=== PATIENT | female | born 1960 | race Caucasian/White ===

== ENCOUNTER → 2020-04-12 11:32 | Outpatient (CLI) | payer OTHER, SELFPAY ==
--- NOTE | ~2020-04-12 | MM_ITS ---
EXAMINATION: MM screening arcenio BI w sandra HISTORY: Screening TECHNIQUE: Craniocaudal and mediolateral oblique 3-D tomosynthesis images were obtained and synthetic 2-D images were generated. CAD analysis was submitted and interpreted. COMPARISON: Comparison to multiple prior studies sequentially, with oldest reviewed study dated 09/2012. BREAST PARENCHYMAL COMPOSITION: Breast composed of scattered areas of fibroglandular density FINDINGS: There is no evidence of suspicious mass, calcification, or architectural distortion to sugg est malignancy in either breast. There has been no suspicious interval change. IMPRESSION: 1. No mammographic evidence of malignancy. 2. Recommend routine screening mammography in one year. BI-RADS Category 1: Negative Reviewed, dictated and finalized at location A.
== END ==
PROVIDERS: Visit Provider Obstetrics & Gynecology Gynecology
DX: Z12.31 Encounter for screening mammogram for malignant neoplasm of breast (principal)
CPT/HCPCS: 77063; 77067

== ENCOUNTER → 2020-05-05 08:22 | Outpatient (CLI) | payer OTHER, SELFPAY ==
--- NOTE | ~2020-05-05 | CT_ITS ---
EXAMINATION: CT chest wo con DATE: 05/05/2020 08:47 INDICATION: Interstitial lung disease, shortness of breath with exertion TECHNIQUE: Computed tomography (CT) of the chest was performed without intravenous contrast. The dose -length product (DLP) was 649.35 mGy-cm. 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 COMPARISON: 07/12/2019 FINDINGS: Subpleural reticular and groundglass opacities with a mid and lower lung zone predominance persist without significant change. There is bronchiectasis of the lower lobes and lingula. No honeyc ombing is identified. There is no pleural effusion or pneumothorax. Stable cardiomegaly is noted. The re is enlargement of the main and central pulmonary arteries, consistent with pulmonary hypertension. Mild mediastinal lymphadenopathy is unchanged, likely reactive. The esophagus is mildly patulous, co rrelate for history of scleroderma. IMPRESSION: 1. Stable chronic interstitial lung disease in a pattern of nonspecific interstitial pneumonia (NSIP) versus desquamative interstitial pneumonia (DLP). Reviewed, dictated and finalized at location A. IMPRESSION: 1. Stable chronic interstitial lung disease in a pattern of nonspecific interst itial pneumonia (NSIP) versus desquamative interstitial pneumonia (DLP).
== END ==
PROVIDERS: PCP Physician Assistant
DX: J84.9 Interstitial pulmonary disease, unspecified (principal)
CPT/HCPCS: 71250

== ENCOUNTER 2021-01-24 12:11 | Inpatient (IN) | payer OTHER, SELFPAY ==
[2021-01-24] VITALS (19 sets, daily range): BP systolic 124–159; BP diastolic 48–95; PULSE 71–96; RESP 17–28; TEMP 36.6–38.4; O2SAT 79–100; BMI 50.3
--- NOTE | ~2021-01-24 | XR_ITS ---
EXAMINATION: XR chest 2V DATE: 01/24/2021 12:46 INDICATION: Shortness of breath. Cough. TECHNIQUE: Frontal and lateral views of the chest were obtained. COMPARISON: Chest CT 05/05/2020 FINDINGS: There are airspace opacities in the mid and lower lung zones. There is a small right pleura l effusion. No pneumothorax. Cardiomegaly is noted. There are surgical clips in the abdomen. IMPRESSION: 1. Airspace opacities in the mid and lower lung zones, consistent with pulmonary edema versus pneumon ia superimposed on chronic interstitial lung disease. 2. Small right pleural effusion. 3. Cardiomegaly. Reviewed, dictated and finalized at location B. IMPRESSION: 1. Airspace opacities in the mid and lower lung zones, consistent with pulmonar y edema versus pneumonia superimposed on chronic interstitial lung disease. 2. Small right pleural effusion. 3. Cardiomegaly.
--- NOTE | 2021-01-24 12:30 | ECG_ITS ---
SINUS RHYTHM RIGHT AXIS DEVIATION BORDERLINE R WAVE PROGRESSION, ANTERIOR LEADS BASELINE ARTIFACT- I, II, III, AVR, AVL, AVF, V1 BORDERLINE ECG Electronically Signed On 01-24-2021 13:59:28 CDT by Cuauhtemoc ORNELAS
[2021-01-24 12:38] LABS: Basophils Absolute Auto 0.1 K/mm3 (0.0-0.1); Basophils Percent Auto 0.7 % (0.2-1.2); Hematocrit 32.8 % (37.0-47.0); Hemoglobin 10.1 g/dL (12.0-15.0); Immature Granulocyte Absolute 0.04 K/mm3 (0.00-0.031); Immature Granulocyte Percent A 0.6 % (0-0.5); Lymphocytes Absolute Auto 0.64 K/mm3 (0.9-3.2); Lymphocytes Percent Auto 9.4 % (18.3-44.2); Mean Corpuscular HGB Conc 30.8 g/dl (32-36); Mean Corpuscular Hemoglobin 24.5 pg (26-34); Mean Corpuscular Volume 79.6 fl (80-100); Mean Platelet Volume 8.4 fl (7.4-10.4); Monocytes Absolute Auto 0.6 K/mm3 (0.1-0.6); Monocytes Percent Auto 8.1 % (2.6-8.5); Neutrophils Absolute Auto 5.5 K/mm3 (1.3-6.7); Neutrophils Percent Auto 81.2 % (45.5-73.1); Platelet Count Result 366 k/mm3 (150-375); Red Blood Count 4.12 M/mm3 (4.2-5.4); Red Cell Distribution Width 15.4 % (11.5-14.5); White Blood Count 6.8 K/mm3 (4.5-10.0)
[2021-01-24 12:52] LABS: Anion Gap 9 mmol/L (8-16); Blood Urea Nitrogen 6 mg/dL (7-17); Calcium 8.8 mg/dL (8.4-10.2); Carbon Dioxide 26 mmol/L (22-30); Chloride 101 mmol/L (98-107); Estimated CRCL calculation 88 ml/min; Estimated Glomerular Filt Rate > 60; Glucose 100 mg/dL (65-105); Potassium 3.9 mmol/L (3.4-5.0); Sodium 136 mmol/L (137-145)
--- NOTE | 2021-01-24 13:34 | PC.NURSE ---
EKG done incorrectly at 150Hz at 1237. Repeat EKG done at [address] Gupta at 1319. Denisha in cardiology notified
[2021-01-24] MEDS: IPRATROPIUM BR 0.02% INH SOLN 0.5 MG/2.5 ML VIAL INHALATION ×2 (13:58→20:46)
[2021-01-24] MEDS: ALBUTEROL SULFATE NEB 2.5 MG/0.5 ML INH 5 MG INHALATION ×2 (13:58→20:46)
--- NOTE | 2021-01-24 14:01 | ED.SOB ---
HPI - SOB/Dyspnea General Chief Complaint: Shortness of Breath/Dyspnea Stated Complaint: sob, rib pain Time Seen by Provider: 01/24/21 12:48 Source: patient Mode of arrival: ambulatory Limitations: no limitations History of Present Illness HPI Narrative: 60-year-old female History of some Sjogren's connective tissue disease variation Complains of shortness of breath and cough for 3 days Productive of yellowish-green phlegm She has body aches and subjective fever has not taken her temperature She did finish your Covid vaccination sequence about a month and a half ago 2-1/2 weeks ago she had a outpatient ablation procedure for atrial fibrillation Related Data Home Medications Medication Instructions Recorded Confirmed apixaban [Eliquis] mg 01/24/21 azathioprine 01/24/21 bupropion HCl mg PO 01/24/21 cefuroxime axetil 01/24/21 01/24/21 diltiazem HCl PO 01/24/21 fenofibrate mg 01/24/21 fluoxetine mg 01/24/21 levothyroxine [Synthroid] 01/24/21 metformin mg PO 01/24/21 metoprolol tartrate 01/24/21 pantoprazole PO 01/24/21 simvastatin mg 01/24/21 Allergies Allergy/AdvReac Type Severity Reaction Status Date / Time No Known Allergies Allergy Verified 01/24/21 12:24 Review of Systems Review of Systems: All systems reviewed & are unremarkable except as noted in HPI and below Constitutional: Constitutional: Reports chills, Reports fatigue, Reports fever(s), Denies headache(s) and Reports weakness Eyes: Eyes: Reports no additional eye complaints and Denies change in vision ENT: Denies headache(s) and Denies sore throat Cardiovascular: Cardiovascular: Denies chest pain and Denies dyspnea Respiratory: Respiratory: Reports cough and Reports dyspnea Gastrointestinal: Gastrointestinal: Denies abdominal pain, Denies diarrhea and Denies vomiting Genitourinary: Genitourinary: Denies urinary frequency and Denies dysuria Musculoskeletal: Musculoskeletal: Reports myalgias, Denies deformity, Denies arthralgias, Denies joint swelling and Denies numbness Integumentary/Breasts: Skin/Breast: Denies rash and Denies wounds Neurologic: Denies headache(s), Denies focal weakness and Denies numbness [facility] Past Medical History Medical History (Updated 01/24/21 @ 16:25 by Jose Gupta MD) Depression with anxiety DM2 (diabetes mellitus, type 2) History of atrial flutter Recent ablation Hyperlipidemia Hypothyroidism Developed after taking radioactive iodine Interstitial lung disease Sjogren's syndrome Surgical History Surgical History (Updated 01/24/21 @ 15:28 by Imelda Monroe NP) H/O cardiac radiofrequency ablation History of 2 sections History of shoulder surgery On the right History of total knee arthroplasty Bilat Family History Family History Father Family history of diabetes mellitus in first degree relative Family history of heart disease in male family member before age 55 Sibling Family history of diabetes mellitus in first degree relative Mother Family history of malignant neoplasm of breast in first degree relative Social History Social History (Updated 01/24/21 @ 15:29 by Imelda Mornoe NP) Social History: Patient lives with her Margarito who is the durable power title attorney for healthcare. The patient desires to be a full code. The patient has 2 children. The patient works for a [employer]. Lifelong nonsmoker. Does not use any alcohol,illicit drugs, or marijuana. Smoking status: Never smoker Alcohol intake: never Exam Const: General: cooperative and alert Nutritional Appearance: obese Orientation/consciousness: patient oriented x3 (alert) HENMT: Head: normal to inspection, normocephalic and atraumatic Ears: external ears normal General nose exam: no epistaxis Eyes: Conjunctivae: conjunctivae normal EOM: EOMs intact bilaterally Neck: Neck: normal visual inspection, supple a
[2021-01-24 14:54] LABS: Lactic Acid Reflex 0.9 mmol/L (0.7-2.1)
--- NOTE | 2021-01-24 15:15 | PM.IMHP ---
H&P: HPI History of Present Illness Date/Time: 01/24/21 15:15 this is a 60-year-old female patient who has a history of atrial flutter and recently had an ablation at [facility]. The patient stated that she started feeling ill last night and had a fever of 102. She stated that she has had her COVID vaccine in that she had COVID back in October. The patient has fever , chills, and a cough. She feels very fatigued. The patient was hypoxic with a pulse ox of 79 when she 1st came to the emergency room. She was placed on 2 L per nasal cannula. She does not currently have any oxygen at home. Here in the ER she does not have a fever. The patient sees a cork insulator helper elsewhere and has received the diagnosis interstitial lung disease. She also has a hazmat cdl driver that she follows with for her sojourn syndrome. That she just went to bed last night. She did not take any Tylenol or hqge-kjy-yhlgyni cold medication. Radiologist as opacities in the mid and lower lung zones, consistent with pulmonary edema versus pneumonia superimposed on chronic interstitial lung disease. Chest CT was read as stable chronic interstitial lung disease in a pattern of nonspecific interstitial pneumonia versus Desquamative pneumonia. The patient was placed on azithromycin and Rocephin. She is also given a nebulizer treatment in the emergency room. The patient is being admitted to inpatient status On 01/24/2021. Chief Complaint: Shortness of breath Review of Systems Review of Systems: All systems reviewed & are unremarkable except as noted in HPI and below Constitutional: Constitutional: Reports as per HPI and Reports no additional constitutional complaints Eyes: Eyes: Reports as per HPI and Reports no additional eye complaints ENT: Reports system reviewed and no additional complaints, except as documented and Reports Normal hearing present Cardiovascular: Cardiovascular: Reports no additional cardiovascular complaints Respiratory: Respiratory: Reports no additional respiratory complaints and Reports no additional respiratory complaints Gastrointestinal: Gastrointestinal: Reports as per HPI and Reports no additional gastrointestinal complaints Musculoskeletal: Musculoskeletal: Reports no additional musculoskeletal complaints Integumentary/Breasts: Skin/Breast: Reports system reviewed and no additional complaints, except as docu and Reports as per HPI Neurologic: Reports system reviewed and no additional complaints, except as documented, Reports as per HPI and Reports Normal hearing present Psychiatric: Psychiatric: Reports no additional psychiatric complaints and Reports as per HPI Endocrine: Endocrine: Reports no additional endocrine complaints Hematologic/Lymphatic: Hematologic/Lymphatic: Reports no additional hematologic/lymphatic complaints Allergic/Immunologic: Allergic/Immunologic: Reports no additional allergic/immunologic complaints [facility] Past Medical History Medical History (Updated 01/24/21 @ 15:36 by Imelda Monroe NP) Depression with anxiety DM2 (diabetes mellitus, type 2) History of atrial flutter Recent ablation Hyperlipidemia Hypothyroidism Developed after taking radioactive iodine Interstitial lung disease Sjogren's syndrome Surgical History Surgical History (Updated 01/24/21 @ 15:28 by Imelda Monroe NP) H/O cardiac radiofrequency ablation History of 2 sections History of shoulder surgery On the right History of total knee arthroplasty Bilat Family History Family History Father Family history of diabetes mellitus in first degree relative Family history of heart disease in male family member before age 55 Sibling Family history of diabetes mellitus in first degree relative Mother Family history of malignant neoplasm of breast in first degree relative Social History Social History (Updated 01/24/21 @ 15:29 by Imelda Monroe NP) Soc
--- NOTE | 2021-01-24 16:57 | ADMGEN ---
This patient, Melonie Prado, was admitted to [facility] Surg Room 313-01. Patient/family oriented to hospital policies and general routines including ID bracelet, bed and alarms, visiting hours, pain management, procedures, bathroom and other care routines, personal items, smoking policy, room service/diet, and visiting hours. Information on how to activate the Rapid Response Team has been discussed. Patient/Family are encouraged to report perceived risks to care and to ask questions if they do not understand what they are told or what they should do.
[2021-01-24] MEDS: LACTATED RINGERS 1,000 ML 125 ML IV CONT (17:18)
[2021-01-24] MEDS: metroNIDAZOLE 500 MG/ISO 100ML 500 MG/100 ML BAG 100 MG IVPB (17:18)
[2021-01-24 17:27] LABS: Glucose Point of Care 103 mg/dl (65-105)
[2021-01-24] MEDS: ACETAMINOPHEN 325 MG TABLET 650 MG PO (17:58)
[2021-01-24] MEDS: azaTHIOprine 50 MG TABLET PO (18:30)
[2021-01-24] MEDS: PANTOPRAZOLE 40 MG TABLET PO (18:31)
[2021-01-24] MEDS: APIXABAN 5 MG TABLET BY MOUTH (18:31)
[2021-01-24] MEDS: metFORMIN HCL XR 500 MG TAB.SR.24H PO (18:46)
[2021-01-24] MEDS: METOPROLOL TARTRATE 50 MG TAB PO (20:56)
[2021-01-24] MEDS: FENOFIBRATE,MICRONIZED 48 MG TABLET PO (20:57)
[2021-01-24] MEDS: SIMVASTATIN 20 MG TABLET PO (20:57)
[2021-01-24] MEDS: FLUoxetine HCL 10 MG CAPSULE PO (22:11)
[2021-01-24 23:25] LABS: Glucose Point of Care 97 mg/dl (65-105)
[2021-01-25] VITALS (18 sets, daily range): BP systolic 106–126; BP diastolic 44–98; PULSE 56–85; RESP 18–20; TEMP 36.2–36.7; O2SAT 86–97; BMI 50.3
[2021-01-25] MEDS: metroNIDAZOLE 500 MG/ISO 100ML 500 MG/100 ML BAG 100 MG IVPB ×3 (00:09→12:21)
[2021-01-25] MEDS: ACETAMINOPHEN 325 MG TABLET 650 MG PO ×3 (00:12→18:03)
[2021-01-25] MEDS: IPRATROPIUM BR 0.02% INH SOLN 0.5 MG/2.5 ML VIAL INHALATION ×3 (02:03→15:00)
[2021-01-25] MEDS: LACTATED RINGERS 1,000 ML 125 ML IV CONT (02:17)
[2021-01-25] MEDS: LEVOTHYROXINE SODIUM 100 MCG TABLET 200 MCG PO (05:45)
[2021-01-25 06:51] LABS: Basophils Percent Auto 0.5 % (0.2-1.2); Eosinophils Percent Auto 0.2 % (0-4.4); Hematocrit 27.6 % (37.0-47.0); Hemoglobin 8.6 g/dL (12.0-15.0); Immature Granulocyte Absolute 0.02 K/mm3 (0.00-0.031); Immature Granulocyte Percent A 0.3 % (0-0.5); Lymphocytes Absolute Auto 0.92 K/mm3 (0.9-3.2); Lymphocytes Percent Auto 15.9 % (18.3-44.2); Mean Corpuscular HGB Conc 31.2 g/dl (32-36); Mean Corpuscular Hemoglobin 24.4 pg (26-34); Mean Corpuscular Volume 78.2 fl (80-100); Mean Platelet Volume 8.8 fl (7.4-10.4); Monocytes Absolute Auto 0.7 K/mm3 (0.1-0.6); Monocytes Percent Auto 11.4 % (2.6-8.5); Neutrophils Absolute Auto 4.2 K/mm3 (1.3-6.7); Neutrophils Percent Auto 71.7 % (45.5-73.1); Platelet Count Result 319 k/mm3 (150-375); Red Blood Count 3.53 M/mm3 (4.2-5.4); Red Cell Distribution Width 15.8 % (11.5-14.5); White Blood Count 5.8 K/mm3 (4.5-10.0)
[2021-01-25 07:00] LABS: Alanine Aminotransferase 8 U/L (4-35); Albumin Level 3.1 g/dL (3.5-5.1); Alkaline Phosphatase 67 U/L (38-126); Anion Gap 8 mmol/L (8-16); Aspartate Amino Transferase 23 U/L (14-36); Bilirubin,Total 0.2 mg/dL (0.2-1.3); Blood Urea Nitrogen 6 mg/dL (7-17); Calcium 8.2 mg/dL (8.4-10.2); Carbon Dioxide 29 mmol/L (22-30); Chloride 104 mmol/L (98-107); Estimated CRCL calculation 87 ml/min; Estimated Glomerular Filt Rate > 60; Glucose 103 mg/dL (65-105); Potassium 3.7 mmol/L (3.4-5.0); Sodium 141 mmol/L (137-145)
[2021-01-25 07:11] LABS: Hemoglobin A1C 5.5 % (<5.7)
[2021-01-25 08:19] LABS: Free T4 Free Thyroxine Reflex 1.12 ng/dL (0.78-2.19)
[2021-01-25 08:24] LABS: Glucose Point of Care 109 mg/dl (65-105)
[2021-01-25] MEDS: ALBUTEROL SULFATE NEB 2.5 MG/0.5 ML INH 5 MG INHALATION ×3 (08:33→20:03)
[2021-01-25] MEDS: metFORMIN HCL XR 500 MG TAB.SR.24H PO ×2 (09:16→18:04)
[2021-01-25] MEDS: APIXABAN 5 MG TABLET BY MOUTH ×2 (09:17→18:04)
[2021-01-25] MEDS: buPROPion HCL XL (24 HR) 150 MG TABCR 300 MG PO (09:17)
[2021-01-25] MEDS: METOPROLOL TARTRATE 50 MG TAB PO ×2 (09:17→21:05)
[2021-01-25] MEDS: azaTHIOprine 50 MG TABLET PO ×2 (09:17→18:04)
[2021-01-25] MEDS: PANTOPRAZOLE 40 MG TABLET PO (09:18)
[2021-01-25 12:05] LABS: Glucose Point of Care 101 mg/dl (65-105)
[2021-01-25 12:07] LABS: Total Triiodothyronine (T3) 0.48 NG/ML (0.97-1.69)
--- NOTE | 2021-01-25 13:04 | PM.IMPN ---
Progress Note: A&P Assessment and Plan (1) Community acquired pneumonia: Code(s): J18.9 - Pneumonia, unspecified organism Status: Acute Assessment and Plan: CXR showed airspace opacities in the mid and lower lung zones. She had been febrile up to 101.1 but has been afebrile today. No leukocytosis. She was hypoxic and required up to 2 L which has resolved and she is on room air currently. Continue azithromycin and rocephin. Discontinue flagyl Supportive care to include bronchodilators, expectorants, antipyretics, and incentive spirometry Supplemental O2 as needed with goal saturation 90% or above. Wean to goal. Blood cultures are pending. Sputum culture ordered, however cough is nonproductive (2) Interstitial lung disease: Code(s): J84.9 - Interstitial pulmonary disease, unspecified Status: Chronic Assessment and Plan: She is established with pulmonology. Continue with outpatient follow up (3) DM2 (diabetes mellitus, type 2): Code(s): E11.9 - Type 2 diabetes mellitus without complications Status: Chronic Assessment and Plan: A1c is 5.5. Blood sugars are well controlled. Continue accuchecks, SSI, and hypoglycemic protocol Continue metformin (4) Hypothyroidism: Code(s): E03.9 - Hypothyroidism, unspecified Status: Chronic Assessment and Plan: TSH is elevated at 11.3 She is established with endocrinology and recently had TSH outpatient that was around 8.0 and no adjustments were made at that time because prior readings had been stable. T4 wnl Continue levothyroxine Recommend repeat TSH in several weeks as an outpatient upon resolution of acute illness Follow up with outpatient weblogic developer. (5) History of atrial flutter: Code(s): Z86.79 - Personal history of other diseases of the circulatory system Status: Inactive Assessment and Plan: S/p cardiac ablation on 01/08/2021. She is in sinus rhythm and rate is controlled. Continue Cardizem and Eliquis (6) Hypomagnesemia: Code(s): E83.42 - Hypomagnesemia Status: Acute Assessment and Plan: Magnesium was low at 1.0. Supplement with 3 g IV magnesium sulfate Monitor magnesium levels closely (7) Sjogren's syndrome: Code(s): M35.00 - Sicca syndrome, unspecified Status: Chronic Assessment and Plan: Chronic with no acute issues. She is established with rheumatology. Subjective Date/time seen: 01/25/21 13:04 Interval history: Date of service: 01/25/2021 Melonie Prado is a 60-year-old female with a history of type 2 diabetes mellitus, hyperlipidemia, hypothyroidism, interstitial lung disease and Sjogren syndrome, and history of atrial flutter s/p cardiac ablation on 01/08/2021 who is seen in follow-up for community-acquired pneumonia. She is feeling better today. She continues to endorse dyspnea at rest. She is still coughing frequently however cough is nonproductive. No chest pain or palpitations. Denies wheezing. She states that she can her chest rattling. She denies fever or chills. Denies nausea or vomiting. No dizziness or lightheadedness. She has been having loose stools for about 3 days. Denies any urinary symptoms. Her appetite has been poor, but she did he some of her breakfast this morning. She reports she has been staying well hydrated. She has no additional concerns at this time. Review of Systems Review of Systems: All systems reviewed & are unremarkable except as noted in HPI and below Exam Narrative: Exam Narrative: Ms. Prado is a well-nourished 60-year-old female who is lying supine in bed. She appears comfortable and is in NARD. Neuro: awake, alert and oriented x4, speech clear, no focal neuro deficits noted HEENMT: normocephalic, atraumatic, EOMI, sclerae anicteric, moist oral mucosa, tongue midline, nares patent Neck: supple, no lymphadenopathy Respirator
[2021-01-25] MEDS: MAGNESIUM SULFATE 3GM/D5W100ML 3 GM/100 ML BAG IVPB (13:31)
[2021-01-25 17:01] LABS: Glucose Point of Care 89 mg/dl (65-105)
[2021-01-25 17:40] LABS: SARS-CoV-2 RNA PCR Negative
[2021-01-25] MEDS: guaiFENesin 12 HR 600 MG TABCR PO (18:04)
[2021-01-25] MEDS: SACCHAROMYCES BOULARDII 250 MG CAPSULE PO (18:04)
[2021-01-25] MEDS: FENOFIBRATE,MICRONIZED 48 MG TABLET PO (21:04)
[2021-01-25] MEDS: SIMVASTATIN 20 MG TABLET PO (21:04)
[2021-01-25] MEDS: FLUoxetine HCL 10 MG CAPSULE PO (21:04)
[2021-01-25 21:44] LABS: Glucose Point of Care 108 mg/dl (65-105)
[2021-01-26] VITALS (21 sets, daily range): BP systolic 101–140; BP diastolic 45–63; PULSE 58–87; RESP 18–20; TEMP 36.1–37; O2SAT 71–99
[2021-01-26] MEDS: ALBUTEROL SULFATE NEB 2.5 MG/0.5 ML INH 5 MG INHALATION ×4 (01:59→20:16)
[2021-01-26] MEDS: IPRATROPIUM BR 0.02% INH SOLN 0.5 MG/2.5 ML VIAL INHALATION ×4 (01:59→20:17)
[2021-01-26] MEDS: LEVOTHYROXINE SODIUM 100 MCG TABLET 200 MCG PO (05:56)
[2021-01-26] MEDS: ACETAMINOPHEN 325 MG TABLET 650 MG PO (05:56)
[2021-01-26 05:57] LABS: Hematocrit 28.7 % (37.0-47.0); Hemoglobin 8.8 g/dL (12.0-15.0); Mean Corpuscular HGB Conc 30.7 g/dl (32-36); Mean Corpuscular Hemoglobin 24.1 pg (26-34); Mean Corpuscular Volume 78.6 fl (80-100); Mean Platelet Volume 8.5 fl (7.4-10.4); Platelet Count Result 327 k/mm3 (150-375); Red Blood Count 3.65 M/mm3 (4.2-5.4); Red Cell Distribution Width 15.7 % (11.5-14.5)
[2021-01-26 06:08] LABS: Anion Gap 8 mmol/L (8-16); Blood Urea Nitrogen 6 mg/dL (7-17); Calcium 8.1 mg/dL (8.4-10.2); Carbon Dioxide 27 mmol/L (22-30); Chloride 103 mmol/L (98-107); Estimated CRCL calculation 99 ml/min; Estimated Glomerular Filt Rate > 60; Glucose 104 mg/dL (65-105); Magnesium 1.4 mg/dL (1.6-2.3); Potassium 3.5 mmol/L (3.4-5.0); Sodium 138 mmol/L (137-145)
[2021-01-26 08:10] LABS: Glucose Point of Care 112 mg/dl (65-105)
[2021-01-26] MEDS: MAGNESIUM SULF 2 GM/WATER 50ML 2 GM/50 ML BAG IVPB (09:16)
[2021-01-26] MEDS: METOPROLOL TARTRATE 50 MG TAB PO ×2 (09:18→21:20)
[2021-01-26] MEDS: azaTHIOprine 50 MG TABLET PO (09:18)
[2021-01-26] MEDS: guaiFENesin 12 HR 600 MG TABCR PO ×2 (09:18→21:20)
[2021-01-26] MEDS: buPROPion HCL XL (24 HR) 150 MG TABCR 300 MG PO (09:18)
[2021-01-26] MEDS: SACCHAROMYCES BOULARDII 250 MG CAPSULE PO ×2 (09:20→17:43)
[2021-01-26] MEDS: metFORMIN HCL XR 500 MG TAB.SR.24H PO ×2 (09:20→17:43)
[2021-01-26] MEDS: PANTOPRAZOLE 40 MG TABLET PO (09:20)
[2021-01-26] MEDS: APIXABAN 5 MG TABLET BY MOUTH ×2 (09:20→17:43)
--- NOTE | 2021-01-26 11:12 | PM.IMPN ---
Progress Note: A&P Assessment and Plan (1) Community acquired pneumonia: Code(s): J18.9 - Pneumonia, unspecified organism Status: Acute Assessment and Plan: CXR showed airspace opacities in the mid and lower lung zones. She had been febrile up to 101.1 but has been afebrile almost 48 hours. No leukocytosis. Continue azithromycin and rocephin. Supportive care to include bronchodilators, expectorants, antipyretics, and incentive spirometry Supplemental O2 as needed with goal saturation 90% or above. Wean to goal. Blood cultures are pending, negative to date. Sputum culture ordered (2) Hypoxia: Code(s): R09.02 - Hypoxemia Status: Acute Assessment and Plan: [place] secondary to CAP. She was hypoxic at presentation required up to 2 L per nasal cannula. Today she desatted to 71% with activity. Maintaining adequate oxygen saturations on room air at rest. Home O2 eval performed today given the upcoming long weekend. Need for 2 L O2 with activity Supplemental O2 as above. Wean to goal. (3) Interstitial lung disease: Code(s): J84.9 - Interstitial pulmonary disease, unspecified Status: Chronic Assessment and Plan: Last CT May 2020 showed stable chronic interstitial lung disease. She is established with pulmonology. Continue with outpatient follow up (4) DM2 (diabetes mellitus, type 2): Code(s): E11.9 - Type 2 diabetes mellitus without complications Status: Chronic Assessment and Plan: A1c is 5.5. Blood sugars are well controlled. Continue accuchecks, SSI, and hypoglycemic protocol Continue metformin (5) Hypothyroidism: Code(s): E03.9 - Hypothyroidism, unspecified Status: Chronic Assessment and Plan: TSH is elevated at 11.3 She is established with endocrinology and recently had a patient TSH that was around 8.0 and no adjustments were made at that time because prior readings had been stable. T4 wnl Continue levothyroxine Recommend repeat TSH in several weeks as an outpatient upon resolution of acute illness Follow up with outpatient coffee shop manager. (6) History of atrial flutter: Code(s): Z86.79 - Personal history of other diseases of the circulatory system Status: Inactive Assessment and Plan: S/p cardiac ablation on 01/08/2021. She is in sinus rhythm and rate is controlled. Continue Cardizem and Eliquis (7) Hypomagnesemia: Code(s): E83.42 - Hypomagnesemia Status: Acute Assessment and Plan: Magnesium was low at 1.0 and was supplemented. Improved today at 1.5 Administer 2 g IV magnesium sulfate Monitor magnesium levels closely (8) Sjogren's syndrome: Code(s): M35.00 - Sicca syndrome, unspecified Status: Chronic Assessment and Plan: Chronic with no acute issues. She is established with rheumatology. Hold azathioprine given acute infection Subjective Date/time seen: 01/26/21 11:12 Interval history: Date of service: 01/26/2021 Melonie Prado is a 60-year-old female with a history of type 2 diabetes mellitus, hyperlipidemia, hypothyroidism, interstitial lung disease and Sjogren syndrome, and history of atrial flutter s/p cardiac ablation on 01/08/2021 who is seen in follow-up for community-acquired pneumonia. She is doing okay today. She became hypoxic while ambulating to the restroom today, though she remained asymptomatic during this episode. She is coughing more frequently and feels that her cough is becoming looser. She is able to expectorate better and endorses green sputum. She denies chest pain or palpitations. Denies fever, chills, nausea, vomiting. No dizziness or lightheadedness. Denies body aches or cramps. No urinary symptoms. Appetite is better today. Review of Systems Review of Systems: All systems reviewed & are unremarkable except as noted in HPI and below Exam Narrative: Exam
--- NOTE | 2021-01-26 11:48 | HOMEO2EVAL ---
Evaluation was performed at [facility] Home Oxygen Evaluation RC: Home Oxygen (O2) Evaluation Start: 01/26/21 11:02 Freq: ONCE Status: Active Protocol: RPE Activity Type Activity Date Activity User E-Sign Co-Sign Detail Recorded Client Recorded Date Recorded By Document 01/26/21 11:15 [email or web address] [email or web address] 01/26/21 11:48 DJO Document 01/26/21 11:20 [email or web address] [email or web address] 01/26/21 11:48 DJO Document 01/26/21 11:25 [email or web address] [email or web address] 01/26/21 11:48 DJO Document 01/26/21 11:30 [email or web address] [email or web address] 01/26/21 11:48 DJO Document 01/26/21 11:45 [email or web address] [email or web address] 01/26/21 11:48 DJO 01/26/21 01/26/21 01/26/21 11:15 11:20 11:25 Home O2 Evaluation Test Phase Resting Exercise Exercise Oxygen Delivery Room Air Room Air Nasal Cannula Oxygen Flow Rate (L/min) 1 Pulse Oximetry (90-100 %) 93 86 L 88 L Pulse Rate (60-100 beats/min) 58 L 79 87 Activity Tolerance Rating of Perceived Dyspnea (PD) Ambulation Distance (feet) Treatment Charges O2 Evaluation - Inpatient 01/26/21 01/26/21 11:30 11:45 Home O2 Evaluation Test Phase Exercise Resting Oxygen Delivery Nasal Cannula Room Air Oxygen Flow Rate (L/min) 2 Pulse Oximetry (90-100 %) 90 92 Pulse Rate (60-100 beats/min) 60 Activity Tolerance Good Rating of Perceived Dyspnea (PD) +2 Mild, Some Difficulty, Noticeable to the Observer Ambulation Distance (feet) 400 Treatment Charges
[2021-01-26 12:39] LABS: Glucose Point of Care 134 mg/dl (65-105)
--- NOTE | 2021-01-26 13:17 | PCRCNOTE ---
HOME O2 EVAL COMPLETE, 2 LITERS WITH ACTIVITY. SET UP WITH [facility] PT. PHONE NUMBER [phone]. TANK TO BE DELIVERED TO PT'S ROOM TODAY.
[2021-01-26 17:35] LABS: Glucose Point of Care 122 mg/dl (65-105)
[2021-01-26] MEDS: FENOFIBRATE,MICRONIZED 48 MG TABLET PO (21:20)
[2021-01-26] MEDS: SIMVASTATIN 20 MG TABLET PO (21:20)
[2021-01-26] MEDS: FLUoxetine HCL 10 MG CAPSULE PO (22:01)
[2021-01-27] VITALS (9 sets, daily range): BP systolic 103–122; BP diastolic 54–59; PULSE 59–87; RESP 15–20; TEMP 36.5–36.9; O2SAT 91–99
[2021-01-27] MEDS: ALBUTEROL SULFATE NEB 2.5 MG/0.5 ML INH 5 MG INHALATION ×2 (03:16→08:18)
[2021-01-27] MEDS: IPRATROPIUM BR 0.02% INH SOLN 0.5 MG/2.5 ML VIAL INHALATION ×2 (03:17→08:19)
[2021-01-27 06:21] LABS: Anion Gap 4 mmol/L (8-16); Blood Urea Nitrogen 6 mg/dL (7-17); Calcium 8.1 mg/dL (8.4-10.2); Carbon Dioxide 31 mmol/L (22-30); Chloride 104 mmol/L (98-107); Estimated CRCL calculation 99 ml/min; Estimated Glomerular Filt Rate > 60; Glucose 98 mg/dL (65-105); Magnesium 1.5 mg/dL (1.6-2.3); Potassium 3.6 mmol/L (3.4-5.0); Sodium 139 mmol/L (137-145)
[2021-01-27 06:23] LABS: Hematocrit 27.6 % (37.0-47.0); Hemoglobin 8.4 g/dL (12.0-15.0)
[2021-01-27] MEDS: LEVOTHYROXINE SODIUM 100 MCG TABLET 200 MCG PO (06:31)
[2021-01-27 07:01] LABS: Glucose Point of Care 109 mg/dl (65-105)
[2021-01-27 08:30] LABS: Glucose Point of Care 120 mg/dl (65-105)
[2021-01-27] MEDS: buPROPion HCL XL (24 HR) 150 MG TABCR 300 MG PO (08:35)
[2021-01-27] MEDS: PANTOPRAZOLE 40 MG TABLET PO (08:35)
[2021-01-27] MEDS: SACCHAROMYCES BOULARDII 250 MG CAPSULE PO (08:35)
[2021-01-27] MEDS: metFORMIN HCL XR 500 MG TAB.SR.24H PO (08:35)
[2021-01-27] MEDS: APIXABAN 5 MG TABLET BY MOUTH (08:35)
[2021-01-27] MEDS: guaiFENesin 12 HR 600 MG TABCR PO (08:35)
[2021-01-27] MEDS: MAGNESIUM SULF 1 GM/D5W 100 ML 1 GM/100 ML BAG IVPB (08:36)
[2021-01-27] MEDS: METOPROLOL TARTRATE 50 MG TAB PO (08:36)
[2021-01-27 12:12] LABS: Glucose Point of Care 103 mg/dl (65-105)
--- NOTE | 2021-01-27 12:47 | PM.DS ---
DS: Admitting Diagnosis Admitting Diagnosis Admitting Diagnosis: CAP DS: Discharge Diagnosis Discharge Diagnosis (1) Community acquired pneumonia: Code(s): J18.9 - Pneumonia, unspecified organism Status: Acute Assessment and Plan: CXR showed airspace opacities in the mid and lower lung zones. She had been febrile up to 101.1 but has been afebrile almost 48 hours. No leukocytosis. azithromycin and ceftrixone x 3 doses, PO azithromycin and cefdinir for additional 4 days. prednisone added for 5 days 01/27, patient instructed to avoid refined carbohydrates (sugar and flour) for one week. Supportive care to include bronchodilators, expectorants, antipyretics, and incentive spirometry Supplemental O2 as needed with goal saturation 90% or above. Wean to goal. Blood cultures are pending, negative to date. Sputum culture ordered (2) Hypoxia: Code(s): R09.02 - Hypoxemia Status: Acute Assessment and Plan: [place] secondary to CAP. She was hypoxic at presentation required up to 2 L per nasal cannula. Today she desatted to 71% with activity. Maintaining adequate oxygen saturations on room air at rest. Home O2 eval performed 01/26 demonstrated need for 2 L O2 with activity (3) Interstitial lung disease: Code(s): J84.9 - Interstitial pulmonary disease, unspecified Status: Chronic Assessment and Plan: Last CT May 2020 showed stable chronic interstitial lung disease. She is established with pulmonology. Continue with outpatient follow up (4) DM2 (diabetes mellitus, type 2): Code(s): E11.9 - Type 2 diabetes mellitus without complications Status: Chronic Assessment and Plan: A1c is 5.5. Blood sugars are well controlled. Diabetic diet Continue metformin (5) Hypothyroidism: Code(s): E03.9 - Hypothyroidism, unspecified Status: Chronic Assessment and Plan: TSH is elevated at 11.3 She is established with endocrinology and recently had a patient TSH that was around 8.0 and no adjustments were made at that time because prior readings had been stable. T4 wnl TSH over 11 with FT4 WNL, TT3 low, suggesting sick euthyroid syndrome Continue levothyroxine Recommend repeat TSH in several weeks as an outpatient upon resolution of acute illness Follow up with outpatient chief medical technologist. (6) Hypomagnesemia: Code(s): E83.42 - Hypomagnesemia Status: Acute Assessment and Plan: Magnesium was low at 1.0 upon admission and was supplemented. Improved today at 1.5 Administer 1 g IV magnesium sulfate F/u as outpatient (7) Sjogren's syndrome: Code(s): M35.00 - Sicca syndrome, unspecified Status: Chronic Assessment and Plan: Chronic with no acute issues. She is established with rheumatology. Resume azathioprine after completion of antibiotics DS: Summary Hospital Course Reason for hospitalization: Pneumonia Hospital Course: Admitted with worsening cough and dyspnea. Found to have bilateral mid lower lung infiltrates. SARS-CoV-2 testing negative. Treated with inhaled bronchodilators, a azithromycin, ceftriaxone. Shortness of breath and wheezing improved. Required no oxygen at rest but 2 liters/minute with exertion. Advised to also wear during sleep. Was tolerating her diet. Sugars were controlled. Prednisone added on day of discharge due to ongoing wheezing. Also has a history of interstitial lung disease of undetermined etiology, possibly related to her sicca syndrome. Patient was to go home with her as she was feeling much better. Patient's white blood cell count remained normal during hospitalization as did her platelet count. Her hemoglobin was 10.1 with follow-up 8.6, 8.8, 8.4. No bleeding. Her counts are followed closely due to azathioprine. She will continue to follow-up with her director agency & strategic partnerships and primary physician. Blood sugar remained controlled dur
[2021-01-27] MEDS: predniSONE 20 MG TABLET PO (14:31)
== END 2021-01-27 15:25 | disposition home or self-care (01) | DRG 194 ==
LOC: ANHED 14:20 → ANH3MEDSUR 16:26
PROVIDERS: Nurse Practitioner; Physician Assistant; Admitting Provider Family Medicine; Emergency Provider Emergency Medicine; PCP Physician Assistant; Visit Provider Internal Medicine
DX: J18.9 Pneumonia, unspecified organism (principal); J84.9 Interstitial pulmonary disease, unspecified; Z20.822 Contact with and (suspected) exposure to COVID-19; R09.02 Hypoxemia; F41.8 Other specified anxiety disorders; E11.9 Type 2 diabetes mellitus without complications; E78.5 Hyperlipidemia, unspecified; E89.0 Postprocedural hypothyroidism; E83.42 Hypomagnesemia; M35.00 Sjogren syndrome, unspecified; Z86.79 Personal history of other diseases of the circulatory system; Z79.01 Long term (current) use of anticoagulants; Z79.899 Other long term (current) drug therapy
CPT/HCPCS: 36415; 71046; 80048; 80053; 82948; 83036; 83605; 83735; 84439; 84443; 84480; 85014; 85018; 85025; 85027; 87040; 93005; 94618; 94640; 96361; 96365; 96366; 96367; 96375; 99285; A9270; C9803; G0378; J0456; J0696; J3475; J7120; J7512; U0003; U0005

== ENCOUNTER → 2021-02-16 15:23 | Outpatient (CLI) | payer OTHER, SELFPAY ==
--- NOTE | ~2021-02-16 | XR_ITS ---
EXAMINATION: XR chest 2V DATE: 02/16/2021 15:50 INDICATION: Pneumonia TECHNIQUE: PA and lateral views of the chest were obtained. COMPARISON: Chest radiograph dated 01/24/2021 FINDINGS: Pulmonary vascular congestion. Increased interstitial and patchy groundglass opacities throughout the bilateral mid and lower lung zones. No pneumothorax or pleural effusion. Cardiomegaly. There are alvaro dging osteophytes at multiple levels in the spine, consistent with diffuse idiopathic skeletal hypero stosis (DISH). IMPRESSION: 1. Persistent interstitial and airspace opacities in the bilateral mid and lower lung zones which cou ld represent pulmonary edema, pneumonia, chronic interstitial lung disease or some combination thereo f. 2. Cardiomegaly. Reviewed, dictated and finalized at location A. IMPRESSION: 1. Persistent interstitial and airspace opacities in the bilateral mid and lowe r lung zones which could represent pulmonary edema, pneumonia, chronic intersti tial lung disease or some combination thereof. 2. Cardiomegaly.
--- NOTE | ~2021-02-16 | US_ITS ---
EXAMINATION: US soft tissue head and neck EXAM DATE: 02/16/2021 15:49 INDICATION: Localized swellings, mass and lump, neck . TECHNIQUE: Multiple grayscale and Doppler images of the symptomatic left neck palpable region were ob tained (by a technologist who performed the scan) and subsequently reviewed. There is no prior study for comparison. FINDINGS: Scanning in symptomatic region demonstrates focal low echogenicity region with echogenic hilum consis tent with lymph node measuring 2.0 x 0.8 x 2.5 cm. Most likely reactive lymph node. The left internal jugular chain was scanned, largest lymph node there at 1.7 x 0.5 x 0.5 cm, within normal size limits . IMPRESSION: Mildly enlarged left neck lymph node, probably reactive but if this does not resolve clin ically then recommend follow-up ultrasound or CT neck with contrast. Reviewed, dictated and finalized at location B. IMPRESSION: Mildly enlarged left neck lymph node, probably reactive but if this does not resolve clinically then recommend follow-up ultrasound or CT neck wit h contrast.
== END ==
PROVIDERS: PCP Physician Assistant; Visit Provider Physician Assistant
DX: R59.0 Localized enlarged lymph nodes (principal); J18.9 Pneumonia, unspecified organism; R91.8 Other nonspecific abnormal finding of lung field; I51.7 Cardiomegaly
CPT/HCPCS: 71046; 76536

== ENCOUNTER → 2021-05-05 08:49 | Outpatient (CLI) | payer OTHER, SELFPAY ==
--- NOTE | ~2021-05-05 | MM_ITS ---
EXAMINATION: MM screening [facility] BI w sandra HISTORY: Screening mammogram TECHNIQUE: Craniocaudal and mediolateral oblique 3-D tomosynthesis images were obtained and synthetic 2-D images were generated. CAD analysis was submitted and interpreted. COMPARISON: 04/12/2020, 03/31/2018, 03/21/2017 bilateral digital screening mammogram examinations and BREAST PARENCHYMAL COMPOSITION: There are scattered areas of fibroglandular density. FINDINGS: New irregular 5 mm mass is noted in the mid outer left breast (craniocaudal Tomosynthesis image 35/62 ). Diagnostic left mammogram and left breast ultrasound examination are recommended. Otherwise there is is no evidence of suspicious mass, calcification, or architectural distortion to s uggest malignancy in either breast. There has been no other suspicious interval change. IMPRESSION: 1. New irregular 5 mm mass in the mid outer left breast 2. Diagnostic left mammogram and left breast ultrasound examination are recommended BI-RADS Category 0: Incomplete: Needs additional imaging evaluation. Reviewed, dictated and finalized at location A. IMPRESSION: 1. New irregular 5 mm mass in the mid outer left breast 2. Diagnostic left mammogram and left breast ultrasound examination are recomme nded BI-RADS Category 0: Incomplete: Needs additional imaging evaluation.
== END ==
PROVIDERS: Visit Provider Obstetrics & Gynecology Gynecology
DX: Z12.31 Encounter for screening mammogram for malignant neoplasm of breast (principal); N63.0 Unspecified lump in unspecified breast
CPT/HCPCS: 77063; 77067

== ENCOUNTER 2021-05-25 02:47 | Day surgery (SDC) | payer OTHER, SELFPAY ==
[2021-05-16 15:29] VITALS: BMI 48.8
--- NOTE | 2021-05-24 20:13 | PM.HPGS ---
History of Present Illness History of Present Illness Consent: Risks, benefits, and alternatives have been discussed and questions answered. Patient agrees to proceed with procedure. Chief complaint: DELANO/GERD Narrative: Melonie Prado is a 60 year old female found to have iron deficiency anemia. when she was hospitalized with pneumonia in December her hemoglobin dropped from 10-8.4. She has not seen blood in her stools. She does not know her current hemoglobin level. She began taking Imuran earlier this year for Sjogren syndrome, and believes that the Imuran may have been a factor here dropping blood counts, adding that it has not helped any of her symptoms Review of Systems Review of Systems: All systems reviewed & are unremarkable except as noted in HPI and below PMFSH Past Medical History Medical History Depression with anxiety DM2 (diabetes mellitus, type 2) History of atrial flutter Recent ablation Hyperlipidemia Hypothyroidism Developed after taking radioactive iodine Interstitial lung disease Sjogren's syndrome Surgical History Surgical History H/O cardiac radiofrequency ablation History of 2 sections History of shoulder surgery On the right History of total knee arthroplasty Bilat Family History Family History Father Family history of heart disease in male family member before age 55 Family history of diabetes mellitus in first degree relative Colon cancer Sibling Family history of diabetes mellitus in first degree relative Mother Family history of malignant neoplasm of breast in first degree relative Social History Social History Social History: Patient lives with her Margarito who is the durable power state attorney for healthcare. The patient desires to be a full code. The patient has 2 children. 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 Lifelong nonsmoker. Does not use any alcohol,illicit drugs, or marijuana. Smoking status: Never smoker Alcohol intake: never Substance use: never Substance use type: does not use Living arrangements: with family Gender identity (if verbalized by the patient): Female Spiritual care concerns: No Meds Home Medications and Allergies Home Medications Medication Instructions Recorded Confirmed Type Eliquis 5 mg BID 01/24/21 05/16/21 History azathioprine 50 mg PO BID 01/24/21 05/16/21 History bupropion HCl 300 mg PO DAILY 01/24/21 05/16/21 History diltiazem HCl 120 mg PO DAILY 01/24/21 05/16/21 History fenofibrate 54 mg PO HS 01/24/21 05/16/21 History fluoxetine 10 mg PO HS 01/24/21 05/16/21 History levothyroxine [Synthroid] 200 mcg PO DAILY 01/24/21 05/16/21 History metformin 500 mg PO BID 01/24/21 05/16/21 History metoprolol tartrate 50 mg PO BID 01/24/21 05/16/21 History pantoprazole 40 mg PO DAILY 01/24/21 05/16/21 History simvastatin 20 mg PO HS 01/24/21 05/16/21 History albuterol sulfate 2 puff INHALATION .q 4 hours PRN 01/27/21 05/16/21 Rx #6.7 g Allergies Allergy/AdvReac Type Severity Reaction Status Date / Time No Known Allergies Allergy Verified 05/25/21 08:14 Exam Const: General: alert Orientation/consciousness: patient oriented x3 Resp: Auscultation: clear to auscultation bilaterally Cardio: Rhythm: regular rhythm GI: GI Palp: Yes Soft to palpation and No Tenderness to palpation present (GI) Neuro: General: patient oriented x3 Assessment and Plan Assessment and plan (1) Iron deficiency anemia: Code(s): D50.9 - Iron deficiency anemia, unspecified Status: Acute Assessment and Plan: EGD with possible biopsy or dilatation or cautery.Colonoscopy with possible biopsy or polypectomy or cautery or injection of substances.
[2021-05-25 08:17] VITALS: BP 153/55; PULSE 60; RESP 18; TEMP 36.9; O2SAT 96; BMI 50.1
[2021-05-25 08:26] LABS: Glucose Point of Care 99 mg/dl (65-105)
--- NOTE | 2021-05-25 08:34 | WPDANESEPPF ---
Anes - Initial Pre Proc Eval Procedure: Operation Date: 05/25/21 09:00 Proposed Procedures p Esophagogastroduodenoscopy & Colonoscopy - Stephen Castro MD Date/Time: 05/25/21 08:34 Surgeon: Stephen Castro MD Pre Op Diagnosis: DELANO/GERD Patient Data Age: 60 Gender: F Height: 1.63 m Weight: 132.3 kg Last Vital Signs Temp 98.4 F 05/25/21 08:17 Pulse 60 05/25/21 08:17 Resp 18 05/25/21 08:17 BP 153/55 H 05/25/21 08:17 Pulse Ox 96 05/25/21 08:17 Allergies Allergy/AdvReac Type Severity Reaction Status Date / Time No Known Allergies Allergy Verified 05/25/21 08:14 Home Medications Medication Instructions Recorded Confirmed Type Eliquis 5 mg BID 01/24/21 05/16/21 History azathioprine 50 mg PO BID 01/24/21 05/16/21 History bupropion HCl 300 mg PO DAILY 01/24/21 05/16/21 History diltiazem HCl 120 mg PO DAILY 01/24/21 05/16/21 History fenofibrate 54 mg PO HS 01/24/21 05/16/21 History fluoxetine 10 mg PO HS 01/24/21 05/16/21 History levothyroxine [Synthroid] 200 mcg PO DAILY 01/24/21 05/16/21 History metformin 500 mg PO BID 01/24/21 05/16/21 History metoprolol tartrate 50 mg PO BID 01/24/21 05/16/21 History pantoprazole 40 mg PO DAILY 01/24/21 05/16/21 History simvastatin 20 mg PO HS 01/24/21 05/16/21 History albuterol sulfate 2 puff INHALATION .q 4 hours PRN 01/27/21 05/16/21 Rx #6.7 g Laboratory Tests 05/25/21 08:24 POC Capillary Glucose 99 mg/dl mg/dl (65-105) Patient hx anesthesia problems: none Family hx anesthesia problems: none Results Review: All pre-operative results and documents have been reviewed as part of the pre-operative evaluation. [facility] Past Medical History Medical History (Updated 05/24/21 @ 20:14 by Stephen Castro MD) Depression with anxiety DM2 (diabetes mellitus, type 2) History of atrial flutter Recent ablation Hyperlipidemia Hypothyroidism Developed after taking radioactive iodine Interstitial lung disease Sjogren's syndrome Surgical History Surgical History (Updated 01/24/21 @ 15:28 by Imelda Monroe NP) H/O cardiac radiofrequency ablation History of 2 sections History of shoulder surgery On the right History of total knee arthroplasty Bilat Family History Family History (Updated 01/24/21 @ 17:29 by Yamilka Payton RN) Father Family history of heart disease in male family member before age 55 Family history of diabetes mellitus in first degree relative Colon cancer Sibling Family history of diabetes mellitus in first degree relative Mother Family history of malignant neoplasm of breast in first degree relative Social History Social History (Updated 01/24/21 @ 15:29 by Imelda Monroe NP) Social History: Patient lives with her Margarito who is the durable power attorney lawyer for healthcare. The patient desires to be a full code. The patient has 2 children. The patient works for a [employer]. Lifelong nonsmoker. Does not use any alcohol,illicit drugs, or marijuana. Smoking status: Never smoker Alcohol intake: never Substance use: never Substance use type: does not use Living arrangements: with family Gender identity (if verbalized by the patient): Female Spiritual care concerns: No Anes - Eval Final PreProcedure Day of Procedure 05/25/21 08:34 Patient weight: super morbidly obese Heart: regular rate and rhythm Lungs: clear to auscultation Airway: Mallampati scale class III Neurological: alert and oriented Last oral intake: >/= 8 hours ASA classification: IV Emergent: no Anesthetic plan: proceed Anesthesia type and monitoring: general GIVS and standard monitoring Results Review: All pre-operative results and documents have been reviewed as part of the pre-operative evaluation. Informed Consent: The patient's anesthetic plan and its attendant risks and benefits were discussed with the patient/family/POA. Questions were solicited and answers provided to the satisfactio
[2021-05-25] MEDS: LACTATED RINGERS 1,000 ML 150 ML IV CONT (09:04)
[2021-05-25] MEDS: BENZOCAINE (*SP) 60 ML SPRAY CAN (HURRICAINE) 1 SPRAY MUCOUS MEM (09:27)
--- NOTE | 2021-05-25 09:39 | SUR.OPER ---
egd stop time 930, colonoscopy start time 936
[2021-05-25 09:51] VITALS: BP 126/57; PULSE 64; RESP 18; O2SAT 97
[2021-05-25 10:01] VITALS: BP 140/58; PULSE 62; RESP 20; O2SAT 96
[2021-05-25 10:11] VITALS: BP 127/65; PULSE 58; RESP 18; O2SAT 97
== END 2021-05-25 10:29 | disposition home or self-care (01) ==
PROVIDERS: PCP Physician Assistant; Visit Provider Internal Medicine Gastroenterology
PROC: 0DJ08ZZ Inspection of Upper Intestinal Tract, Via Natural or Artificial Opening Endoscopic (ICD-10-PCS; CPT 43235; principal; 2021-05-25 09:00)
DX: D50.9 Iron deficiency anemia, unspecified (principal); K21.00 Gastro-esophageal reflux disease with esophagitis, without bleeding; K22.10 Ulcer of esophagus without bleeding; K44.9 Diaphragmatic hernia without obstruction or gangrene; E11.9 Type 2 diabetes mellitus without complications; E78.5 Hyperlipidemia, unspecified; E03.8 Other specified hypothyroidism; J84.9 Interstitial pulmonary disease, unspecified; F41.9 Anxiety disorder, unspecified; M35.00 Sjogren syndrome, unspecified; F32.9 Major depressive disorder, single episode, unspecified; Z96.653 Presence of artificial knee joint, bilateral
CPT/HCPCS: 43239; 45378; 82948; 88305; J2001; J2704; J7120

== ENCOUNTER → 2021-06-05 08:16 | Outpatient (CLI) | payer OTHER, SELFPAY ==
--- NOTE | ~2021-06-05 | MMUS_ITS ---
EXAMINATION: MM diagnostic [facility] LT w sandra, US breast LT limited HISTORY: Left breast asymmetry on screening mammogram TECHNIQUE: Additional 3-D tomosynthesis images of the left breast were performed and synthetic 2-D im ages were generated. CAD analysis was submitted and interpreted. High resolution limited left breast ultrasound was performed. COMPARISON: 05/05/2021, 04/12/2020, 03/31/2018 BREAST PARENCHYMAL COMPOSITION: There are scattered areas of fibroglandular density. FINDINGS: MAMMOGRAPHIC FINDINGS: The left breast asymmetry described on screening mammogram somewhat disperses with spot compression. No definite mass, calcification, or architectural distortion are seen. ULTRASOUND: There is no evidence of focal abnormal solid or cystic mass in the vicinity of the mammographic findi ng in question. IMPRESSION: 1. Probably benign left breast asymmetry. 2. Recommend 6 month follow-up left diagnostic mammogram and ultrasound. BI-RADS category 3, probably benign findings. Reviewed, dictated and finalized at location A. IMPRESSION: 1. Probably benign left breast asymmetry. 2. Recommend 6 month follow-up left diagnostic mammogram and ultrasound. BI-RADS category 3, probably benign findings.
== END ==
PROVIDERS: Visit Provider Obstetrics & Gynecology Gynecology
DX: R92.8 Other abnormal and inconclusive findings on diagnostic imaging of breast (principal)
CPT/HCPCS: 76642; 77061; 77065; G0279

== ENCOUNTER 2021-07-13 07:59 | Outpatient (CLI) | payer OTHER, SELFPAY ==
[2021-07-13 08:45] VITALS: PULSE 84; O2SAT 97
[2021-07-13 08:50] VITALS: PULSE 99; O2SAT 86
[2021-07-13 08:55] VITALS: PULSE 99; O2SAT 88
[2021-07-13 09:00] VITALS: PULSE 98; O2SAT 91
[2021-07-13 09:15] VITALS: PULSE 86; O2SAT 97
--- NOTE | 2021-07-13 14:39 | HOMEO2EVAL ---
Evaluation was performed at [facility] Home Oxygen Evaluation RC: Home Oxygen (O2) Evaluation Start: 07/13/21 14:37 Freq: Status: Active Protocol: RPE Activity Type Activity Date Activity User E-Sign Co-Sign Detail Recorded Client Recorded Date Recorded By Document 07/13/21 08:45 [email or web address] [email or web address] 07/13/21 14:39 DJO Document 07/13/21 08:50 [email or web address] [email or web address] 07/13/21 14:39 DJO Document 07/13/21 08:55 [email or web address] [email or web address] 07/13/21 14:39 DJO Document 07/13/21 09:00 [email or web address] [email or web address] 07/13/21 14:39 DJO Document 07/13/21 09:15 [email or web address] [email or web address] 07/13/21 14:39 DJO 07/13/21 07/13/21 07/13/21 08:45 08:50 08:55 Home O2 Evaluation Test Phase Resting Exercise Exercise Oxygen Delivery Room Air Room Air Nasal Cannula Oxygen Flow Rate (L/min) 1 Pulse Oximetry (90-100 %) 97 86 L 88 L Pulse Rate (60-100 beats/min) 84 99 99 Treatment Charges O2 Evaluation - Outpatient 07/13/21 07/13/21 09:00 09:15 Home O2 Evaluation Test Phase Exercise Resting Oxygen Delivery Nasal Cannula Room Air Oxygen Flow Rate (L/min) 2 Pulse Oximetry (90-100 %) 91 97 Pulse Rate (60-100 beats/min) 98 86 Treatment Charges
== END 2021-07-13 08:00 | disposition home or self-care (01) ==
DX: J96.11 Chronic respiratory failure with hypoxia (principal)
CPT/HCPCS: 94618

== ENCOUNTER → 2021-12-04 07:53 | Outpatient (CLI) | payer OTHER, SELFPAY ==
--- NOTE | ~2021-12-04 | MM_ITS ---
EXAMINATION: MM diagnostic arcenio LT w sandra HISTORY: Follow-up left breast asymmetry TECHNIQUE: Additional 3-D tomosynthesis images of the left breast were performed and synthetic 2-D im ages were generated. CAD analysis was submitted and interpreted. COMPARISON: Comparison to multiple prior studies sequentially, with oldest reviewed study dated 03/19. BREAST PARENCHYMAL COMPOSITION: Breast composed of scattered areas of fibroglandular density. FINDINGS: The left breast is composed of stable heterogeneous fibroglandular tissue without new mass, calcification or suspicious architectural distortion to suggest malignancy. IMPRESSION: 1. No mammographic evidence for malignancy in the left breast. 2. Routine yearly screening mammogram and regular clinical breast examination are recommended. BI-RADS Category 1: Negative Reviewed, dictated and finalized at location A. IMPRESSION: 1. No mammographic evidence for malignancy in the left breast. 2. Routine yearly screening mammogram and regular clinical breast examination a re recommended. BI-RADS Category 1: Negative
== END ==
PROVIDERS: Visit Provider Obstetrics & Gynecology Gynecology
DX: R92.8 Other abnormal and inconclusive findings on diagnostic imaging of breast (principal)
CPT/HCPCS: 77061; 77065; G0279

== ENCOUNTER → 2022-05-29 15:00 | Outpatient (CLI) | payer OTHER, SELFPAY ==
--- NOTE | ~2022-05-29 | MM_ITS ---
EXAMINATION: MM screening arcenio BI w sandra HISTORY: Screening mammogram TECHNIQUE: Craniocaudal and mediolateral oblique 3-D tomosynthesis images were obtained and synthetic 2-D images were generated. CAD analysis was submitted and interpreted. COMPARISON: 12/04/2021 diagnostic left mammogram and limited left breast ultrasound 06/05/2021 diagnostic left mammogram and limited left breast ultrasound 05/2021, 04/12/2020, 03/31/2018 bilateral screening mammogram examinations bilateral screening mammogra m BREAST PARENCHYMAL COMPOSITION: There are scattered areas of fibroglandular density. FINDINGS: There is no evidence of suspicious mass, calcification, or architectural distortion to sugg est malignancy in either breast. There has been no suspicious interval change. IMPRESSION: 1. No mammographic evidence of malignancy. 2. Recommend routine screening mammography in one year. BI-RADS Category 1: Negative Reviewed, dictated and finalized at location A.
== END ==
PROVIDERS: PCP Physician Assistant; Visit Provider Nurse Practitioner
DX: Z12.31 Encounter for screening mammogram for malignant neoplasm of breast (principal)
CPT/HCPCS: 77063; 77067

== ENCOUNTER → 2023-08-05 07:21 | Outpatient (CLI) | payer OTHER, SELFPAY ==
--- NOTE | ~2023-08-05 | MM_ITS ---
EXAMINATION: MM screening arcenio BI w sandra HISTORY: Screening mammogram, family history of breast cancer in her mother. TECHNIQUE: Craniocaudal and mediolateral oblique 3-D tomosynthesis images were obtained and synthetic 2-D images were generated. CAD analysis was submitted and interpreted. COMPARISON: 05/29/2022, 12/04/2021, 06/05/2021, 05/05/2021, 04/12/2020 BREAST PARENCHYMAL COMPOSITION: There are scattered areas of fibroglandular density. FINDINGS: No suspicious mass, calcification, or architectural distortion are identified in either reyes ast to suggest malignancy. There has been no suspicious interval change. IMPRESSION: 1. No mammographic evidence of malignancy. 2. Recommend routine screening mammography in one year. BI-RADS Category 1: Negative Reviewed, dictated and finalized at location A. OUT OPERATOR
== END ==
PROVIDERS: PCP Nurse Practitioner; Visit Provider Nurse Practitioner
DX: Z12.31 Encounter for screening mammogram for malignant neoplasm of breast (principal)
CPT/HCPCS: 77063; 77067

== ENCOUNTER 2024-03-11 17:41 | Inpatient (IN) | payer OTHER, SELFPAY ==
[2024-03-11] VITALS (10 sets, daily range): BP systolic 100–124; BP diastolic 57–108; PULSE 63–85; RESP 14–22; TEMP 36.7; O2SAT 64–100
--- NOTE | ~2024-03-11 | CT_ITS ---
EXAMINATION: CT facial & cervical spine wo DATE: 03/11/2024 19:33 INDICATION: Head injury. TECHNIQUE: Computed tomography (CT) of the maxillofacial region and cervical spine was performed with out intravenous contrast. Automated exposure control and iterative reconstruction technique were empl oyed. The dose-length product was 502.76 mGy-cm. COMPARISON: None FINDINGS: MAXILLOFACIAL CT: The orbits are normal. There is rightward deviation of superior nasal septum and leftward deviation o f the inferior nasal septum. There is mild mucosal thickening in the paranasal sinuses. There is no f racture. CERVICAL SPINE CT: There is kyphosis of cervical spine. There is 3 degrees levocurvature of cervical spine. Vertebral shannen dy heights are normal. There is mildly decreased disc height at C3-C4 and C5-C6 and moderately decrea sed disc height at C6-C7. The following disc levels are specifically discussed: C2-C3: There is no uncovertebral joint osteoarthritis. There is kyphosis of the facet joints with mil d hypertrophy. There is no neural foraminal stenosis. There is no central canal stenosis. C3-C4: There is moderate bilateral uncovertebral joint osteoarthritis. There is severe bilateral face t joint osteoarthritis. There is mild bilateral neural foraminal stenosis. There is mild central zaheer l stenosis. C4-C5: There is mild right and moderate left uncovertebral joint osteoarthritis. There is severe righ t and mild left facet joint osteoarthritis. There is mild right neural foraminal stenosis. There is n o central canal stenosis. C5-C6: There is severe bilateral uncovertebral joint osteoarthritis. There is moderate right facet james int osteoarthritis. There is mild left neural foraminal stenosis. There is no central canal stenosis. C6-C7: There is severe right and mild left uncovertebral joint osteoarthritis. There is severe bilate ral facet joint osteoarthritis. There is mild right neural foraminal stenosis. There is no central ca nal stenosis. C7-T1: There is no uncovertebral joint osteoarthritis. There is severe bilateral facet joint osteoart hritis. There is mild left neural foraminal stenosis. There is no central canal stenosis. IMPRESSION: 1. No fracture. 2. Moderate cervical spondylosis. Reviewed, dictated and finalized at location E.
--- NOTE | ~2024-03-11 | XR_ITS ---
EXAMINATION: XR humerus RT DATE: 03/11/2024 19:21 INDICATION: Right arm pain. TECHNIQUE: 2 views of right humerus were obtained. COMPARISON: None. FINDINGS: Bone alignment is normal. There is heterotopic ossification medial to humeral head. There i s mild osteoarthritis of glenohumeral joint and moderate osteoarthritis of acromioclavicular joint. IMPRESSION: 1. Anatomic ossification medial to humeral head, which may be an avulsion fracture of lesser tuberosi ty of proximal humerus or a chronic finding. Consider CT. Reviewed, dictated and finalized at location E. IMPRESSION: 1. Anatomic ossification medial to humeral head, which may be an avulsion fract ure of lesser tuberosity of proximal humerus or a chronic finding. Consider CT.
--- NOTE | ~2024-03-11 | CT_ITS ---
EXAMINATION: CT shoulder RT wo con DATE: 03/11/2024 19:59 INDICATION: Right shoulder injury. TECHNIQUE: Computed tomography (CT) of the right shoulder was performed without intravenous contrast. Automated exposure control and iterative reconstruction technique were employed. The dose-length pro duct was 476.62 mGy-cm. COMPARISON: Right shoulder radiographs 03/11/2024, chest CT 05/05/2020 FINDINGS: Bone alignment is normal. There is a comminuted fracture of proximal right humerus includin g components at the anatomic neck, greater tuberosity, and articular surface. There are displaced fra cture components involving the articular surface inferiorly and posteriorly. There is moderate osteoa rthritis of glenohumeral joint and acromioclavicular joint. There is a moderate-sized, glenohumeral j oint effusion. Right lung demonstrates worsened septal thickening and groundglass opacities, consiste nt with chronic interstitial lung disease. IMPRESSION: 1. Comminuted fracture of proximal right humerus. 2. Polyarticular osteoarthritis. 3. Moderate-sized glenohumeral joint effusion. 4. Chronic interstitial lung disease, worsened from 05/05/2020. Reviewed, dictated and finalized at location E.
--- NOTE | ~2024-03-11 | CT_ITS ---
EXAMINATION: CT brain wo con DATE: 03/11/2024 19:25 INDICATION: Head injury. TECHNIQUE: Computed tomography (CT) of the head was performed without intravenous contrast. The mA wa s adjusted according to patient size. Iterative reconstruction technique was employed. The dose-lengt h product was 605.33 mGy-cm. COMPARISON: None FINDINGS: There is no intracranial hemorrhage, acute infarction, or abnormal intracranial mass lesion . The ventricles are normal in size. The orbits are normal. There is mild mucosal thickening in the p aranasal sinuses. There is a right mastoid effusion. IMPRESSION: 1. Normal brain. Reviewed, dictated and finalized at location E. IMPRESSION: 1. Normal brain.
--- NOTE | ~2024-03-11 | XR_ITS ---
EXAMINATION: XR shoulder RT min 2V DATE: 03/11/2024 19:21 INDICATION: Right arm pain. Fall. TECHNIQUE: 3 views of right shoulder were obtained. COMPARISON: Chest CT 05/05/2020 FINDINGS: There is heterotopic ossification medial to the humeral head. Alignment is normal. There is mild osteoarthritis of glenohumeral joint and severe osteoarthritis of acromioclavicular joint. IMPRESSION: 1. Heterotopic ossification medial to humeral head, which may be an avulsion fracture of the lesser t uberosity of proximal humerus or a chronic finding. Consider CT. 2. Polyarticular osteoarthritis. Reviewed, dictated and finalized at location E. IMPRESSION: 1. Heterotopic ossification medial to humeral head, which may be an avulsion fr acture of the lesser tuberosity of proximal humerus or a chronic finding. Consi shira CT. 2. Polyarticular osteoarthritis.
--- NOTE | ~2024-03-11 | XR_ITS ---
EXAMINATION: XR chest 1V DATE: 03/11/2024 19:21 INDICATION: Fall. TECHNIQUE: A single frontal view of the chest was obtained. COMPARISON: Chest 2 views 02/16/2021, chest CT 05/05/2020 FINDINGS: The lung volumes are normal. There is a diffuse interstitial pattern in the lungs. No pleur al effusion or pneumothorax. Cardiomegaly is noted. The central pulmonary arteries are enlarged, cons istent with pulmonary arterial hypertension. IMPRESSION: 1. Worsened diffuse interstitial pattern in the lungs, consistent with chronic interstitial lung dise ase without or with superimposed pulmonary edema. 2. Cardiomegaly. Reviewed, dictated and finalized at location E. IMPRESSION: 1. Worsened diffuse interstitial pattern in the lungs, consistent with chronic interstitial lung disease without or with superimposed pulmonary edema. 2. Cardiomegaly.
--- NOTE | 2024-03-11 18:55 | ED.FALL ---
HPI - Fall General Chief Complaint: Fall <Marj Garner PA-C - Last Filed: 03/12/24 02:37> Stated Complaint: fall <Marj Garner PA-C - Last Filed: 03/12/24 02:37> Time Seen by Provider: 03/11/24 18:37 <Marj Garner PA-C - Last Filed: 03/12/24 02:37> Source: patient <MARIA ISABEL Yi Last Filed: 03/12/24 02:37> Mode of arrival: EMS <MARIA ISABEL Yi Last Filed: 03/12/24 02:37> Limitations: no limitations <MARIA ISABEL Yi Last Filed: 03/12/24 02:37> History of Present Illness HPI Narrative: This is a 63-year-old female that presents to the emergency department after a fall today with head injury. Reports she tripped over curb and fell forward. Hit her face on the concrete. Also reports an injury to the right shoulder and arm. Reports decreased range of motion in the right arm due to pain. She does not believe she lost consciousness. She is on anticoagulation due to history of atrial fibrillation. Unsure of last tetanus vaccination. Denies vision changes, vomiting, focal numbness or weakness. <Marj Garner PA-C - Last Filed: 03/12/24 02:37> Related Data Home Medications: Home Medications Medication Instructions Recorded Confirmed apixaban 5 mg tablet (Eliquis) 5 mg PO BID 01/24/21 03/12/24 bupropion HCl 300 mg 24 hr tablet, 300 mg PO DAILY 01/24/21 03/12/24 extended release diltiazem HCl 120 mg capsule,24 120 mg PO DAILY 01/24/21 03/12/24 hr,extended release fenofibrate 54 mg tablet 54 mg PO HS 01/24/21 03/12/24 fluoxetine 10 mg capsule 10 mg PO HS 01/24/21 03/12/24 metformin 500 mg tablet,extended 500 mg PO BID 01/24/21 03/12/24 release 24 hr metoprolol tartrate 50 mg tablet 50 mg PO BID 01/24/21 03/12/24 pantoprazole 40 mg tablet,delayed 40 mg PO DAILY 01/24/21 03/12/24 release simvastatin 20 mg tablet 20 mg PO HS 01/24/21 03/12/24 mycophenolate mofetil 500 mg tablet 500 mg PO HS 01/14/22 03/12/24 flecainide 100 mg tablet 100 mg PO BID 03/12/24 03/12/24 levothyroxine 175 mcg tablet 175 mcg PO .MWF 03/12/24 03/12/24 (Synthroid) levothyroxine 175 mcg tablet 350 mcg PO .TTHSS 03/12/24 03/12/24 (Synthroid) mycophenolate mofetil 500 mg tablet 1,000 mg PO DAILY 03/12/24 03/12/24 <Marj Garner PA-C - Last Filed: 03/12/24 02:37> Allergies/Adverse Reactions: Allergies Allergy/AdvReac Type Severity Reaction Status Date / Time hydrocodone [From Vicodin] AdvReac Mild Other Verified 05/09/23 09:12 <Marj Garner PA-C - Last Filed: 03/12/24 02:37> Review of Systems Review of Systems: CONSTITUTIONAL: Denies fever EYES: Denies visual changes GASTROINTESTINAL: Denies vomiting MUSCULOSKELETAL: Reports joint pain, and myalgia. NEUROLOGIC: Denies numbness, or weakness. <Marj Garner PA-C - Last Filed: 03/12/24 02:37> All systems reviewed & are unremarkable except as noted in HPI and below <Marj Garner PA-C - Last Filed: 03/12/24 02:37> [facility] Past Medical History Medical History: Medical History Depression with anxiety DM2 (diabetes mellitus, type 2) History of atrial flutter Recent ablation Hyperlipidemia Hypothyroidism Developed after taking radioactive iodine Interstitial lung disease Sjogren's syndrome <Marj Garner PA-C - Last Filed: 03/12/24 02:37> Surgical History Surgical History: Surgical History H/O cardiac radiofrequency ablation History of 2 sections 1983, 1985 History of shoulder surgery On the right History of total knee arthroplasty Bilateral- 2001, 2013 <Marj Garner PA-C - Last Filed: 03/12/24 02:37> Family History Family History: Family History Father Family history of heart disease in male family member before age 55 Family history of diabetes mellitus in first d
[2024-03-11] MEDS: TETANUS,DIPHTHERIA,AC PERTUSSIS ADULT (0.5 ML) BOOSTRIX IM (20:18)
[2024-03-11] MEDS: ACETAMINOPHEN 500 MG TABLET 1000 MG PO (20:42)
--- NOTE | 2024-03-11 21:18 | PC.NURSE ---
attempted to walk pt at this time. pt stood up and felt dizzy, pt sat back down, rested for a minute, and wanted to try standing up again. pt stood up and felt unsteady to walk so a wheelchair was provided. pt was brought back from the bathroom and her pulse ox was 68% with a steady pleth. pt was put on 2L of O2 that improved her stats to low 70s. pt was then put on 4L of O2 NC and O2 went up to 92%. pt is now at 99%
--- NOTE | 2024-03-11 21:59 | PM.IMHP ---
H&P: HPI History of Present Illness Date/Time: 03/11/24 21:59 Chief Complaint: fall Narrative: This is a 63-year-old female with past medical history significant for atrial fibrillation, rate controlled anticoagulated, type diabetes mellitus, dyslipidemia, interstitial lung disease, Sjogren's syndrome. Patient presents to the emergency room after having a mechanical fall ground level. Patient had been in her usual state of health up until this point, there was no loss of consciousness. In emergency room patient was found to have low oxygen saturation requiring 4 L of supplemental oxygen by nasal cannula. Patient denies having shortness of breath or PND or orthopnea, no fevers, no rigors, no chills, no chest pain. patient was found to have fracture of the proximal humerus. Admitted for further evaluation management and treatment. EXAMINATION: CT shoulder RT wo con DATE: 03/11/2024 19:59 INDICATION: Right shoulder injury. TECHNIQUE: Computed tomography (CT) of the right shoulder was performed without intravenous contrast. Automated exposure control and iterative reconstruction technique were employed. The dose-length product was 476.62 mGy-cm. COMPARISON: Right shoulder radiographs 03/11/2024, chest CT 05/05/2020 FINDINGS: Bone alignment is normal. There is a comminuted fracture of proximal right humerus including components at the anatomic neck, greater tuberosity, and articular surface. There are displaced fracture components involving the articular surface inferiorly and posteriorly. There is moderate osteoarthritis of glenohumeral joint and acromioclavicular joint. There is a moderate-sized, glenohumeral joint effusion. Right lung demonstrates worsened septal thickening and groundglass opacities, consistent with chronic interstitial lung disease. IMPRESSION: 1. Comminuted fracture of proximal right humerus. 2. Polyarticular osteoarthritis. 3. Moderate-sized glenohumeral joint effusion. 4. Chronic interstitial lung disease, worsened from 05/05/2020. EXAMINATION: CT brain wo con DATE: 03/11/2024 19:25 INDICATION: Head injury. TECHNIQUE: Computed tomography (CT) of the head was performed without intravenous contrast. The mA was adjusted according to patient size. Iterative reconstruction technique was employed. The dose-length product was 605.33 mGy-cm. COMPARISON: None FINDINGS: There is no intracranial hemorrhage, acute infarction, or abnormal intracranial mass lesion. The ventricles are normal in size. The orbits are normal. There is mild mucosal thickening in the paranasal sinuses. There is a right mastoid effusion. IMPRESSION: 1. Normal brain. EXAMINATION: XR chest 1V DATE: 03/11/2024 19:21 INDICATION: Fall. TECHNIQUE: A single frontal view of the chest was obtained. COMPARISON: Chest 2 views 02/16/2021, chest CT 05/05/2020 FINDINGS: The lung volumes are normal. There is a diffuse interstitial pattern in the lungs. No pleural effusion or pneumothorax. Cardiomegaly is noted. The central pulmonary arteries are enlarged, consistent with pulmonary arterial hypertension. IMPRESSION: 1. Worsened diffuse interstitial pattern in the lungs, consistent with chronic interstitial lung disease without or with superimposed pulmonary edema. 2. Cardiomegaly. Review of Systems Review of Systems: Fall Constitutional: Constitutional: Denies chills, Denies fever(s), Denies malaise, Denies night sweats and Denies weakness Eyes: Eyes: Denies change in vision ENT: Denies dysphagia and Denies odynophagia Cardiovascular: Cardiovascular: Denies chest pain, Denies lightheadedness and Denies palpitations Respiratory: Respiratory: Denies chest congestion, Denies cough, Denies excessive phlegm production and Denies dyspnea Gastrointestinal: Gastrointestinal: Denies abdominal pain, Denies diarrhea, Denies nausea and Denies vomiting Genitourinary: Genitourinary: Denies dysuria Musculoskeletal: Musculoskeletal: Reports
[2024-03-11 22:43] LABS: Basophils Absolute Auto 0.1 K/mm3 (0.0-0.1); Basophils Percent Auto 0.3 % (0.2-1.2); Eosinophils Absolute Auto 0.1 K/mm3 (0-0.3); Eosinophils Percent Auto 0.3 % (0-4.4); Hematocrit 35.8 % (37.0-47.0); Hemoglobin 10.9 g/dL (12.0-15.0); Immature Granulocyte Absolute 0.07 K/mm3 (0.00-0.031); Immature Granulocyte Percent A 0.5 % (0-0.5); Lymphocytes Absolute Auto 1.33 K/mm3 (0.9-3.2); Lymphocytes Percent Auto 8.8 % (18.3-44.2); Mean Corpuscular HGB Conc 30.4 g/dl (32-36); Mean Corpuscular Hemoglobin 24.6 pg (26-34); Mean Corpuscular Volume 80.8 fl (80-100); Mean Platelet Volume 9.3 fl (7.4-10.4); Monocytes Percent Auto 6.4 % (2.6-8.5); Neutrophils Absolute Auto 12.7 K/mm3 (1.3-6.7); Neutrophils Percent Auto 83.7 % (45.5-73.1); Platelet Count Result 307 k/mm3 (150-375); Red Blood Count 4.43 M/mm3 (4.2-5.4); Red Cell Distribution Width 14.8 % (11.5-14.5); White Blood Count 15.2 K/mm3 (4.5-10.0)
[2024-03-11 22:57] LABS: Alanine Aminotransferase 12 U/L (6-35); Albumin Level 3.9 g/dL (3.5-5.1); Alkaline Phosphatase 64 U/L (38-126); Anion Gap 10 mmol/L (4-12); Aspartate Amino Transferase 19 U/L (14-36); Bilirubin,Total 0.3 mg/dL (0.2-1.3); Blood Urea Nitrogen 18 mg/dL (7-17); Calcium 8.5 mg/dL (8.4-10.2); Carbon Dioxide 25 mmol/L (22-30); Chloride 101 mmol/L (98-107); Estimated CRCL calculation 78 ml/min; Estimated Glomerular Filt Rate > 60; Glucose 127 mg/dL (65-110); Potassium 4.3 mmol/L (3.4-5.0); Sodium 136 mmol/L (137-145)
[2024-03-12] VITALS (26 sets, daily range): BP systolic 93–121; BP diastolic 53–75; PULSE 64–104; RESP 10–20; TEMP 36.5–36.8; O2SAT 92–100; BMI 44.4
[2024-03-12] MEDS: IBUPROFEN IV 400 MG in SODIUM CHLORIDE 0.9% IV 100 ML 200 MG IVPB ×2 (00:40→15:48)
--- NOTE | 2024-03-12 00:47 | ADMGEN ---
This patient, Melonie Prado, was admitted to 2 Medical Room 247-. Patient/family oriented to hospital policies and general routines including ID bracelet, bed and alarms, visiting hours, pain management, procedures, bathroom and other care routines, personal items, smoking policy, room service/diet, and visiting hours. Information on how to activate the Rapid Response Team has been discussed. Patient/Family are encouraged to report perceived risks to care and to ask questions if they do not understand what they are told or what they should do.
[2024-03-12] MEDS: traMADol HCL (*CRX) 50 MG TABLET PO ×3 (04:18→18:36)
[2024-03-12] MEDS: LEVOTHYROXINE SODIUM 100 MCG TABLET PO (06:44)
[2024-03-12] MEDS: LEVOTHYROXINE SODIUM 75 MCG TABLET PO (06:44)
--- NOTE | 2024-03-12 07:17 | PM.IMPN ---
Progress Note: A&P Assessment and Plan (1) Acute on chronic hypoxic respiratory failure: Code(s): J96.21 - Acute and chronic respiratory failure with hypoxia Status: Acute Assessment and Plan: Patient ambulated to the bathroom on admission when she stated she felt dizzy. SpO2 was in the 70s and patient was placed on 4L NC. Likely related to patients underlying lung disease. - Chest XR: Worsened diffuse interstitial pattern in the lungs, consistent with chronic interstitial lung disease without or with superimposed pulmonary edema. Cardiomegaly. - Lasix 40 mg IV x1 - Echo ordered, patient refused as she says she recently had a normal stress echo. Request of records sent to [facility]. - 2L NC, baseline room air with occasional O2 supplementation for extended ambulation - Oxygen via NC; wean as tolerated. Keep SpO2 greater than 88% - Monitor vital signs, I&Os, BUN/creatinine, daily weights, neuro status and patient is a fall risk - Monitor serum electrolytes, Keep serum Potassium>4 and serum Magnesium>2 and CBC (2) Fall: Code(s): W19.XXXA - Unspecified fall, initial encounter Status: Acute Assessment and Plan: Patient had a mechanical fall where she tripped over a parking block. - Shoulder XR: Heterotopic ossification medial to humeral head, which may be an avulsion fracture of the lesser tuberosity of proximal humerus or a chronic finding. Polyarticular osteoarthritis. - Chest XR: Worsened diffuse interstitial pattern in the lungs, consistent with chronic interstitial lung disease without or with superimposed pulmonary edema.Cardiomegaly. - Humerus XR: Anatomic ossification medial to humeral head, which may be an avulsion fracture of lesser tuberosity of proximal humerus or a chronic finding. - Shoulder CT: Comminuted fracture of proximal right humerus. Polyarticular osteoarthritis. Moderate-sized glenohumeral joint effusion. Chronic interstitial lung disease, worsened from 05/05/2020. - Head/C spine/Facial bones CT: No fracture. Moderate cervical spondylosis. - Head CT: Normal brain. - Fall precautions - PT/OT (3) Comminuted fracture of right humerus: Code(s): S42.351A - Displaced comminuted fracture of shaft of humerus, right arm, initial encounter for closed fracture Status: Acute Assessment and Plan: Patient had a mechanical fall where she tripped over a parking block. - Shoulder XR: Heterotopic ossification medial to humeral head, which may be an avulsion fracture of the lesser tuberosity of proximal humerus or a chronic finding. Polyarticular osteoarthritis. - Shoulder CT: Comminuted fracture of proximal right humerus. Polyarticular osteoarthritis. Moderate-sized glenohumeral joint effusion. Chronic interstitial lung disease, worsened from 05/05/2020. - Ortho consulted - Patient remains in a sling at this time - PT/OT (4) Interstitial lung disease: Code(s): J84.9 - Interstitial pulmonary disease, unspecified Status: Acute Assessment and Plan: Patient follows with Dr. Perry (rheum) and Dr. Martínez (pulm) at [facility] for her interstitial lung disease and Sjrogens. She last saw them in October and September respectively. At that time patients PFTs were stable and she was not experiencing shortness of breath or desaturation of oxygen with ambulation per MyChart. - Chest XR: Worsened diffuse interstitial pattern in the lungs, consistent with chronic interstitial lung disease without or with superimposed pulmonary edema. Cardiomegaly. - 2L NC, baseline room air with occasional O2 supplementation for extended ambulation - Oxygen via NC; wean as tolerated. Keep SpO2 greater than 88% - Monitor vital signs, I&Os, BUN/creatinine, daily weights, neuro status and patient is a fall risk - Monitor serum electrolytes, Keep serum Potassium>4 and serum Magnesium>2 and CBC (5) Atrial fibrillation: Qualifiers: Atrial fibrillation type: unspecified Qualified Code(s): I48.91 - Unspecified a
[2024-03-12 07:59] LABS: Glucose Point of Care 109 mg/dl (65-105)
[2024-03-12] MEDS: FUROSEMIDE INJ 40 MG/4 ML VIAL IV PUSH (09:29)
[2024-03-12] MEDS: APIXABAN 5 MG TABLET PO ×2 (09:29→21:22)
[2024-03-12] MEDS: buPROPion HCL XL (24 HR) 150 MG TABCR 300 MG PO (09:29)
[2024-03-12] MEDS: mycophenolate mofetiL 250 MG CAPSULE 1000 MG PO (09:30)
[2024-03-12] MEDS: PANTOPRAZOLE 40 MG TABLET PO (09:30)
[2024-03-12] MEDS: METOPROLOL TARTRATE 50 MG TAB PO ×2 (09:30→21:24)
[2024-03-12] MEDS: dilTIAZem HCL CD 120 MG CAP.24HR PO (09:30)
[2024-03-12] MEDS: FLECAINIDE ACETATE 100 MG TABLET PO ×2 (09:31→21:22)
[2024-03-12 13:47] LABS: Glucose Point of Care 118 mg/dl (65-105)
--- NOTE | 2024-03-12 15:28 | PCOTNOTE ---
Received OT orders however pt is still awaiting an ortho consult. Will continue to follow.
[2024-03-12 17:08] LABS: Glucose Point of Care 111 mg/dl (65-105)
--- NOTE | 2024-03-12 18:49 | PC.NURSE ---
faxed paperwork for release of medical records to [facility]
[2024-03-12 20:37] LABS: Glucose Point of Care 126 mg/dl (65-105)
[2024-03-12] MEDS: FLUoxetine HCL 10 MG CAPSULE PO (21:22)
[2024-03-12] MEDS: mycophenolate mofetiL 250 MG CAPSULE 500 MG PO (21:22)
[2024-03-12] MEDS: FENOFIBRATE,MICRONIZED 48 MG TABLET PO (21:22)
[2024-03-12] MEDS: ACETAMINOPHEN 500 MG TABLET 1000 MG PO (21:22)
[2024-03-12] MEDS: SIMVASTATIN 20 MG TABLET PO (21:23)
[2024-03-13] VITALS (18 sets, daily range): BP systolic 94–112; BP diastolic 52–72; PULSE 68–105; RESP 14–20; TEMP 36.5–37.6; O2SAT 94–100
[2024-03-13] MEDS: traMADol HCL (*CRX) 50 MG TABLET PO ×2 (04:25→11:29)
[2024-03-13] MEDS: LEVOTHYROXINE SODIUM 50 MCG TABLET PO (04:28)
[2024-03-13] MEDS: LEVOTHYROXINE SODIUM 150 MCG TABLET 300 MCG PO (04:28)
[2024-03-13 07:41] LABS: Glucose Point of Care 101 mg/dl (65-105)
[2024-03-13] MEDS: dilTIAZem HCL CD 120 MG CAP.24HR PO (09:07)
[2024-03-13] MEDS: METOPROLOL TARTRATE 50 MG TAB PO ×2 (09:08→21:54)
[2024-03-13] MEDS: FLECAINIDE ACETATE 100 MG TABLET PO ×2 (09:08→21:54)
[2024-03-13] MEDS: buPROPion HCL XL (24 HR) 150 MG TABCR 300 MG PO (09:08)
[2024-03-13] MEDS: APIXABAN 5 MG TABLET PO ×2 (09:08→21:54)
[2024-03-13] MEDS: PANTOPRAZOLE 40 MG TABLET PO (09:08)
[2024-03-13] MEDS: mycophenolate mofetiL 250 MG CAPSULE 1000 MG PO (09:08)
[2024-03-13 09:18] LABS: Basophils Percent Auto 0.4 % (0.2-1.2); Eosinophils Absolute Auto 0.4 K/mm3 (0-0.3); Eosinophils Percent Auto 3.7 % (0-4.4); Hematocrit 36.7 % (37.0-47.0); Hemoglobin 10.8 g/dL (12.0-15.0); Immature Granulocyte Absolute 0.03 K/mm3 (0.00-0.031); Immature Granulocyte Percent A 0.3 % (0-0.5); Lymphocytes Percent Auto 9.8 % (18.3-44.2); Mean Corpuscular HGB Conc 29.4 g/dl (32-36); Mean Corpuscular Hemoglobin 24.4 pg (26-34); Mean Corpuscular Volume 82.8 fl (80-100); Mean Platelet Volume 9.3 fl (7.4-10.4); Monocytes Absolute Auto 0.7 K/mm3 (0.1-0.6); Monocytes Percent Auto 7.1 % (2.6-8.5); Neutrophils Percent Auto 78.7 % (45.5-73.1); Platelet Count Result 267 k/mm3 (150-375); Red Blood Count 4.43 M/mm3 (4.2-5.4); Red Cell Distribution Width 15.2 % (11.5-14.5); White Blood Count 10.2 K/mm3 (4.5-10.0)
[2024-03-13 09:20] LABS: Alanine Aminotransferase 10 U/L (6-35); Albumin Level 3.6 g/dL (3.5-5.1); Alkaline Phosphatase 66 U/L (38-126); Anion Gap 10 mmol/L (4-12); Aspartate Amino Transferase 23 U/L (14-36); Bilirubin,Total 0.5 mg/dL (0.2-1.3); Blood Urea Nitrogen 16 mg/dL (7-17); Calcium 8.5 mg/dL (8.4-10.2); Carbon Dioxide 29 mmol/L (22-30); Chloride 100 mmol/L (98-107); Estimated CRCL calculation 78 ml/min; Estimated Glomerular Filt Rate > 60; Glucose 119 mg/dL (65-110); Potassium 3.8 mmol/L (3.4-5.0); Sodium 139 mmol/L (137-145)
[2024-03-13 11:13] LABS: Hypochromasia 1+; Platelet Estimate Adequate (Adequate); Schistocytes None Seen
[2024-03-13 11:35] LABS: Glucose Point of Care 99 mg/dl (65-105)
--- NOTE | 2024-03-13 14:10 | PM.IMPN ---
Progress Note: A&P Assessment and Plan (1) Acute on chronic hypoxic respiratory failure: Code(s): J96.21 - Acute and chronic respiratory failure with hypoxia Status: Acute Assessment and Plan: Patient ambulated to the bathroom on admission when she stated she felt dizzy. SpO2 was in the 70s and patient was placed on 4L NC. Likely related to patients underlying lung disease. Patient is intermittently on oxygen at baseline. She has an appointment with pulmonology on 03/17. - Chest XR: Worsened diffuse interstitial pattern in the lungs, consistent with chronic interstitial lung disease without or with superimposed pulmonary edema. Cardiomegaly. - Lasix 40 mg IV x1 - Echo ordered, patient refused as she says she recently had a normal stress echo. Request of records sent to [facility]. - 2L NC, baseline room air with occasional O2 supplementation for extended ambulation - Oxygen via NC; wean as tolerated. Keep SpO2 greater than 88% - Monitor vital signs, I&Os, BUN/creatinine, daily weights, neuro status and patient is a fall risk - Monitor serum electrolytes, Keep serum Potassium>4 and serum Magnesium>2 and CBC (2) Fall: Code(s): W19.XXXA - Unspecified fall, initial encounter Status: Acute Assessment and Plan: Patient had a mechanical fall where she tripped over a parking block. - Shoulder XR: Heterotopic ossification medial to humeral head, which may be an avulsion fracture of the lesser tuberosity of proximal humerus or a chronic finding. Polyarticular osteoarthritis. - Chest XR: Worsened diffuse interstitial pattern in the lungs, consistent with chronic interstitial lung disease without or with superimposed pulmonary edema.Cardiomegaly. - Humerus XR: Anatomic ossification medial to humeral head, which may be an avulsion fracture of lesser tuberosity of proximal humerus or a chronic finding. - Shoulder CT: Comminuted fracture of proximal right humerus. Polyarticular osteoarthritis. Moderate-sized glenohumeral joint effusion. Chronic interstitial lung disease, worsened from 05/05/2020. - Head/C spine/Facial bones CT: No fracture. Moderate cervical spondylosis. - Head CT: Normal brain. - Fall precautions - PT/OT (3) Comminuted fracture of right humerus: Code(s): S42.351A - Displaced comminuted fracture of shaft of humerus, right arm, initial encounter for closed fracture Status: Acute Assessment and Plan: Patient had a mechanical fall where she tripped over a parking block. - Shoulder XR: Heterotopic ossification medial to humeral head, which may be an avulsion fracture of the lesser tuberosity of proximal humerus or a chronic finding. Polyarticular osteoarthritis. - Shoulder CT: Comminuted fracture of proximal right humerus. Polyarticular osteoarthritis. Moderate-sized glenohumeral joint effusion. Chronic interstitial lung disease, worsened from 05/05/2020. - Ortho consulted - Patient remains in a sling at this time - PT/OT (4) Interstitial lung disease: Code(s): J84.9 - Interstitial pulmonary disease, unspecified Status: Acute Assessment and Plan: Patient follows with Dr. Perry (rheum) and Dr. Martínez (pulm) at [facility] for her interstitial lung disease and Sjrogens. She last saw them in October and September respectively. At that time patients PFTs were stable and she was not experiencing shortness of breath or desaturation of oxygen with ambulation per MyChart. Patient has an appointment on 03/[address] Martínez. - Chest XR: Worsened diffuse interstitial pattern in the lungs, consistent with chronic interstitial lung disease without or with superimposed pulmonary edema. Cardiomegaly. - 2L NC, baseline room air with occasional O2 supplementation for extended ambulation - Oxygen via NC; wean as tolerated. Keep SpO2 greater than 88% - Monitor vital signs, I&Os, BUN/creatinine, daily weights, neuro status and patient is a fall risk - Monitor serum electrolytes, Keep serum Potassium>4 and serum Magnesi
[2024-03-13] MEDS: ACETAMINOPHEN 500 MG TABLET 1000 MG PO ×2 (14:21→21:53)
--- NOTE | 2024-03-13 15:16 | PCOTNOTE ---
Attempted OT evaluation; waiting on ortho consult for clearance and weightbearing status.
[2024-03-13 16:48] LABS: Glucose Point of Care 125 mg/dl (65-105)
--- NOTE | 2024-03-13 17:00 | PM.CNOR ---
Assessment and Plan Assessment and plan (1) Closed fracture of proximal end of right humerus: Qualifiers: Encounter type: initial encounter Fracture morphology: unspecified fracture morphology Qualified Code(s): S42.201A - Unspecified fracture of upper end of right humerus, initial encounter for closed fracture Code(s): S42.201A - Unspecified fracture of upper end of right humerus, initial encounter for closed fracture Status: Acute Assessment and Plan: RIGHT PROXIMAL HUMERUS FRACTURE IN GOOD ALIGNMENT. PLAN IS NON OPERATIVE TREATMENT. SHE WILL REQUIRE PHYSICAL THERAPY AND SHOULD USE SOME FORM OF WALKER FOR NOW DUE TO GAIT IMBALANCE FROM DIZZINESS UNTIL SHE IS ASYMPTOMATIC. SHE WILL START EARLY GENTLE MOTION EXERCISES WELL AND I HAVE TAUGHT HER WHAT TO DO. SHE WILL F/U IN MY OFFICE IN 3 WEEKS. SHE MAY REMOVE HER SLING FOR BATHING AND HYGIENE. HISTORY, EXAM AND RADIOGRAPHS REVIEWED WITH THE PATIENT. REFERRING PHYSICIAN RECORDS AND IMAGES REVIEWED. CONDITION, NATURE, ETIOLOGY AND COURSE OF NATURAL HISTORY REVIEWED. CONSERVATIVE AND OPERATIVE TREATMENT OPTIONS REVIEWED WELL THE RISKS AND BENEFITS OF EACH. History of Present Illness HPI Consult date: 03/13/24 Chief complaint: Acute on chronic respiratory failure, Right humeru Narrative: GERARD IS HERE FOR EVALUATION OF HER RIGHT SHOULDER INJURY AND DIZZINESS AFTER A FALL SHE HAD ON FRIDAY. SHE WAS SEEN IN THE ED AND DIAGNOSED WITH A COMMINUTED RIGHT PROXIMAL HUMERUS FRACTURE IN GOOD ALIGNMENT. SHE WAS HAVING DIFFICULTY WITH AMBULATION SO SHE WAS ADMITTED FOR OBSERVATION. SHE CURRENTLY HAS NOT WALKED VERY MUCH OTHER FROM BED TO CHAIR. SHE WILL HAVE HER 1ST PT SESSION TODAY. SHE DENIES ANY CURRENT DIZZINESS. SHE HAS A HISTORY OF ATRIAL FIBRILLATION FOR 3 YEARS AND IS ON ANTI COAGULATION. SHE DENIES ANY OTHER PAIN TO THE EXTREMITIES OR TO THE NECK OR BACK Review of Systems Review of Systems: All systems reviewed & are unremarkable except as noted in HPI and below PMFSH Past Medical History Medical History Depression with anxiety DM2 (diabetes mellitus, type 2) History of atrial flutter Recent ablation Hyperlipidemia Hypothyroidism Developed after taking radioactive iodine Interstitial lung disease Sjogren's syndrome Surgical History Surgical History H/O cardiac radiofrequency ablation History of 2 sections 1983, 1985 History of shoulder surgery On the right History of total knee arthroplasty Bilateral- 2013 Family History Family History Father Family history of heart disease in male family member before age 55 Family history of diabetes mellitus in first degree relative Colon cancer Sibling Family history of diabetes mellitus in first degree relative Mother Family history of malignant neoplasm of breast in first degree relative Social History Social History Social History: Patient lives with her Margarito who is the durable power document review attorney for healthcare. The patient desires to be a full code. The patient has 2 children. The patient works for a [employer]. Lifelong nonsmoker. Does not use any alcohol,illicit drugs, or marijuana. Smoking status: Never smoker Alcohol intake: never Substance use: never Substance use type: does not use Do You Feel Safe in your Home?: Yes Lack of Transportation: No Lack of Food: Never True Current Housing: I Have Housing Concerned About Future Housing: No Difficulty Paying Gas/Electric Bills: No Difficulty Paying for Meds: No Currently Unemployed: No Education: High School Diploma/GED Difficulty w/ Childcare or Family Care: No Living arrangements: with family Occupation/Education: occupation Additional occupation/education c
[2024-03-13 21:36] LABS: Glucose Point of Care 120 mg/dl (65-105)
[2024-03-13] MEDS: mycophenolate mofetiL 250 MG CAPSULE 500 MG PO (21:53)
[2024-03-13] MEDS: SIMVASTATIN 20 MG TABLET PO (21:54)
[2024-03-13] MEDS: FENOFIBRATE,MICRONIZED 48 MG TABLET PO (21:54)
[2024-03-13] MEDS: FLUoxetine HCL 10 MG CAPSULE PO (21:54)
[2024-03-14] VITALS (16 sets, daily range): BP systolic 100–104; BP diastolic 60–64; PULSE 78–100; RESP 16–20; TEMP 36.4; O2SAT 84–98
[2024-03-14 04:47] LABS: Basophils Absolute Auto 0.1 K/mm3 (0.0-0.1); Basophils Percent Auto 0.7 % (0.2-1.2); Eosinophils Absolute Auto 0.3 K/mm3 (0-0.3); Eosinophils Percent Auto 2.9 % (0-4.4); Hematocrit 35.4 % (37.0-47.0); Hemoglobin 10.5 g/dL (12.0-15.0); Immature Granulocyte Absolute 0.05 K/mm3 (0.00-0.031); Immature Granulocyte Percent A 0.6 % (0-0.5); Lymphocytes Absolute Auto 1.83 K/mm3 (0.9-3.2); Lymphocytes Percent Auto 20.7 % (18.3-44.2); Mean Corpuscular HGB Conc 29.7 g/dl (32-36); Mean Corpuscular Hemoglobin 24.2 pg (26-34); Mean Corpuscular Volume 81.8 fl (80-100); Mean Platelet Volume 9.3 fl (7.4-10.4); Monocytes Absolute Auto 0.9 K/mm3 (0.1-0.6); Monocytes Percent Auto 9.8 % (2.6-8.5); Neutrophils Absolute Auto 5.8 K/mm3 (1.3-6.7); Neutrophils Percent Auto 65.3 % (45.5-73.1); Platelet Count Result 275 k/mm3 (150-375); Red Blood Count 4.33 M/mm3 (4.2-5.4); White Blood Count 8.8 K/mm3 (4.5-10.0)
[2024-03-14 05:03] LABS: Alanine Aminotransferase 10 U/L (6-35); Albumin Level 3.6 g/dL (3.5-5.1); Alkaline Phosphatase 73 U/L (38-126); Anion Gap 8 mmol/L (4-12); Aspartate Amino Transferase 20 U/L (14-36); Bilirubin,Total 0.6 mg/dL (0.2-1.3); Blood Urea Nitrogen 15 mg/dL (7-17); Calcium 8.7 mg/dL (8.4-10.2); Carbon Dioxide 30 mmol/L (22-30); Chloride 100 mmol/L (98-107); Estimated CRCL calculation 78 ml/min; Estimated Glomerular Filt Rate > 60; Glucose 108 mg/dL (65-110); Potassium 4.1 mmol/L (3.4-5.0); Sodium 138 mmol/L (137-145)
[2024-03-14] MEDS: LEVOTHYROXINE SODIUM 150 MCG TABLET 300 MCG PO (06:33)
[2024-03-14] MEDS: LEVOTHYROXINE SODIUM 50 MCG TABLET PO (06:34)
[2024-03-14] MEDS: ACETAMINOPHEN 500 MG TABLET 1000 MG PO (06:47)
[2024-03-14 08:24] LABS: Glucose Point of Care 116 mg/dl (65-105)
[2024-03-14] MEDS: dilTIAZem HCL CD 120 MG CAP.24HR PO (08:41)
[2024-03-14] MEDS: FLECAINIDE ACETATE 100 MG TABLET PO (08:42)
[2024-03-14] MEDS: APIXABAN 5 MG TABLET PO (08:42)
[2024-03-14] MEDS: buPROPion HCL XL (24 HR) 150 MG TABCR 300 MG PO (08:42)
[2024-03-14] MEDS: PANTOPRAZOLE 40 MG TABLET PO (08:42)
[2024-03-14] MEDS: mycophenolate mofetiL 250 MG CAPSULE 1000 MG PO (08:42)
[2024-03-14] MEDS: METOPROLOL TARTRATE 50 MG TAB PO (08:42)
--- NOTE | 2024-03-14 11:46 | PCRCNOTE ---
Completed home oxygen eval. Patient states she already has oxygen tanks and a concentrator at home through [facility] but right now it's just PRN. At rest patient was 95% on 2L and 92% on room air at rest. Patient dropped to 84% while on room air while walking. Placed patient on 2L while walking and SpO2 was 91%. Patient needs 2-3L O2 with ambulation. RN aware.
[2024-03-14 11:55] LABS: Glucose Point of Care 129 mg/dl (65-105)
--- NOTE | 2024-03-14 12:03 | PM.DS ---
DS: Admitting Diagnosis Discharge Date 03/14/24 Admitting Diagnosis Acute on chronic hypoxic respiratory failure Fall Comminuted fracture of right humerus Interstitial lung disease Atrial fibrillation Diabetes mellitus DS: Discharge Diagnosis Discharge Diagnosis (1) Acute on chronic hypoxic respiratory failure: Code(s): J96.21 - Acute and chronic respiratory failure with hypoxia Status: Acute (2) Fall: Code(s): W19.XXXA - Unspecified fall, initial encounter Status: Acute (3) Comminuted fracture of right humerus: Code(s): S42.351A - Displaced comminuted fracture of shaft of humerus, right arm, initial encounter for closed fracture Status: Acute (4) Interstitial lung disease: Code(s): J84.9 - Interstitial pulmonary disease, unspecified Status: Acute (5) Atrial fibrillation: Qualifiers: Atrial fibrillation type: unspecified Qualified Code(s): I48.91 - Unspecified atrial fibrillation Code(s): I48.91 - Unspecified atrial fibrillation Status: Acute (6) DM2 (diabetes mellitus, type 2): Code(s): E11.9 - Type 2 diabetes mellitus without complications Status: Chronic DS: Summary Hospital Course Reason for hospitalization: Acute on chronic hypoxic respiratory failure Fall Comminuted fracture of right humerus Interstitial lung disease Atrial fibrillation Diabetes mellitus Hospital Course: 63 year old female with past medical history of interstitial lung disease, sjogrens, diabetes, hypothyroidism, a flutter, and depression presents to the hospital following a mechanical fall where she tripped over a parking block resulting in facial trauma. Humerus XR showed avulsion fracture of lesser tuberosity of proximal humerus. A shoulder XR showed heterotopic ossification medial to humeral head, which may be an avulsion fracture. A shoulder CT revealed a comminuted fracture of proximal right humerus. Head/c spine/facial bones showed no fracture. Head CT negative. Ortho was consulted for patients comminuted humerus fracture. Per ortho patient is to continue gentle motion exercises and only remove her sling for bathing and hygiene. She is then to use her one arm walker for stability. She will follow up with ortho, Dr. Jimenez in 3 weeks. Of note, while in the ED the ambulated to the bathroom and she stated she felt dizzy. SpO2 was in the 70s and patient was placed on 4L NC. This was likely related to patients underlying lung disease. Patient is intermittently on oxygen at baseline. Patient had a chest XR that showed worsened diffuse interstitial pattern in the lungs, consistent with chronic interstitial lung disease without or with superimposed pulmonary edema. Cardiomegaly. She received lasix 40 mg IV x1. An echo was ordered but patient refused as she says she recently had a normal stress echo. She follows [facility] cardiology, Dr. Hernandez. Request of records sent to [facility]. A home O2 eval has patient remaining on 2L NC at rest and 3L NC with ambulation. Patient has an appointment with [facility] pulmonology, Dr. Martínez on 03/17. Patient was evaluated by PT/OT during admission who recommend home health therapy. Patient is not wanting home health and instead plans on having PT services outpatient. PT order placed. Prior to discharge patient states she feels steady on her feet and will use the walker/cane as needed. She denies dizziness/lightheadedness with ambulation. Patient discharged home with outpatient therapy ordered in stable condition on 2L NC at rest and 3L NC with ambulation. She has scheduled follow up with her dramatic critic on 03/17. Status at Discharge Functional status at discharge: uses cane/walker Time Spent with Patient Time attestation: Total time spent providing and/or coordinating discharge services: Time spent: Greater than 30 minutes Exam Narrative: AF HR 97 RR 20 SpO2 96 2L NC BP 104/64 General: female in no acute respiratory distress who is nontoxic appearing, ly
== END 2024-03-14 15:20 | disposition home or self-care (01) | DRG 196 ==
LOC: ANHED 20:14 → ANH2MED 03-12 00:01
PROVIDERS: Admitting Provider Internal Medicine; Emergency Provider Physician Assistant; PCP Physician Assistant; Visit Provider Student in an Organized Health Care Education/Training Program
DX: J84.9 Interstitial pulmonary disease, unspecified (principal); J96.21 Acute and chronic respiratory failure with hypoxia; S42.201A Unspecified fracture of upper end of right humerus, initial encounter for closed fracture; I48.20 Chronic atrial fibrillation, unspecified; E11.9 Type 2 diabetes mellitus without complications; E78.5 Hyperlipidemia, unspecified; E03.2 Hypothyroidism due to medicaments and other exogenous substances; K21.9 Gastro-esophageal reflux disease without esophagitis; T50.995A Adverse effect of other drugs, medicaments and biological substances, initial encounter; F41.9 Anxiety disorder, unspecified; F32.A Depression, unspecified; W18.09XA Striking against other object with subsequent fall, initial encounter; Z96.653 Presence of artificial knee joint, bilateral; Z79.01 Long term (current) use of anticoagulants
CPT/HCPCS: 36415; 70450; 70486; 71045; 72125; 73030; 73060; 73200; 80053; 82948; 85025; 90471; 90715; 94618; 96367; 96375; 97110; 97161; 97165; 97535; 99285; A4565; A9270; G0378; J1741; J1940; J7517

== ENCOUNTER 2024-08-10 07:39 | Outpatient (CLI) | payer OTHER, SELFPAY ==
--- NOTE | ~2024-08-10 | MM_ITS ---
EXAMINATION: MM screening [facility] BI w sandra HISTORY: Screening TECHNIQUE: Craniocaudal and mediolateral oblique 3-D tomosynthesis images were obtained and synthetic 2-D images were generated. CAD analysis was submitted and interpreted. COMPARISON: Comparison to multiple prior studies sequentially, with oldest reviewed study dated 04/12. BREAST PARENCHYMAL COMPOSITION: Not dense: There are scattered areas of fibroglandular density. FINDINGS: There is no evidence of suspicious mass, calcification, or architectural distortion to sugg est malignancy in either breast. There has been no suspicious interval change. IMPRESSION: 1. No mammographic evidence of malignancy. 2. Recommend routine screening mammography in one year. BI-RADS Category 1: Negative Reviewed, dictated and finalized at location B. OL TRANSPORTATION DIRECTOR
== END 2024-08-10 07:40 | disposition home or self-care (01) ==
PROVIDERS: PCP Physician Assistant; Visit Provider Nurse Practitioner
DX: Z12.31 Encounter for screening mammogram for malignant neoplasm of breast (principal)
CPT/HCPCS: 77063; 77067

== ENCOUNTER 2024-11-12 16:07 | Emergency (ER) | payer OTHER, SELFPAY ==
--- OUTSIDE RECORDS SUMMARY | 2024-11-12 16:10 | XMS_ITS | Encounter Summary ---
Author Organization [facility] Address [address] [place] [address] Care Team Providers [facility] Name Role Phone Unavailable Primary Care Provider Unavailabl e Encounter Details Date Type Department Care Team (Late st Contact Info) Description 11/10/2024 External Device Data [facility] ABSTRACTION Provider, Abstract NO ADDRESS ON FILE Social History Tobacco Use Types Packs/Day Years Used Date Smoking Tobacco: Never Comments Unknown Sex and Gender Information Value Date Recorded Sex Assigned at Female 01/06/2024 6:55 AM CDT Legal Sex Female 1:25 PM CDT Gender Identity Female 01/06/2024 6:55 AM CDT Sexual Orientation Straight 01/06/2024 6: 55 AM CDT documented as of this encounter Plan of Treatment Not on file documented as of this encounter Visit Diagnoses Not on filedocumented in this encounter
--- OUTSIDE RECORDS SUMMARY | 2024-11-12 16:10 | XMS_ITS | Clinical Summary ---
Author Organization [facility] [employer] Address [address] [place] [address] Care Team Providers Care Tarper Name Role Phone Jessy Baez MD Unavailable [phone] Tasia Nash Unavailable Eulogio Marquez DPM Unavailable [phone] Eulogio Marquez DPM Unavailable [phone] Dago Hernandez MD Unavailable Darlyn Perry MD Unavailable [phone] Tasia Nash Primary Care Pr ovider Source Comments [facility] [employer],non-owned Affiliates and Associated Physician Practices is amultiple site organization consisting of ambulatory clinics and hospital sitesin [place], [place] and [place]. This disclosure is being madepursuant to the Care Everywhere program and may not contain all information available regarding this patient. Last updated 18.[facility] Allergies Active Allergy Reactions Criticality Noted Date Comments Hydrocodone Nausea and/or Vomiting Medium 07/06/2014 Per patient hydrocodone makes her nauseated and she doesn't want to take it Oxycodone Unknown 11/03/2024 Medications * Be aware that medications may not be up to date on this document. Alwaysverify current medications with the patient. Medication Sig Dispensed Refills Start Date End Date Status FLUoxetine (PROZAC) 10 MG capsule Take 1 (one) capsule by mouth every evening Active buPROPion XL 24hr (WELLBUTRIN-XL) 300 MG tabletIndication s:Acquired hypothyroidism,I GT (impaired glucose tolerance),Mixed hyperlipidemia,V itamin D deficiency,Essen tial hypertension 1 (one) tablet once daily 8 Active simvastatin (ZOCOR) 20 MG tablet Take 1 (one) tablet by mouth at bedtime 9 Active pantoprazole EC (PROTONIX) 40 MG tablet Take 1 (one) tablet by mouth once daily Active ferrous gluconate 324 (38 Fe) MG tablet Take 1 (one) tablet by mouth once daily 1 Active folic acid (FOLVITE) 1 MG tablet Take 1 (one) tablet by mouth once daily 1 Active fenofibrate (Lofibra) 54 MG tablet TAKE 1 TABLET DAILY 90 tablet 3 4 Active dilTIAZem ER 24hr (Tiazac) 120 MG capsuleIndicatio ns:Typical atrial flutter (HCC),Paroxysmal atrial fibrillation (HCC) TAKE 1 CAPSULE BY MOUTH EVERY DAY 90 capsule 3 4 Active metFORMIN ER 24hr (Glucophage XR) 500 MG tablet TAKE 1 TABLET TWICE A DAY BEFORE BREAKFAST AND SUPPER FOR TYPE 2 DIABETES 180 tablet 3 4 Active Eliquis 5 MG tabletIndication s:Typical atrial flutter (HCC),Paroxysmal atrial fibrillation (HCC) TAKE 1 TABLET BY MOUTH TWICE DAILY 180 tablet 3 4 Active metoprolol tartrate IR (Lopressor) 50 MG tabletIndication s:Typical atrial flutter (HCC),Paroxysmal atrial fibrillation (HCC) TAKE 1 TABLET BY MOUTH TWICE DAILY 180 tablet 3 4 Active levothyroxine (Synthroid) 175 MCG tabletIndication s:Hypothyroidism Take 2 (two) tablets by mouth daily before breakfast Except Mon, Wed, Fri, take one tab Reasons: Underactive Thyroid 145 tablet 3 4 Active flecainide (Tambocor) 100 MG tablet Take 1 (one) tablet by mouth 2 times daily 180 tablet 3 4 06/03/20 25 Active mycophenolate (Cellcept) 500 MG tabletIndication s:Interstitial lung disease (HCC) TAKE 2 TABLETS IN THE MORNING AND 1 TABLET IN THE EVENING 90 tablet 11 5 Active mycophenolate (Cellcept) 500 MG tabletIndication s:Interstitial lung disease (HCC) TAKE 2 TABLETS IN THE MORNING AND 1 TABLET IN THE EVENING 270 tablet 11 4 11/03/19 25 Discontinued cefUROXime (Ceftin) 500 MG tablet 11/04/19 25 Discontinued(Lis t Clean-Up) predniSONE (Deltasone) 20 MG tabletIndication s:Pneumonia due to infectious organism, unspecified laterality, unspecified part of lung Take 2 (two) tablets by mouth once daily 14 tablet 4 11/04/19 25 Discontinued(Lis t Clean-Up) Active Problems Problem Noted Date Diagnosed Date Class 3 severe obesity due to excess calories in adult 12/21/2020 Benign paroxysmal positional vertigo 12/21/2020 Dysfunction of eustachian tube 12/21/2020 Emotional stress 12/21/2020 Submental lymphadenopathy 12/21/2020 Atrial fibrillation with RVR 11/15/2020 Anxiety 11/02/2019 Obstructive sleep apnea syndrome 11/02/2019 Interstitial lung disease 11/02/2019 Other fatigue 05/29/2017 Postablative hypothyroidism 01/15/2014 Overview (05/12/2020): POSTABLAT HYPOTHYR NEC Dysthymia 01/15/2014 Overview (05/12/2020): NEUROTIC DEPRESSION 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 08/07/2012 Essential hypertension 08/07/2012 Overview (06/01/2015): Hypothyroidism 08/07/2012 Overview (05/12/2020): HYPOTHYROIDISM NOS Obesity, diabetes, and hypertension syndrome 03/2012 Overview (05/12/2020): MORBID OBESITY DYSMETABOLIC SYNDROME X Mixed hyperlipidemia 08/07/2012 Vitamin D deficiency 08/07/2012 Overview (06/01/2015): IGT (impaired glucose tolerance) 08/07/2012 Hyperlipidemia 08/07/2012 Resolved Problems Problem Noted Date Diagnosed Date Resolved Date Otalgia 12/21/2020 02/22/2021 Ulcer of mouth 12/21/2020 02/22/2021 Wax in ear 12/21/2020 02/22/2021 Sinusitis 05/12/2020 06/09/2020 Encounters Date Type Department Care Team Description 11/12/2024 Telephone [facility] - Cardiology [address] [facility], [facility] [address] [place] [address] Loren Osorio RN IRREGULAR HEART BEAT 11/11/2024 Refill [facility] - Rheumatology [address] [place] [phone] Darlyn Perry MD Refill Request 11/07/2024 Refill [facility] - Rheumatology [address] [place] [phone] Darlyn Perry MD Refill Request 11/03/2024 8:40 AM SOUND RECORDING TECHNICIAN Office Visit [facility] - Rheumatology [address] [place] [phone] Darlyn Perry MD Interstitial lung disease (HCC) (Primary Dx); Therapeutic drug monitoring; Immunosuppression due to drug therapy (HCC); Antinuclear antibody (NICOLETTE) titer greater than 1:80; SS-A antibody positive 11/03/2024 Travel 11/03/2024 Refill [facility] - Rheumatology [address] [place] [phone] Darlyn Perry MD Refill Request 10/30/2024 Refill [facility] - Rheumatology [address] [place] [phone] Darlyn Perry MD Refill Request 10/15/2024 Orders Only [facility] - Rheumatology [address] [place] [address] Darlyn Perry MD Therapeutic drug monitoring 10/05/2024 8:30 AM SOUND RECORDING TECHNICIAN Office Visit [facility] - Pulmonology [address] [place] [address] Jovan Martínez MD Interstitial lung disease (HCC) (Primary Dx); Obstructive sleep apnea syndrome 10/05/2024 Travel 09/02/2024 11:00 AM SOUND RECORDING TECHNICIAN - 09/02/2024 11:59 PM SOUND RECORDING TECHNICIAN Hospital Encounter [facility] P[facility] [address] [place] [address] Unknown, Provider Discharge Disposition: Home or Self Care from Last 3 Months Immunizations Name Administration Dates Next Due INFLUENZA VACCINE, TRIV. (AF LURIA, FLUZONE TRIVALENT; 6MO+) (IIV3) 07/08/2014 Covid [employer] primary monoval ent 12+ yr 0.3mL Purple cap 12/01/2020,11/02/2020 DTAP, HISTORIC VACCINE 09/01/2014 FLU VACCINE QUAD IIV4 SPLIT 0.25 ML IM 0,06/08/2018,05/02/2016 INFLUENZA VACCINE 09/01/2014 INFLUENZA VACCINE, QUADR. (F LUZONE; FLULAVAL; FLUARIX; AFLURIA QUADRIVALENT; 6MO+), 0.5 ML (IIV4) 05/25/2020,06/12/2018 PNEUMOCOCCAL PCV20 CONJ VAC IM 01/18/2022 ZOSTER HISTORIC VACCINE 07/26/2020 Zoster Hzv Vacc Recombinant Inj Im 07/26/2020, iNFLUENZA VACCINE, RECOM-JACKSON, QUADR. (FLUBLOCK QUADRIVALENT; 18Y+) (RIV4) 06/01/2021 Family History Medical History Relation Name Comments Atrial Fibrillation Father Cancer - Colon Father Diabetes Father Cancer - Breast Mother Cancer - Pancreatic Other uncle Thyroid Disease Neg Hx Relation Name Status Comments Father Mother Other uncle Alive Social History Tobacco Use Types Packs/Day Years Used Date Smoking Tobacco: Never Smokeless Tobacco: Never Tobacco Cessation:Counseling Given: Not Answered Alcohol Use Standard Drinks/Week Comments Not Currently 0 (1 standard drink = 0.6 oz pur e alcohol) rarely PHQ-2 Answer Date Recorded Patient Health Questionnaire-2 Score 0 11/03/2024 Sex and Gender Information Value Date Recorded Sex Assigned at Female 07/12/2021 8:47 AM SOUND RECORDING TECHNICIAN Gender Identity Female 07/12/2021 8:47 AM SOUND RECORDING TECHNICIAN Sexual Orientation Not on file Last Filed Vital Signs Vital Sign Reading Time Taken Comments Blood Pressure 119/75 11/03/2024 8:55 AM SOUND RECORDING TECHNICIAN Pulse 63 11/03/2024 8:55 AM SOUND RECORDING TECHNICIAN Temperature 36.6 C (97.8 F) 11/03/2024 8:55 AM SOUND RECORDING TECHNICIAN Respiratory Rate 17 10/05/2024 8:27 AM SOUND RECORDING TECHNICIAN Oxygen Saturation 94% 11/03/2024 8:55 AM SOUND RECORDING TECHNICIAN Inhaled Oxygen Concentration - - Weight 116.1 kg (256 lb) 11/03/2024 8:55 AM SOUND RECORDING TECHNICIAN Height 162.6 cm (5' 4 ) 11/03/2024 8:55 AM SOUND RECORDING TECHNICIAN Body Mass Index 43.94 11/03/2024 8:55 AM SOUND RECORDING TECHNICIAN Plan of Treatment Upcoming Encounters Date Type Department Care Team (Late st Contact Info) Description 12/16/2024 8:40 AM CDT Office Visit [facility] - Cardiology [address] [phone] Dago Hernandez MD [address] [address] 03/09/2025 8:20 AM CDT Office Visit [facility] - Rheumatology [address] [facility], [place] [phone] Darlyn Perry MD [address] [facility] 2L [place] [phone] 04/08/2025 9:00 AM CDT Appointment [facility] PFT [address] [place] [phone] Remy Johnson MD [address] [facility] 2L DIV [place] [address] 04/08/2025 11:00 AM CDT Office Visit [facility] - Pulmonology [address] [facility], [place] [address] Jovan Martínez MD [address] [place] [address] 2L DIV OF PULMONARY/[place] [address] 04/26/2025 8:20 AM CDT Office Visit [facility] - Endocrinology [address] [place] [address], [address] [place] [phone] [place] [address] [place] [address] Health Maintenance Due Date Last Done Comments BONE DENSITY TESTING 1959 COLOGUARD (AGES 45-75) - COLON CA SCREENING 1959 COLON MONITORING 1959 COLONOSCOPY - COLON CA SCREENING 1959 CT COLONOGRAPHY - COLON CA SCREENING 1959 Colorectal Cancer Screening 1959 FIT - COLON CA SCREENING 1959 FLEX SIG - COLON CA SCREENING 1959 MAMMOGRAM 1959 MEDICARE AWV 12 MONTHS 1959 PAP SMEAR 1959 Respiratory Syncytial Virus (RSV) Vaccine Pt: or over 60 yrs (1 - Risk 60-74 years 1-dose series) 2019 DIABETES RETINOPATHY SCREENING 05/12/2020 DIABETES-FOOT EXAM WITH MONOFILAMENT 05/12/2020 COVID-19 VACCINE ( season) 2024 06/20/2022, 2021, 12/01/2020, Additional history exists INFLUENZA VACCINE (#1) 2024 3, 06/01/2021, 05/25/2020, Additional history exists DIABETES - URINE PROTEIN SCREENING 09/01/2024 12/11/2017 DTAP/TDAP/TD VACCINES (2 - Tdap) 09/01/2024 09/01/2014 DIABETES-HGB A1C 01/10/2025 07/13/2024, , 12/27/2019, Additional history exists DIABETES-SERUM CREATININE 10/29/20252024, 07/13/2024, 02/23/2024, Additional history exists HEPATITIS C SCREENING Completed 07/14/2020 HIV SCREENING Completed 07/14/2020 ZOSTER VACCINE Completed 07/26/2020, 07/03, 05/25/2020 PNEUMOCOCCAL VACCINE 50+ Completed 01/18/2022 DEPRESSION SCREENING Completed 11/03/2024, 05/06/2024, 06/20/2022, Additional history exists HEPATITIS B VACCINE Aged Out No longe r eligible based on patient's age to complete this topic HIB VACCINE Aged Out No longer eligi ble based on patient's age to complete this topic HPV VACCINE Aged Out No longer eligi ble based on patient's age to complete this topic MENINGOCOCCAL (Group B) VACCINE SHARED DECISION-MAKING Aged Out No longer eligible based on patient's age to complete this topic MENINGOCOCCAL GROUPS A/C/Y/W VACCINE Aged Out No longer eligible based on patient's age to complete this topic Medical Devices Implanted Type Area Network Cabler Device Identifier Shelf Expiration Date Model / Serial / Lot Poly Patella 35 Implanted:Qty: 1 on 07/05/2014 by Uriel Cortez MD at [facility] Left: Knee 03/01/2022 [id number] / / [id number] Bolivar Bone Fisher Hv Implanted:Qty: 2 on 07/05/2014 by Uriel Cortez MD at [facility] Left: Knee [employer] 12/31/2015 [id number] / / [id number] Compon Fem Nexgen Lps-Flex Implanted:Qty: 1 on 07/05/2014 by Uriel Cortez MD at [facility] Left: Knee [employer] 06/01/2024 [id number] / / [id number] Plate Tibial Stem Sz 6 50mm X 74mm Implanted:Qty: 1 on 07/05/2014 by Uriel Cortez MD at [facility] Left: Knee [employer] 05/02/2024 [id number] / / [id number] Articular Surface 14 Mm Implanted:Qty: 1 on 07/05/2014 by Uriel Cortez MD at [facility] Left: Knee 03/01/2019 [id number] / / [id number] Procedures Procedure Name Priority Date/Time Associated Diagnosis Comments HEPATIC FUNCTION PANEL Routine 8:58 AM SOUND RECORDING TECHNICIAN Therapeutic drug monitoring CREATININE BLOOD Routine 10/29/2024 8:58 AM SOUND RECORDING TECHNICIAN Therapeutic drug monitoring CBC W AUTO DIFFERENTIAL Routine 10/29/2024 8:58 AM SOUND RECORDING TECHNICIAN Therapeutic drug monitoring COMPLETE PFT W/WO BRONCHODILATOR Routine 09/02/2024 1:54 PM SOUND RECORDING TECHNICIAN ILD (interstitial lung disease) (HCC) HEMOGLOBIN A1C (EXTERNAL RESULT ENTRY) Routine 07/13/2024 HEPATITIS C AB W/RFLX TO HCV RNA QN PCR 07/14/2020 7:49 AM SOUND RECORDING TECHNICIAN HIV-1 HIV-2 ANTIBODY + HIV P24 AG PANEL 07/14/2020 7:49 AM SOUND RECORDING TECHNICIAN MICROALB/CREAT RATIO URINE RANDOM PANEL Routine 12/11/2017 8:07 AM CDT Acquired hypothyroidism IGT (impaired glucose tolerance) Mixed hyperlipidemia Vitamin D deficiency Essential hypertension from Last 3 Months or Most Recently Relevant to Health Maintenance Results * (ABNORMAL) CBC WITH DIFFERENTIAL (10/29/2024 8:58 AM SOUND RECORDING TECHNICIAN) White Blood Cell Count 11.1(H) 3.8 - 10.8 Thousand/ uL [facility] RBC 4.23 3.80 - 5.10 Million/u L [facility] Hemoglobin 9.8(L) 11.7 - 15.5 g/dL [facility] Hematocrit 33.7(L) 35.0 - 45.0 % [facility] MCV 79.7(L) 80.0 - 100.0 fL [facility] MCH 23.2(L) 27.0 - 33.0 pg [facility] MCHC 29.1(L) 32.0 - 36.0 g/dL [facility] Comment: For adults, a slight decrease in the calculated MCHC value (in the range of 30 to 32 g/dL) is most likely not clinically significant; however, it should be interpreted with caution in correlation with other red cell parameters and the patient's clinical condition. RDW 14.2 11.0 - 15.0 % [facility] Platelet Count 437(H) 140 - 400 Thousand/ uL [facility] MPV 10.6 7.5 - 12.5 fL [facility] Neutrophil Absolute 7581 1500 - 7800 cells/uL [facility] Absolute Bands [facility] Metamyelocytes Absolute [facility] Myelocytes Absolute [facility] Absolute Prolymphocytes [facility] Lymphocytes Absolute 1998 850 - 3900 cells/uL [facility] Absolute Monocytes 1288(H) 200 - 950 cells/uL [facility] Eosinophils Absolute 155 15 - 500 cells/uL [facility] Basophils Absolute 78 0 - 200 cells/uL [facility] Absolute Blasts [facility] nRBC Absolute [facility] Granulocytes % 68.3 % [facility] Band Neutrophil [facility] Metamyelocytes [facility] Myelocytes [facility] Promyelocytes [facility] Lymphocytes % 18.0 % [facility] Lymphocyte Reactive [facility] Monocytes % 11.6 % [facility] Eosinophils % 1.4 % [facility] Basophils % 0.7 % [facility] Comment: Test Performed at: [place] [address] JANAK STEPHENS MD Blasts [facility] nRBC [facility] Comments [facility] Comment: Test Performed at: [place] [address] JANAK STEPHENS MD Blood BLOOD SPECIMEN / Unknown 10/29/2024 8:58 AM SOUND RECORDING TECHNICIAN 10/29/2024 8:59 AM SOUND RECORDING TECHNICIAN Darlyn Perry MD LAB - HEMATOLOGY ORD ERABLES [facility] [address] [place] [address] * HEPATIC FUNCTION PANEL (10/29/2024 8:58 AM SOUND RECORDING TECHNICIAN) Protein Total 7.1 6.1 - 8.1 g/dL [facility] Albumin 4.0 3.6 - 5.1 g/dL [facility] Globulin Total 3.1 1.9 - 3.7 g/dL (calc) [facility] Albumin/Globulin Ratio 1.3 1.0 - 2.5 (calc) [facility] Bilirubin Total 0.4 0.2 - 1.2 mg/dL [facility] Bilirubin Direct 0.1 < OR = 0.2 mg/dL [facility] Bilirubin Indirect 0.3 0.2 - 1.2 mg/dL (calc) [facility] Alkaline Phosphatase 48 37 - 153 U/L [facility] AST 12 10 - 35 U/L [facility] ALT 7 6 - 29 U/L [facility] Comment: Test Performed at: [facility] [id number] [facility] [place] [address] JANAK STEPHENS MD Blood BLOOD SPECIMEN / Unknown 10/29/2024 8:58 AM SOUND RECORDING TECHNICIAN 10/29/2024 8:59 AM SOUND RECORDING TECHNICIAN Darlyn Perry MD LAB - CHEMISTRY CADY DUNLAP Performing Organization Address [facility] Co de Phone Number [facility] [address] [place] [address] * CREATININE BLOOD (10/29/2024 8:58 AM SOUND RECORDING TECHNICIAN) Creatinine 0.84 0.50 - 1.05 mg/dL [facility] eGFR by Cystatin C 77 > OR = 60 mL/min/1.7 3m2 [facility] Comment: Test Performed at: [employer] [place] [address] JANAK STEPHENS MD Blood BLOOD SPECIMEN / Unknown 10/29/2024 8:58 AM SOUND RECORDING TECHNICIAN 10/29/2024 8:59 AM SOUND RECORDING TECHNICIAN Darlyn Perry MD LAB - CHEMISTRY CADY DUNLAP Performing Organization Address City/[facility] Co de Phone Number [facility] [address] [place] [address] * COMPLETE PFT W/WO BRONCHODILATOR (09/02/2024 1:54 PM SOUND RECORDING TECHNICIAN) Impressions Nicolas Bhat MD - 09/02/2024 1:54 PM SOUND RECORDING TECHNICIAN [facility] DEPARTMENT OF PULMONARY, CRITICAL CARE, AND SLEEP MEDICINE PULMONARY FUNCTION TEST Please see technologist's comments mentioned in the report. INTERPRETATION: SPIROMETRY: FVC: decreased. FEV1: decreased. FEV1/FVC ratio is normal. BRONCHODILATOR RESPONSE: There is no significant response to bronchodilator therapy, however this does not mean the patient would not benefit from bronchodilator therapy. FLOW-VOLUME LOOPS: Inspection of the flow-volume loops shows increased slope of the expiratory limbs. LUNG VOLUMES: Lung volumes by body plethysmography show decreased TLC and decreased residual volume. DIFFUSION CAPACITY DLCO: Unadjusted for Hb and COHb is decreased. AIRWAY RESISTANCE The airway resistance is increased and the specific conductance is normal. ARTERIAL BLOOD GAS ANALYSIS: Not performed. IMPRESSION: 1. Severe restrictive ventilatory limitation. 2. There is severely decreased uncorrected DLCO. 3. No significant bronchodilator response, however this does not preclude the use of bronchodilators. 4. Compared with previous study on 06/21/2024, FEV1, FVC, TLC, and DLCO are not significantly changed. Luis Sevilla MD Pulmonary & Critical Care Fellow Division of Pulmonary, Critical Care, and Sleep Medicine [facility] I have personally reviewed the pulmonary function test data and made adjustment to the interpretation where necessary. Nicolas Bhat MD 09/10/2024 Narrative Nicolas Bhat MD - 09/02/2024 1:54 PM SOUND RECORDING TECHNICIAN Luis Sevilla MD 09/03/2024 12:27 PM Jovan Martínez MD RESPIRATORY THERAPY ORDERABLES * (ABNORMAL) HEMOGLOBIN A1C (EXTERNAL RESULT ENTRY) (07/13/2024) Pathologist [facility] Hemoglobin A1c (EXTERNAL RESULT) 5.7(H) % OUTSIDE REFERENCE LAB Comment:[employer] (scanned) Blood BLOOD SPECIMEN / Unknown 07/13/2024 Historical Provider LAB - CHEMISTRY O RDERABLES OUTSIDE REFERENCE LAB * HEPATITIS C AB W/RFLX TO HCV RNA QN PCR (07/14/2020 7:49 AM SOUND RECORDING TECHNICIAN) Hepatitis C Antibody NON-REACTI VE NON-REACT SHABBIR [facility] Signal to Cut-Off 0.03 <1.00 [facility] Comment: HCV antibody was non-reactive. There is no laboratory evidence of HCV infection. In most cases, no further action is required. However, if recent HCV exposure is suspected, a test for HCV RNA (test code 93077) is suggested. For additional information please refer to [email or web address] (This link is being provided for informational/ educational purposes only.) Test Performed at: [facility] [id number] [address] [employer] [address] JM DURAN DO,MPH 07/14/2020 7:49 AM SOUND RECORDING TECHNICIAN 07/14/2020 8:04 AM SOUND RECORDING TECHNICIAN Darlyn Perry MD LAB - CHEMISTRY CADY DUNLAP Performing Organization Address [facility] Co de Phone Number [facility] [phone] [place] [address] * HIV-1 HIV-2 ANTIBODY + HIV P24 AG PANEL (07/14/2020 7:49 AM SOUND RECORDING TECHNICIAN) [facility] HIV Screen 4th Generation w Reflex NON-REACT SHABBIR NON-REACT SHABBIR [facility] Comment: HIV-1 antigen and HIV-1/HIV-2 antibodies were not detected. There is no laboratory evidence of HIV infection. PLEASE NOTE: This information has been disclosed to you from records whose confidentiality may be protected by state law. If your state requires such protection, then the state law prohibits you from making any further disclosure of the information without the specific written consent of the person to whom it pertains, or as otherwise permitted by law. A general authorization for the release of medical or other information is NOT sufficient for this purpose. For additional information please refer to [email or web address] (This link is being provided for informational/ educational purposes only.) The performance of this assay has not been clinically validated in patients less than 2 years old. Test Performed at: [facility] [id number] [address] [employer] [address] JM DURAN DO,MPH 07/14/2020 7:49 AM SOUND RECORDING TECHNICIAN 07/14/2020 8:04 AM SOUND RECORDING TECHNICIAN Darlyn Perry MD LAB - CHEMISTRY CADY DUNLAP Performing Organization Address [facility]/ZIP Co de Phone Number [facility] [phone] [place] [address] * MICROALB/CREAT RATIO URINE RANDOM PANEL (12/11/2017 8:07 AM CDT) Creatinine Urine 23.9 Not Estab. mg/dL [facility] INSURANCE BILL Microalbumin Urine <3.0 Not Estab. ug/mL [facility] INSURANCE BILL Microalbumin/Crea tinine Ratio <12.6 0.0 - 30.0 mg/g creat [facility] INSURANCE BILL Comment:FASTING Urine URINE SPECIMEN OBTAINED BY CLEAN CATCH PROCEDURE / Unknown 12/11/2017 8:07 AM CDT 12/11/2017 Narrative Resulting Agency Comment [facility] [place] [address] [facility] [id number] Jessy Baez MD LAB - URINE CHEM ISTRY ORDERABLES [facility] INSURANCE BILL [address] [place] [address] from Last 3 Months or Most Recently Relevant to Health Maintenance Advance Directives * Full Code (Latest Code Status on File) Date Activated Date Inactivated Comments 11/15/2020 7:44 PM 11/16/2020 4:34 PM * Full Code Date Activated Date Inactivated Comments 07/05/2014 10:44 AM 07/08/2014 1:36 PM Care Teams Tarper Relationship Specialty Start Date End Date Tasia Nash PA [address] [place] [address] PCP - General Physician [employer] Brusher 05/06/24 [place] [address] [facility] [address] [place] [address] Endocrinology 12/01/17 Tasia Nash PA [address] [place] [phone] Physician [employer] Brusher 06/02/18 Eulogio Marquez DPM [address] [facility] [address] [place] [address] Podiatry 06/02/18 Eulogio Marquez DPM [address] [facility] [address] [place] [address] 06/17/19 Dago Hernandez MD [address] [facility], [address] [place] [address] Cardiovascular Disease 01/16/21 Darlyn Perry MD [address] [place] [address] Senior Information Systems Architect Rheumatology 04/05/21
--- OUTSIDE RECORDS SUMMARY | 2024-11-12 16:10 | XMS_ITS | Data Portability ---
Author Organization [facility] [place] Address [address] [place] [address] Care Team Providers Care Client Analyst Name Role Phone KAIN DUKE Primary Care Provider Unavailab le Assessment Encounter Date Assessment Date Assessment LastModified by Organization Details LastModified Time 12/31/2023 12/31/2023 mammogram late 2022 utd normal colonoscopy 2021, normal. Not available 12/31/2023 08:55:37 06/22/2024 06/22/2024 mammogram late 2022 utd normal colonoscopy 2021, normal. labs summer 2023 eye exam dental exam Not available 06/22/2024 12:29:34 Plan of Treatment Reminders Order Date Submit Date Provider Last Modified By Organization Details Last Modified Time Details Appointments ANY 15 2024 08:30A M TUAN Kelly Not available Not available Not available Lab HbA1c (hemoglob in A1c), blood 2023 024 [facility], [address], [address], 07/26/2024 17:27:46 vitamin B12 + folate, serum or blood 2023 024 [facility], [address], [address], 07/26/2024 17:27:51 lipid panel, serum 2023 024 AMY [employer] [facility], [address], [address], 07/14/2024 09:27:11 TSH, serum or plasma 2023 024 [employer] [facility], [address] [facility] [address], [place], [address], 07/26/2024 17:27:56 T4, free, serum 2023 024 [email or web address] [facility], [address] [facility] [address], [place], [address], 07/26/2024 17:28:00 HbA1c (hemoglob in A1c), blood 2023 024 [facility], [address] [address], [place], [address], 03/30/2024 10:40:30 CMP, serum or plasma 2023 024 [email or web address], [address], [address], 03/30/2024 10:40:29 CBC w/ auto diff 2023 024 [email or web address], [address], [address], 03/30/2024 10:40:30 vitamin B12 + folate, serum or blood 2023 024 [email or web address], [address], [address], 03/30/2024 10:40:30 TSH, serum or plasma 2023 024 [email or web address], [address] [facility] [address], [place], [address], 03/30/2024 10:40:30 T4, free, serum 2023 024 [email or web address] [facility], [address] [facility] [address], [place], [address], 03/30/2024 10:40:30 lipid panel, serum 2023 024 [email or web address] [facility], [address] [facility] [address], [place], [address], 03/30/2024 10:40:29 Referral None recorded. Procedures None recorded. Surgeries None recorded. Imaging None recorded. Medication Orders cefuroxim e axetil 500 mg tablet 2023 [id number], [address] [facility], [place], [place], [id number], 06/22/2024 12:40:18 Patient TargetsNo targets recorded. Patient Instructions Encounter Date Encounter Id Patient Instructions Last Modified By Organization Details Last Modified Time 06/22/2024 [id number] A healthy lifestyle: care instructions Not available 06/22/2024 12:40:10 Reason for Referral None Reported. Results Created Date Observation Date Name Description Value Unit Range Abnormal Flag Note LastModifiedBy Organization Detail LastModifiedTime 07/13/2007/14/2024 CBC W Auto Diffe renti al panel - Blood white blood cell count 10.6 text: 3.8 - 10.8 thousa nd/uL White Blood Cell Count 10.6 3.8 - 10.8 Thous and/u L [facility] Not Available Not Available 11/12/2024 16:25:25 07/13/20 24 07/14/2024 CBC W Auto Diffe renti al panel - Blood RBC 4.4 text: 3.80 - 5.10 millio n/uL RBC 4.40 3.80 - 5.10 Kareen on/uL [facility] Not Available Not Available 11/12/2024 16:25:25 07/13/20 24 07/14/2024 CBC W Auto Diffe renti al panel - Blood hemoglobin 10.2 g/dL low: 11.7g/ dLhigh : 15.5g/ dL low Hemog lobin 10.2 (L) 11.7 - 15.5 g/dL [facility] Not Available Not Available 11/12/2024 16:25:25 07/13/20 24 07/14/2024 CBC W Auto Diffe renti al panel - Blood hematocrit 35.9 % low: 35%hig h: 45% Hemat ocrit 35.9 35.0 - 45.0 % [facility] Not Available Not Available 11/12/2024 16:25:25 07/13/20 24 07/14/2024 CBC W Auto Diffe renti al panel - Blood MCV 81.6 fL low: 80fLhi gh: 100fL MCV 81.6 80.0 - 100.0 fL [facility] Not Available Not Available 11/12/2024 16:25:25 07/13/20 24 07/14/2024 CBC W Auto Diffe renti al panel - Blood MCH 23.2 pg low: 27pghi gh: 33pg low MCH 23.2 (L) 27.0 - 33.0 pg [facility] Not Available Not Available 11/12/2024 16:25:25 07/13/20 24 07/14/2024 CBC W Auto Diffe renti al panel - Blood MCHC 28.4 g/dL low: 32g/dL high: 36g/dL low MCHC 28.4 (L) 32.0 - 36.0 g/dL [facility] Not Available Not Available 11/12/2024 16:25:25 07/13/20 24 07/14/2024 CBC W Auto Diffe renti al panel - Blood RDW 15.1 % low: 11%hig h: 15% high RDW 15.1 (H) 11.0 - 15.0 % [facility] Not Available Not Available 11/12/2024 16:25:25 07/13/20 24 07/14/2024 CBC W Auto Diffe renti al panel - Blood platelet count 343 text: 140 - 400 thousa nd/uL Plate let Count 343 140 - 400 Thous and/u L [facility] Not Available Not Available 11/12/2024 16:25:25 07/13/20 24 07/14/2024 CBC W Auto Diffe renti al panel - Blood MPV 10.6 fL low: 7.5fLh igh: 12.5fL MPV 10.6 7.5 - 12.5 fL [facility] Not Available Not Available 11/12/2024 16:25:25 07/13/20 24 07/14/2024 CBC W Auto Diffe renti al panel - Blood neutrophil absolute 8109 text: 1500 - 7800 cells/ uL high Neutr ophil [place] 8109 (H) 1500 - 7800 cells /uL [facility] Not Available Not Available 11/12/2024 16:25:25 07/13/20 24 07/14/2024 CBC W Auto Diffe renti al panel - Blood absolute bands [place] Bands [facility] Not Available Not Available 11/12/2024 16:25:25 07/13/20 24 07/14/2024 CBC W Auto Diffe renti al panel - Blood metamyelocyt es absolute Metam yeloc ytes [place] [facility] Not Available Not Available 11/12/2024 16:25:25 07/13/20 24 07/14/2024 CBC W Auto Diffe renti al panel - Blood myelocytes absolute Myelo cytes [place] [facility] Not Available Not Available 11/12/2024 16:25:25 07/13/20 24 07/14/2024 CBC W Auto Diffe renti al panel - Blood absolute prolymphocyt es [place] Proly mphoc ytes [facility] Not Available Not Available 11/12/2024 16:25:25 07/13/20 24 07/14/2024 CBC W Auto Diffe renti al panel - Blood lymphocytes absolute 1442 text: 850 - 3900 cells/ uL Lymph ocyte s [place] 1442 850 - 3900 cells /uL [facility] Not Available Not Available 11/12/2024 16:25:25 07/13/20 24 07/14/2024 CBC W Auto Diffe renti al panel - Blood absolute monocytes 763 text: 200 - 950 cells/ uL [place] Monoc ytes 763 200 - 950 cells /uL [facility] Not Available Not Available 11/12/2024 16:25:25 07/13/20 24 07/14/2024 CBC W Auto Diffe renti al panel - Blood eosinophils absolute 223 text: 15 - 500 cells/ uL Eosin ophil s [place] 223 15 - 500 cells /uL [facility] Not Available Not Available 11/12/2024 16:25:25 07/13/20 24 07/14/2024 CBC W Auto Diffe renti al panel - Blood basophils absolute 64 text: 0 - 200 cells/ uL Basop hils [place] 64 0 - 200 cells /uL [facility] Not Available Not Available 11/12/2024 16:25:25 07/13/20 24 07/14/2024 CBC W Auto Diffe renti al panel - Blood absolute blasts [place] Blast s [facility] Not Available Not Available 11/12/2024 16:25:25 07/13/20 24 07/14/2024 CBC W Auto Diffe renti al panel - Blood NRBC absolute nRBC [place] [facility] Not Available Not Available 11/12/2024 16:25:25 07/13/20 24 07/14/2024 CBC W Auto Diffe renti al panel - Blood granulocytes % 76.5 % Granu locyt es % 76.5 % [facility] Not Available Not Available 11/12/2024 16:25:25 07/13/20 24 07/14/2024 CBC W Auto Diffe renti al panel - Blood band neutrophil Band Neutr ophil [facility] Not Available Not Available 11/12/2024 16:25:25 07/13/20 24 07/14/2024 CBC W Auto Diffe renti al panel - Blood metamyelocyt es Metam yeloc ytes [facility] Not Available Not Available 11/12/2024 16:25:25 07/13/20 24 07/14/2024 CBC W Auto Diffe renti al panel - Blood myelocytes Myelo cytes [facility] Not Available Not Available 11/12/2024 16:25:25 07/13/20 24 07/14/2024 CBC W Auto Diffe renti al panel - Blood promyelocyte s Promy elocy eusebia [facility] Not Available Not Available 11/12/2024 16:25:25 07/13/20 24 07/14/2024 CBC W Auto Diffe renti al panel - Blood lymphocytes % 13.6 % Lymph ocyte s % 13.6 % [facility] Not Available Not Available 11/12/2024 16:25:25 07/13/20 24 07/14/2024 CBC W Auto Diffe renti al panel - Blood lymphocyte reactive Lymph ocyte React samir [facility] Not Available Not Available 11/12/2024 16:25:25 07/13/20 24 07/14/2024 CBC W Auto Diffe renti al panel - Blood monocytes % 7.2 % Monoc ytes % 7.2 % [facility] Not Available Not Available 11/12/2024 16:25:25 07/13/20 24 07/14/2024 CBC W Auto Diffe renti al panel - Blood eosinophils % 2.1 % Eosin ophil s % 2.1 % [facility] Not Available Not Available 11/12/2024 16:25:25 07/13/20 24 07/14/2024 CBC W Auto Diffe renti al panel - Blood basophils % 0.6 % Basop hils % 0.6 % [facility] Not Available Not Available 11/12/2024 16:25:25 07/13/20 24 07/14/2024 CBC W Auto Diffe renti al panel - Blood blasts Blast s [facility] Not Available Not Available 11/12/2024 16:25:25 07/13/20 24 07/14/2024 CBC W Auto Diffe renti al panel - Blood NRBC nRBC [facility] Not Available Not Available 11/12/2024 16:25:25 07/13/20 24 07/14/2024 CBC W Auto Diffe renti al panel - Blood comments Comme nts [facility] Not Available Not Available 11/12/2024 16:25:25 07/13/20 24 07/14/2024 CBC W Auto Diffe renti al panel - Blood interpretati on and review of laboratory results Abnorm al Not Available Not Available 16:25:25 07/13/20 24 07/14/2024 Hepat ic funct ion 2000 panel - Serum or Plasm a protein total 6.6 g/dL low: 6.1g/d Lhigh: 8.1g/d L Prote in Total 6.6 6.1 - 8.1 g/dL [facility] Not Available Not Available 11/12/2024 16:25:25 07/13/20 24 07/14/2024 Hepat ic funct ion 2000 panel - Serum or Plasm a albumin 3.8 g/dL low: 3.6g/d Lhigh: 5.1g/d L Album in 3.8 3.6 - 5.1 g/dL [facility] Not Available Not Available 11/12/2024 16:25:25 07/13/20 24 07/14/2024 Hepat ic funct ion 2000 panel - Serum or Plasm a globulin total 2.8 text: 1.9 - 3.7 g/dL (calc) Globu francesca Total 2.8 1.9 - 3.7 g/dL (calc ) [facility] Not Available Not Available 11/12/2024 16:25:25 07/13/20 24 07/14/2024 Hepat ic funct ion 1999 panel - Serum or Plasm a albumin/glob ulin ratio 1.4 text: 1.0 - 2.5 (calc) Album in/Gl obuli n Ratio 1.4 1.0 - 2.5 (calc ) [facility] Not Available Not Available 11/12/2024 16:25:25 07/13/20 24 07/14/2024 Hepat ic funct ion 1999 panel - Serum or Plasm a bilirubin total 0.4 mg/dL low: 0.2mg/ dLhigh : 1.2mg/ dL Bilir ubin Total 0.4 0.2 - 1.2 mg/dL [facility] Not Available Not Available 11/12/2024 16:25:25 07/13/20 24 07/14/2024 Hepat ic funct ion 1999 panel - Serum or Plasm a bilirubin direct 0.1 mg/dL text: < or = 0.2 Bilir ubin Direc t 0.1 < OR = 0.2 mg/dL [facility] Not Available Not Available 11/12/2024 16:25:25 07/13/20 24 07/14/2024 Hepat ic funct ion 2000 panel - Serum or Plasm a bilirubin indirect 0.3 text: 0.2 - 1.2 mg/dL (calc) Bilir ubin Indir ect 0.3 0.2 - 1.2 mg/dL (calc ) [facility] Not Available Not Available 11/12/2024 16:25:25 07/13/20 24 07/14/2024 Hepat ic funct ion 2000 panel - Serum or Plasm a alkaline phosphatase 51 U/L low: 37U/Lh igh: 153U/L Alkal ine Phosp hatas e 51 37 - 153 U/L [facility] Not Available Not Available 11/12/2024 16:25:25 07/13/20 24 07/14/2024 Hepat ic funct ion 2000 panel - Serum or Plasm a AST 12 U/L low: 10U/Lh igh: 35U/L AST 12 10 - 35 U/L [facility] Not Available Not Available 11/12/2024 16:25:25 11/12/20 24 07/14/2024 Hepat ic funct ion 2000 panel - Serum or Plasm a ALT 8 U/L low: 6U/Lhi gh: 29U/L ALT 8 6 - 29 U/L [facility] Not Available Not Available 11/12/2024 16:25:25 07/13/20 24 07/14/2024 Creat inine [Mass /volu me] in Serum or Plasm a creatinine 0.87 mg/dL low: 0.5mg/ dLhigh : 1.05mg /dL Creat inine 0.87 0.50 - 1.05 mg/dL [facility] Not Available Not Available 11/12/2024 16:25:25 07/13/20 24 07/14/2024 Creat inine [Mass /volu me] in Serum or Plasm a glomerular filtration rate/1.73 sq M.predicted [volume rate/area] in serum, plasma or blood by cystatin C-based formula 74 text: > or = 60 mL/min /1.73m 2 eGFR by Cysta tin C 74 > OR = 60 mL/mi n/1.7 3m2 [facility] Not Available Not Available 11/12/2024 16:25:25 07/13/20 24 07/14/2024 Hemog lobin A1c/H emogl obin. total in Blood hemoglobin A1C/hemoglob in.total in blood 5.7 % high Hemog lobin A1c (EXTE RNAL RESUL T) 5.7 (H) % OUTSI DE REFER ENCE LAB Not Available Not Available 11/12/2024 16:25:22 07/13/20 24 07/14/2024 Hemog lobin A1c/H emogl obin. total in Blood interpretati on and review of laboratory results Abnorm al Not Available Not Available 16:25:22 10/29/19 25 10/30/2024 CBC W Auto Diffe renti al panel - Blood white blood cell count 11.1 text: 3.8 - 10.8 thousa nd/uL high White Blood Cell Count 11.1 (H) 3.8 - 10.8 Thous and/u L [facility] Not Available Not Available 11/12/2024 16:25:22 10/29/19 25 10/30/2024 CBC W Auto Diffe renti al panel - Blood RBC 4.23 text: 3.80 - 5.10 millio n/uL RBC 4.23 3.80 - 5.10 Kareen on/uL [facility] Not Available Not Available 11/12/2024 16:25:22 10/29/19 25 10/30/2024 CBC W Auto Diffrichard lazcanoti al panel - Blood hemoglobin 9.8 g/dL low: 11.7g/ dLhigh : 15.5g/ dL low Hemog lobin 9.8 (L) 11.7 - 15.5 g/dL [facility] Not Available Not Available 11/12/2024 16:25:22 10/29/19 25 10/30/2024 CBC W Auto Diffe leonie al panel - Blood hematocrit 33.7 % low: 35%hig h: 45% low Hemat ocrit 33.7 (L) 35.0 - 45.0 % [facility] Not Available Not Available 11/12/2024 16:25:22 10/29/19 25 10/30/2024 CBC W Auto Stevie hadley al panel - Blood MCV 79.7 fL low: 80fLhi gh: 100fL low MCV 79.7 (L) 80.0 - 100.0 fL [facility] Not Available Not Available 11/12/2024 16:25:22 10/29/19 25 10/30/2024 CBC W Auto Diffrichard hadley al panel - Blood MCH 23.2 pg low: 27pghi gh: 33pg low MCH 23.2 (L) 27.0 - 33.0 pg [facility] Not Available Not Available 11/12/2024 16:25:22 10/29/19 25 10/30/2024 CBC W Auto Diffrichard harrison panel - Blood MCHC 29.1 g/dL low: 32g/dL high: 36g/dL low MCHC 29.1 (L) 32.0 - 36.0 g/dL [facility] Not Available Not Available 11/12/2024 16:25:22 10/29/19 25 10/30/2024 CBC W Auto Diffe nenoti al panel - Blood RDW 14.2 % low: 11%hig h: 15% RDW 14.2 11.0 - 15.0 % [facility] Not Available Not Available 11/12/2024 16:25:22 02/28/10/30/2024 CBC W Auto Diffe renti al panel - Blood platelet count 437 text: 140 - 400 thousa nd/uL high Plate let Count 437 (H) 140 - 400 Thous and/u L [facility] Not Available Not Available 11/12/2024 16:25:22 10/29/19 25 10/30/2024 CBC W Auto Diffe renti al panel - Blood MPV 10.6 fL low: 7.5fLh igh: 12.5fL MPV 10.6 7.5 - 12.5 fL [facility] Not Available Not Available 11/12/2024 16:25:22 10/29/19 25 10/30/2024 CBC W Auto Diffe renti al panel - Blood neutrophil absolute 7581 text: 1500 - 7800 cells/ uL Neutr ophil [place] 7581 1500 - 7800 cells /uL [facility] Not Available Not Available 11/12/2024 16:25:22 10/29/19 25 10/30/2024 CBC W Auto Diffe renti al panel - Blood absolute bands [place] Bands [facility] Not Available Not Available 11/12/2024 16:25:22 10/29/19 25 10/30/2024 CBC W Auto Diffe renti al panel - Blood metamyelocyt es absolute Metam yeloc ytes [place] [facility] Not Available Not Available 11/12/2024 16:25:22 10/29/19 25 10/30/2024 CBC W Auto Diffe renti al panel - Blood myelocytes absolute Myelo cytes [place] [facility] Not Available Not Available 11/12/2024 16:25:22 10/29/19 25 10/30/2024 CBC W Auto Diffe renti al panel - Blood absolute prolymphocyt es [place] Proly mphoc ytes [facility] Not Available Not Available 11/12/2024 16:25:22 10/29/19 25 10/30/2024 CBC W Auto Diffe renti al panel - Blood lymphocytes absolute 1997 text: 850 - 3900 cells/ uL Lymph ocyte s [place] 1997 850 - 3900 cells /uL [facility] Not Available Not Available 11/12/2024 16:25:22 10/29/19 25 10/30/2024 CBC W Auto Diffe renti al panel - Blood absolute monocytes 1288 text: 200 - 950 cells/ uL high [place] Monoc ytes 1288 (H) 200 - 950 cells /uL [facility] Not Available Not Available 11/12/2024 16:25:22 10/29/19 25 10/30/2024 CBC W Auto Diffe renti al panel - Blood eosinophils absolute 155 text: 15 - 500 cells/ uL Eosin ophil s [place] 155 15 - 500 cells /uL [facility] Not Available Not Available 11/12/2024 16:25:22 10/29/19 25 10/30/2024 CBC W Auto Diffe renti al panel - Blood basophils absolute 78 text: 0 - 200 cells/ uL Basop hils [place] 78 0 - 200 cells /uL [facility] Not Available Not Available 11/12/2024 16:25:22 10/29/19 25 10/30/2024 CBC W Auto Diffe renti al panel - Blood absolute blasts [place] Blast s [facility] Not Available Not Available 11/12/2024 16:25:22 10/29/19 25 10/30/2024 CBC W Auto Diffe renti al panel - Blood NRBC absolute nRBC [place] [facility] Not Available Not Available 11/12/2024 16:25:22 10/29/19 25 10/30/2024 CBC W Auto Diffe renti al panel - Blood granulocytes % 68.3 % Granu locyt es % 68.3 % [facility] Not Available Not Available 11/12/2024 16:25:22 10/29/19 25 10/30/2024 CBC W Auto Diffe renti al panel - Blood band neutrophil Band Neutr ophil [facility] Not Available Not Available 11/12/2024 16:25:22 10/29/19 25 10/30/2024 CBC W Auto Diffe renti al panel - Blood metamyelocyt es Metam yeloc ytes [facility] Not Available Not Available 11/12/2024 16:25:22 10/29/19 25 10/30/2024 CBC W Auto Diffe renti al panel - Blood myelocytes Myelo cytes [facility] Not Available Not Available 11/12/2024 16:25:22 10/29/19 25 10/30/2024 CBC W Auto Diffe renti al panel - Blood promyelocyte s Promy elocy eusebia [facility] Not Available Not Available 11/12/2024 16:25:22 10/29/19 25 10/30/2024 CBC W Auto Diffe renti al panel - Blood lymphocytes % 18 % Lymph ocyte s % 18.0 % [facility] Not Available Not Available 11/12/2024 16:25:22 10/29/19 25 10/30/2024 CBC W Auto Diffe renti al panel - Blood lymphocyte reactive Lymph ocyte React samir [facility] Not Available Not Available 11/12/2024 16:25:22 10/29/19 25 10/30/2024 CBC W Auto Diffe renti al panel - Blood monocytes % 11.6 % Monoc ytes % 11.6 % [facility] Not Available Not Available 11/12/2024 16:25:22 10/29/19 25 10/30/2024 CBC W Auto Diffe renti al panel - Blood eosinophils % 1.4 % Eosin ophil s % 1.4 % [facility] Not Available Not Available 11/12/2024 16:25:22 10/29/19 25 10/30/2024 CBC W Auto Diffe renti al panel - Blood basophils % 0.7 % Basop hils % 0.7 % [facility] Not Available Not Available 11/12/2024 16:25:22 10/29/19 25 10/30/2024 CBC W Auto Diffe renti al panel - Blood blasts Blast s [facility] Not Available Not Available 11/12/2024 16:25:22 10/29/19 25 10/30/2024 CBC W Auto Diffe renti al panel - Blood NRBC nRBC [facility] Not Available Not Available 11/12/2024 16:25:22 10/29/19 25 10/30/2024 CBC W Auto Diffe renti al panel - Blood comments Comme nts [facility] Not Available Not Available 11/12/2024 16:25:22 10/29/19 25 10/30/2024 CBC W Auto Diffe renti al panel - Blood interpretati on and review of laboratory results Abnorm al Not Available Not Available 16:25:22 10/29/19 25 10/30/2024 Hepat ic funct ion 2000 panel - Serum or Plasm a protein total 7.1 g/dL low: 6.1g/d Lhigh: 8.1g/d L Prote in Total 7.1 6.1 - 8.1 g/dL [facility] Not Available Not Available 11/12/2024 16:25:21 10/29/19 25 10/30/2024 Hepat ic funct ion 1999 panel - Serum or Plasm a albumin 4 g/dL low: 3.6g/d Lhigh: 5.1g/d L Album in 4.0 3.6 - 5.1 g/dL [facility] Not Available Not Available 11/12/2024 16:25:21 10/29/19 25 10/30/2024 Hepat ic funct ion 2000 panel - Serum or Plasm a globulin total 3.1 text: 1.9 - 3.7 g/dL (calc) Globu francesca Total 3.1 1.9 - 3.7 g/dL (calc ) [facility] Not Available Not Available 11/12/2024 16:25:21 10/29/19 25 10/30/2024 Hepat ic funct ion 2000 panel - Serum or Plasm a albumin/glob ulin ratio 1.3 text: 1.0 - 2.5 (calc) Album in/Gl obuli n Ratio 1.3 1.0 - 2.5 (calc ) [facility] Not Available Not Available 11/12/2024 16:25:21 10/29/19 25 10/30/2024 Hepat ic funct ion 2000 panel - Serum or Plasm a bilirubin total 0.4 mg/dL low: 0.2mg/ dLhigh : 1.2mg/ dL Bilir ubin Total 0.4 0.2 - 1.2 mg/dL [facility] Not Available Not Available 11/12/2024 16:25:21 10/29/19 25 10/30/2024 Hepat ic funct ion 2000 panel - Serum or Plasm a bilirubin direct 0.1 mg/dL text: < or = 0.2 Bilir ubin Direc t 0.1 < OR = 0.2 mg/dL [facility] Not Available Not Available 11/12/2024 16:25:21 10/29/19 25 10/30/2024 Hepat ic funct ion 2000 panel - Serum or Plasm a bilirubin indirect 0.3 text: 0.2 - 1.2 mg/dL (calc) Bilir ubin Indir ect 0.3 0.2 - 1.2 mg/dL (calc ) [facility] Not Available Not Available 11/12/2024 16:25:21 10/29/19 25 10/30/2024 Hepat ic funct ion 1999 panel - Serum or Plasm a alkaline phosphatase 48 U/L low: 37U/Lh igh: 153U/L Alkal ine Phosp hatas e 48 37 - 153 U/L [facility] Not Available Not Available 11/12/2024 16:25:21 10/29/19 25 10/30/2024 Hepat ic funct ion 1999 panel - Serum or Plasm a AST 12 U/L low: 10U/Lh igh: 35U/L AST 12 10 - 35 U/L [facility] Not Available Not Available 11/12/2024 16:25:21 10/29/19 25 10/30/2024 Hepat ic funct ion 1999 panel - Serum or Plasm a ALT 7 U/L low: 6U/Lhi gh: 29U/L ALT 7 6 - 29 U/L [facility] Not Available Not Available 11/12/2024 16:25:21 10/29/19 25 10/30/2024 Creat inine [Mass /volu me] in Serum or Plasm a creatinine 0.84 mg/dL low: 0.5mg/ dLhigh : 1.05mg /dL Creat inine 0.84 0.50 - 1.05 mg/dL [facility] Not Available Not Available 11/12/2024 16:25:21 10/29/19 25 10/30/2024 Creat inine [Mass /volu me] in Serum or Plasm a glomerular filtration rate/1.73 sq M.predicted [volume rate/area] in serum, plasma or blood by cystatin C-based formula 77 text: > or = 60 mL/min /1.73m 2 eGFR by Cysta tin C 77 > OR = 60 mL/mi n/1.7 3m2 [facility] Not Available Not Available 11/12/2024 16:25:21 03/12/20 24 03/11/2024 CT, shoul shira, w/o contr ast No observ ation record ed. [facility] [address], [place], [address], 03/15/2024 12:09:18 Result Notes None recorded. Problems Name Problem SNOMED Code Status Onset Date Resolution Date Notes Provider Name and Address Organization Details Recorded Time Hyperlipidemia 51297243 Active 2023 TUAN Kelly Attn: Accountin g,[address] [facility], [place], [address], [place] [facility] 4 08:57:54 Pulmonary hypertension 09747780 Active 2023 TUAN Kelly Attn: Accountin g,[address] [facility], [place], [address], [place] [facility] 4 08:57:55 Hypothyroidism 82481554 Active 2023 TUAN Kelly Attn: Accountin g,[address] [facility], [place], [address], [place] [facility] 4 08:57:57 Benign essential hypertension 3748155 Active 2023 TUAN Kelly Attn: Accountin g,[address] [facility], [place], [address], [place] [facility] 4 08:58:01 Gastroesophage al reflux disease without esophagitis 589852245 Active 2023 TUAN Kelly Attn: Accountin g,[address] [facility], [place], [address], [place] [facility] 4 08:58:02 Prediabetes 033078687 Active 2023 TUAN Kelly Attn: Accountin g,[address] [facility], [place], [address], [place] [facility] 4 08:58:03 Mixed anxiety and depressive disorder [id number] Active 2023 TUAN Kelly Attn: Accountin g,[address] [facility], [place], [address], [place] [facility] 4 08:58:04 Atrial fibrillation 26632563 Active 2023 TUAN Kelly Attn: Accountin g,[address] [facility], [place], [address], [place] [facility] 4 08:58:05 Long-term current use of anticoagulant 201284278 Active 2023 TUAN Kelly Attn: Accountin g,[address] [facility], [place], [address] [facility] 4 08:58:07 Long-term drug therapy Active 2023 TUAN Kelly Attn: Accountin g,[address] [facility], [place], [address], [place] [facility] 4 08:58:19 Body mass index 40+ - severely obese 476660465 Active 2023 Mariano Betancourt [place] null, [place] [facility] 4 12:03:06 Obesity 309644123 Active 2023 TUAN Kelly Attn: Accountin g,[address] [facility], [place], [address], [place] [facility] 4 21:08:31 Problem Notes None recorded. Procedures Surgical History Date Name Laterality Status Provider Name and Address Organization Details Recorded Time Tonsillectomy completed Mariano Bet[place]ourt [place] 06/22/2024 12:08:09 section completed Mariano Bet[place] 06/22/2024 12:08:19 D & c after delivery completed Mariano Betancourt [place] [facility] 06/22/2024 12:08:24 Joint Replacement completed Mariano Betancourt [place] 06/22/2024 12:08:34 Imaging Results Imaging Date Name Status LastModified by Organiz ation Details LastModified Time 03/11/2024 CT, shoulder, w/o contrast completed [place] [address] [facility] [address], [address], 03/15/2024 12:09:18 Procedure Notes None recorded. Medical Equipment None Reported. Allergies Allergen ID Allergen Name Allergen Category Reaction Reaction Severity Criticality Documentation Date Start Date Code Code System Note Provider Name and Address Organization Details Recorded Time 500961 oxycodone medicatio n Not available Not available Not available 06/22/2024 7804 RxNorm Not Available Not Available Not Available Medications Name Sig Start Date Stop Date Status Note LastModified by Organization Details LastModified Time flecainide 150 mg tablet 06/22 completed Not Available Not Available Not Available azithromyc in 250 mg tablet TAKE 2 TABLETS BY MOUTH FOR 1 DAY THEN TAKE 1 TABLET BY MOUTH DAILY FOR 4 DAYS 12/30 completed Not Available Not Available Not Available prednisone 20 mg tablet TAKE 2 TABLETS BY MOUTH DAILY active Not Available Not Available No t Available tramadol 50 mg tablet Take by oral route for 7 days. 06/22 completed pt has them but isn't taking them right now Not Available Not Available Not Available Synthroid 175 mcg tablet Take 1 tablet every day by oral route for 90 days. active Not Available Not Available No t Available mycophenol ate mofetil 500 mg tablet Take 2 tablets 3 times a day by oral route for 30 days. active Not Available Not Available No t Available amoxicilli n 875 mg tablet TAKE 1 TABLET BY MOUTH EVERY 12 HOURS 12/30 completed Not Available Not Available Not Available diltiazem ER 120 mg capsule,24 hr,extende d release TAKE 1 CAPSULE BY MOUTH EVERY DAY active Not Available Not Available No t Available pantoprazo le 40 mg tablet,del ayed release TAKE 1 TABLET DAILY active Not Available Not Available No t Available simvastati n 20 mg tablet TAKE 1 TABLET DAILY active Not Available Not Available No t Available flecainide 100 mg tablet Take 1 tablet twice a day by oral route as directed for 90 days. active Not Available Not Available No t Available metoprolol tartrate 50 mg tablet TAKE 1 TABLET BY MOUTH TWICE DAILY active Not Available Not Available No t Available fluoxetine 10 mg capsule Take 1 capsule every day by oral route. active Not Available Not Available No t Available folic acid 1 mg tablet active Not Available Not Available Not Available cefuroxime axetil 500 mg tablet TAKE 1 TABLET BY MOUTH EVERY 12 HOURS active Not Available Not Available No t Available cefdinir 300 mg capsule 12/30 completed Not Available Not Available Not Available metformin ER 500 mg tablet,ext ended release 24 hr active Not Available Not Available Not Available metoclopra mide 10 mg tablet TAKE 1 TABLET BY MOUTH EVERY DAY AT BEDTIME 12/30 completed Not Available Not Available Not Available amoxicilli n 875 mg-potassi um clavulanat e 125 mg tablet Take 1 tablet every 12 hours by oral route. active Not Available Not Available No t Available bupropion HCl XL 300 mg 24 hr tablet, extended release TAKE 1 TABLET BY MOUTH EVERY DAY active Not Available Not Available No t Available ferrous gluconate 324 mg (38 mg iron) tablet Take 1 tablet every day by oral route. 2023 active Not Available Not Available Not Avai lable fenofibrat e 54 mg tablet Take 1 tablet every day by oral route for 90 days. active Not Available Not Available No t Available Eliquis 5 mg tablet TAKE 1 TABLET BY MOUTH TWICE DAILY active Not Available Not Available No t Available Vitals Date Recorded Body height Respiratory rate Body mass index (BMI) Body weight Oxygen saturation Oxygen saturation in Arterial blood by Pulse oximetry Heart rate Systolic blood pressure Diastolic blood pressure Provider Name and Address Organization Details Last Updated DateTime 4 162.56 cm 20 /min 44.5 kg/m2 402697. 42 g 98 % 98 % 63 /min 132 mm[Hg] 78 mm[Hg] Mariano Betancourt MA [facility] 08:40:44 Date Recorded Systolic blood pressure Diastolic blood pressure Provider Name and Address Organization Details Last Updated DateTime 12/31/2023 128 mm[Hg] 70 mm[Hg] TUAN Kelly Attn: Accounting[address] [place], [address], [facility] 12/31/2023 08:55:46 Date Recorded Body height Body mass index (BMI) Body weight Respiratory rate Oxygen saturation Oxygen saturation in Arterial blood by Pulse oximetry Heart rate Systolic blood pressure Diastolic blood pressure Provider Name and Address Organization Details Last Updated DateTime 4 162.56 cm 44.1 kg/m2 040877. 24 g 20 /min 100 % 100 % 61 /min 126 mm[Hg] 82 mm[Hg] Mariano Betancourt MA [facility] 12:10:59 Social History Question Answer Notes LastModified by Organizat ion Details LastModified Time Tobacco Smoking Status Never Smoker Mariano Betancourt MA null, [facility] 12/31/2023 08:36:13 Do You Have An Advance Directive? Yes Information not available 12/31/2023 What Is Your Level Of Alcohol Consumption? Occasional Information not available 12/31/2023 Are You Blind Or Do You Have Difficulty Seeing? No Glasses Information not available 12/31/2023 What Is Your Level Of Caffeine Consumption? None Information not available 12/31/2023 In The 14 Days Before Symptom Onset, Have You Had Close Contact With A Laboratory-confir med COVID-19 While That Case Was Ill? No Information not available 12/30/2023 In The 14 Days Before Symptom Onset, Have You Had Close Contact With A Person Who Is Under Investigation For COVID-19 While That Person Was Ill? No Information not available 12/30/2023 Have You Been To An Area Known To Be High Risk For COVID-19? No Information not available 12/30/2023 Are You Deaf Or Do You Have Serious Difficulty Hearing? No Information not available 12/31/2023 What Type Of Diet Are You Following? REGULAR Information not available 12/31/2023 Are There Any Guns Present In Your Home? No Information not available 12/31/2023 What Was The Date Of Your Most Recent Tobacco Screening? 06/22/2024 Information not available 06/22/2024 What Is Your Relationship Status? Information not available 12/31/2023 Do You Use Your Seat Belt Or Car Seat Routinely? Yes Information not available 12/30/2023 Do You Have Smoke And Carbon Monoxide Detectors In Your Home? Yes Information not available 12/30/2023 Do You Use Any Illicit Or Recreational Drugs? No Information not available 12/31/2023 Do You Use Sunscreen Routinely? Yes Information not available 12/31/2023 Has Tobacco Cessation Counseling Been Provided? Yes Information not available 12/30/2023 On What Date Was Tobacco Cessation Counseling Provided? 06/22/2024 Information not available 06/22/2024 Do You Or Have You Ever Used Any Other Forms Of Tobacco Or Nicotine? No Information not available 12/31/2023 Sex: Female Functional Status Question Answer Note LastModified by Organizat ion Details LastModified Time Are you able to care for yourself? Yes Information not available 12/30/2023 What is your exercise level? Occasional Information not available 12/31/2023 Mental Status None recorded. Family History Relationship Description Onset Age of this Age Resolved Age Notes LastModified by Organization Details LastModified Time Mother Malignant tumor of breast [email or web address] Not available 2023 12:05:22 Mother Hypertensive disorder [email or web address] Not available 2023 12:06:48 Mother Hypercholest erolemia [email or web address] Not available 2023 12:07:17 Father Malignant tumor of colon [email or web address] Not available 2023 12:05:37 Father Diabetes mellitus [email or web address] Not available 2023 12:06:30 Father Heart disease [email or web address] Not available 2023 12:06:42 Father Hypertensive disorder tcarterma Not available 2023 12:06:48 Father Hypercholest erolemia tcarterma Not available 2023 12:07:17 Medical History Condition Response Coronary Artery Disease N Other N High Blood Pressure N Kidney or Bladder Problems N Thyroid Problems Y GI Problems N Depression Y COPD N Blood Clots N Have you had a mammogram in the last yea r? N Skin Problems N Anemia N Heart Attack (PR) N Anxiety Disorder N Diabetes N Muscle, Joint, or Bone Problems N Seizures/Epilepsy N Have you had a colonoscopy in the last 1 0 years? N Acid Reflux (GERD) Y Cancer N Stroke N Asthma N Allergies N Have you had a PSA blood test in the las t year? N High Cholesterol Y Hepatitis N Liver Disease N Headaches N Heart Failure N Osteoporosis N Gynecological History Statement/Question Response Menses Monthly N Current Control Method None Obstetrics History GPAL:G 0 P 0 0 0 0 Immunizations Vaccine Type Date Status Note Provider Nam e and Address Organization Details Recorded Time Influenza, MDCK, quadrivalent, PF 3 completed Mariano Bet[place], [place] [facility] 06/22/2024 12:02:56 Influenza, recombinant, quadrivalent, PF 1 completed [place] [facility] 06/22/2024 12:02:56 zoster recombinant 0 completed Mar[place] [facility] 06/22/2024 12:02:56 zoster recombinant 0 completed [place] [facility] 06/22/2024 12:02:56 COVID-19, mRNA, LNP-S, PF, 30 mcg/0.3 mL dose 1 completed [place] [facility] 06/22/2024 12:02:56 COVID-19, mRNA, LNP-S, PF, 30 mcg/0.3 mL dose 1 completed [place] [facility] 06/22/2024 12:02:56 COVID-19, mRNA, LNP-S, PF, 30 mcg/0.3 mL dose 1 completed MADI [place], [place] [facility] 06/22/2024 12:02:56 Pneumococcal conjugate PCV20, polysaccharide [id number] conjugate, adjuvant, PF 2 completed Mar[place] [facility] 06/22/2024 12:02:56 COVID-19, mRNA, LNP-S, bivalent, PF, 30 mcg/0.3 mL dose 2 completed [place] [facility] 06/22/2024 12:02:56 COVID-19, mRNA, LNP-S, PF, omid-sucrose, 30 mcg/0.3 mL 3 completed Mar[place] [facility] 06/22/2024 12:02:56 Influenza, split virus, trivalent, preservative 4 completed Mar[place] [facility] 06/22/2024 12:02:56 Influenza, split virus, quadrivalent, PF 0 completed [place] [facility] 06/22/2024 12:02:56 Influenza, split virus, quadrivalent, PF 8 completed Mariano Betancourt MA [facility] 06/22/2024 12:02:56 Past Encounters Encounter ID Performer Location Encounter Start Date Encounter Closed Date Diagnosis/Indication Diagnosis SNOMED-CT Code Diagnosis ICD10 Code Diagnosis Note [id number] TUAN Kelly [facility] [employer] [address] [place] [address] 12/31/2023 08:27:04 12/31/2023 09:16:19 Hyperlipidemia 28058200 E78.5 on statin therapy, will repeat labs later in fall. Benign ess ential hypertension 1453897 I10 stable on diltiazem ER 120mg daily. Gastroesop hageal reflux disease without esophagitis 542094980 K21.9 stable on pantoprazo le 40mg daily. Mixed anxi ety and depressive disorder 240103339 F41.8 stable on wellbutrin XL 300mg daily and fluoxetine 10mg daily. Atrial fibrillation 4943 6004 I48.91 stable on diltiazem and eliquis, follows with dr. soledad hinds at [facility] Long-term current use of anticoagulant 651088036 Z79.01 on eliquis 5mg bid. Long-term drug therapy 356079373 Z79.899 labs due later in year. Hypothyroidism 48160917 E03.9 stable on synthroid 175mcg daily. Pulmonary hypertension 80409090 I27.20 stable and UTD with at [facility], Dr. Martínez. no acute changes. Prediabetes 187658715 R7 3.03 stable on metformin ER 500mg daily two am , one PM. [id number] TUAN Kelly [facility] [employer] [address] [place] [address] 06/22/2024 11:51:23 06/22/2024 13:09:25 Body mass index 40+ - severely obese 719208840 Z68.41 BMI is 44.1 Obesity 903536273 E66.9 discussed healthy diet, exercise, controllin g carbohydra eusebia and added sugars in the diet, patient has been doing this a few years and had great weight loss results. Hyperlipidemia 87133722 E78.5 on statin therapy, fasting lipid panel is due in July Pulmonary hypertension 00345657 I27.20 stable and UTD with at [facility], Dr. Martínez. no acute changes. Hypothyroidism 24929882 E03.9 stable on synthroid 175mcg daily. Due for routine thyroid function labs in July Benign ess ential hypertension 6544793 I10 stable on diltiazem ER 120mg daily. Gastroesop hageal reflux disease without esophagitis 988016319 K21.9 stable on pantoprazo le 40mg daily. Prediabetes 590709474 R7 3.03 stable on metformin ER 500mg daily two am , one PM. A1c ordered for next lab panel Mixed anxi ety and depressive disorder 199253752 F41.8 stable on wellbutrin XL 300mg daily and fluoxetine 10mg daily. Atrial fibrillation 4943 6004 I48.91 stable on diltiazem and eliquis, follows with dr. soledad hinds at [facility] Long-term current use of anticoagulant 390180198 Z79.01 on eliquis 5mg bid. Long-term drug therapy 879261772 Z79.899 CBC and CMP from rheumatolo gy routinely. Upper resp iratory infection 76337084 J06.9 For possible upper respirator y infection residuals noted on CT scan and with her having recently had some respirator y symptoms we will empiricall y treat her with 500 mg of Ceftin twice daily for 7 days. Adult heal th examination 773633310 Z00.01 Annual wellness examinatio n appointmen t completed Health Concerns Section Related Observation LastModified by Organization Detai ls LastModified Time None Recorded Concern Status LastModified by Organization Details LastModified Time None Recorded Advance Directives Directive Y: Payers Encounter Date Sequence Insurance Name Policy Number Policy Ardon Covered Member ID Ardon Member ID Guarantor Name 12/31/2023 1 [email or web address] - [employer] [id number] Melonie Prado [id number] Melonie Prado 06/22/2024 1 [email or web address] [id number] Melonie Prado [id number] Melonie Prado Notes Date Note Type Note Provider Name and Address Organization Details Recorded Time 12/31/19 24 text/htm l Anxiety/DepressionReported bypatient.Notes:stable on wellbutrina nd lexaproHyperlipidemiaReported bypatient.Notes:stable on statin therapy. due for labs later in yearHypertensionReported bypatient.Notes:stable on medicationReflux/GERDReported bypatient.Notes:on pantoprazole 40mg daily. still with some symptoms breakthrough at times. UTD on EGDThyroidReported bypatient.Notes:stable on thyroid supplement. TUAN Kelly Attn: Accounting, [address] [facility], [place], [address], [facility] 12/31/2023 09:01:43 06/22/20 24 text/htm l Anxiety/DepressionReported bypatient.Notes:stable on wellbutrin and fluoxetineAtrial FibrillationReported bypatient.Notes:pt is currently stable on flecainide and metoprolol and eliquis anticoagulant. UTD with cardiology f/u appts.HyperlipidemiaReported bypatient.Notes:stable on statin therapy.HypertensionReported bypatient.Notes:stable on medicationsReflux/GERDReported bypatient.Notes:on pantoprazole 40mg daily. still with some symptoms breakthrough at times. UTD on EGDThyroidReported bypatient.Notes:stable on thyroid supplement. Current lingering respiratory symptoms. Routine CT chest with her pulmonary team was completed yesterday and shows ? infiltrate, she sees them friday. TUAN Kelly Attn: Accounting, [address] [facility], [place], [address], [facility] 07/04/2024 21:10:07 OBGyn Episode No OBEpisode recorded.
--- OUTSIDE RECORDS SUMMARY | 2024-11-12 16:10 | XMS_ITS | Continuity of Care Document ---
Author Organization [facility] Address [address] [place] [address] Phone Care Team Providers Care Impact Hammer Operator Name Role Phone Unavailable Unavailable Unavailable Advance Directives Directive Yes / No Effective Date File Name No Information Encounters Encounter Description Practice Location Reason(s) For Visit Diagnoses Date Provider Providers Copied on Encounter [facility], [address], [place], [place], [id number], [place] tel:[phone] [facility] [place] ([facility]) SHOULDER REGION DIS NECJOINT PAIN-SHLDER No Information [facility], [address], [place], [place], [address], [place] tel:[phone] [facility] [place] (Ip) LOC PRIM OSTEOART-L/ LEGJOINT REPLACED KNEE Conversion Doctor. [address] [place] [address], [address], . Family History Family Member Type Diagnosis Age At Onset No Information Payers Payer name Insurance type Covered alliance party ID Authoriza tion(s) No Information Social History Type Description Quantity Date Captured Comments Sex Female Smoking Status No Information Chief Complaint And Reason For Visit No Information Reason For Referral Reason For Referral No Information History Of Present Illness Encounter Date Complaint History Of Prese nt Illness No Information Functional Status Date Functional Assessmen t No Information Instructions Date Instruction Additional Infor mation No Information Assessments Type Assessment Date No Information Patient Care Teams Name Effective Dates (start - stop) Status Members No Information
--- OUTSIDE RECORDS SUMMARY | 2024-11-12 16:10 | XMS_ITS | Clinical Summary ---
Author Organization [facility] Address [address] [place] [address] Care Team Providers Care Burn Table Operator Name Role Phone Unavailable Primary Care Provider Unavailabl e Allergies Active Allergy Reactions Criticality Noted Date Comments Hydrocodone Nausea and Vomiting Medium 07/06/2014 Per patient hydrocodone makes her nauseated and she doesn't want to take it Medications Eliquis 5 mg tablet Take 5 mg by mouth 2 times daily. Active buPROPion HCL (WELLBUTRIN XL) 300 mg Extended Release 24 hour tablet Take 300 mg by mouth daily. 01/02/2024 Active diltiaZEM (TIAZAC) 120 mg Extended Release capsule Take 120 mg by mouth daily. Active fenofibrate (LOFIBRA) 54 mg Take 54 mg by mouth daily. 10/23/2022 Active ferrous gluconate 324 mg (37.5 mg iron) Tablet Take 324 mg by mouth daily. 07/05/2021 Active FLUoxetine (PROzac) 10 mg capsule Take 10 mg by mouth daily at bedtime. Active folic acid (FOLVITE) 1 mg tablet Take 1 mg by mouth daily. 08/30/2021 Active levothyroxine 175 mcg tablet Take 175 mcg by mouth daily before breakfast. 01/28/2023 Active metFORMIN (GLUCOPHAGE XR) 500 mg Extended Release 24 hour tablet Take 500 mg by mouth daily with breakfast. 01/13/2023 Active metoprolol tartrate (LOPRESSOR) 50 mg tablet Take 50 mg by mouth 2 times daily. Active mycophenolate mofetil (CELLCEPT) 500 mg tablet Take 500 mg by mouth 2 times daily. 06/04/2023 Active pantoprazole (PROTONIX) 40 mg Tablet, Delayed Release (E.C.) Take 40 mg by mouth daily. Active simvastatin (ZOCOR) 20 mg tablet Take 20 mg by mouth daily. 11/03/2023 Active Active Problems Problem Noted Date Diagnosed Date Atrial fibrillation with RVR 11/15/2020 Essential hypertension 08/07/2012 Overview (01/06/2024): Hypothyroidism 08/07/2012 Overview (01/06/2024): HYPOTHYROIDISM NOS HYPOTHYROIDISM NOS IGT (impaired glucose tolerance) 08/07/2012 Hyperlipidemia 08/07/2012 Encounters Date Type Department Care Team Description 11/10/2024 External Device Data [facility] Provider, Abstract 11/09/2024 External Device Data [facility] Provider, Abstract 11/06/2024 External Device Data [facility] Provider, Abstract 11/06/2024 External Device Data [facility] Provider, Abstract 11/03/2024 External Device Data [facility] Provider, Abstract 11/03/2024 External Device Data [facility] [place] Provider, Abstract 10/20/2024 External Device Data [facility] Provider, Abstract 09/23/2024 External Device Data [facility] Provider, Abstract 09/14/2024 External Device Data [facility] Provider, Abstract from Last 3 Months Social History Tobacco Use Types Packs/Day Years Used Date Smoking Tobacco: Never Tobacco Cessation:Counseling Given: Not Answered Comments Unknown Sex and Gender Information Value Date Recorded Sex Assigned at Female 01/06/2024 6:55 AM CDT Legal Sex Female 1:25 PM CDT Gender Identity Female 01/06/2024 6:55 AM CDT Sexual Orientation Straight 01/06/2024 6: 55 AM CDT Last Filed Vital Signs Vital Sign Reading Time Taken Comments Blood Pressure - - Pulse - - Temperature - - Respiratory Rate - - Oxygen Saturation - - Inhaled Oxygen Concentration - - Weight 115.2 kg (254 lb) 01/06/2024 9:02 AM CDT Height 162.6 cm (5' 4 ) 01/06/2024 9:02 AM CDT Body Mass Index 43.6 01/06/2024 9:02 AM CDT Plan of Treatment Health Maintenance Due Date Last Done Comments DIABETES ANNUAL FOOT EXAM 1977 DIABETES ANNUAL RETINAL EXAM 1977 DIABETES MICROALBUMIN ANNUAL SCREEN 1977 LDL CHOLESTEROL ANNUAL 1977 BREAST CANCER SCREENING 1999 FIT-DNA Q 3 years 2004 FIT/FOBT Q 1 year 2004 Flex Sig/CT Colonography Q 5 years 2004 DTAP/TDAP/TD VACCINES (1 - Tdap) 09/02/2014 09/01/19 15 RSV VACCINE (60+ or ) (1 - Risk 60-74 years 1-dose series) 2019 INFLUENZA VACCINE (#1) 2024 , 05/25/2020, 05/25/2020, Additional history exists COVID-19 Vaccine (2023-2 5 season) 2024 12/01/2020, 11/02/2020 OSTEOPOROSIS SCREENING 2024 DIABETES HBA1C Q 6 MONTHS 01/10/2025 07/13/2024, COLORECTAL SCREENING 05/25/2031 05/25/2021 Colorectal Cancer Screening 05/25/2031 ZOSTER VACCINE Completed 07/26/2020, 05/25/2020 PNEUMOCOCCAL VACCINE 50+ YEARS Completed 01/18/2022 Insurance [employer] [facility] [id number]
--- OUTSIDE RECORDS SUMMARY | 2024-11-12 16:10 | XMS_ITS | Referral Summary ---
Author Organization [facility] Address [address] [place] [address] Care Team Providers Care Bread Slicer Machine Name Role Phone Jessy Baez MD Unavailable Tsaia Nash Unavailable Eluogio Marquez DPM Unavailable [phone] Eulogio Marquez DPM Unavailable [phone] Dago Hernandez MD Unavailable Darlyn Perry MD Unavailable [phone] Tasia Nash Primary Care Pr ovider Source Comments [facility],non-owned Affiliates and Associated Physician Practices is amultiple site organization consisting of ambulatory clinics and hospital sitesin [place], [place], [place] and [place]. This disclosure is being madepursuant to the Care Everywhere program and may not contain all information available regarding this patient. Last updated 18.[facility] EverPresent Encounters Date Type Department Care Team Description 11/12/2024 Telephone [facility] - Cardiology [address] [facility], [facility] [address] [place] [address] Loren Osorio, RONALD IRREGULAR HEART BEAT 11/11/2024 Refill [facility] - Rheumatology [address] [place] [phone] Darlyn Perry MD Refill Request 11/07/2024 Refill [facility] - Rheumatology [address] [place] [phone] Darlyn Perry MD Refill Request 11/03/2024 Travel 11/03/2024 Refill [facility] - Rheumatology [address] [place] [phone] Darlyn Perry MD Refill Request 11/03/2024 8:40 AM AERIAL GUNNER SUPERINTENDENT Office Visit [facility] - Rheumatology [address] [place] [phone] Darlyn Perry MD Interstitial lung disease (HCC) (Primary Dx); Therapeutic drug monitoring; Immunosuppression due to drug therapy (HCC); Antinuclear antibody (NICOLETTE) titer greater than 1:80; SS-A antibody positive 10/30/2024 Refill [facility] - Rheumatology [address] [place] [phone] Darlyn Perry MD Refill Request 10/15/2024 Orders Only [facility] - Rheumatology [address] [place] [address] Darlyn Perry MD Therapeutic drug monitoring 10/05/2024 Travel 10/05/2024 8:30 AM AERIAL GUNNER SUPERINTENDENT Office Visit [facility] - Pulmonology [address] [place] [phone] Jovan Martínez MD Interstitial lung disease (HCC) (Primary Dx); Obstructive sleep apnea syndrome 09/02/2024 11:00 AM AERIAL GUNNER SUPERINTENDENT - 09/02/2024 11:59 PM AERIAL GUNNER SUPERINTENDENT Hospital Encounter [facility] PFT [address] [place] [address] Unknown, Provider Discharge Disposition: Home or Self Care from Last 3 Months Allergies Active Allergy Reactions Criticality Noted Date [...] Discontinued cefUROXime (Ceftin) 500 MG tablet 11/04/19 Discontinued(Lis t Clean-Up) predniSONE (Deltasone) 20 MG tabletIndication s:Pneumonia due to infectious organism, unspecified laterality, unspecified part of lung Take 2 (two) tablets by mouth once daily 14 tablet 4 11/04/19 Discontinued(Lis t Clean-Up) Active Problems Problem Noted [...] in ear 12/21/2020 02/22/2021 Sinusitis 05/12/2020 06/09/2020 Immunizations Name Administration Dates Next Due INFLUENZA VACCINE, TRIV. (AF LURIA, FLUZONE TRIVALENT; 6MO+) (IIV3) 07/08/2014 Covid [employer] primary monoval ent 12+ yr 0.3mL Purple [...] RECOM-JACKSON, QUADR. (FLUBLOCK QUADRIVALENT; 18Y+) (RIV4) 06/01/2021 Social History Tobacco Use Types Packs/Day Years Used Date Smoking Tobacco: Never Smokeless Tobacco: Never Tobacco Cessation:Counseling Given: Not Answered Alcohol Use Standard Drinks/Week Comments Not Currently 0 (1 standard drink = 0.6 oz pur e alcohol) rarely PHQ-2 Answer Date Recorded Patient Health Questionnaire-2 Score 0 11/03/2024 Sex and Gender Information Value Date Recorded Sex Assigned at Female 07/12/2021 8:47 AM AERIAL GUNNER SUPERINTENDENT Gender Identity Female 07/12/2021 8:47 AM AERIAL GUNNER SUPERINTENDENT Sexual Orientation Not on file Last Filed Vital Signs Vital Sign Reading Time Taken Comments Blood Pressure 119/75 11/03/2024 8:55 AM AERIAL GUNNER SUPERINTENDENT Pulse 63 11/03/2024 8:55 AM AERIAL GUNNER SUPERINTENDENT Temperature 36.6 C (97.8 F) 11/03/2024 8:55 AM AERIAL GUNNER SUPERINTENDENT Respiratory Rate 17 10/05/2024 8:27 AM AERIAL GUNNER SUPERINTENDENT Oxygen Saturation 94% 11/03/2024 8:55 AM AERIAL GUNNER SUPERINTENDENT Inhaled Oxygen Concentration - - Weight 116.1 kg (256 lb) 11/03/2024 8:55 AM AERIAL GUNNER SUPERINTENDENT Height 162.6 cm (5' 4 ) 11/03/2024 8:55 AM AERIAL GUNNER SUPERINTENDENT Body Mass Index 43.94 11/03/2024 8:55 AM AERIAL GUNNER SUPERINTENDENT Functional Status Functional Status Response Date of Assess ment Is person deaf or have serious hearing difficult y? No 01/08/2021 Is person blind or have serious difficulty seein g? No 01/08/2021 Does person have serious dif ficulty walking/climbing stairs? No 01/08/2021 Does person have difficulty dressing/bathing? No 01/08/2021 Does person have difficulty doing errands alone? No 01/08/2021 Cognitive Status Response Date of Assessm ent Does person have difficulty concentrating/remembering/making decisions? No 01/08/2021 Plan of Treatment Upcoming Encounters Date Type Department Care Team (Late st Contact Info) Description 12/16/2024 8:40 AM CDT Office Visit [facility] - Cardiology [address] [phone] Dago Hernandez MD [address] [address] 03/09/2025 8:20 AM CDT Office Visit [facility] - Rheumatology [facility] [facility], [place] [phone] Darlyn Perry MD [address] [place] [address] [place] [phone] 04/08/2025 9:00 AM CDT Appointment [facility] PFT [address] [place] [phone] Remy Johnson MD [address] [place] [address] 2L DIV [place] [address] 04/08/2025 11:00 AM CDT Office Visit [facility] - Pulmonology [address] [place] [address], [place] [phone] Jovan Martínez MD [address] [place] [address] 2L DIV OF PULMONARY/[place] [address] 04/26/2025 8:20 AM CDT Office Visit [facility] - Endocrinology [phone] [place] [address], [address] [place] [phone] Jessy Baez MD [address] [place] [address] [address] [place] [address] Medical Devices Implanted Type Area Environmental Health Technologist Device Identifier Shelf Expiration Date Model / Serial / Lot Poly Patella 35 Implanted:Qty: 1 on 07/05/2014 by Uriel Cortez MD at [facility] Left: Knee 03/01/2022 [id number] / / [id number] Bolivar Bone Irvine Hv Implanted:Qty: 2 on 07/05/2014 by Uriel Cortez MD at [facility] Left: Knee [employer] 12/31/2015 [id number] / / [id number] Compon Fem Nexgen Lps-Flex Implanted:Qty: 1 on 07/05/2014 by Uriel Cortez MD at [facility] Left: Knee [employer] 06/01/2024 [id number] / / [id number] Plate Tibial Stem Sz 6 50mm X 74mm Implanted:Qty: 1 on 07/05/2014 by Uriel Cortez MD at [facility] Left: Knee [employer] 05/02/2024 [id number] / / [id number] Articular Surface 14 Mm Implanted:Qty: 1 on 07/05/2014 by Uriel Cortez MD at [facility] Left: Knee 03/01/2019 [id number] / / [id number] Procedures Procedure Name Priority Date/Time Associated Diagnosis Comments HEPATIC FUNCTION PANEL Routine 8:58 AM AERIAL GUNNER SUPERINTENDENT Therapeutic drug monitoring CREATININE BLOOD Routine 10/29/2024 8:58 AM AERIAL GUNNER SUPERINTENDENT Therapeutic drug monitoring CBC W AUTO DIFFERENTIAL Routine 10/29/2024 8:58 AM AERIAL GUNNER SUPERINTENDENT Therapeutic drug monitoring COMPLETE PFT W/WO BRONCHODILATOR Routine 09/02/2024 1:54 PM AERIAL GUNNER SUPERINTENDENT ILD (interstitial lung disease) (HCC) HEMOGLOBIN A1C (EXTERNAL RESULT ENTRY) Routine 07/13/2024 HEPATITIS C AB W/RFLX TO HCV RNA QN PCR 07/14/2020 7:49 AM AERIAL GUNNER SUPERINTENDENT HIV-1 HIV-2 ANTIBODY + HIV P24 AG PANEL 07/14/2020 7:49 AM AERIAL GUNNER SUPERINTENDENT MICROALB/CREAT RATIO URINE RANDOM PANEL Routine 12/11/2017 8:07 AM CDT Acquired hypothyroidism IGT (impaired glucose tolerance) Mixed hyperlipidemia Vitamin D deficiency Essential hypertension from Last 3 Months or Most Recently Relevant to Health Maintenance Results * (ABNORMAL) CBC WITH DIFFERENTIAL (10/29/2024 8:58 AM AERIAL GUNNER SUPERINTENDENT) White Blood Cell Count 11.1(H) 3.8 - [...] 0.7 % [facility] Comment: Test Performed at: [place] [address] JANAK STEPHENS MD Blasts [facility] nRBC [facility] Comments [facility] Comment: Test Performed at: [facility] [id number] [place] [address] JANAK STEPHENS MD Blood BLOOD SPECIMEN / Unknown 10/29/2024 8:58 AM AERIAL GUNNER SUPERINTENDENT 10/29/2024 8:59 AM AERIAL GUNNER SUPERINTENDENT Darlyn Perry MD LAB - HEMATOLOGY ORD ERABLES [facility] [address] [place] [address] * HEPATIC FUNCTION PANEL (10/29/2024 8:58 AM AERIAL GUNNER SUPERINTENDENT) Protein Total 7.1 6.1 - 8.1 g/dL [...] 29 U/L [facility] Comment: Test Performed at: [facility] [address] [place] [address] JANAK STEPHENS MD Blood BLOOD SPECIMEN / Unknown 10/29/2024 8:58 AM AERIAL GUNNER SUPERINTENDENT 10/29/2024 8:59 AM AERIAL GUNNER SUPERINTENDENT Darlyn Perry MD LAB - CHEMISTRY CADY DUNLAP Performing Organization Address City/[facility] Co de Phone Number [facility] [address] [place] [address] * CREATININE BLOOD (10/29/2024 8:58 AM AERIAL GUNNER SUPERINTENDENT) Creatinine 0.84 0.50 - 1.05 mg/dL [facility] eGFR by Cystatin C 77 > OR = 60 mL/min/1.7 3m2 [facility] Comment: Test Performed at: [facility] [address] [place] [address] JANAK STEPHENS MD Blood BLOOD SPECIMEN / Unknown 10/29/2024 8:58 AM AERIAL GUNNER SUPERINTENDENT 10/29/2024 8:59 AM AERIAL GUNNER SUPERINTENDENT Darlyn Perry MD LAB - CHEMISTRY CADY DUNLAP Performing Organization Address City/[facility]/ZIP Co de Phone Number [facility] [address] [place] [address] * COMPLETE PFT W/WO BRONCHODILATOR (09/02/2024 1:54 PM AERIAL GUNNER SUPERINTENDENT) Nicolas Dewey MD - 09/02/2024 1:54 PM AERIAL GUNNER SUPERINTENDENT [facility] DEPARTMENT OF PULMONARY, CRITICAL CARE, AND SLEEP [...] of Pulmonary, Critical Care, and Sleep Medicine [facility] I have personally reviewed the pulmonary function test data and made adjustment to the interpretation where necessary. Nicolas Bhat MD 09/10/2024 Narrative Nicolas Bhat MD - 09/02/2024 1:54 PM AERIAL GUNNER SUPERINTENDENT Luis Sevilla MD 09/03/2024 12:27 PM Jovan Martínez MD RESPIRATORY THERAPY ORDERABLES * (ABNORMAL) HEMOGLOBIN A1C (EXTERNAL RESULT ENTRY) (07/13/2024) Pathologist [facility] Hemoglobin A1c (EXTERNAL RESULT) 5.7(H) % OUTSIDE REFERENCE LAB Comment:[facility] - AfterSteps (scanned) Blood BLOOD SPECIMEN / Unknown 07/13/2024 Historical Provider LAB - CHEMISTRY O RDERABLES OUT[facility]IDE REFERENCE LAB * HEPATITIS C AB W/RFLX TO HCV RNA QN PCR (07/14/2020 7:49 AM AERIAL GUNNER SUPERINTENDENT) Hepatitis C Antibody NON-REACTI VE NON-REACT SHABBIR [facility] Signal to Cut-Off 0.03 <1.00 [facility] Comment: HCV antibody was non-reactive. There is no laboratory evidence of HCV infection. In most cases, no further action is required. However, if recent HCV exposure is suspected, a test for HCV RNA (test code 28143) is suggested. For additional information please refer to http://HarQen.boomtrain/faq/MAI82q9 (This link is being provided for informational/ educational purposes only.) Test Performed at: [facility] [id number] [facility] [place] [address] JM DURAN DO,MPH 07/14/2020 7:49 AM AERIAL GUNNER SUPERINTENDENT 07/14/2020 8:04 AM AERIAL GUNNER SUPERINTENDENT Darlyn Perry MD LAB - CHEMISTRY CADY DUNLAP Performing Organization Address City/State/[facility] Co id Phone Number [facility] [address] [place] [address] * HIV-1 HIV-2 ANTIBODY + HIV P24 AG PANEL (07/14/2020 7:49 AM AERIAL GUNNER SUPERINTENDENT) HIV Screen 4th Generation w Reflex NON-REACT [...] purpose. For additional information please refer to http://education.Sverve.reMail/faq/KYL646 (This link is being provided for informational/ educational purposes only.) The performance of this assay has not been clinically validated in patients less than 2 years old. Test Performed at: [facility] [id number] [facility] [id number] [address] JM DURAN DO,MPH 07/14/2020 7:49 AM AERIAL GUNNER SUPERINTENDENT 07/14/2020 8:04 AM AERIAL GUNNER SUPERINTENDENT Darlyn Perry MD LAB - CHEMISTRY CADY DUNLAP [facility] [address] [place] [address] * MICROALB/CREAT RATIO URINE RANDOM PANEL (12/11/2017 8:07 AM CDT) Creatinine Urine 23.9 Not Estab. mg/dL [facility] INSURANCE BILL Microalbumin Urine <3.0 Not Estab. ug/mL [facility] INSURANCE BILL Microalbumin/Crea tinine Ratio <12.6 0.0 - 30.0 mg/g creat [facility] INSURANCE BILL Comment:FASTING Urine URINE SPECIMEN OBTAINED BY CLEAN CATCH PROCEDURE / Unknown 12/11/2017 8:07 AM CDT 12/11/2017 Narrative Resulting Agency Comment [facility] [address] [facility] [id number] Jessy Baez MD LAB - URINE CHEM ISTRY ORDERABLES [facility] INSURANCE BILL [address] [place] [address] from Last 3 Months or Most Recently Relevant to Health Maintenance Advance Directives * Full Code (Latest Code Status on File) Date Activated Date Inactivated Comments 11/15/2020 7:44 PM 11/16/2020 4:34 PM * Full Code Date Activated Date Inactivated Comments 07/05/2014 10:44 AM 07/08/2014 1:36 PM Care Teams Bread Slicer Machine Relationship Specialty Start Date End Date Tasia Nash PA [address] [place] [address] PCP - General Physician Hypercil Core Transformer Assembler 05/06/24 [place] [address] [address] Endocrinology 12/01/17 Tasia Nash PA [address] [place] [address] Physician Hypercil Core Transformer Assembler 06/02/18 Eulogio Marquez DPM [address] [facility] [address] [place] [address] Podiatry 06/02/18 Eulogio Marquez DPM [address] [facility] [address] [place] [address] 06/17/19 Dago Hernandez MD [address] [facility], [place] [address] [place] [address] Cardiovascular Disease 01/16/21 Darlyn Perry MD [address] [facility] 2L [place] [address] Title Investigator Rheumatology 04/05/21
--- OUTSIDE RECORDS SUMMARY | 2024-11-12 16:10 | XMS_ITS | Referral Summary ---
Author Organization [address] Address [address] [place] [address] Care Team Providers Care Division Operations Manager Name Role Phone Serafin Aguirre MD Primary Care Provider [phone] Allergies Active Allergy Reactions Criticality Noted Date Comments Hydrocodone Nausea And Vomiting Medium 07/06/2014 Per patient hydrocodone makes her nauseated and she doesn't want to take it Medications ferrous gluconate 324 mg (37.5 mg of elemental iron) tablet Take 1 tablet (324 mg total) by mouth daily 1 Active buPROPion XL (WELLBUTRIN XL) 300 mg 24 hr tablet 1 tablet (300 mg total) daily 8 Active diltiazem (TIAZAC) 120 mg 24 hr capsule Take 1 capsule (120 mg total) by mouth daily 3 Active fenofibrate (TRICOR) 54 mg tablet Take 1 tablet (54 mg total) by mouth daily 3 Active FLUoxetine 10 mg capsule Take 1 tablet/capsule (10 mg total) by mouth nightly Active folic acid (FOLVITE) 1 mg tablet Take 1 tablet (1 mg total) by mouth daily 1 Active levothyroxine (SYNTHROID) 175 mcg tablet Take 2 tablets (350 mcg total) by mouth daily before breakfast 3 Active metFORMIN XR (GLUCOPHAGE XR) 500 mg 24 hr tablet TAKE 1 TABLET TWICE A DAY BEFORE BREAKFAST AND SUPPER FOR TYPE 2 DIABETES 3 Active metoprolol tartrate (LOPRESSOR) 50 mg immediate release tablet Take 1 tablet (50 mg total) by mouth 2 (two) times a day 3 Active mycophenolate mofetil (CELLCEPT) 500 mg tablet take 2 pills in the morning and one in the evening 3 Active Active Problems Problem Noted Date Diagnosed Date Postablative hypothyroidism 01/15/2014 Overview (12/04/2016): POSTABLAT HYPOTHYR NEC Morbid obesity 01/15/2014 Overview (12/04/2016): MORBID OBESITY Hypothyroidism 01/15/2014 Overview (12/04/2016): HYPOTHYROIDISM NOS Obesity, diabetes, and hypertension syndrome Overview (12/06/2016): DYSMETABOLIC SYNDROME X Abnormal weight gain 01/15/2014 Overview (12/06/2016): ABNORMAL WEIGHT GAIN Dysthymia 01/15/2014 Overview (12/06/2016): NEUROTIC DEPRESSION Social History Tobacco Use Types Packs/Day Years Used Date Smoking Tobacco: Never Assessed Alcohol Use Standard Drinks/Week Comments Yes 0 (1 standard drink = 0.6 oz pur e alcohol) Comments Unknown Sex and Gender Information Value Date Recorded Sex Assigned at Not on file Legal Sex Female 7:16 PM INFORMATION ASSURANCE OFFICER Gender Identity Not on file Sexual Orientation Not on file Last Filed Vital Signs Vital Sign Reading Time Taken Comments Blood Pressure 130/72 09/29/2023 2:05 PM INFORMATION ASSURANCE OFFICER Pulse 60 09/29/2023 2:05 PM INFORMATION ASSURANCE OFFICER Temperature 37 C (98.6 F) 09/29/2023 2:05 PM INFORMATION ASSURANCE OFFICER Respiratory Rate 16 09/29/2023 2:05 PM INFORMATION ASSURANCE OFFICER Oxygen Saturation 99% 09/29/2023 2:05 PM INFORMATION ASSURANCE OFFICER Inhaled Oxygen Concentration - - Weight - - Height - - Body Mass Index - - Plan of Treatment Not on file Insurance [employer] SIG [id number] Care Teams Division Operations Manager Relationship Specialty Start Date End Date Serafin Aguirre MD PCP - General 07/20/12
--- OUTSIDE RECORDS SUMMARY | 2024-11-12 16:10 | XMS_ITS | CONTINUITY OF CARE DOCUMENT ---
Author Name lukasz missyefrain Address Unknown Organization [facility] Address [address] [facility] [address] [place] [address] Phone [phone] Care Team Providers Care Pharmaceutical Sales Name Role Phone Molly PRUITT, Jose C Unavailable KAIN DE LEON Unavailable [phone] KAIN DE LEON Unavailable [phone] PROBLEMS Condition Status Date Provider Notes Fatigue, acute active Lidia Johnson Hypertension active Lidia Johnson INSURANCE PROVIDERS Payer name Policy type / Coverage type Rumney red alliance party ID [employer] PPO Other [id number] HISTORY OF PROCEDURES Procedure Date Procedure Name Provider Procedure Notes S tatus Stress EKG Jose C Barnes MD complete d Cardiolite, 2 units Jose C Barnes MD completed SPECT Images Jose C Barnes MD comple samantha Stress EKG Soledad Gresham MD complet ed Cardiolite, 2 units Soledad Gresham MD completed SPECT Images Soledad Gresham MD compl eted
--- OUTSIDE RECORDS SUMMARY | 2024-11-12 16:10 | XMS_ITS | Encounter Summary ---
Author Organization [facility] Address [address] [place] [address] Care Team Providers Care Import/Export Specialist Name Role Phone Jessy Baez MD Unavailable Tasia Nash Unavailable Eulogio Marquez DPM Unavailable Eulogio Marquez DPM Unavailable [phone] Dago Hernandez MD Unavailable Darlyn Perry MD Unavailable [phone] Tasia Nash Primary Care Pr ovider Reason for Visit * Reason Comments Refill Request Encounter Details Date Type Department Care Team (Late st Contact Info) Description 11/11/2024 Refill [facility] - Rheumatology [address] [place] [address], [place] [address] Darlyn Perry MD [address] [place] [address] [place] [address] Refill Request Social History Tobacco Use Types Packs/Day Years Used Date Smoking Tobacco: Never Smokeless Tobacco: Never Alcohol Use Standard Drinks/Week Comments Not Currently 0 (1 standard drink = 0.6 oz pur e alcohol) rarely PHQ-2 Answer Date Recorded Patient Health Questionnaire-2 Score 0 11/03/2024 Sex and Gender Information Value Date Recorded Sex Assigned at Female 07/12/2021 8:47 AM BLACK ASH WORKER Gender Identity Female 07/12/2021 8:47 AM BLACK ASH WORKER Sexual Orientation Not on file documented as of this encounter Functional Status Functional Status Response Date of [...] person have difficulty concentrating/remembering/making decisions? No 01/08/2021 documented as of this encounter Plan of Treatment Upcoming Encounters Date Type Department Care Team (Late st Contact Info) Description 12/16/2024 8:40 AM CDT Office Visit [facility] - Cardiology [address] [address] Dago Hernandez MD [address] [address] 03/09/2025 8:20 AM CDT Office Visit [facility] - Rheumatology [address] [facility], [place] [address] Darlyn Perry MD [address] [facility] 2L [place] [address] 04/08/2025 9:00 AM CDT Appointment [facility] PFT [address] [place] [address] Remy Johnson MD [address] [facility] 2L DIV OF [place] [address] 04/08/2025 11:00 AM CDT Office Visit [facility] - Pulmonology [facility] [facility], [place] [address] Jovan Martínez MD [address] [place] [address] 2L DIV OF PULMONARY/[place] [address] 04/26/2025 8:20 AM CDT Office Visit [facility] - Endocrinology [address] [place] [address], [address] [place] [address] Jessy Baez MD [address] [place] [address] [address] [place] [address] documented as of this encounter Visit Diagnoses Diagnosis Interstitial lung disease (HCC) Postinflammatory pulmonary fibrosis documented in this encounter Care Teams Import/Export Specialist Relationship Specialty Start Date End Date Tasia Nash PA [address] [place] [address] [place] [phone] PCP - General Physician Horse Race Starter 05/06/24 Jessy Baez MD [address] [place] [address] [place] [address] Endocrinology 12/01/17 Tasia Nash PA [address] [place] [address] [place] [phone] Physician Horse Race Starter 06/02/18 Eulogio Marquez DPM [address] [facility] [address] [place] [address] Podiatry 06/02/18 Eulogio Marquez DPM [address] [facility] [address] [place] [address] 06/17/19 Dago Hernandez MD [address], [facility] [address] [place] [address] Cardiovascular Disease 01/16/21 Darlyn Perry MD [address] [place] [address] Baggage Porter Head Rheumatology 04/05/21 documented as of this encounter
--- OUTSIDE RECORDS SUMMARY | 2024-11-12 16:10 | XMS_ITS | Clinical Summary ---
Author Organization [address] Address [address] [place] [id number] Care Team Providers Care Chef Assistant Name Role Phone Serafin Aguirre MD Primary Care Provider [phone] Allergies Active Allergy Reactions Criticality Noted Date [...] GAIN Dysthymia 01/15/2014 Overview (12/06/2016): NEUROTIC DEPRESSION Surgical History Surgery Date Site/Laterality Comments KNEE ARTHROPLASTY 2001 Right Knee replacement ROTATOR CUFF REPAIR 2003 Right Rotator cuff repair Medical History Medical History Date Comments Hx Other Medical lt foot surgery Hyperlipidemia Hyperlipidemia Hypertension Hypertension Disorder of thyroid Thyroid dise ase Diabetes mellitus (HCC) Diabetes Family History Medical History Relation Name Comments Thyroid disease Cousin Thyroid diso rder; Diabetes type II Father Diabetes -T ype II; Heart disease Father Heart disease; Breast cancer Mother 2 Cancer -breast ; Cause of : Cancer -breast Relation Name Status Comments Cousin Father Mother 1 (Age 59) Mother 2 Social History Tobacco Use Types Packs/Day Years Used Date Smoking Tobacco: Never Assessed Alcohol Use Standard Drinks/Week Comments Yes 0 (1 standard drink = 0.6 oz pur e alcohol) Comments Unknown Sex and Gender Information Value Date Recorded Sex Assigned at Not on file Legal Sex Female 7:16 PM [employer] Gender Identity Not on file Sexual Orientation Not on file Obstetrics History Last Filed Vital Signs Vital Sign Reading Time Taken Comments Blood Pressure 130/72 09/29/2023 2:05 PM [employer] Pulse 60 09/29/2023 2:05 PM [employer] Temperature 37 C (98.6 F) 09/29/2023 2:05 PM [employer] Respiratory Rate 16 09/29/2023 2:05 PM [employer] Oxygen Saturation 99% 09/29/2023 2:05 PM [employer] Inhaled Oxygen Concentration - - Weight - - Height - - Body Mass Index - - Plan of Treatment Health Maintenance Due Date Last Done Comments Albumin Creatinine Ratio, Urine 1959 Breast Cancer Screening-Mammogram 1959 Cervical Cancer Screening 1959 Colon Cancer Screening-Colonoscopy 1959 Depression Screening 1959 Fall Risk Assessment 1959 Hepatitis C Screening 1959 Osteoporosis Screening-Bone Density Scan 1959 eGFR 1959 Dilated Eye Exam 1959 Foot Exam 1959 Lipid Panel 1959 Hepatitis B Screening 1977 Hemoglobin A1C 06/27/2020 12/27/2019 Covid-19 Vaccine (2023-2 5 season) 2024 06/20/2023, 06/20/2022, 2021, Additional history exists Influenza Vaccine (#1) 2024 , 06/01/2021, 05/25/2020, Additional history exists Well Visit 65+ 2024 DTaP/Tdap/Td Vaccine (2 - Tdap) 09/01/2024 5 Zoster Vaccine Completed 07/26/2020, 07/03, 05/25/2020 Pneumococcal vaccine 65+ Completed 01/18/2022 Insurance [employer] SIG [id number] Care Teams Chef Assistant Relationship Specialty Start Date End Date Serafin Aguirre MD PCP - General 07/20/12
--- OUTSIDE RECORDS SUMMARY | 2024-11-12 16:10 | XMS_ITS | Data Portability ---
Author Organization [facility], Main Office Address [address] [place] [address] Assessment No assessment recorded. Plan of Treatment Reminders Order Date Submit Date Provider Last Modified By Organization Details Last Modified Time Details Appointments None recorded . Lab HbA1c (hemoglo bin A1c), blood 06/21/20 [facility], [address], [address], 3 12:51:43 microalb umin/cre atinine, mass ratio, urine 06/21/20 [facility], [address], [address], 3 12:51:40 CMP, serum or plasma 06/21/20 [facility], [address], [address], 3 12:51:42 lipid panel, serum 06/21/20 [facility], [address], [address], 3 12:51:41 folate, serum 023 06/21/20 [facility], [address], [address], 3 12:51:49 TSH, serum or plasma 023 06/21/20 [facility], [address] [facility] [address], [address], 3 12:51:45 T4, free, serum 023 06/21/20 [facility], [address] [facility] [address], [place], [address], 3 12:51:46 T3, free, serum or plasma 023 06/21/20 [facility], [address] [facility] [address], [place], [address], 3 12:51:47 iron + TIBC + ferritin , serum 023 06/21/20 [facility], [address], [address], 3 12:51:38 CBC w/ auto diff 023 06/21/20 [facility], [address], [address], 3 12:51:48 Referral None recorded . Procedures None recorded . Surgeries None recorded . Imaging None recorded . Medication Orders None recorded . Patient TargetsNo targets recorded. Patient InstructionsNo instructions recorded. Reason for Referral None Reported. Results Created Date Observation Date Name Description Value Unit Range Abnormal Flag Note LastModifiedBy Organization Detail LastModifiedTime 09/14/19 22 09/15/2021 VITAM IN B12/F OLATE , SERUM PANEL vitamin B12 357 pg/mL 200-11 00 normal Pleas e Note: Altho ugh the refer ence range for vitam in B12 is 200-1 100 pg/mL , it has been repor samantha that betwe en 5 and 10% of patie nts with value s betwe en 200 and 400 pg/mL may exper ience neuro psych iatri c and hemat ologi c abnor malit ies due to occul t B12 defic iency ; less than 1% of patie nts with value s above 400 pg/mL will have sympt oms. Not Available [facility] [address], [address], 09/15/2021 07:57:06 09/14/19 22 09/15/2021 VITAM IN B12/F OLATE , SERUM PANEL folate, serum 10.9 NG/mL normal Refer ence Range Low: <3.4 Borde rline : 3.4-5 .4 Penny l: >5.4 Not Available [facility] [address], [address], 09/15/2021 07:57:06 09/14/1909/15/2021 VITAM IN B12/F OLATE , SERUM PANEL copy(ies) sent to: AFF U RHEUM [facility] 2L (RHEU M- 203)D [facility] [address] [place] [address] Not Available [facility] [address], [address], 09/15/2021 07:57:06 09/14/19 22 09/15/2021 CBC (INCL UDES DIFF/ PLT) white blood cell count 6.3 thous and/u L 3.8-10 .8 normal Not Available [facility] [address], [address], 09/15/2021 07:57:05 09/14/19 22 09/15/2021 CBC (INCL UDES DIFF/ PLT) red blood cell count 4.38 melissa on/uL 3.80-5 .10 normal Not Available [facility] [address], [address], 09/15/2021 07:57:05 09/14/19 22 09/15/2021 CBC (INCL UDES DIFF/ PLT) hemoglobin 9.8 g/dL 11.7-1 5.5 low Not Available [facility] [address], [address], 09/15/2021 07:57:05 09/14/19 22 09/15/2021 CBC (INCL UDES DIFF/ PLT) hematocrit 32.7 % 35.0-4 5.0 low Not Available [facility] [address], [address], 09/15/2021 07:57:05 09/14/19 22 09/15/2021 CBC (INCL UDES DIFF/ PLT) MCV 74.7 fL 80.0-1 00.0 low Not Available [facility] [address], [address], 09/15/2021 07:57:05 09/14/19 22 09/15/2021 CBC (INCL UDES DIFF/ PLT) MCH 22.4 pg 27.0-3 3.0 low Not Available [facility] [address], [address], 09/15/2021 07:57:05 09/14/19 22 09/15/2021 CBC (INCL UDES DIFF/ PLT) MCHC 30.0 g/dL 32.0-3 6.0 low Not Available [facility] [address], [address], 09/15/2021 07:57:05 09/14/19 22 09/15/2021 CBC (INCL UDES DIFF/ PLT) RDW 16.6 % 11.0-1 5.0 high Not Available [facility] [address], [address], 09/15/2021 07:57:05 09/14/1909/15/2021 CBC (INCL UDES DIFF/ PLT) platelet count 447 thous and/u L 140-40 0 high Not Available [facility] [address], [address], 09/15/2021 07:57:05 09/14/19 22 09/15/2021 CBC (INCL UDES DIFF/ PLT) MPV 9.7 fL 7.5-12 .5 normal Not Available [address], [address], 09/15/2021 07:57:05 09/14/19 22 09/15/2021 CBC (INCL UDES DIFF/ PLT) absolute neutrophils 3906 cells /uL 1500-7 800 normal Not Available [address], [address], 09/15/2021 07:57:05 09/14/19 22 09/15/2021 CBC (INCL UDES DIFF/ PLT) absolute lymphocytes 1518 cells /uL 850-39 00 normal Not Available [address], [address], 09/15/2021 07:57:05 09/14/19 22 09/15/2021 CBC (INCL UDES DIFF/ PLT) absolute monocytes 592 cells /uL 200-95 0 normal Not Available [address], [address], 09/15/2021 07:57:05 09/14/19 22 09/15/2021 CBC (INCL UDES DIFF/ PLT) absolute eosinophils 202 cells /uL 15-500 normal Not Available [address], [address], 09/15/2021 07:57:05 09/14/19 22 09/15/2021 CBC (INCL UDES DIFF/ PLT) absolute basophils 82 cells /uL 0-200 normal Not Available [facility] [address], [address], 09/15/2021 07:57:05 09/14/19 22 09/15/2021 CBC (INCL UDES DIFF/ PLT) neutrophils 62 % normal Not Available [address], [address], 09/15/2021 07:57:05 09/14/19 22 09/15/2021 CBC (INCL UDES DIFF/ PLT) lymphocytes 24.1 % normal Not Available [address], [address], 09/15/2021 07:57:05 09/14/19 22 09/15/2021 CBC (INCL UDES DIFF/ PLT) monocytes 9.4 % normal Not Available [address], [address], 09/15/2021 07:57:05 09/14/19 22 09/15/2021 CBC (INCL UDES DIFF/ PLT) eosinophils 3.2 % normal Not Available [address], [address], 09/15/2021 07:57:05 09/14/19 22 09/15/2021 CBC (INCL UDES DIFF/ PLT) basophils 1.3 % normal Not Available [address], [address], 09/15/2021 07:57:05 09/14/19 22 09/15/2021 CBC (INCL UDES DIFF/ PLT) copy(ies) sent to: [facility]U RHEUM C[facility] 2L (RHEU M- 203)D [facility] [address] [place] [address] Not Available [address], [address], 09/15/2021 07:57:05 09/14/19 22 09/15/2021 IRON, TIBC AND GLENN TIN PANEL iron, total 32 mcg/d L 45-160 low Not Available [address], [address], 09/15/2021 07:57:05 09/14/19 22 09/15/2021 IRON, TIBC AND GLENN TIN PANEL iron binding capacity 381 mcg/d L_(ca lc) 250-45 0 normal Not Available [facility] [address] [place], [address], 09/15/2021 07:57:05 09/14/19 22 09/15/2021 IRON, TIBC AND GLENN TIN PANEL % saturation 8 %_(ca lc) 16-45 low Not Available [address], [address], 09/15/2021 07:57:05 09/14/19 22 09/15/2021 IRON, TIBC AND GLENN TIN PANEL ferritin 9 NG/mL 16-288 low Not Available [address], [address], 09/15/2021 07:57:05 09/14/19 22 09/15/2021 IRON, TIBC AND GLENN TIN PANEL copy(ies) sent to: [facility] [address] [place] [address] Not Available [address], [address], 09/15/2021 07:57:05 12/21/19 22 12/22/2021 CULTU RE, URINE , ROUTI NE culture, urine, routine abnormal CULTU RE, URINE , ROUTI NE Micro Numbe r: [id number] Test Statu s: Final Speci men Sourc e: Urine Speci men Quali ty: Adequ ate Resul t: 50,00 0-100 ,000 CFU/m L of Enter ococc us speci es Enter ococc us sp. ----- ----- ----- - INT CARLOS A AMPIC ILLIN S <=2 NITRO FURAN TOIN S <=16 VANCO MYCIN S 1 S=Jenny cepti ble I=Int ermed iate R=Res istan t * = Not Teste d NR = Not Repor samantha NN = See Thera py Comme nts Not Available [address], [address], 12/22/2021 13:56:15 12/21/19 22 12/22/2021 VITAM IN B12/F OLATE , SERUM PANEL vitamin B12 >2000 pg/mL 200-11 00 high Not Available [address], [address], 12/22/2021 13:56:15 12/21/19 22 12/22/2021 VITAM IN B12/F OLATE , SERUM PANEL folate, serum 10.7 NG/mL normal Refer ence Range Low: <3.4 Borde rline : 3.4-5 .4 Penny l: >5.4 Not Available [address], [address], 12/22/2021 13:56:15 12/21/19 22 12/22/2021 REFLE XIVE URINE CULTU RE reflexive urine culture CULTU RE INDIC ATED - RESUL TS TO FOLLO W Not Available [address], [address], 12/22/2021 13:56:15 12/21/19 22 12/22/2021 URINA LYSIS , COMPL ETE W/REF KENIA TO CULTU RE color yellow yellow normal Not Available [address], [address], 12/22/2021 13:56:14 12/21/19 22 12/22/2021 URINA LYSIS , COMPL ETE W/REF KENIA TO CULTU RE appearance clear clear normal Not Available [address], [address], 12/22/2021 13:56:14 12/21/19 22 12/22/2021 URINA LYSIS , COMPL ETE W/REF KENIA TO CULTU RE specific gravity 1.012 1.001- 1.035 normal Not Available [address], [address], 12/22/2021 13:56:14 12/21/19 22 12/22/2021 URINA LYSIS , COMPL ETE W/REF KENIA TO CULTU RE pH < or = 5.0 5.0-8. 0 normal Not Available [address], [address], 12/22/2021 13:56:14 12/21/19 22 12/22/2021 URINA LYSIS , COMPL ETE W/REF KENIA TO CULTU RE glucose negati ve negati ve normal Not Available [address], [address], 12/22/2021 13:56:14 12/21/19 22 12/22/2021 URINA LYSIS , COMPL ETE W/REF KENIA TO CULTU RE bilirubin negati ve negati ve normal Not Available [address], [address], 12/22/2021 13:56:14 12/21/19 22 12/22/2021 URINA LYSIS , COMPL ETE W/REF KENIA TO CULTU RE ketones negati ve negati ve normal Not Available [address], [address], 12/22/2021 13:56:14 12/21/19 22 12/22/2021 URINA LYSIS , COMPL ETE W/REF KENIA TO CULTU RE occult blood negati ve negati ve normal Not Available [address], [address], 12/22/2021 13:56:14 12/21/19 22 12/22/2021 URINA LYSIS , COMPL ETE W/REF KENIA TO CULTU RE protein negati ve negati ve normal Not Available [address], [address], 12/22/2021 13:56:14 12/21/19 22 12/22/2021 URINA LYSIS , COMPL ETE W/REF KENIA TO CULTU RE nitrite negati ve negati ve normal Not Available [address], [address], 12/22/2021 13:56:14 12/21/19 22 12/22/2021 URINA LYSIS , COMPL ETE W/REF KENIA TO CULTU RE leukocyte esterase trace negati ve abnormal Not Available [address], [address], 12/22/2021 13:56:14 12/21/19 22 12/22/2021 URINA LYSIS , COMPL ETE W/REF KENIA TO CULTU RE WBC 0-5 /hpf < or = 5 normal Not Available [address], [address], 12/22/2021 13:56:14 12/21/19 22 12/22/2021 URINA LYSIS , COMPL ETE W/REF KENIA TO CULTU RE RBC none seen /hpf < or = 2 normal Not Available [address], [address], 12/22/2021 13:56:14 12/21/19 22 12/22/2021 URINA LYSIS , COMPL ETE W/REF KENIA TO CULTU RE squamous epithelial cells 0-5 /hpf < or = 5 Not Available [address], [address], 12/22/2021 13:56:14 12/21/19 22 12/22/2021 URINA LYSIS , COMPL ETE W/REF KENIA TO CULTU RE bacteria none seen /hpf none seen normal Not Available [address], [address], 12/22/2021 13:56:14 12/21/19 22 12/22/2021 URINA LYSIS , COMPL ETE W/REF KENIA TO CULTU RE hyaline cast none seen /lpf none seen normal Not Available [address], [address], 12/22/2021 13:56:14 12/21/19 22 12/22/2021 CBC (INCL UDES DIFF/ PLT) white blood cell count 9.9 thous and/u L 3.8-10 .8 normal Not Available [address], [address], 12/22/2021 13:56:14 12/21/19 22 12/22/2021 CBC (INCL UDES DIFF/ PLT) red blood cell count 4.39 melissa on/uL 3.80-5 .10 normal Not Available [address], [address], 12/22/2021 13:56:14 12/21/19 22 12/22/2021 CBC (INCL UDES DIFF/ PLT) hemoglobin 10.6 g/dL 11.7-1 5.5 low Not Available [address], [address], 12/22/2021 13:56:14 12/21/19 22 12/22/2021 CBC (INCL UDES DIFF/ PLT) hematocrit 35.1 % 35.0-4 5.0 normal Not Available [address], [address], 12/22/2021 13:56:14 12/21/19 22 12/22/2021 CBC (INCL UDES DIFF/ PLT) MCV 80.0 fL 80.0-1 00.0 normal Not Available [address], [address], 12/22/2021 13:56:14 12/21/19 22 12/22/2021 CBC (INCL UDES DIFF/ PLT) MCH 24.1 pg 27.0-3 3.0 low Not Available [address], [address], 12/22/2021 13:56:14 12/21/19 22 12/22/2021 CBC (INCL UDES DIFF/ PLT) MCHC 30.2 g/dL 32.0-3 6.0 low Not Available [address], [address], 12/22/2021 13:56:14 12/21/19 22 12/22/2021 CBC (INCL UDES DIFF/ PLT) RDW 16.2 % 11.0-1 5.0 high Not Available [address], [address], 12/22/2021 13:56:14 12/21/19 22 12/22/2021 CBC (INCL UDES DIFF/ PLT) platelet count 408 thous and/u L 140-40 0 high Not Available [address], [address], 12/22/2021 13:56:14 12/21/19 22 12/22/2021 CBC (INCL UDES DIFF/ PLT) MPV 10.1 fL 7.5-12 .5 normal Not Available [address], [address], 12/22/2021 13:56:14 12/21/19 22 12/22/2021 CBC (INCL UDES DIFF/ PLT) absolute neutrophils 6920 cells /uL 1500-7 800 normal Not Available [address], [address], 12/22/2021 13:56:14 12/21/19 22 12/22/2021 CBC (INCL UDES DIFF/ PLT) absolute lymphocytes 1772 cells /uL 850-39 00 normal Not Available [address], [address], 12/22/2021 13:56:14 12/21/19 22 12/22/2021 CBC (INCL UDES DIFF/ PLT) absolute monocytes 901 cells /uL 200-95 0 normal Not Available [address], [address], 12/22/2021 13:56:14 12/21/19 22 12/22/2021 CBC (INCL UDES DIFF/ PLT) absolute eosinophils 218 cells /uL 15-500 normal Not Available [address], [address], 12/22/2021 13:56:14 12/21/19 22 12/22/2021 CBC (INCL UDES DIFF/ PLT) absolute basophils 89 cells /uL 0-200 normal Not Available [address], [address], 12/22/2021 13:56:14 12/21/19 22 12/22/2021 CBC (INCL UDES DIFF/ PLT) neutrophils 69.9 % normal Not Available [address], [address], 12/22/2021 13:56:14 12/21/19 22 12/22/2021 CBC (INCL UDES DIFF/ PLT) lymphocytes 17.9 % normal Not Available [address], [address], 12/22/2021 13:56:14 12/21/19 22 12/22/2021 CBC (INCL UDES DIFF/ PLT) monocytes 9.1 % normal Not Available [address], [address], 12/22/2021 13:56:14 12/21/19 22 12/22/2021 CBC (INCL UDES DIFF/ PLT) eosinophils 2.2 % normal Not Available [address], [address], 12/22/2021 13:56:14 12/21/19 22 12/22/2021 CBC (INCL UDES DIFF/ PLT) basophils 0.9 % normal Not Available [facility] [address] [place], [address], 12/22/2021 13:56:14 12/21/19 22 12/22/2021 T4, FREE T4, free 1.5 NG/dL 0.8-1. 8 normal Not Available [facility] [address] [place], [address], 12/22/2021 13:56:13 12/21/19 22 12/22/2021 TSH TSH 5.00 mIU/L 0.40-4 .50 high Not Available [facility] [address] [place], [address], 12/22/2021 13:56:13 12/21/19 22 12/22/2021 HEMOG LOBIN A1C hemoglobin A1C 5.5 %_of_ total _HGB <5.7 normal For the purpo se of mason flynn for the prese nce of diabe eusebia: <5.7% Consi stent with the absen ce of diabe eusebia 5.7-6 .4% Consi stent with incre ased risk for diabe eusebia (pred iabet es) > or =6.5% Consi stent with diabe eusebia This assay resul t is consi stent with a decre ased risk of diabe eusebia. Curre ntly, no conse nsus exist sunil bass use of hemog lobin A1c for diagn osis of diabe eusebia in child neno. Accor ding to Ameri can Diabe esuebia Assoc iatio n (ADA) guide lines , hemog lobin A1c <7.0% repre sents optim al contr ol in non-p regna nt diabe tic patie nts. Diffe rent metri cs may apply to speci fic patie nt popul ation s. Stand ards of Medic al Care in Diabe eusebia(A DA). Not Available [facility] [address] [place], [address], 12/22/2021 13:56:12 12/21/19 22 12/22/2021 COMPR EHENS SHABBIR METAB OLIC PANEL glucose 89 mg/dL 65-99 normal Fasti ng refer ence inter bhumi Not Available [address] [address] [place], [address], 12/22/2021 13:56:12 12/21/19 22 12/22/2021 COMPR EHENS SHABBIR METAB OLIC PANEL urea nitrogen (BUN) 13 mg/dL 7-25 normal Not Available [address], [address], 12/22/2021 13:56:12 12/21/19 22 12/22/2021 COMPR EHENS SHABBIR METAB OLIC PANEL creatinine 0.91 mg/dL 0.50-0 .99 normal For patie nts >49 years of age, the refer ence limit for Creat inine is appro ximat gustavo 13% highe r for peopl e ident ified as Afric an-Am joe n. Not Available [address], [address], 12/22/2021 13:56:12 12/21/19 22 12/22/2021 COMPR EHENS SHABBIR METAB OLIC PANEL eGFR non-afr. citizen of [place] 68 mL/mi n/1.7 3m2 > or = 60 normal Not Available [address] [address] [place], [address], 12/22/2021 13:56:12 12/21/19 22 12/22/2021 COMPR EHENS SHABBIR METAB OLIC PANEL eGFR 78 mL/mi n/1.7 3m2 > or = 60 normal Not Available [facility] [address] [address] [place], [address], 12/22/2021 13:56:12 12/21/19 22 12/22/2021 COMPR EHENS SHABBIR METAB OLIC PANEL BUN/creatini ne ratio not applic able (calc ) 6-22 Not Available [address] [address] [place], [address], 12/22/2021 13:56:12 12/21/19 22 12/22/2021 COMPR EHENS SHABBIR METAB OLIC PANEL sodium 136 mmol/ L 135-14 6 normal Not Available [address], [address], 12/22/2021 13:56:12 12/21/19 22 12/22/2021 COMPR EHENS SHABBIR METAB OLIC PANEL potassium 5.2 mmol/ L 3.5-5. 3 normal Not Available [address], [address], 12/22/2021 13:56:12 12/21/19 22 12/22/2021 COMPR EHENS SHABBIR METAB OLIC PANEL chloride 100 mmol/ L 98-110 normal Not Available [address], [address], 12/22/2021 13:56:12 12/21/19 22 12/22/2021 COMPR EHENS SHABBIR METAB OLIC PANEL carbon dioxide 30 mmol/ L 20-32 normal Not Available [address], [address], 12/22/2021 13:56:12 12/21/19 22 12/22/2021 COMPR EHENS SHABBIR METAB OLIC PANEL calcium 9.0 mg/dL 8.6-10 .4 normal Not Available [address], [address], 12/22/2021 13:56:12 12/21/19 22 12/22/2021 COMPR EHENS SHABBIR METAB OLIC PANEL protein, total 7.2 g/dL 6.1-8. 1 normal Not Available [address], [address], 12/22/2021 13:56:12 12/21/19 22 12/22/2021 COMPR EHENS SHABBIR METAB OLIC PANEL albumin 3.7 g/dL 3.6-5. 1 normal Not Available [address], [place], [address], 12/22/2021 13:56:12 12/21/19 22 12/22/2021 COMPR EHENS SHABBIR METAB OLIC PANEL globulin 3.5 g/dL_ (calc ) 1.9-3. 7 normal Not Available [address] [address] [place], [address], 12/22/2021 13:56:12 12/21/19 22 12/22/2021 COMPR EHENS SHABBIR METAB OLIC PANEL albumin/glob ulin ratio 1.1 (calc ) 1.0-2. 5 normal Not Available [address], [address], 12/22/2021 13:56:12 12/21/19 22 12/22/2021 COMPR EHENS SHABBIR METAB OLIC PANEL bilirubin, total 0.3 mg/dL 0.2-1. 2 normal Not Available [address] [address] [place], [address], 12/22/2021 13:56:12 12/21/19 22 12/22/2021 COMPR EHENS SHABBIR METAB OLIC PANEL alkaline phosphatase 71 U/L 37-153 normal Not Available [address] [address] [place], [address], 12/22/2021 13:56:12 12/21/19 22 12/22/2021 COMPR EHENS SHABBIR METAB OLIC PANEL AST 12 U/L 10-35 normal Not Available [address] [address] [place], [address], 12/22/2021 13:56:12 12/21/19 22 12/22/2021 COMPR EHENS SHABBIR METAB OLIC PANEL ALT 5 U/L 6-29 low Not Available [address] [address] [place], [address], 12/22/2021 13:56:12 12/21/19 22 12/22/2021 LIPID PANEL , STAND LIEN cholesterol, total 143 mg/dL <200 normal Not Available [address] [address] [place], [address], 12/22/2021 13:56:12 12/21/19 22 12/22/2021 LIPID PANEL , STAND LIEN HDL cholesterol 45 mg/dL > or = 50 low Not Available [facility] [address] [address] [place], [address], 12/22/2021 13:56:12 12/21/19 22 12/22/2021 LIPID PANEL , STAND LIEN triglyceride s 160 mg/dL <150 high Not Available [facility] [address] [address] [place], [address], 12/22/2021 13:56:12 12/21/19 22 12/22/2021 LIPID PANEL , STAND LIEN LDL-choleste rol 74 mg/dL _(tanja c) normal Refer ence range : <100 Fabio able range <100 mg/dL for prima ry preve ntion ; <70 mg/dL for patie nts with CHD or diabe tic patie nts with > or = 2 CHD risk facto rs. LDL-C is now calcu lated using the Sruthi n-Hop kins calcu cherelle n, which is a valid ated novel metho d provi kali ritchiete r accur acy than the Fried suma equat ion in the estim ation of LDL-C . Sruthi norris SS et al. NUSRAT. 2013; 310(1 9): 2061- 2068 (http ://ed ucati on.Qu Aline barthos eSeekerss. com/f aq/FA Q164) Not Available [facility] [address] [place], [address], 12/22/2021 13:56:12 12/21/19 22 12/22/2021 LIPID PANEL , STAND LIEN chol/HDLC ratio 3.2 (calc ) <5.0 normal Not Available [address] [address] [place], [address], 12/22/2021 13:56:12 12/21/19 22 12/22/2021 LIPID PANEL , STAND LIEN non HDL cholesterol 98 mg/dL _(tanja c) <130 normal For patie nts with diabe eusebia plus 1 major ASCVD risk facto r, treat ing to a non-H DL-C goal of <100 mg/dL (LDL- C of <70 mg/dL ) is consi fridad a tim reyes optio n. Not Available [facility] [address] [place], [address], 12/22/2021 13:56:12 12/21/19 22 12/22/2021 IRON, TIBC AND GLENN TIN PANEL iron, total 36 mcg/d L 45-160 low Not Available [facility] [address] [place], [address], 12/22/2021 13:56:11 12/21/19 22 12/22/2021 IRON, TIBC AND GLENN TIN PANEL iron binding capacity 331 mcg/d L_(ca lc) 250-45 0 normal Not Available [address], [address], 12/22/2021 13:56:11 12/21/19 22 12/22/2021 IRON, TIBC AND GLENN TIN PANEL % saturation 11 %_(ca lc) 16-45 low Not Available [facility] [address], [address], 12/22/2021 13:56:11 12/21/19 22 12/22/2021 IRON, TIBC AND GLENN TIN PANEL ferritin 17 NG/mL 16-288 normal Not Available [facility] [address], [address], 12/22/2021 13:56:11 06/10/20 22 06/11/2022 CBC (INCL UDES DIFF/ PLT) white blood cell count 7.1 thous and/u L 3.8-10 .8 normal Not Available [facility] [address] [address], [place], [address], 06/11/2022 03:21:28 06/10/20 22 06/11/2022 CBC (INCL UDES DIFF/ PLT) red blood cell count 4.32 melissa on/uL 3.80-5 .10 normal Not Available [address], [address], 06/11/2022 03:21:28 06/10/20 22 06/11/2022 CBC (INCL UDES DIFF/ PLT) hemoglobin 10.8 g/dL 11.7-1 5.5 low Not Available [facility] [address], [address], 06/11/2022 03:21:28 06/10/20 22 06/11/2022 CBC (INCL UDES DIFF/ PLT) hematocrit 35.3 % 35.0-4 5.0 normal Not Available [address], [address], 06/11/2022 03:21:28 06/10/20 22 06/11/2022 CBC (INCL UDES DIFF/ PLT) MCV 81.7 fL 80.0-1 00.0 normal Not Available [address], [address], 06/11/2022 03:21:28 06/10/20 22 06/11/2022 CBC (INCL UDES DIFF/ PLT) MCH 25.0 pg 27.0-3 3.0 low Not Available [facility] [address], [address], 06/11/2022 03:21:28 06/10/20 22 06/11/2022 CBC (INCL UDES DIFF/ PLT) MCHC 30.6 g/dL 32.0-3 6.0 low Not Available [facility] [address], [address], 06/11/2022 03:21:28 06/10/20 22 06/11/2022 CBC (INCL UDES DIFF/ PLT) RDW 13.9 % 11.0-1 5.0 normal Not Available [address], [address], 06/11/2022 03:21:28 06/10/20 22 06/11/2022 CBC (INCL UDES DIFF/ PLT) platelet count 324 thous and/u L 140-40 0 normal Not Available [address], [address], 06/11/2022 03:21:28 06/10/2006/11/2022 CBC (INCL UDES DIFF/ PLT) MPV 9.7 fL 7.5-12 .5 normal Not Available [address], [address], 06/11/2022 03:21:28 06/10/20 22 06/11/2022 CBC (INCL UDES DIFF/ PLT) absolute neutrophils 5077 cells /uL 1500-7 800 normal Not Available [address], [address], 06/11/2022 03:21:28 06/10/20 22 06/11/2022 CBC (INCL UDES DIFF/ PLT) absolute lymphocytes 1257 cells /uL 850-39 00 normal Not Available [address], [address], 06/11/2022 03:21:28 06/10/20 22 06/11/2022 CBC (INCL UDES DIFF/ PLT) absolute monocytes 618 cells /uL 200-95 0 normal Not Available [address], [address], 06/11/2022 03:21:28 06/10/20 22 06/11/2022 CBC (INCL UDES DIFF/ PLT) absolute eosinophils 99 cells /uL 15-500 normal Not Available [address] [place], [address], 06/11/2022 03:21:28 06/10/20 22 06/11/2022 CBC (INCL UDES DIFF/ PLT) absolute basophils 50 cells /uL 0-200 normal Not Available [facility] [address], [address], 06/11/2022 03:21:28 06/10/20 22 06/11/2022 CBC (INCL UDES DIFF/ PLT) neutrophils 71.5 % normal Not Available [facility] [address], [address], 06/11/2022 03:21:28 06/10/2006/11/2022 CBC (INCL UDES DIFF/ PLT) lymphocytes 17.7 % normal Not Available [address], [address], 06/11/2022 03:21:28 06/10/20 22 06/11/2022 CBC (INCL UDES DIFF/ PLT) monocytes 8.7 % normal Not Available [address], [address], 06/11/2022 03:21:28 06/10/20 22 06/11/2022 CBC (INCL UDES DIFF/ PLT) eosinophils 1.4 % normal Not Available [facility] [address], [address], 06/11/2022 03:21:28 06/10/2006/11/2022 CBC (INCL UDES DIFF/ PLT) basophils 0.7 % normal Not Available [address], [address], 06/11/2022 03:21:28 06/10/20 22 06/11/2022 HEMOG LOBIN A1C hemoglobin A1C 5.5 %_of_ total _HGB <5.7 normal For the purpo se of scree rina for the prese nce of diabe eusebia: <5.7% Consi stent with the absen ce of diabe uesebia 5.7-6 .4% Consi stent with incre ased risk for diabe eusebia (pred iabet es) > or =6.5% Consi stent with diabe eusebia This assay resul t is consi stent with a decre ased risk of diabe eusebia. Curre ntly, no conse nsus exist s cher bass use of hemog lobin A1c for diagn osis of diabe eusebia in child neno. Accor ding to Ameri can Diabe eusebia Assoc iatio n (ADA) guide lines , hemog lobin A1c <7.0% repre sents optim al contr ol in non-p regna nt diabe tic patie nts. Diffe rent metri cs may apply to speci fic patie nt popul ation s. [facility] ar[facility] of Medic al Care in Diabe eusebia(A DA). Not Available [address], [address], 06/11/2022 03:21:28 06/10/20 22 06/11/2022 BASIC METAB OLIC PANEL glucose 90 mg/dL 65-99 normal Fasti ng refer ence inter bhumi Not Available [address], [address], 06/11/2022 03:21:27 06/10/20 22 06/11/2022 BASIC METAB OLIC PANEL urea nitrogen (BUN) 14 mg/dL 7-25 normal Not Available [facility] [address], [address], 06/11/2022 03:21:27 06/10/2006/11/2022 BASIC METAB OLIC PANEL creatinine 0.89 mg/dL 0.50-1 .05 normal Not Available [facility] [address] [place], [address], 06/11/2022 03:21:27 10/10/20 22 06/11/2022 BASIC METAB OLIC PANEL eGFR 73 mL/mi n/1.7 3m2 > or = 60 normal The eGFR is based on the CKD-E PI 2020 equat ion. To calcu late the new eGFR from a previ ous Creat inine or Cysta khalida snyder t, go to https ://zoraida hall.emerson saravia.o sammi/pr ofess ional s/ kdoqi /gfr% 5Fcal culat or Not Available [address] [address] [place], [address], 06/11/2022 03:21:27 06/10/20 22 06/11/2022 BASIC METAB OLIC PANEL BUN/creatini ne ratio not applic able (calc ) 6-22 Not Available [address] [address] [place], [address], 06/11/2022 03:21:27 06/10/20 22 06/11/2022 BASIC METAB OLIC PANEL sodium 134 mmol/ L 135-14 6 low Not Available [address] [address] [place], [address], 06/11/2022 03:21:27 06/10/20 22 06/11/2022 BASIC METAB OLIC PANEL potassium 4.6 mmol/ L 3.5-5. 3 normal Not Available [address] [address] [place], [address], 06/11/2022 03:21:27 06/10/20 22 06/11/2022 BASIC METAB OLIC PANEL chloride 99 mmol/ L 98-110 normal Not Available [address] [address] [place], [address], 06/11/2022 03:21:27 06/10/20 22 06/11/2022 BASIC METAB OLIC PANEL carbon dioxide 26 mmol/ L 20-32 normal Not Available [address] [address] [place], [address], 06/11/2022 03:21:27 06/10/20 22 06/11/2022 BASIC METAB OLIC PANEL calcium 8.8 mg/dL 8.6-10 .4 normal Not Available [address] [address] [place], [address], 06/11/2022 03:21:27 06/10/20 22 06/11/2022 LIPID PANEL WITH RATIO S cholesterol, total 130 mg/dL <200 normal Not Available [address] [address] [place], [address], 06/11/2022 03:21:27 06/10/20 22 06/11/2022 LIPID PANEL WITH RATIO S HDL cholesterol 41 mg/dL > or = 50 low Not Available [address] [address] [place], [address], 06/11/2022 03:21:27 06/10/20 22 06/11/2022 LIPID PANEL WITH RATIO S triglyceride s 138 mg/dL <150 normal Not Available [address] [address] [place], [address], 06/11/2022 03:21:27 06/10/20 22 06/11/2022 LIPID PANEL WITH RATIO S LDL-choleste rol 67 mg/dL _(tanja c) normal Refer ence range : <100 Fabio able range <100 mg/dL for prima ry preve ntion ; <70 mg/dL for patie nts with CHD or diabe tic patie nts with > or = 2 CHD risk facto rs. LDL-C is now calcu lated using the Sruthi n-Hop kins calcu cherelle n, which is a valid ated novel metho d provi ding gil r accur acy than the Fried suma equat ion in the estim ation of LDL-C . Sruthi norris SS et al. NUSRAT. 2013; 310(1 9): 2061- 2068 (http ://ed ucati on.Qu Aline james tics. com/f aq/FA Q164) Not Available [facility] [address] [address] [place], [address], 06/11/2022 03:21:27 06/10/20 22 06/11/2022 LIPID PANEL WITH RATIO S chol/HDLC ratio 3.2 (calc ) <5.0 normal Not Available [address], [address], 06/11/2022 03:21:27 06/10/20 22 06/11/2022 LIPID PANEL WITH RATIO S LDL/HDL ratio 1.6 (calc ) Below avera ge Risk: <2.34 Ludlow ge Risk: 2.35- 4.12 Moder ate Risk: 4.13- 5.56 High Risk: >5.57 Not Available [address], [address], 06/11/2022 03:21:27 06/10/20 22 06/11/2022 LIPID PANEL WITH RATIO S non HDL cholesterol 89 mg/dL _(tanja c) <130 normal For patie nts with diabe eusebia plus 1 major ASCVD risk facto r, treat ing to a non-H DL-C goal of <100 mg/dL (LDL- C of <70 mg/dL ) is consi dered a thera peuti c optio n. Not Available [address], [address], 06/11/2022 03:21:27 06/10/20 22 06/11/2022 IRON, TIBC AND GLENN TIN PANEL iron, total 49 mcg/d L 45-160 normal Not Available [address] [address] [place], [address], 06/11/2022 03:21:26 06/10/20 22 06/11/2022 IRON, TIBC AND GLENN TIN PANEL iron binding capacity 333 mcg/d L_(ca lc) 250-45 0 normal Not Available [address], [address], 06/11/2022 03:21:26 06/10/20 22 06/11/2022 IRON, TIBC AND GLENN TIN PANEL % saturation 15 %_(ca lc) 16-45 low Not Available [address], [address], 06/11/2022 03:21:26 06/10/20 22 06/11/2022 IRON, TIBC AND GLENN TIN PANEL ferritin 13 NG/mL 16-288 low Not Available [address], [address], 06/11/2022 03:21:26 12/21/19 23 12/21/2022 IRON, TIBC AND GLENN TIN PANEL iron, total 42 mcg/d L 45-160 low Not Available [address], [address], 12/21/2022 06:31:21 12/21/19 23 12/21/2022 IRON, TIBC AND GLENN TIN PANEL iron binding capacity 350 mcg/d L_(ca lc) 250-45 0 normal Not Available [address], [address], 12/21/2022 06:31:21 12/21/19 23 12/21/2022 IRON, TIBC AND GLENN TIN PANEL % saturation 12 %_(ca lc) 16-45 low Not Available [address], [address], 12/21/2022 06:31:21 12/21/19 23 12/21/2022 IRON, TIBC AND GLENN TIN PANEL ferritin 7 NG/mL 16-288 low Not Available [address], [address], 12/21/2022 06:31:21 12/21/19 23 12/21/2022 IRON, TIBC AND GLENN TIN PANEL copy(ies) sent to: [facility] [phone] [place] [address] Not Available [address] [place], [address], 12/21/2022 06:31:21 12/21/19 23 12/21/2022 LIPID PANEL WITH RATIO S cholesterol, total 166 mg/dL <200 normal Not Available [address] [address] [place], [address], 12/21/2022 06:31:22 12/21/19 23 12/21/2022 LIPID PANEL WITH RATIO S HDL cholesterol 45 mg/dL > or = 50 low Not Available [address] [address] [place], [address], 12/21/2022 06:31:22 12/21/19 23 12/21/2022 LIPID PANEL WITH RATIO S triglyceride s 142 mg/dL <150 normal Not Available [address], [address], 12/21/2022 06:31:22 12/21/19 23 12/21/2022 LIPID PANEL WITH RATIO S LDL-choleste rol 97 mg/dL _(tanja c) normal Refer ence range : <100 Fabio able range <100 mg/dL for prima ry preve ntion ; <70 mg/dL for patie nts with CHD or diabe tic patie nts with > or = 2 CHD risk facto rs. LDL-C is now calcu lated using the Sruthi n-Hop kins galiu cherelle n, which is a valid ated novel rush king accarri than the Fried suma equat ion in the estim ation of LDL-C . Sruthi norris SS et al. NUSRAT. 2013; 310(1 9): 2061- 2068 (http ://ed ucati on.Qu Aline james tics. com/f aq/FA Q164) Not Available [address] [address] [place], [address], 12/21/2022 06:31:22 12/21/19 23 12/21/2022 LIPID PANEL WITH RATIO S chol/HDLC ratio 3.7 (calc ) <5.0 normal Not Available [address] [address] [place], [address], 12/21/2022 06:31:22 12/21/19 23 12/21/2022 LIPID PANEL WITH RATIO S LDL/HDL ratio 2.2 (calc ) Below avera ge Risk: <2.34 Ludlow ge Risk: 2.35- 4.12 Moder ate Risk: 4.13- 5.56 High Risk: >5.57 Not Available [address] [address] [place], [address], 12/21/2022 06:31:22 12/21/1912/21/2022 LIPID PANEL WITH RATIO S non HDL cholesterol 121 mg/dL _(tanja c) <130 normal For patie nts with diabe eusebia plus 1 major ASCVD risk facto r, treat ing to a non-H DL-C goal of <100 mg/dL (LDL- C of <70 mg/dL ) is consi dered a thera peuti c optio n. Not Available [address] [address] [place], [address], 12/21/2022 06:31:22 12/21/1912/21/2022 LIPID PANEL WITH RATIO S copy(ies) sent to: [facility] [phone] [place] [address] Not Available [address], [address], 12/21/2022 06:31:22 12/21/19 23 12/21/2022 COMPR EHENS SHABBIR METAB OLIC PANEL glucose 97 mg/dL 65-99 normal Fasti ng refer ence inter bhumi Not Available [address] [address] [place], [address], 12/21/2022 06:31:23 12/21/19 23 12/21/2022 COMPR EHENS SHABBIR METAB OLIC PANEL urea nitrogen (BUN) 15 mg/dL 7-25 normal Not Available [address], [address], 12/21/2022 06:31:23 12/21/19 23 12/21/2022 COMPR EHENS SHABBIR METAB OLIC PANEL creatinine 0.85 mg/dL 0.50-1 .05 normal Not Available [address], [address], 12/21/2022 06:31:23 12/21/19 23 12/21/2022 COMPR EHENS SHABBIR METAB OLIC PANEL eGFR 77 mL/mi n/1.7 3m2 > or = 60 normal The eGFR is based on the CKD-E PI 2020 equat ion. To calcu late the new eGFR from a previ ous Creat inine or Cysta tin C resul t, go to https ://zoraida hall.emerson saravia.oskar chapa/ricky estrada s/ kdoqi /gfr% 5Fcal culat or Not Available [address] [place], [address], 12/21/2022 06:31:23 12/21/19 23 12/21/2022 COMPR EHENS SHABBIR METAB OLIC PANEL BUN/creatini ne ratio NOT APPLIC ABLE (calc ) 6-22 Not Available [address], [address], 12/21/2022 06:31:23 12/21/19 23 12/21/2022 COMPR EHENS SHABBIR METAB OLIC PANEL sodium 134 mmol/ L 135-14 6 low Not Available [address], [address], 12/21/2022 06:31:23 12/21/19 23 12/21/2022 COMPR EHENS SHABBIR METAB OLIC PANEL potassium 5.1 mmol/ L 3.5-5. 3 normal Not Available [address], [address], 12/21/2022 06:31:23 12/21/19 23 12/21/2022 COMPR EHENS SHABBIR METAB OLIC PANEL chloride 99 mmol/ L 98-110 normal Not Available [address], [address], 12/21/2022 06:31:23 12/21/19 23 12/21/2022 COMPR EHENS SHABBIR METAB OLIC PANEL carbon dioxide 28 mmol/ L 20-32 normal Not Available [address], [address], 12/21/2022 06:31:23 12/21/19 23 12/21/2022 COMPR EHENS SHABBIR METAB OLIC PANEL calcium 9.0 mg/dL 8.6-10 .4 normal Not Available [address], [address], 12/21/2022 06:31:23 12/21/19 23 12/21/2022 COMPR EHENS SHABBIR METAB OLIC PANEL protein, total 7.0 g/dL 6.1-8. 1 normal Not Available [address], [address], 12/21/2022 06:31:23 12/21/19 23 12/21/2022 COMPR EHENS SHABBIR METAB OLIC PANEL albumin 3.8 g/dL 3.6-5. 1 normal Not Available [address], [address], 12/21/2022 06:31:23 12/21/19 23 12/21/2022 COMPR EHENS SHABBIR METAB OLIC PANEL globulin 3.2 g/dL_ (calc ) 1.9-3. 7 normal Not Available [address], [address], 12/21/2022 06:31:23 12/21/19 23 12/21/2022 COMPR EHENS SHABBIR METAB OLIC PANEL albumin/glob ulin ratio 1.2 (calc ) 1.0-2. 5 normal Not Available [address], [address], 12/21/2022 06:31:23 12/21/19 23 12/21/2022 COMPR EHENS SHABBIR METAB OLIC PANEL bilirubin, total 0.3 mg/dL 0.2-1. 2 normal Not Available [address], [address], 12/21/2022 06:31:23 12/21/19 23 12/21/2022 COMPR EHENS SHABBIR METAB OLIC PANEL alkaline phosphatase 57 U/L 37-153 normal Not Available [address], [address], 12/21/2022 06:31:23 12/21/19 23 12/21/2022 COMPR EHENS SHABBIR METAB OLIC PANEL AST 13 U/L 10-35 normal Not Available [address], [address], 12/21/2022 06:31:23 12/21/19 23 12/21/2022 COMPR EHENS SHABBIR METAB OLIC PANEL ALT 7 U/L 6-29 normal Not Available [address], [address], 12/21/2022 06:31:23 12/21/19 23 12/21/2022 COMPR EHENS SHABBIR METAB OLIC PANEL copy(ies) sent to: [facility] [phone] [place] [address] Not Available [address], [address], 12/21/2022 06:31:23 12/21/19 23 12/21/2022 HEMOG LOBIN A1C hemoglobin A1C 5.4 %_of_ total _HGB <5.7 normal For the purpo se of mason flynn for the prese nce of diabe eusebia: <5.7% Consi stent with the absen ce of diabe eusebia 5.7-6 .4% Consi stent with incre ased risk for diabe eusebia (pred iabet es) > or =6.5% Consi stent with diabe eusebia This assay resul t is consi stent with a decre ased risk of diabe eusebia. Curre ntly, no conse nsus exist sunil bass use of hemog lobin A1c for diagn osis of diabe eusebia in child neno. Accor ding to Ameri can Diabe eusebia Assoc iatio n (ADA) guide lines , hemog lobin A1c <7.0% repre sents optim al contr ol in non-p regna nt diabe tic patie nts. Diffe rent metri cs may apply to speci fic patie nt popul ation s. Stand ards of Medic al Care in Diabe eusebia(A DA). Not Available [address], [address], 12/21/2022 06:31:24 12/21/19 23 12/21/2022 HEMOG LOBIN A1C copy(ies) sent to: [facility] [phone] [place] [address] Not Available [facility] [address], [address], 12/21/2022 06:31:24 12/21/19 23 12/21/2022 TSH TSH 0.80 mIU/L 0.40-4 .50 normal Not Available [facility] [address], [address], 12/21/2022 06:31:25 12/21/19 23 12/21/2022 TSH copy(ies) sent to: [facility] [phone] [place] [address] Not Available [facility] [address], [address], 12/21/2022 06:31:25 12/21/19 23 12/21/2022 T4, FREE T4, free 1.6 NG/dL 0.8-1. 8 normal Not Available [address], [address], 12/21/2022 06:31:25 12/21/19 23 12/21/2022 T4, FREE copy(ies) sent to: [facility] [address] [address] [place] [address] Not Available [address], [address], 12/21/2022 06:31:25 12/21/19 23 12/21/2022 CBC (INCL UDES DIFF/ PLT) white blood cell count 7.3 thous and/u L 3.8-10 .8 normal Not Available [address], [address], 12/21/2022 06:31:26 12/21/19 23 12/21/2022 CBC (INCL UDES DIFF/ PLT) red blood cell count 4.30 melissa on/uL 3.80-5 .10 normal Not Available [address], [address], 12/21/2022 06:31:26 12/21/19 23 12/21/2022 CBC (INCL UDES DIFF/ PLT) hemoglobin 10.6 g/dL 11.7-1 5.5 low Not Available [address], [address], 12/21/2022 06:31:26 12/21/19 23 12/21/2022 CBC (INCL UDES DIFF/ PLT) hematocrit 34.7 % 35.0-4 5.0 low Not Available [address], [address], 12/21/2022 06:31:26 12/21/19 23 12/21/2022 CBC (INCL UDES DIFF/ PLT) MCV 80.7 fL 80.0-1 00.0 normal Not Available [address], [address], 12/21/2022 06:31:26 12/21/19 23 12/21/2022 CBC (INCL UDES DIFF/ PLT) MCH 24.7 pg 27.0-3 3.0 low Not Available [address], [address], 12/21/2022 06:31:26 12/21/19 23 12/21/2022 CBC (INCL UDES DIFF/ PLT) MCHC 30.5 g/dL 32.0-3 6.0 low Not Available [address], [address], 12/21/2022 06:31:26 12/21/19 23 12/21/2022 CBC (INCL UDES DIFF/ PLT) RDW 13.6 % 11.0-1 5.0 normal Not Available [address], [address], 12/21/2022 06:31:26 12/21/19 23 12/21/2022 CBC (INCL UDES DIFF/ PLT) platelet count 336 thous and/u L 140-40 0 normal Not Available [address], [address], 12/21/2022 06:31:26 12/21/19 23 12/21/2022 CBC (INCL UDES DIFF/ PLT) MPV 9.9 fL 7.5-12 .5 normal Not Available [address], [address], 12/21/2022 06:31:26 12/21/19 23 12/21/2022 CBC (INCL UDES DIFF/ PLT) absolute neutrophils 4855 cells /uL 1500-7 800 normal Not Available [address], [address], 12/21/2022 06:31:26 12/21/19 23 12/21/2022 CBC (INCL UDES DIFF/ PLT) absolute lymphocytes 1643 cells /uL 850-39 00 normal Not Available [address], [address], 12/21/2022 06:31:26 12/21/19 23 12/21/2022 CBC (INCL UDES DIFF/ PLT) absolute monocytes 657 cells /uL 200-95 0 normal Not Available [address], [address], 12/21/2022 06:31:26 12/21/19 23 12/21/2022 CBC (INCL UDES DIFF/ PLT) absolute eosinophils 88 cells /uL 15-500 normal Not Available [address], [address], 12/21/2022 06:31:26 12/21/19 23 12/21/2022 CBC (INCL UDES DIFF/ PLT) absolute basophils 58 cells /uL 0-200 normal Not Available [address], [address], 12/21/2022 06:31:26 12/21/19 23 12/21/2022 CBC (INCL UDES DIFF/ PLT) neutrophils 66.5 % normal Not Available [address], [address], 12/21/2022 06:31:26 12/21/19 23 12/21/2022 CBC (INCL UDES DIFF/ PLT) lymphocytes 22.5 % normal Not Available [address], [address], 12/21/2022 06:31:26 12/21/19 23 12/21/2022 CBC (INCL UDES DIFF/ PLT) monocytes 9.0 % normal Not Available [address], [address], 12/21/2022 06:31:26 12/21/19 23 12/21/2022 CBC (INCL UDES DIFF/ PLT) eosinophils 1.2 % normal Not Available [address], [address], 12/21/2022 06:31:26 12/21/19 23 12/21/2022 CBC (INCL UDES DIFF/ PLT) basophils 0.8 % normal Not Available [address], [address], 12/21/2022 06:31:26 12/21/19 23 12/21/2022 CBC (INCL UDES DIFF/ PLT) copy(ies) sent to: [facility] [phone] [place] [address] Not Available [address], [address], 12/21/2022 06:31:26 12/21/19 23 12/21/2022 URINA LYSIS , COMPL ETE W/REF KENIA TO CULTU RE color YELLOW yellow normal Not Available [address], [address], 12/21/2022 06:31:27 12/21/19 23 12/21/2022 URINA LYSIS , COMPL ETE W/REF KENIA TO CULTU RE appearance CLEAR clear normal Not Available [address], [address], 12/21/2022 06:31:27 12/21/19 23 12/21/2022 URINA LYSIS , COMPL ETE W/REF KENIA TO CULTU RE specific gravity 1.005 1.001- 1.035 normal Not Available [address], [address], 12/21/2022 06:31:27 12/21/19 23 12/21/2022 URINA LYSIS , COMPL ETE W/REF KENIA TO CULTU RE pH 6.0 5.0-8. 0 normal Not Available [address], [address], 12/21/2022 06:31:27 12/21/19 23 12/21/2022 URINA LYSIS , COMPL ETE W/REF KENIA TO CULTU RE glucose NEGATI VE negati ve normal Not Available [address], [address], 12/21/2022 06:31:27 12/21/19 23 12/21/2022 URINA LYSIS , COMPL ETE W/REF KENIA TO CULTU RE bilirubin NEGATI VE negati ve normal Not Available [address], [address], 12/21/2022 06:31:27 12/21/19 23 12/21/2022 URINA LYSIS , COMPL ETE W/REF KENIA TO CULTU RE ketones NEGATI VE negati ve normal Not Available [address], [address], 12/21/2022 06:31:27 12/21/19 23 12/21/2022 URINA LYSIS , COMPL ETE W/REF KENIA TO CULTU RE occult blood NEGATI VE negati ve normal Not Available [address], [address], 12/21/2022 06:31:27 12/21/19 23 12/21/2022 URINA LYSIS , COMPL ETE W/REF KENIA TO CULTU RE protein NEGATI VE negati ve normal Not Available [address], [address], 12/21/2022 06:31:27 12/21/19 23 12/21/2022 URINA LYSIS , COMPL ETE W/REF KENIA TO CULTU RE nitrite NEGATI VE negati ve normal Not Available [facility] [address] [place], [address], 12/21/2022 06:31:27 12/21/19 23 12/21/2022 URINA LYSIS , COMPL ETE W/REF KENIA TO CULTU RE leukocyte esterase NEGATI VE negati ve normal Not Available [address] [address] [place], [address], 12/21/2022 06:31:27 12/21/19 23 12/21/2022 URINA LYSIS , COMPL ETE W/REF KENIA TO CULTU RE WBC NONE SEEN /hpf < or = 5 normal Not Available [address], [address], 12/21/2022 06:31:27 12/21/19 23 12/21/2022 URINA LYSIS , COMPL ETE W/REF KENIA TO CULTU RE RBC NONE SEEN /hpf < or = 2 normal Not Available [address] [address] [address] , [place], [address], 12/21/2022 06:31:27 12/21/19 23 12/21/2022 URINA LYSIS , COMPL ETE W/REF KENIA TO CULTU RE squamous epithelial cells NONE SEEN /hpf < or = 5 normal Not Available [address] [address] [address] , [place], [address], 12/21/2022 06:31:27 12/21/19 23 12/21/2022 URINA LYSIS , COMPL ETE W/REF KENIA TO CULTU RE bacteria NONE SEEN /hpf none seen normal Not Available [address] [address] [place], [address], 12/21/2022 06:31:27 12/21/19 23 12/21/2022 URINA LYSIS , COMPL ETE W/REF KENIA TO CULTU RE hyaline cast NONE SEEN /lpf none seen normal Not Available [address] [address] [place], [address], 12/21/2022 06:31:27 12/21/19 23 12/21/2022 URINA LYSIS , COMPL ETE W/REF KENIA TO CULTU RE note This urine was jeff zed for the prese nce of WBC, RBC, bacte navya, casts , and other forme d eleme nts. Only those eleme nts seen were repor samantha. Not Available [address], [address], 12/21/2022 06:31:27 12/21/19 23 12/21/2022 URINA LYSIS , COMPL ETE W/REF KENIA TO CULTU RE copy(ies) sent to: [facility] [phone] [place] [address] Not Available [address], [address], 12/21/2022 06:31:27 12/21/19 23 12/21/2022 REFLE XIVE URINE CULTU RE reflexive urine culture NO CULTU RE INDIC ATED Not Available [address], [address], 12/21/2022 06:31:27 12/21/19 23 12/21/2022 REFLE XIVE URINE CULTU RE copy(ies) sent to: [facility] [phone] [place] [address] Not Available [address], [address], 12/21/2022 06:31:27 12/21/19 23 12/21/2022 VITAM IN B12/F OLATE , SERUM PANEL vitamin B12 872 pg/mL 200-11 00 normal Not Available [address], [address], 12/21/2022 06:31:28 12/21/19 23 12/21/2022 VITAM IN B12/F OLATE , SERUM PANEL folate, serum 3.0 NG/mL low Refer ence Range Low: <3.4 Borde rline : 3.4-5 .4 Penny l: >5.4 Not Available [address], [address], 12/21/2022 06:31:28 12/21/19 23 12/21/2022 VITAM IN B12/F OLATE , SERUM PANEL copy(ies) sent to: [facility] [phone] [place] [address] Not Available [address], [address], 12/21/2022 06:31:28 07/07/2007/08/2023 IRON, TIBC AND GLENN TIN PANEL iron, total 51 mcg/d L 45-160 normal Not Available [address], [address], 07/08/2023 12:51:38 07/07/20 23 07/08/2023 IRON, TIBC AND GLENN TIN PANEL iron binding capacity 371 mcg/d L_(ca lc) 250-45 0 normal Not Available [address], [address], 07/08/2023 12:51:38 07/07/20 23 07/08/2023 IRON, TIBC AND GLENN TIN PANEL % saturation 14 %_(ca lc) 16-45 low Not Available [address], [address], 07/08/2023 12:51:38 07/07/20 23 07/08/2023 IRON, TIBC AND GLENN TIN PANEL ferritin 7 NG/mL 16-288 low Not Available [address], [address], 07/08/2023 12:51:38 07/07/20 23 07/08/2023 ALBUM IN, RANDO M URINE W/CRE ATINI NE creatinine, random urine 15 mg/dL 20-275 low Not Available [address] [address] [place], [address], 07/08/2023 12:51:40 07/07/20 23 07/08/2023 ALBUM IN, RANDO M URINE W/CRE ATINI NE albumin, urine 0.2 mg/dL see note: normal Refer ence Range : Refer ence Range Not estab lishe d Not Available [address] [address] [address], [place], [address], 07/08/2023 12:51:40 07/07/20 23 07/08/2023 ALBUM IN, RANDO M URINE W/CRE ATINI NE albumin/crea tinine ratio, random urine 13 mcg/m g_cre at <30 normal The ADA defin es abnor malit ies in album in excre tion as follo ws: Album inuri a Categ ory Resul t (mcg/ mg creat inine ) Penny l to Mildl y incre ased <30 Moder ately incre ased 30-29 9 Sever gustavo incre ased > OR = 300 The ADA recom mends that at least two of three speci mens colle cted withi n a 3-6 month perio d be abnor mal befor e consi betzy g a patie nt to be withi n a diagn ostic categ ory. Not Available [address] [address] [address], [place], [address], 07/08/2023 12:51:40 07/07/20 23 07/08/2023 LIPID PANEL WITH RATIO S cholesterol, total 149 mg/dL <200 normal Not Available [address] [address] [place], [address], 07/08/2023 12:51:41 07/07/20 23 07/08/2023 LIPID PANEL WITH RATIO S HDL cholesterol 52 mg/dL > or = 50 normal Not Available [address] [address] [place], [address], 07/08/2023 12:51:41 07/07/20 23 07/08/2023 LIPID PANEL WITH RATIO S triglyceride s 137 mg/dL <150 normal Not Available [address], [address], 07/08/2023 12:51:41 07/07/20 23 07/08/2023 LIPID PANEL WITH RATIO S LDL-choleste rol 75 mg/dL _(tanja c) normal Refer ence range : <100 Fabio able range <100 mg/dL for prima ry preve ntion ; <70 mg/dL for patie nts with CHD or diabe tic patie nts with > or = 2 CHD risk facto rs. LDL-C is now calcu lated using the Sruthi n-Hop kins calcu cherelle n, which is a valid ated novel metho d provi ding gil r accur acy than the Fried suma equat ion in the estim ation of LDL-C . Sruthi norris SS et al. NUSRAT. 2013; 310(1 9): 2061- 2068 (http ://ed ucati on.Qu colemaneVoter. com/f aq/FA Q164) Not Available [address] [address] [place], [address], 07/08/2023 12:51:41 07/07/20 23 07/08/2023 LIPID PANEL WITH RATIO S chol/HDLC ratio 2.9 (calc ) <5.0 normal Not Available [address], [address], 07/08/2023 12:51:41 07/07/20 23 07/08/2023 LIPID PANEL WITH RATIO S LDL/HDL ratio 1.4 (calc ) Below avera ge Risk: <2.34 [place] ge Risk: 2.35- 4.12 Moder ate Risk: 4.13- 5.56 High Risk: >5.57 Not Available [facility] [address] [address] [place], [address], 07/08/2023 12:51:41 11/06/07/08/2023 LIPID PANEL WITH RATIO S non HDL cholesterol 97 mg/dL _(tanja c) <130 normal For patie nts with diabe eusebia plus 1 major ASCVD risk facto r, treat ing to a non-H DL-C goal of <100 mg/dL (LDL- C of <70 mg/dL ) is gabo reyes optio n. Not Available [address] [place], [address], 07/08/2023 12:51:41 07/07/2007/08/2023 COMPR EHENS SHABBIR METAB OLIC PANEL glucose 95 mg/dL 65-99 normal Fasti ng refer ence inter bhumi Not Available [address], [address], 07/08/2023 12:51:42 07/07/20 23 07/08/2023 COMPR EHENS SHABBIR METAB OLIC PANEL urea nitrogen (BUN) 15 mg/dL 7-25 normal Not Available [address] [place], [address], 07/08/2023 12:51:42 07/07/20 23 07/08/2023 COMPR EHENS SHABBIR METAB OLIC PANEL creatinine 0.80 mg/dL 0.50-1 .05 normal Not Available [address], [address], 07/08/2023 12:51:42 07/07/20 23 07/08/2023 COMPR EHENS SHABBIR METAB OLIC PANEL eGFR 83 mL/mi n/1.7 3m2 > or = 60 normal Not Available [address], [address], 07/08/2023 12:51:42 07/07/20 23 07/08/2023 COMPR EHENS SHABBIR METAB OLIC PANEL BUN/creatini ne ratio SEE NOTE: (calc ) 6-22 Not Repor samantha: BUN and Creat inine are withi n refer ence range . Not Available [address], [address], 07/08/2023 12:51:42 07/07/2007/08/2023 COMPR EHENS SHABBIR METAB OLIC PANEL sodium 136 mmol/ L 135-14 6 normal Not Available [address], [address], 07/08/2023 12:51:42 07/07/20 23 07/08/2023 COMPR EHENS SHABBIR METAB OLIC PANEL potassium 4.5 mmol/ L 3.5-5. 3 normal Not Available [address], [address], 07/08/2023 12:51:42 07/07/20 23 07/08/2023 COMPR EHENS SHABBIR METAB OLIC PANEL chloride 101 mmol/ L 98-110 normal Not Available [address], [address], 07/08/2023 12:51:42 07/07/20 23 07/08/2023 COMPR EHENS SHABBIR METAB OLIC PANEL carbon dioxide 29 mmol/ L 20-32 normal Not Available [address], [address], 07/08/2023 12:51:42 07/07/20 23 07/08/2023 COMPR EHENS SHABBIR METAB OLIC PANEL calcium 9.0 mg/dL 8.6-10 .4 normal Not Available [address], [address], 07/08/2023 12:51:42 07/07/2007/08/2023 COMPR EHENS SHABBIR METAB OLIC PANEL protein, total 6.9 g/dL 6.1-8. 1 normal Not Available [address], [address], 07/08/2023 12:51:42 07/07/20 23 07/08/2023 COMPR EHENS SHABBIR METAB OLIC PANEL albumin 3.8 g/dL 3.6-5. 1 normal Not Available [address], [address], 07/08/2023 12:51:42 07/07/20 23 07/08/2023 COMPR EHENS SHABBIR METAB OLIC PANEL globulin 3.1 g/dL_ (calc ) 1.9-3. 7 normal Not Available [address], [address], 07/08/2023 12:51:42 07/07/20 23 07/08/2023 COMPR EHENS SHABBIR METAB OLIC PANEL albumin/glob ulin ratio 1.2 (calc ) 1.0-2. 5 normal Not Available [address], [address], 07/08/2023 12:51:42 07/07/20 23 07/08/2023 COMPR EHENS SHABBIR METAB OLIC PANEL bilirubin, total 0.3 mg/dL 0.2-1. 2 normal Not Available [address], [address], 07/08/2023 12:51:42 07/07/20 23 07/08/2023 COMPR EHENS SHABBIR METAB OLIC PANEL alkaline phosphatase 55 U/L 37-153 normal Not Available [address], [address], 07/08/2023 12:51:42 07/07/20 23 07/08/2023 COMPR EHENS SHABBIR METAB OLIC PANEL AST 12 U/L 10-35 normal Not Available [address], [address], 07/08/2023 12:51:42 07/07/20 23 07/08/2023 COMPR EHENS SHABBIR METAB OLIC PANEL ALT 7 U/L 6-29 normal Not Available [address], [place], [address], 07/08/2023 12:51:42 07/07/20 23 07/08/2023 HEMOG LOBIN A1C hemoglobin A1C 5.3 %_of_ total _HGB <5.7 normal For the purpo se of mason flynn for the prese nce of diabe eusebia: <5.7% Consi stent with the absen ce of diabe eusebia 5.7-6 .4% Consi stent with incre ased risk for diabe eusebia (pred iabet es) > or =6.5% Consi stent with diabe eusebia This assay resul t is consi stent with a decre ased risk of diabe eusebia. Curre ntly, no conse nsus exist s cher bass use of hemog lobin A1c for diagn osis of diabe eusebia in child neno. Accor ding to Ameri can Diabe eusebia Assoc iatio n (ADA) guide lines , hemog lobin A1c <7.0% repre sents optim al contr ol in non-p regna nt diabe tic patie nts. Diffe rent metri cs may apply to speci fic patie nt popul ation s. Stand ards of Medic al Care in Diabe eusebia(A DA). Not Available [facility] [address], [address], 07/08/2023 12:51:43 07/07/20 23 07/08/2023 TSH TSH 0.89 mIU/L 0.40-4 .50 normal Not Available [facility] [address] [place], [address], 07/08/2023 12:51:45 07/07/20 23 07/08/2023 T4, FREE T4, free 1.8 NG/dL 0.8-1. 8 normal Not Available [facility] [address], [address], 07/08/2023 12:51:46 07/07/20 23 07/08/2023 T3, FREE T3, free 3.0 pg/mL 2.3-4. 2 normal Not Available [facility] [address], [address], 07/08/2023 12:51:47 07/07/20 23 07/08/2023 CBC (INCL UDES DIFF/ PLT) white blood cell count 7.6 thous and/u L 3.8-10 .8 normal Not Available [facility] [address], [address], 07/08/2023 12:51:48 07/07/20 23 07/08/2023 CBC (INCL UDES DIFF/ PLT) red blood cell count 4.21 melissa on/uL 3.80-5 .10 normal Not Available [address], [address], 07/08/2023 12:51:48 07/07/20 23 07/08/2023 CBC (INCL UDES DIFF/ PLT) hemoglobin 10.6 g/dL 11.7-1 5.5 low Not Available [facility] [address], [address], 07/08/2023 12:51:48 07/07/20 23 07/08/2023 CBC (INCL UDES DIFF/ PLT) hematocrit 34.7 % 35.0-4 5.0 low Not Available [facility] [address], [address], 07/08/2023 12:51:48 07/07/20 23 07/08/2023 CBC (INCL UDES DIFF/ PLT) MCV 82.4 fL 80.0-1 00.0 normal Not Available [facility] [address], [address], 07/08/2023 12:51:48 07/07/20 23 07/08/2023 CBC (INCL UDES DIFF/ PLT) MCH 25.2 pg 27.0-3 3.0 low Not Available [facility] [address], [address], 07/08/2023 12:51:48 07/07/20 23 07/08/2023 CBC (INCL UDES DIFF/ PLT) MCHC 30.5 g/dL 32.0-3 6.0 low Not Available [address], [address], 07/08/2023 12:51:48 07/07/20 23 07/08/2023 CBC (INCL UDES DIFF/ PLT) RDW 13.1 % 11.0-1 5.0 normal Not Available [address], [address], 07/08/2023 12:51:48 07/07/2007/08/2023 CBC (INCL UDES DIFF/ PLT) platelet count 356 thous and/u L 140-40 0 normal Not Available [address], [address], 07/08/2023 12:51:48 07/07/20 23 07/08/2023 CBC (INCL UDES DIFF/ PLT) MPV 9.8 fL 7.5-12 .5 normal Not Available [address], [address], 07/08/2023 12:51:48 07/07/20 23 07/08/2023 CBC (INCL UDES DIFF/ PLT) absolute neutrophils 4986 cells /uL 1500-7 800 normal Not Available [address], [address], 07/08/2023 12:51:48 07/07/20 23 07/08/2023 CBC (INCL UDES DIFF/ PLT) absolute lymphocytes 1756 cells /uL 850-39 00 normal Not Available [address], [address], 07/08/2023 12:51:48 07/07/20 23 07/08/2023 CBC (INCL UDES DIFF/ PLT) absolute monocytes 669 cells /uL 200-95 0 normal Not Available [address], [address], 07/08/2023 12:51:48 07/07/2007/08/2023 CBC (INCL UDES DIFF/ PLT) absolute eosinophils 122 cells /uL 15-500 normal Not Available [address], [address], 07/08/2023 12:51:48 07/07/20 23 07/08/2023 CBC (INCL UDES DIFF/ PLT) absolute basophils 68 cells /uL 0-200 normal Not Available [address], [address], 07/08/2023 12:51:48 07/07/2007/08/2023 CBC (INCL UDES DIFF/ PLT) neutrophils 65.6 % normal Not Available [address], [address], 07/08/2023 12:51:48 07/07/20 23 07/08/2023 CBC (INCL UDES DIFF/ PLT) lymphocytes 23.1 % normal Not Available [address], [address], 07/08/2023 12:51:48 07/07/20 23 07/08/2023 CBC (INCL UDES DIFF/ PLT) monocytes 8.8 % normal Not Available [address], [address], 07/08/2023 12:51:48 07/07/20 23 07/08/2023 CBC (INCL UDES DIFF/ PLT) eosinophils 1.6 % normal Not Available [address], [address], 07/08/2023 12:51:48 07/07/20 23 07/08/2023 CBC (INCL UDES DIFF/ PLT) basophils 0.9 % normal Not Available [facility] [address] [place], [address], 07/08/2023 12:51:48 07/07/2007/08/2023 FOLAT E, SERUM folate, serum 5.2 NG/mL low Refer ence Range Low: <3.4 Borde rline : 3.4-5 .4 Penny l: >5.[address] to have a leonorli monique copy faxed has been letitia pal[place]res [place]: [phone] [phone] Not Available [facility] [address] [place], [address], 07/08/2023 12:51:49 Result Notes None recorded. Problems Name Problem SNOMED Code Status Onset Date Resolution Date Notes Provider Name and Address Organization Details Recorded Time Benign hypertensi on 11876084 Active Not Available [facility] 3 06:45:15 Benign paroxysmal positional vertigo 053442931 Active Not Available [facility] 3 06:45:15 Submental lymphadeno jennifer 149809826 Active Not Available [facility] 3 06:45:15 Disorder of thyroid gland 58457014 Active Not Available [facility] 3 06:45:15 Parotitis 40782708 Active 2021 Not Available [facility] 3 06:45:16 Acute sinusitis 09508495 Active 2021 Not Available [facility] 3 06:45:16 Otalgia 92500730 Active Not Available [facility] 3 06:45:16 Folic acid deficiency 424867279 Active 2021 Not Available [facility] 3 06:45:16 Loosening of screw 736868227 Active Not Available [facility] 3 06:45:16 Interstiti al lung disease 548557908 Active 2019 Not Available [facility] 3 06:45:16 Ulcer of mouth 87718758 Active Not Available [facility] 3 06:45:16 Gastro-eso phageal reflux disease with esophagiti s 398212812 Active 2021 Not Available [facility] 3 06:45:16 Long-term drug therapy Active 2021 Not Available [facility] 3 06:45:17 Mixed hyperlipid emia 476095198 Active Not Available [facility] 3 06:45:17 Adult health examinatio n Active 2021 Not Available [facility] 3 06:45:17 Wax in ear canal 496355181 Active Not Available [facility] 3 06:45:17 Cholestero l screening Active 2021 Not Available [facility] 3 06:45:17 Cooper's neuroma of right foot 3986387644343 08 Active 2017 Not Available [facility] 3 06:45:18 Mild depression 944761523 Active Not Available [facility] 3 06:45:18 Sinusitis 11360046 Active Not Available [facility] 3 06:45:18 Hiatal hernia with gastroesop hageal reflux 203567962 Active 2021 Not Available [facility] 3 06:45:18 Hypertensi ve disorder 94725027 Active Not Available [facility] 3 06:45:18 Body mass index 40+ - severely obese 056809105 Active Not Available [facility] 3 06:45:18 Hypothyroi dism 03396480 Active Not Available [facility] 3 06:45:18 Obesity 076452554 Active Not Available [facility] 3 06:45:19 Type 2 diabetes mellitus 97970823 Active Not Available [facility] 3 06:45:19 Emotional stress 261269032 Active Not Available [facility] 3 06:45:19 Foot pain 74080940 Active Not Available [facility] 3 06:45:19 Anxiety 52796033 Active Not Available [facility] 3 06:45:19 Upper respirator y infection 06826723 Active 2021 Not Available [facility] 3 06:45:20 Hyperlipid emia 36089044 Active 2021 Not Available [facility] 3 06:45:20 Dysfunctio n of eustachian tube 71284081 Active Not Available [facility] 3 06:45:20 Obstructiv e sleep apnea syndrome 65109420 Active Not Available [facility] 3 06:45:20 Iron deficiency anemia 51133984 Active 2021 Not Available [facility] 3 06:45:20 Impaired glucose tolerance 4814110 Active Not Available [facility] 3 06:45:21 Problem Notes None recorded. Procedures Surgical History Date Name Laterality Status Provider Name and Address Organization Details Recorded Time 05/25/20 21 Date of Last Colonoscopy completed Not Available [facility] 10/30/2022 06:40:16 05/25/20 21 Colonoscopy completed Not Available [facility] 10/31/19 23 06:40:18 02/13/20 19 Colposcopy completed Not Available [facility] 3 06:40:16 09/01/18 86 section completed Not Available [facility] 10/30/2022 06:40:18 09/01/18 84 section completed Not Available [facility] 10/30/2022 06:40:18 Unlisted procedure shoulder completed Not Available [facility] 10/30/2022 06:40:18 total knee replacement completed Not Available [facility] 10/30/2022 06:40:18 Imaging Results None recorded. Procedure Notes None recorded. Medical Equipment None Reported. Allergies No known drug allergies Medications Name Sig Start Date Stop Date Status Note LastModified by Organization Details LastModified Time amoxicill in 500 mg capsule TK ALL FOUR CS ONE HOUR PRIOR TO SURGERY. 01/23 completed Not Available Not Available Not Available metformin 500 mg tablet Take 1 tablet twice a day by oral route. 02/12 completed Not Available Not Available Not Available neomycin- polymyxin -hydrocor t 3.5 mg/mL-10, 000 unit/mL-1 % ear solution active Not Available Not Available Not Available prednison e 10 mg tablet active Not Available Not Available Not Available cefuroxim e axetil 250 mg tablet 02/10 completed Not Available Not Available Not Available azithromy yusuf 250 mg tablet TAKE 2 TABLETS BY MOUTH FOR 1 DAY THEN TAKE 1 TABLET BY MOUTH DAILY FOR 4 DAYS active Not Available Not Available No t Available ibuprofen 800 mg tablet TK 1 T PO BID PRN WITH FOOD active Not Available Not Available No t Available benzonata te 200 mg capsule TAKE 1 CAPSULE BY MOUTH THREE TIMES A DAY NEEDED active Not Available Not Available No t Available Synthroid 200 mcg tablet one tab daily 03/29 completed Not Available Not Available Not Available diltiazem CD 240 mg capsule,e xtended release 24 hr 02/12 completed Not Available Not Available Not Available Synthroid 125 mcg tablet 04/16 completed Not Available Not Available Not Available prednison e 20 mg tablet Take 2 tablets every day by oral route for 5 days. active Not Available Not Available No t Available simvastat in 10 mg tablet Take 1 tablet every day by oral route. 12/31 completed Not Available Not Available Not Available diltiazem ER 240 mg capsule,2 4 hr,extend ed release TAKE 1 CAPSULE BY MOUTH EVERY DAY 02/12 completed Not Available Not Available Not Available penicilli n V potassium 500 mg tablet TK 1 T PO QID TAT 11/17 completed Not Available Not Available Not Available azathiopr ine 50 mg tablet TAKE 1 TABLET BY MOUTH TWICE DAILY 06/25 completed Not Available Not Available Not Available acetamino phen 300 mg-codein e 30 mg tablet 12/20 completed Not Available Not Available Not Available ciproflox acin 500 mg tablet Take 1 tablet every 12 hours by oral route. 11/17 completed Not Available Not Available Not Available tramadol 50 mg tablet Take 1 tablet every 6 hours by oral route as needed. active Not Available Not Available No t Available ketorolac 30 mg/mL (1 mL) injection solution Inject 2 mL by intramus cular route. 12/31 completed [facility]#[id number] 1 Not Available Not Available Not Available simvastat in 40 mg tablet Take 1 tablet by mouth daily 02/12 completed Not Available Not Available Not Available Synthroid 175 mcg tablet takes -- one tab and Tu & Thur and weekend takes two tabs active Not Available Not Available No t Available mycopheno late mofetil 500 mg tablet TAKE 1 TABLET BY MOUTH TWICE DAILY active Not Available Not Available No t Available oxycodone -acetamin ophen 5 mg-325 mg tablet 12/20 completed Not Available Not Available Not Available amoxicill in 875 mg tablet TAKE 1 TABLET BY MOUTH EVERY 12 HOURS active Not Available Not Available No t Available Cardizem 120 mg tablet Take 1 tablet every day by oral route. 09/28 completed Not Available Not Available Not Available diltiazem ER 120 mg capsule,2 4 hr,extend ed release TAKE 1 CAPSULE BY MOUTH EVERY DAY active Not Available Not Available No t Available pantopraz ole 40 mg tablet,de layed release TAKE 1 TABLET ONCE DAILY active Not Available Not Available No t Available simvastat in 20 mg tablet TAKE 1 TABLET DAILY active Not Available Not Available No t Available cyanocoba justin (vit B-12) 1,000 mcg/mL injection solution Inject 2 mL every month by intramus cular route as directed . 10/31 completed self pay [facility]# [id number] Not Available Not Available Not Available metformin 1,000 mg tablet Take 1 tablet twice a day by oral route. 09/28 completed Not Available Not Available Not Available ranitidin e 150 mg tablet Take 1 tablet twice a day by oral route before meals. 02/12 completed Not Available Not Available Not Available clotrimaz ole-betam ethasone 1 %-0.05 % topical cream DAB TOPICALL Y TO THE AFFECTED AREA TWICE DAILY NEEDED 06/25 completed Not Available Not Available Not Available lisinopri l 10 mg tablet TAKE 1 TABLET BY MOUTH EVERY DAY active Not Available Not Available No t Available metoprolo l tartrate 50 mg tablet TAKE 1 TABLET BY MOUTH TWICE DAILY active Not Available Not Available No t Available fluoxetin e 10 mg capsule TAKE 1 CAPSULE DAILY active Not Available Not Available No t Available omeprazol e 20 mg capsule,d elayed release 02/12 completed Not Available Not Available Not Available diclofena c sodium 75 mg tablet,de layed release Take 1 tablet twice a day by oral route as needed. active Not Available Not Available No t Available folic acid 1 mg tablet one tab po daily active Not Available Not Available No t Available Synthroid 112 mcg tablet Take 2 tablets every day by oral route. 02/12 completed Not Available Not Available Not Available ergocalci ferol (vitamin D2) 1,250 mcg (50,000 unit) capsule TK 1 C PO Q MONTH. 12/20 completed Not Available Not Available Not Available azelastin e 137 mcg (0.1 %) nasal spray active Not Available Not Available Not Available Nasonex 50 mcg/actua tion [place] 2 sprays each nostril daily active manually fax these RX's. Not Available Not Available Not Available cefuroxim e axetil 500 mg tablet Take 1 tablet every 12 hours by oral route. active Not Available Not Available No t Available methylpre dnisolone 4 mg tablets in a dose pack take as directed 11/17 completed Not Available Not Available Not Available albuterol sulfate HFA 90 mcg/actua tion aerosol inhaler INHALE 2 PUFFS BY MOUTH EVERY 4 HOURS NEEDED FOR SHORTNES S OF BREATH OR WHEEZING . active Not Available Not Available No t Available cefdinir 300 mg capsule TAKE 1 CAPSULE BY MOUTH EVERY 12 HOURS. BEGIN WITH BREAKFAS T active Not Available Not Available No t Available fluticaso ne propionat e 50 mcg/actua tion nasal spray,jenny pension Inhale 2 sprays every day by intranas al route in the evening. active Not Available Not Available No t Available metformin ER 500 mg tablet,ex tended release 24 hr Take 1 tablet twice a day by oral route as directed for 90 days. active Not Available Not Available No t Available naproxen 500 mg tablet PRN active Not Available Not Available Not Available metoclopr amide 10 mg tablet TAKE 1 TABLET BY MOUTH EVERY DAY AT BEDTIME active Not Available Not Available No t Available amoxicill in 875 mg-potass ium clavulana te 125 mg tablet Take 1 tablet every 12 hours by oral route with meals. active Not Available Not Available No t Available azithromy yusuf 500 mg tablet TAKE 1 TABLET BY MOUTH DAILY. BEGIN ON WITH LUNCH 02/12 completed Not Available Not Available Not Available Vitamin D3 25 mcg (1,000 unit) capsule Take 1 capsule every day by oral route. 01/23 completed Not Available Not Available Not Available metformin ER 750 mg tablet,ex tended release 24 hr 02/10 completed Not Available Not Available Not Available bupropion HCl XL 300 mg 24 hr tablet, extended release TAKE 1 TABLET DAILY active Not Available Not Available No t Available bupropion HCl XL 150 mg 24 hr tablet, extended release Take 1 tablet every day by oral route. 02/12 completed Not Available Not Available Not Available Boostrix Tdap 2.5 Lf unit-8 mcg-5 Lf/0.5 mL intramusc ular suspensio n 02/12 completed Not Available Not Available Not Available Co Q-10 12/20 completed Not Available Not Available Not Available Vitamin D3 01/23 completed Not Available Not Available Not Available Soft Chews Calcium takes 2 daily 01/23 completed Not Available Not Available Not Available ferrous gluconate 324 mg (38 mg iron) tablet TAKE 1 TABLET BY MOUTH EVERY DAY active Not Available Not Available No t Available fenofibra te 54 mg tablet Take 1 tablet every day by oral route for 90 days. active Not Available Not Available No t Available Suprep Bowel Prep Kit 17.5 gram-3.13 gram-1.6 gram oral solution 02/12 completed Not Available Not Available Not Available krill oil 500mg daily 2014 active Not Available Not Available Not Avai lable Eliquis 5 mg tablet TAKE 1 TABLET BY MOUTH TWICE DAILY active Not Available Not Available No t Available Eliquis 02/12 completed Not Available Not Available Not Available Vitamin B12 09/29 completed Not Available Not Available Not Available Shingrix (PF) 50 mcg/0.5 mL intramusc ular suspensio n, kit ADM 0.5ML IM UTD 02/12 completed Not Available Not Available Not Available Sodium Fluoride 5000 Plus 1.1 % dental cream active Not Available Not Available Not Available Fluzone Quad (PF) 60 mcg (15 mcg x 4)/0.5 mL IM syringe ADM 0.5ML IM UTD active Not Available Not Available No t Available Vitals Date Recorded Body mass index (BMI) Body height Oxygen saturation Oxygen saturation in Arterial blood by Pulse oximetry Heart rate Respiratory rate Body temperature Body weight Systolic blood pressure Diastolic blood pressure Provider Name and Address Organization Details Last Updated DateTime 2 50.4 kg/m2 161.29 cm 96 % 96 % 71 /min 20 /min 97.2 [degF] 050768. 19 g 138 mm[Hg] 78 mm[Hg] Not Available [facility] 3 06:42:04 Date Recorded Body mass index (BMI) Body height Oxygen saturation Oxygen saturation in Arterial blood by Pulse oximetry Heart rate Respiratory rate Body temperature Body weight Systolic blood pressure Diastolic blood pressure Provider Name and Address Organization Details Last Updated DateTime 2 49.9 kg/m2 161.29 cm 94 % 94 % 72 /min 20 /min 97.3 [degF] 465721. 42 g 128 mm[Hg] 82 mm[Hg] Not Available [facility] 3 06:42:05 Date Recorded Body mass index (BMI) Body height Oxygen saturation Oxygen saturation in Arterial blood by Pulse oximetry Heart rate Respiratory rate Body temperature Body weight Systolic blood pressure Diastolic blood pressure Provider Name and Address Organization Details Last Updated DateTime 3 47.6 kg/m2 161.29 cm 95 % 95 % 65 /min 20 /min 97.3 [degF] 705619. 72 g 130 mm[Hg] 82 mm[Hg] Not Available [facility] 3 06:42:05 Date Recorded Body height Oxygen saturation Oxygen saturation in Arterial blood by Pulse oximetry Heart rate Respiratory rate Body temperature Systolic blood pressure Diastolic blood pressure Provider Name and Address Organization Details Last Updated DateTime 2 161.29 cm 94 % 94 % 67 /min 16 /min 96.8 [degF] 122 mm[Hg] 80 mm[Hg] Not Available [facility] 3 06:42:05 Date Recorded Body height Body temperature Body mass index (BMI) Body weight Respiratory rate Heart rate Oxygen saturation Oxygen saturation in Arterial blood by Pulse oximetry Systolic blood pressure Diastolic blood pressure Provider Name and Address Organization Details Last Updated DateTime 3 161.29 cm 98 [degF] 45 kg/m2 168163. 83 g 16 /min 49 /min 99 % 99 % 138 mm[Hg] 80 mm[Hg] LUIS ANGEL Marcus [place] - [facility] 09:02:28 Social History Question Answer Notes LastModified by Organizat ion Details LastModified Time Tobacco Smoking Status Never Smoker Not Available [facility] 10/30/2022 06:39:52 What Is Your Level Of Alcohol Consumption? Occasional [id number] Information not available 10/30/2022 What Is Your Level Of Caffeine Consumption? Occasional [id number] Information not available 10/30/2022 How Much Tobacco Do You Chew? None MIGRATION.[id number] Information not available 10/30/2022 In The 14 Days Before Symptom Onset, Have You Had Close Contact With A Laboratory-confir med COVID-19 While That Case Was Ill? No [id number].[id number] Information not available 10/30/2022 In The 14 Days Before Symptom Onset, Have You Had Close Contact With A Person Who Is Under Investigation For COVID-19 While That Person Was Ill? No [id number] Information not available 10/30/2022 What Type Of Diet Are You Following? REGULAR MIGRATION.[id number] Information not available 10/30/2022 Which Illicit Or Recreational Drugs Have You Used? None MIGRATION.[id number] Information not available 10/30/2022 Do You Or Have You Ever Used E-cigarettes Or Vape? Never Used Electronic Cigarettes MIGRATION.[id number] Information not available 10/30/2022 What Is Your Occupation? [employer] MIGRATION.[id number] 1608 Information not available 10/30/2022 Have There Been Any Changes To Your Family Or Social Situation? No MIGRATION.[id number] 3979 Information not available 10/30/2022 Are There Any Guns Present In Your Home? Yes MIGRATION.277688 9206 Information not available 10/30/2022 Do You Use Insect Repellent Routinely? No MIGRATION.105013 1504 Information not available 10/30/2022 What Is Your Relationship Status? MIGRATION.565986 3139 Information not available 10/30/2022 Do You Use Your Seat Belt Or Car Seat Routinely? Yes MIGRATION.[id number] 0402 Information not available 10/30/2022 Are You Sexually Active? Yes [email or web address] Information not available 04/03/2023 Do You Have Smoke And Carbon Monoxide Detectors In Your Home? Yes MIGRATION.756368 4557 Information not available 10/30/2022 Do You Or Have You Ever Used Smokeless Tobacco? Never Used Smokeless Tobacco MIGRATION.575592 6186 Information not available 10/30/2022 How Much Tobacco Do You Smoke? No MIGRATION.670147 9389 Information not available 10/30/2022 Do You Use Any Illicit Or Recreational Drugs? No MIGRATION.928193 8056 Information not available 10/30/2022 Do You Use Sunscreen Routinely? No MIGRATION.191641 6091 Information not available 10/30/2022 How Many Years Have You Smoked Tobacco? 0 MIGRATION.666271 2802 Information not available 10/30/2022 Have You Recently Traveled Abroad? No MIGRATION.520678 3617 Information not available 10/30/2022 Do You Have Any Dietary Restrictions? No MIGRATION.577331 5074 Information not available 10/30/2022 Do You Or Have You Ever Used Any Other Forms Of Tobacco Or Nicotine? No MIGRATION.629981 8542 Information not available 10/30/2022 Sex: Unknown Functional Status Question Answer Note LastModified by Organizat ion Details LastModified Time What is your exercise level? Occasional [id number] Information not available 10/30/2022 Mental Status None recorded. Family History Relationship Description Onset Age of this Age Resolved Age Notes LastModified by Organization Details LastModified Time Mother Hypertensive disorder [id number] Not available 10/30/2022 06:40:20 Mother Hyperlipidem ia MIGRATION.754 [id number] Not available 10/30/2022 06:40:20 Mother Malignant tumor of breast MIGRATION.577 [id number] Not available 10/30/2022 06:40:20 Father Hypertensive disorder MIGRATION.995 [id number] Not available 10/30/2022 06:40:21 Father Hyperlipidem ia MIGRATION.[id number] Not available 10/30/2022 06:40:21 Father Malignant tumor of colon MIGRATION.187 [id number] Not available 10/30/2022 06:40:21 Father Diabetes mellitus MIGRATION.074 [id number] Not available 10/30/2022 06:40:21 Father Myocardial infarction 55 MIGRATION.391 [id number] Not available 10/30/2022 06:40:21 Father Coronary artery bypass grafts x 4 57 MIGRATION.678 [id number] Not available 10/30/2022 06:40:21 Brother Diabetes mellitus MIGRATION.402 [id number] Not available 10/30/2022 06:40:21 Medical History Condition Response OBESITY Y HYPOTHYROIDISM Y SLEEP DISORDER Y DEPRESSION (INCLUDING POST ) Y HYPERTENSION Y HIGH CHOLESTEROL / HYPERLIPIDEMIA Y Gynecological History Statement/Question Response Date of Last Pap 04/03/2018 Colposcopy 02/12/2019 Date of Last Mammogram 04/18/2019 Date of Last Colonoscopy 05/25/2021 Obstetrics History GPAL:G 0 P 0 0 0 0 Immunizations Vaccine Type Date Status Note Provider Nam e and Address Organization Details Recorded Time Influenza, split virus, quadrivalent, preservative 8 completed Not Available [facility] 10/30/2022 06:50:15 Influenza, split virus, quadrivalent, preservative 6 completed Not Available [facility] 10/30/2022 06:50:16 zoster, unspecified formulation 0 completed Not Available [facility] 10/30/2022 06:50:16 Influenza, split virus, quadrivalent, preservative 0 completed Not Available [facility] 10/30/2022 06:50:16 DTaP, unspecified formulation 5 completed Not Available [facility] 10/30/2022 06:50:16 influenza, unspecified formulation 5 completed Not Available [facility] 10/30/2022 06:50:16 Past Encounters Encounter ID Performer Location Encounter Start Date Encounter Closed Date Diagnosis/Indication Diagnosis SNOMED-CT Code Diagnosis ICD10 Code Diagnosis Note [id number] [facility] [address] [place] [address] 02/12/2021 00:00:00 02/28/2021 23:21:45 [id number] [facility] [address] [place] [address] 09/28/2021 00:00:00 09/30/2021 11:52:43 [id number] [facility] [address] [place] [address] 03/29/2022 00:00:00 03/29/2022 09:34:19 [id number] [facility] [address] [place] [address] 06/25/2022 00:00:00 06/29/2022 11:08:04 [id number] [facility] [address] [place] [address] 10/08/2022 00:00:00 10/29/2022 18:42:27 [id number] TUAN Kelly [facility] [place] [facility] [address] [place] [address] 04/04/2023 08:56:25 04/04/2023 09:28:13 Benign hypertension 81655906 I10 stable on metoprolol 50mg bid. Gastro-eso phageal reflux disease with esophagitis 773198715 K21.00 stable on PPI therapy Hyperlipidemia 01402140 E78.5 on fenofibrat e therapy. stable. repeat labs in Hypothyroidism 78747729 E03.9 on thyroid supplement . due for TFTs in jun. Type 2 steph betes mellitus 88077378 E11.9 stable on metformin , due for labs in Jun. Hypertensive disorder 38 285476 I10 stable on diltiazem ER 120mg daily. Mild depression 84664772 3 F32.A stable on wellbutrin XL 300mg daily. Folic acid deficiency 19 5082447 E53.8 due for folate lab Long-term drug therapy 950638855 Z79.899 following routine labs Obstructiv e sleep apnea syndrome 08613882 G47.33 stable on cpap Iron defic iency anemia 85111663 D50.9 iron studies and CBC due again in Jun Health Concerns Section Related Observation LastModified by Organization Detai ls LastModified Time None Recorded Concern Status LastModified by Organization Details LastModified Time None Recorded Advance Directives Directive None Recorded Payers Encounter Date Sequence Insurance Name Policy Number Policy Ardon Covered Member ID Ardon Member ID Guarantor Name 04/04/2023 1 [employer] [id number] Melonie Prado [id number] Melonie Prado Notes Date Note Type Note Provider Name and Address Organization Details Recorded Time 022 text/ht ml Anxiety/DepressionReported bypatient.Severity:denies suicidal ideations; able to maintain relationships; does not interfere with activities of daily living Context:major life stressors Modifying Factors:medications as directed Associated Symptoms:denies homicidal ideations; no significant weight gain; no significant weight loss; no visual/auditory hallucinations; no delusions; no shortness of breath; mood good; no anxiety; no crying spells; no panic; no isolation; sleeping well; appetite good; energy good; no apathy; maintaining functionality Generic HPI TemplateReported bypatient.Notes:pt has IGT /prediabetes and is on metformin. She is stable and doing fine on medication.HyperlipidemiaReported bypatient.Duration:chronic Control:usually well controlled Current Therapy:currently taking: (simvastatin 20mg) Compliance:compliant; compliant with diet; exercises Complications:no coronary artery disease; no peripheral artery disease; no cardiovascular disease Risk Factors:hypertension;obesity; PrediabetesHypertensionReported bypatient.Onset/Timing:better Alleviating Factors:medication Self Care:under emotional stress Associated Symptoms:no shortness of breath; no fatigue; no palpitations; no decline in exercise capacity; no snoringHypothyroidismReported bypatient.Onset/Timing:better Context/Risk:normal thyroid levels; no history of head or neck radiation during childhood; no history of thyroid disease; no history of hyperthyroidism; no excess iron exposure;history of hypothyroidism;female gender Modifying Factors:medication Exercisegets exercise Associated Symptoms:no cold intolerance; no heat intolerance; no weight loss; no weight gain; no double vision; no dry eyes; no hoarseness; no difficulty swallowing; no neck masses; no deepening of the voice; no fast heart rate; no increased blood pressure; no palpitations; no chest pain; no chest tightess or pressure; no constipation; no diarrhea; no vomiting; no decreased appetite; no loose stools; no irregular menstrual periods; no excessive sweating; no joint pain; no numbness; no tingling of the hands or feet; no tremor; no nervousness; no anxiety; no depression; no fatigue; no sleep difficulties; no hair changes;dry skin Not Available [facility] 09/30/2021 11:52:43 022 text/ht ml Anxiety/DepressionReported bypatient.Quality:symptoms improved Severity:denies suicidal ideations; able to maintain relationships; does not interfere with activities of daily living Duration:stablizing Onset/Timing:still present Context:no major life stressors Modifying Factors:medications as directed Associated Symptoms:denies homicidal ideations; no significant weight gain; no significant weight loss; no visual/auditory hallucinations; no delusions; no shortness of breath; mood good; no anxiety; no crying spells; no panic; no isolation; sleeping well; appetite good; energy good; no apathy; maintaining functionalityDiabetesReported bypatient.Duration:chronic Control:usually well controlled; treated with diet and oral medications Compliance:compliant with medications; compliant with follow-up visits; compliant with diet;noncompliant with home glucose monitoring Self Care:not monitoring home glucose Context:seeing eye doctor regularly; checking feet regularly;not taking aspirin daily Associated Symptoms:no weight gain; no weight loss; no dizziness; no sweats; no headaches; no confusion; no increased thirst; no increased appetite; no increased urination; no blurred vision; no numbness of feet; no calluses on feet; no fatigue; no blurred vision; no paresthesias Chronic Complications:hypertension: Yes; hyperlipidemia: YesHyperlipidemiaReported bypatient.Duration:chronic Control:usually well controlled Current Therapy:currently taking: (simvastatin 20mg) Compliance:compliant; compliant with diet;does not exercise Complications:no coronary artery disease; no peripheral artery disease; no cardiovascular disease Risk Factors:diabetes;hypertension;obesi tyHypertensionReported bypatient.Duration:has noted for years Onset/Timing:better Alleviating Factors:medication Self Care:not under emotional stress Associated Symptoms:no fatigue; no palpitations; no decline in exercise capacity; no snoring;shortness of breathHypothyroidismReported bypatient.Quality:not changing Duration:constant Onset/Timing:still present Context/Risk:normal thyroid levels; no history of head or neck radiation during childhood; no history of thyroid disease; no history of hyperthyroidism; no excess iron exposure;history of hypothyroidism;female gender Modifying Factors:medication Exerciseno exercise Associated Symptoms:no cold intolerance; no heat intolerance; no weight loss; no weight gain; no double vision; no dry eyes; no hoarseness; no difficulty swallowing; no neck masses; no deepening of the voice; no fast heart rate; no increased blood pressure; no palpitations; no chest pain; no chest tightess or pressure; no constipation; no diarrhea; no vomiting; no decreased appetite; no loose stools; no irregular menstrual periods; no excessive sweating; no joint pain; no numbness; no tingling of the hands or feet; no tremor; no nervousness; no anxiety; no depression; no fatigue; no sleep difficulties; no skin changes; no hair changes;dry skin Not Available [facility] [employer] [facility] 03/29/2022 09:34:19 022 text/[employer] ml EaracheReported bypatient.Location:right; pain inside ear; pain below ear Quality:aching; sharp; swelling Severity:worsening; continuous; current pain 11/08 Timing:worse; actual date: (Friday) Context:no sick contacts; no recent swimming/water in ear; no exposure to second hand smoke; no head trauma; no recent air travel;history of ear aches/ear infections;grinding teeth;history of ear surgery Modifying Factors:does not hurt to lie on, or pull on ear; does not hurt to chew; OTC medication Associated Symptoms:no discharge from the ears; no nose/sinus problems; no ringing in the ears; no fever; no redness; no itching (pruritus); no ear bleeding; no vertigo;hearing loss;popping noise in the ears;ears feel full;swelling Not Available [facility] [employer] [facility] 06/29/2022 11:08:04 023 text/[employer] ml Anxiety/DepressionReported bypatient.Quality:doesnt matter time of day. Severity:denies suicidal ideations; able to maintain relationships; does not interfere with activities of daily living Duration:symptoms lasting over 2 weeks Onset/Timing:still present Context:no major life stressors Modifying Factors:medications as directed Associated Symptoms:denies homicidal ideations; no significant weight gain; no significant weight loss; no visual/auditory hallucinations; no delusions; no shortness of breath; mood good; no anxiety; no crying spells; no panic; no isolation; sleeping well; appetite good; energy good; no apathy; maintaining functionalityDiabetesReported bypatient.Duration:chronic Control:usually well controlled; treated with diet and oral medications Compliance:compliant with medications; compliant with follow-up visits; compliant with diet;noncompliant with home glucose monitoring Self Care:not monitoring home glucose Context:seeing eye doctor regularly; checking feet regularly;not taking aspirin daily Associated Symptoms:no weight gain; no weight loss; no dizziness; no sweats; no headaches; no confusion; no increased thirst; no increased appetite; no increased urination; no blurred vision; no numbness of feet; no fatigue; no blurred vision; no paresthesias;calluses on feet Chronic Complications:hypertension: Yes; hyperlipidemia: YesHyperlipidemiaReported bypatient.Duration:chronic Control:usually well controlled Current Therapy:currently taking: (simvastatin 20mg) Compliance:compliant; exercises;noncompliant with diet Complications:no coronary artery disease; no peripheral artery disease; no cardiovascular disease Risk Factors:diabetes;hypertensionHypert ensionReported bypatient.Duration:has noted for years Onset/Timing:better Alleviating Factors:medication Self Care:under emotional stress Associated Symptoms:no shortness of breath; no fatigue; no palpitations; no decline in exercise capacity; no snoringHyperthyroidismReported bypatient.Duration:constant Onset/Timing:still present Context/Risk:normal thyroid levels; no history of head or neck radiation during childhood; no history of thyroid disease; no history of hyperthyroidism; no excess iron exposure;history of hypothyroidism;female gender Modifying Factors:medication Exercisegets exercise Associated Symptoms:no cold intolerance; no heat intolerance; no weight loss; no weight gain; no double vision; no dry eyes; no hoarseness; no difficulty swallowing; no neck masses; no deepening of the voice; no fast heart rate; no increased blood pressure; no palpitations; no chest pain; no chest tightess or pressure; no constipation; no diarrhea; no vomiting; no decreased appetite; no loose stools; no irregular menstrual periods; no excessive sweating; no joint pain; no numbness; no tingling of the hands or feet; no tremor; no nervousness; no anxiety; no depression; no fatigue; no sleep difficulties; no skin changes; no hair changes;dry skin Not Available [facility] 10/29/2022 18:42:27 023 text/ht ml Anxiety/DepressionReported bypatient.Quality:doesnt matter time of day. Severity:denies suicidal ideations; able to maintain relationships; does not interfere with activities of daily living Duration:symptoms lasting over 2 weeks Onset/Timing:still present Context:no major life stressors Associated Symptoms:denies homicidal ideations; no significant weight gain; no significant weight loss; no visual/auditory hallucinations; no delusions; no shortness of breathDiabetesReported bypatient.Duration:chronic Control:usually well controlled Compliance:compliant with medications; compliant with follow-up visits; compliant with diet; compliant with home glucose monitoring; had eye doctor visit in last year;noncompliant with home glucose monitoring;has not had dietitian visit in last year;does not wear a medic alert bracelet or necklace;does not keep rapid-acting carbohydrate in car Self Care:not monitoring home glucose Context:normal range of home blood sugars (in the low 100s); seeing eye doctor regularly; checking feet regularly;not taking aspirin daily Associated Symptoms:no weight gain; no weight loss; no dizziness; no sweats; no headaches; no confusion; no increased thirst; no increased appetite; no increased urination; no blurred vision; no numbness of feet; no calluses on feet; no coronary artery disease; no kidney disease; no peripheral vascular disease; no diabetic retinopathy; no diabetic neuropathyHyperlipidemiaReported bypatient.Duration:chronic Control:usually well controlled Compliance:compliant; compliant with diet;does not exercise Complications:no coronary artery disease; no peripheral artery disease; no cardiovascular disease Risk Factors:diabetes;hypertensionHypert ensionReported bypatient.Duration:has noted for years Onset/Timing:better Alleviating Factors:medication Associated Symptoms:no shortness of breath; no fatigue; no palpitations; no decline in exercise capacity; no snoringHypothyroidismReported bypatient.Quality:not changing Duration:constant Onset/Timing:still present Context/Risk:normal thyroid levels; no history of head or neck radiation during childhood; no history of thyroid disease; no history of hyperthyroidism; no excess iron exposure;history of hypothyroidism;female gender Modifying Factors:medication Exerciseno exercise Associated Symptoms:no cold intolerance; no heat intolerance; no weight loss; no weight gain; no double vision; no dry eyes; no hoarseness; no difficulty swallowing; no neck masses; no deepening of the voice; no fast heart rate; no increased blood pressure; no palpitations; no chest pain; no chest tightess or pressure; no constipation; no diarrhea; no vomiting; no decreased appetite; no loose stools; no irregular menstrual periods; no excessive sweating; no joint pain; no numbness; no tingling of the hands or feet; no dry skin; no tremor; no nervousness; no anxiety; no depression; no fatigue; no sleep difficulties; no skin changes; no hair changes TUAN Kelly [address] [facility], [facility] [address], [place], [address], [facility] 05/02/2023 00:06:58 OBGyn Episode No OBEpisode recorded.
--- OUTSIDE RECORDS SUMMARY | 2024-11-12 16:10 | XMS_ITS | Patient Health Summary ---
Author Organization [facility] [employer] Address [address] [place] [address] Care Team Providers Care Sales Representative [employer] Name Role Phone Jessy Baez MD Unavailable Tasia Nash Unavailable Eulogio Marquez DPM Unavailable [phone] Eulogio Marquez DPM Unavailable [phone] Dago Hernandez MD Unavailable Darlyn Perry MD Unavailable [phone] Tasia Nash Primary Care Pr ovider Note from [facility],non-owned Affiliates and Associated Physician Practices is amultiple site organization consisting of ambulatory clinics and hospital sitesin [place], [place], [place] and [place]. This disclosure is being madepursuant to the Care Everywhere program and may not contain all information available regarding this patient. Last updated 18.[facility] Allergies * Hydrocodone(Nausea and/or Vomiting) -Medium Criticality * Oxycodone(Unknown) Medications * Be aware that medications may not be up to date on this document. Alwaysverify current medications with the patient. * FLUoxetine (PROZAC) 10 MG capsule Take 1 (one) capsule by mouth every evening * buPROPion XL 24hr (WELLBUTRIN-XL) 300 MG tablet(Started 11/17/2017) 1 (one) tablet once daily * simvastatin (ZOCOR) 20 MG tablet(Started 09/07/2018) Take 1 (one) tablet by mouth at bedtime * pantoprazole EC (PROTONIX) 40 MG tablet Take 1 (one) tablet by mouth once daily * ferrous gluconate 324 (38 Fe) MG tablet(Started 07/05/2021) Take 1 (one) tablet by mouth once daily * folic acid (FOLVITE) 1 MG tablet(Started 08/30/2021) Take 1 (one) tablet by mouth once daily * fenofibrate (Lofibra) 54 MG tablet(Started 11/03/2023) TAKE 1 TABLET DAILY 3 refills by 11/02/2024 * dilTIAZem ER 24hr (Tiazac) 120 MG capsule(Started 01/15/2024) TAKE 1 CAPSULE BY MOUTH EVERY DAY 3 refills by 01/14/2025 * metFORMIN ER 24hr (Glucophage XR) 500 MG tablet(Started 02/09/2024) TAKE 1 TABLET TWICE A DAY BEFORE BREAKFAST AND SUPPER FOR TYPE 2 DIABETES 3 refills by 02/08/2025 * Eliquis 5 MG tablet(Started 02/15/2024) TAKE 1 TABLET BY MOUTH TWICE DAILY 3 refills by 02/14/2025 * metoprolol tartrate IR (Lopressor) 50 MG tablet(Started 02/15/2024) TAKE 1 TABLET BY MOUTH TWICE DAILY 3 refills by 02/14/2025 * levothyroxine (Synthroid) 175 MCG tablet(Started 02/25/2024) Take 2 (two) tablets by mouth daily before breakfast Except Mon, Wed, Fri, take one tab Reasons: Underactive Thyroid 3 refills by 02/24/2025 * flecainide (Tambocor) 100 MG tablet(Started 06/03/2024) Take 1 (one) tablet by mouth 2 times daily 3 refills by 06/03/2025 * mycophenolate (Cellcept) 500 MG tablet(Started 11/02/2024) TAKE 2 TABLETS IN THE MORNING AND 1 TABLET IN THE EVENING 11 refills by 11/02/2025 Ended Medications* mycophenolate (Cellcept) 500 MG tablet(Started 11/24/2023) (Discontinued) TAKE 2 TABLETS IN THE MORNING AND 1 TABLET IN THE EVENING 11 refills by 11/23/2024 * cefUROXime (Ceftin) 500 MG tablet(Discontinued) * predniSONE (Deltasone) 20 MG tablet(Started 06/25/2024)(Discontinued) Take 2 (two) tablets by mouth once daily Active Problems Problem Noted Date Diagnosed Date Class 3 severe obesity due to excess calories in adult 12/21/2020 Benign paroxysmal positional vertigo 12/21/2020 Dysfunction of eustachian tube 12/21/2020 Emotional stress 12/21/2020 Submental lymphadenopathy 12/21/2020 Atrial fibrillation with RVR 11/15/2020 Anxiety 11/02/2019 Obstructive sleep apnea syndrome 11/02/2019 Interstitial lung disease 11/02/2019 Other fatigue 05/29/2017 Postablative hypothyroidism 01/15/2014 Dysthymia 01/15/2014 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 (AFLURIA, FLUZONE TRIVALENT; 6MO+) (IIV3)(Given 07/08/2014) * Covid Pfizer primary monovalent 12+ yr 0.3mL Purple cap(Given 12/01/2020, 11/02/2020) * DTAP, HISTORIC VACCINE(Given 09/01/2014) * FLU VACCINE QUAD IIV4 SPLIT 0.25 ML IM(Given 05/25/2020, 06/08/2018, 05/02/2016) * INFLUENZA VACCINE(Given 09/01/2014) * INFLUENZA VACCINE, QUADR. (FLUZONE; FLULAVAL; FLUARIX; AFLURIA QUADRIVALENT; 6MO+), 0.5 ML (IIV4)(Given 05/25/2020, 06/12/2018) * PNEUMOCOCCAL PCV20 CONJ VAC IM(Given 01/18/2022) * ZOSTER HISTORIC VACCINE(Given 07/26/2020) * Zoster Hzv Vacc Recombinant Inj Im(Given 07/26/2020, 05/25/2020) * iNFLUENZA VACCINE, RECOM-JACKSON, QUADR. (FLUBLOCK QUADRIVALENT; 18Y+) (RIV4)(Given 06/01/2021) Social History Tobacco Use Types Packs/Day Years Used Date Smoking Tobacco: Never Smokeless Tobacco: Never Tobacco Cessation:Counseling Given: Not Answered Alcohol Use Standard Drinks/Week Comments Not Currently 0 (1 standard drink = 0.6 oz pur e alcohol) rarely PHQ-2 Answer Date Recorded Patient Health Questionnaire-2 Score 0 11/03/2024 Sex and Gender Information Value Date Recorded Sex Assigned at Female 07/12/2021 8:47 AM ACUTE CARE PHYSICIAN Gender Identity Female 07/12/2021 8:47 AM ACUTE CARE PHYSICIAN Sexual Orientation Not on file Last Filed Vital Signs Vital Sign Reading Time Taken Comments Blood Pressure 119/75 11/03/2024 8:55 AM ACUTE CARE PHYSICIAN Pulse 63 11/03/2024 8:55 AM ACUTE CARE PHYSICIAN Temperature 36.6 C (97.8 F) 11/03/2024 8:55 AM ACUTE CARE PHYSICIAN Respiratory Rate 17 10/05/2024 8:27 AM ACUTE CARE PHYSICIAN Oxygen Saturation 94% 11/03/2024 8:55 AM ACUTE CARE PHYSICIAN Inhaled Oxygen Concentration - - Weight 116.1 kg (256 lb) 11/03/2024 8:55 AM ACUTE CARE PHYSICIAN Height 162.6 cm (5' 4 ) 11/03/2024 8:55 AM ACUTE CARE PHYSICIAN Body Mass Index 43.94 11/03/2024 8:55 AM ACUTE CARE PHYSICIAN Medical Devices Implanted Type Area Metal Spinner Device Identifier Shelf Expiration Date Model / Serial / Lot Poly Patella 35 Implanted:Qty: 1 on 07/05/2014 by Uriel Cortez MD at [facility] Left: Knee 03/01/2022 [id number] / / [id number] Bolivar Bone Moneta Hv Implanted:Qty: 2 on 07/05/2014 by Uriel Cortez MD at [facility] Left: Knee [employer] 12/31/2015 [id number] / / [id number] Compon Fem Nexgen Lps-Flex Implanted:Qty: 1 on 07/05/2014 by Uriel Cortez MD at [facility] Left: Knee [employer] 06/01/2024 [id number] / / [id number] Plate Tibial Stem Sz 6 50mm X 74mm Implanted:Qty: 1 on 07/05/2014 by Uriel Cortez MD at [facility] Left: Knee [employer] 05/02/2024 [id number] / / [id number] Articular Surface 14 Mm Implanted:Qty: 1 on 07/05/2014 by Uriel Cortez MD at [facility] Left: Knee 03/01/2019 [id number] / / [id number] Procedures * HEPATIC FUNCTION PANEL(Performed 10/29/2024) Performed for Therapeutic drug monitoring * CREATININE BLOOD(Performed 10/29/2024) Performed for Therapeutic drug monitoring * CBC W AUTO DIFFERENTIAL(Performed 10/29/2024) Performed for Therapeutic drug monitoring * COMPLETE PFT W/WO BRONCHODILATOR(Performed 09/02/2024) Performed for ILD (interstitial lung disease) (HCC) * GLUCOSE - POINT OF CARE (AMB) STL(Performed 07/27/2024) Performed for IGT (impaired glucose tolerance) * CBC W AUTO DIFFERENTIAL(Performed 07/13/2024) * HEPATIC FUNCTION PANEL(Performed 07/13/2024) * CREATININE BLOOD(Performed 07/13/2024) * HEMOGLOBIN A1C (EXTERNAL RESULT ENTRY)(Performed 07/13/2024) * LAB RESULTS ORDER(Performed 07/13/2024) * LAB RESULTS ORDER(Performed 07/13/2024) * CT CHEST WO CONT AND HIRES(Performed 06/21/2024) Performed for Interstitial lung disease (HCC) * COMPLETE PFT W/WO BRONCHODILATOR(Performed 06/21/2024) Performed for ILD (interstitial lung disease) (HCC) * EKG 12-LEAD(Performed 06/03/2024) Performed for Persistent atrial fibrillation (HCC) * HEMOGLOBIN A1C - POINT OF CARE (AMB)(Performed 02/25/2024) Performed for IGT (impaired glucose tolerance) * C-REACTIVE PROTEIN(Performed 02/23/2024) * CBC W AUTO DIFFERENTIAL(Performed 02/23/2024) * ERYTHROCYTE SEDIMENTATION RATE(Performed 02/23/2024) * HEPATIC FUNCTION PANEL(Performed 02/23/2024) * CREATININE BLOOD(Performed 02/23/2024) * TSH(Performed 02/23/2024) * T4 FREE(Performed 02/23/2024) * T3 TOTAL(Performed 02/23/2024) * FRUCTOSAMINE(Performed 02/23/2024) * COMPREHENSIVE METABOLIC PANEL(Performed 02/23/2024) * ECHO STRESS DOBUTAMINE COLOR FLOW AND DOPP W CONT(Performed 02/20/2024) Performed for Chest tightness * EKG 12-LEAD(Performed 01/29/2024) Performed for Typical atrial flutter (HCC) * C-REACTIVE PROTEIN(Performed 11/03/2023) * CBC W AUTO DIFFERENTIAL(Performed 11/03/2023) * ERYTHROCYTE SEDIMENTATION RATE(Performed 11/03/2023) * HEPATIC FUNCTION PANEL(Performed 11/03/2023) * CREATININE BLOOD(Performed 11/03/2023) * PFT OXYGEN DESATURATION STUDY(Performed 08/18/2023) Performed for Interstitial lung disease (HCC) * PFT-LAB(Performed 08/18/2023) * CT CHEST WO CONT AND HIRES(Performed 08/18/2023) Performed for Interstitial lung disease (HCC) * C-REACTIVE PROTEIN(Performed 07/07/2023) * CBC W AUTO DIFFERENTIAL(Performed 07/07/2023) * ERYTHROCYTE SEDIMENTATION RATE(Performed 07/07/2023) * HEPATIC FUNCTION PANEL(Performed 07/07/2023) * CREATININE BLOOD(Performed 07/07/2023) * LAB RESULTS ORDER(Performed 07/07/2023) * LAB RESULTS ORDER(Performed 07/07/2023) * EKG 12-LEAD(Performed 06/26/2023) Performed for Typical atrial flutter (HCC) * HEPATIC FUNCTION PANEL(Performed 05/01/2023) Performed for Interstitial lung disease (HCC), Therapeutic drug monitoring, Immunosuppression due to drug therapy (HCC) * CREATININE BLOOD(Performed 05/01/2023) Performed for Interstitial lung disease (HCC), Therapeutic drug monitoring, Immunosuppression due to drug therapy (HCC) * ERYTHROCYTE SEDIMENTATION RATE(Performed 05/01/2023) Performed for Interstitial lung disease (HCC), Therapeutic drug monitoring, Immunosuppression due to drug therapy (HCC) * C-REACTIVE PROTEIN(Performed 05/01/2023) Performed for Interstitial lung disease (HCC), Therapeutic drug monitoring, Immunosuppression due to drug therapy (HCC) * CBC W AUTO DIFFERENTIAL(Performed 05/01/2023) Performed for Interstitial lung disease (HCC), Therapeutic drug monitoring, Immunosuppression due to drug therapy (HCC) * ECHO COMPLETE W CONTRAST(Performed 02/14/2023) Performed for Interstitial lung disease (HCC), Antinuclear antibody (NICOLETTE) titer greater than 1:80, SS-A antibody positive * SIX MINUTE WALK(Performed 02/14/2023) Performed for Intestinal disaccharidase deficiencies and disaccharide malabsorption * PFT-LAB(Performed 02/14/2023) Performed for Intestinal disaccharidase deficiencies and disaccharide malabsorption * T3 TOTAL(Performed 12/20/2022) * C-REACTIVE PROTEIN(Performed 12/20/2022) * CBC W AUTO DIFFERENTIAL(Performed 12/20/2022) * ERYTHROCYTE SEDIMENTATION RATE(Performed 12/20/2022) * HEPATIC FUNCTION PANEL(Performed 12/20/2022) * CREATININE BLOOD(Performed 12/20/2022) * C-REACTIVE PROTEIN(Performed 09/20/2022) * CBC W AUTO DIFFERENTIAL(Performed 09/20/2022) * ERYTHROCYTE SEDIMENTATION RATE(Performed 09/20/2022) * HEPATIC FUNCTION PANEL(Performed 09/20/2022) * CREATININE BLOOD(Performed 09/20/2022) * C-REACTIVE PROTEIN(Performed 06/10/2022) * CBC W AUTO DIFFERENTIAL(Performed 06/10/2022) * ERYTHROCYTE SEDIMENTATION RATE(Performed 06/10/2022) * HEPATIC FUNCTION PANEL(Performed 06/10/2022) * CREATININE BLOOD(Performed 06/10/2022) * PROC EKG IN CLINIC(Performed 05/31/2022) Performed for Paroxysmal atrial fibrillation (HCC) * COMPLETE PFT W/WO BRONCHODILATOR(Performed 04/25/2022) Performed for ILD (interstitial lung disease) (HCC), Chronic respiratory failure with hypoxia (HCC) * SIX MINUTE WALK(Performed 04/25/2022) Performed for ILD (interstitial lung disease) (HCC), Chronic respiratory failure with hypoxia (HCC) * TSH(Performed 03/18/2022) * T4 FREE(Performed 03/18/2022) * T3 TOTAL(Performed 03/18/2022) * HEPATIC FUNCTION PANEL(Performed 03/18/2022) Performed for Therapeutic drug monitoring * ERYTHROCYTE SEDIMENTATION RATE(Performed 03/18/2022) Performed for Therapeutic drug monitoring * CREATININE BLOOD(Performed 03/18/2022) Performed for Therapeutic drug monitoring * C-REACTIVE PROTEIN(Performed 03/18/2022) Performed for Therapeutic drug monitoring * CBC W AUTO DIFFERENTIAL(Performed 03/18/2022) Performed for Therapeutic drug monitoring * BASIC METABOLIC PANEL (CALCIUM TOTAL)(Performed 12/20/2021) Performed for Acquired hypothyroidism * T3 TOTAL(Performed 12/20/2021) Performed for Acquired hypothyroidism * T4 FREE(Performed 12/20/2021) Performed for Acquired hypothyroidism * TSH(Performed 12/20/2021) Performed for Acquired hypothyroidism * HEPATIC FUNCTION PANEL(Performed 11/19/2021) Performed for Therapeutic drug monitoring * ERYTHROCYTE SEDIMENTATION RATE(Performed 11/19/2021) Performed for Therapeutic drug monitoring * CREATININE BLOOD(Performed 11/19/2021) Performed for Therapeutic drug monitoring * C-REACTIVE PROTEIN(Performed 11/19/2021) Performed for Therapeutic drug monitoring * CBC W AUTO DIFFERENTIAL(Performed 11/19/2021) Performed for Therapeutic drug monitoring * VITAMIN B12 FOLATE PANEL(Performed 09/14/2021) * CBC W AUTO DIFFERENTIAL(Performed 09/14/2021) * IRON + TIBC + FERRITIN(Performed 09/14/2021) * C-REACTIVE PROTEIN(Performed 06/22/2021) * ERYTHROCYTE SEDIMENTATION RATE(Performed 06/22/2021) * HEPATIC FUNCTION PANEL(Performed 06/22/2021) * CREATININE BLOOD(Performed 06/22/2021) * CBC W AUTO DIFFERENTIAL(Performed 06/22/2021) Performed for Therapeutic drug monitoring * CARDIAC EKG ORDER(Performed 06/18/2021) * CT CHEST WO CONT AND HIRES(Performed 06/06/2021) Performed for Need for influenza vaccination, ILD (interstitial lung disease) (HCC) * COMPLETE PFT W/WO BRONCHODILATOR(Performed 06/01/2021) Performed for Abnormal CT of the chest * CBC W AUTO DIFFERENTIAL(Performed 04/20/2021) * FOLATE(Performed 04/20/2021) Performed for Therapeutic drug monitoring * VITAMIN B12(Performed 04/20/2021) Performed for Therapeutic drug monitoring * TRANSFERRIN(Performed 04/20/2021) Performed for Therapeutic drug monitoring * IRON + TIBC PANEL(Performed 04/20/2021) Performed for Therapeutic drug monitoring * FERRITIN(Performed 04/20/2021) Performed for Therapeutic drug monitoring * C-REACTIVE PROTEIN(Performed 04/03/2021) * CBC W AUTO DIFFERENTIAL(Performed 04/03/2021) Performed for Therapeutic drug monitoring * TSH(Performed 04/03/2021) * T4 FREE(Performed 04/03/2021) * T3 TOTAL(Performed 04/03/2021) * CARDIAC EKG ORDER(Performed 03/08/2021) * PROC EKG IN CLINIC(Performed 02/22/2021) Performed for Atrial fibrillation with RVR (HCC) * TSH(Performed 02/13/2021) * T4 FREE(Performed 02/13/2021) * T3 TOTAL(Performed 02/13/2021) * VAS BILATERAL VENOUS DUPLEX LE(Performed 01/11/2021) Performed for Shortness of breath, Leg swelling * XR CHEST 2VW(Performed 01/11/2021) Performed for Shortness of breath * COMPREHENSIVE METABOLIC PANEL(Performed 01/11/2021) Performed for Shortness of breath, Acquired hypothyroidism * B-TYPE NATRIURETIC PEPTIDE(Performed 01/11/2021) Performed for Shortness of breath * T3 TOTAL(Performed 01/11/2021) Performed for Shortness of breath, Acquired hypothyroidism * T4 FREE(Performed 01/11/2021) Performed for Shortness of breath, Acquired hypothyroidism * TSH(Performed 01/11/2021) Performed for Shortness of breath, Acquired hypothyroidism * CARDIAC EKG ORDER(Performed 01/11/2021) * EP ABLATION AFIB(Performed 01/08/2021) Performed for Typical atrial flutter (HCC), Paroxysmal atrial fibrillation (HCC), Chronic heart failure with reduced ejection fraction and diastolic dysfunction (HCC) * GLUCOSE - POINT OF CARE(Performed 01/08/2021) * EKG 12-LEAD(Performed 01/08/2021) Performed for Typical atrial flutter (HCC) * PT-INR(Performed 01/03/2021) Performed for Typical atrial flutter (HCC) * CBC W AUTO DIFFERENTIAL(Performed 01/03/2021) Performed for Typical atrial flutter (HCC) * BASIC METABOLIC PANEL (CALCIUM TOTAL)(Performed 01/03/2021) Performed for Typical atrial flutter (HCC) * CARDIAC EKG ORDER(Performed 12/28/2020) * PROC EKG IN CLINIC(Performed 12/21/2020) Performed for Typical atrial flutter (HCC), Paroxysmal atrial fibrillation (HCC), Chronic heart failure with reduced ejection fraction and diastolic dysfunction (HCC) * C-REACTIVE PROTEIN(Performed 12/08/2020) * CBC W AUTO DIFFERENTIAL(Performed 12/08/2020) * CARDIAC EKG ORDER(Performed 11/16/2020) * ECHO LIMITED OR FOLLOWUP(Performed 11/16/2020) Performed for Atrial fibrillation with RVR (HCC) * MAGNESIUM BLOOD(Performed 11/16/2020) Performed for Tachycardia * BASIC METABOLIC PANEL (CALCIUM TOTAL)(Performed 11/16/2020) Performed for Atrial fibrillation with RVR (HCC) * CBC W/O DIFFERENTIAL(Performed 11/16/2020) Performed for Atrial fibrillation with RVR (HCC) * PTT SLH(Performed 11/16/2020) Performed for Atrial fibrillation with RVR (HCC) * T4 FREE(Performed 11/15/2020) Performed for Atrial fibrillation with RVR (HCC) * TSH(Performed 11/15/2020) Performed for Atrial fibrillation with RVR (HCC) * SARS-COV-2 (COVID-19)+INFLU A+B PCR RAPID(Performed 11/15/2020) Performed for Tachycardia * EKG 12-LEAD(Performed 11/15/2020) Performed for Atrial fibrillation with RVR (HCC) * XR CHEST 1VW PORTABLE(Performed 11/15/2020) Performed for Atrial fibrillation with RVR (HCC) * MAGNESIUM BLOOD(Performed 11/15/2020) * TROPONIN I(Performed 11/15/2020) * COMPREHENSIVE METABOLIC PANEL(Performed 11/15/2020) * CBC W AUTO DIFFERENTIAL(Performed 11/15/2020) * PFT OXYGEN DESATURATION STUDY(Performed 11/15/2020) Performed for Abnormal CT of the chest * EKG 12-LEAD(Performed 11/15/2020) Performed for Tachycardia * PFT-LAB(Performed 11/15/2020) Performed for Abnormal CT of the chest * C-REACTIVE PROTEIN(Performed 11/10/2020) * CBC W AUTO DIFFERENTIAL(Performed 11/10/2020) * C-REACTIVE PROTEIN(Performed 10/05/2020) * CBC W AUTO DIFFERENTIAL(Performed 10/05/2020) * CBC W AUTO DIFFERENTIAL(Performed 09/12/2020) * THIOPURINE METHYLTRANSFERASE(Performed 09/12/2020) * COMPREHENSIVE METABOLIC PANEL(Performed 09/12/2020) * TSH(Performed 07/14/2020) * T4 FREE(Performed 07/14/2020) * CBC W AUTO DIFFERENTIAL(Performed 07/14/2020) * COMPREHENSIVE METABOLIC PANEL(Performed 07/14/2020) * INTERPRETATION (9)(Performed 07/14/2020) * STAGE 2 (PO EF LAB)(Performed 07/14/2020) * STAGE 1(Performed 07/14/2020) * NICOLETTE BLOOD TITER(Performed 07/14/2020) * QUANTIFERON-TB GOLD PLUS 1-TUBE(Performed 07/14/2020) * ALDOLASE(Performed 07/14/2020) * HEPATITIS C AB W/RFLX TO HCV RNA QN PCR(Performed 07/14/2020) * HEPATITIS B CORE ANTIBODY TOTAL(Performed 07/14/2020) * HEPATITIS B SURFACE ANTIGEN W RFLX CONFIRMATION(Performed 07/14/2020) * MYOSITIS 11 ANTIBODY PNL(Performed 07/14/2020) * TUTTLE/PARTNER MARKETING MANAGER ANTIBODIES RFLXED(Performed 07/14/2020) * CHROMATIN ANTIBODY(Performed 07/14/2020) * NICOLETTE SCREEN IFA W/REFLX T/P/C(Performed 07/14/2020) * CYCLIC CITRULLINATED PEPTIDE(CCP) AB IGG(Performed 07/14/2020) * SS-A/SS-B (SJOGREN'S) ANTIBODY PANEL(Performed 07/14/2020) * C-REACTIVE PROTEIN(Performed 07/14/2020) * RHEUMATOID FACTOR BLOOD QUANTITATIVE(Performed 07/14/2020) * COMPLEMENT C4(Performed 07/14/2020) * COMPLEMENT C3(Performed 07/14/2020) * RIBOSOMAL P PROTEIN ANTIBODY(Performed 07/14/2020) * CBC W AUTO DIFFERENTIAL(Performed 07/14/2020) * ERYTHROCYTE SEDIMENTATION RATE(Performed 07/14/2020) * URINALYSIS W/MICROSCOPIC NO CULTURE(Performed 07/14/2020) * SCLEROSIS 12 ANTIBODY PNL(Performed 07/14/2020) * RNA POLYMERASE III ANTIBODY IGG(Performed 07/14/2020) * DNA ANTIBODY DS CRITHIDIA W/REFLEX TITER(Performed 07/14/2020) * PM/SCL-100 ANTIBODY IGG(Performed 07/14/2020) * CK BLOOD(Performed 07/14/2020) * COMPREHENSIVE METABOLIC PANEL(Performed 07/14/2020) * LDH BLOOD(Performed 07/14/2020) * HIV-1 HIV-2 ANTIBODY + HIV P24 AG PANEL(Performed 07/14/2020) * PROTEIN ELECTROPHORESIS BLOOD(Performed 07/14/2020) * IGG SUBCLASS 4(Performed 07/14/2020) Performed for Interstitial lung disease (HCC) * BASIC METABOLIC PANEL (CALCIUM TOTAL)(Performed 12/27/2019) Performed for Acquired hypothyroidism, IGT (impaired glucose tolerance), Mixed hyperlipidemia, Excessive vitamin B12 intake, Weight gain * T3 TOTAL(Performed 12/27/2019) Performed for Acquired hypothyroidism * T4 FREE(Performed 12/27/2019) Performed for Acquired hypothyroidism * TSH(Performed 12/27/2019) Performed for Acquired hypothyroidism * VITAMIN B12 FOLATE PANEL(Performed 12/27/2019) Performed for Excessive vitamin B12 intake * LIPID PROFILE(Performed 12/27/2019) Performed for Acquired hypothyroidism, IGT (impaired glucose tolerance), Mixed hyperlipidemia, Weight gain * HEMOGLOBIN A1C(Performed 12/27/2019) Performed for IGT (impaired glucose tolerance) * PULMONARY/RESPIRATORY REPORT ORDER(Performed 10/13/2019) * PULMONARY/RESPIRATORY REPORT ORDER(Performed 10/13/2019) * IMAGING/RADIOLOGY/XRAY RESULTS ORDER(Performed 07/12/2019) * VITAMIN D 25-HYDROXY(Performed 06/14/2019) * VITAMIN B12 FOLATE PANEL(Performed 06/14/2019) * CBC W AUTO DIFFERENTIAL(Performed 06/14/2019) Performed for Essential hypertension, IGT (impaired glucose tolerance), Mixed hyperlipidemia * T3 TOTAL(Performed 06/14/2019) Performed for Postablative hypothyroidism * T4 FREE(Performed 06/14/2019) Performed for Postablative hypothyroidism * TSH(Performed 06/14/2019) Performed for Postablative hypothyroidism * COMPREHENSIVE METABOLIC PANEL(Performed 06/14/2019) Performed for Postablative hypothyroidism, Essential hypertension, IGT (impaired glucose tolerance), Mixed hyperlipidemia * VITAMIN D 25-HYDROXY(Performed 11/25/2018) Performed for Vitamin D deficiency * COMPREHENSIVE METABOLIC PANEL(Performed 11/25/2018) Performed for Postablative hypothyroidism, IGT (impaired glucose tolerance) * T3 TOTAL(Performed 11/25/2018) Performed for Postablative hypothyroidism * T4 FREE(Performed 11/25/2018) Performed for Postablative hypothyroidism * TSH(Performed 11/25/2018) Performed for Postablative hypothyroidism * VITAMIN B12 FOLATE PANEL(Performed 06/11/2018) Performed for Vitamin B 12 deficiency, Malaise and fatigue * C-PEPTIDE(Performed 06/11/2018) Performed for Weight gain * BASIC METABOLIC PANEL (CALCIUM TOTAL)(Performed 06/11/2018) Performed for Postablative hypothyroidism, Vitamin B 12 deficiency, Vitamin D deficiency, Weight gain * T3 TOTAL(Performed 06/11/2018) Performed for Postablative hypothyroidism * T4 FREE(Performed 06/11/2018) Performed for Postablative hypothyroidism * TSH(Performed 06/11/2018) Performed for Postablative hypothyroidism * MICROALB/CREAT RATIO URINE RANDOM PANEL(Performed 12/11/2017) Performed for Acquired hypothyroidism, IGT (impaired glucose tolerance), Mixed hyperlipidemia, Vitamin D deficiency, Essential hypertension * LIPID PROFILE(Performed 12/11/2017) Performed for Acquired hypothyroidism, IGT (impaired glucose tolerance), Mixed hyperlipidemia, Vitamin D deficiency, Essential hypertension * COMPREHENSIVE METABOLIC PANEL(Performed 12/11/2017) Performed for Acquired hypothyroidism, IGT (impaired glucose tolerance), Mixed hyperlipidemia, Vitamin D deficiency, Essential hypertension * T4 FREE(Performed 12/11/2017) Performed for Acquired hypothyroidism, IGT (impaired glucose tolerance), Mixed hyperlipidemia, Vitamin D deficiency, Essential hypertension * TSH(Performed 12/11/2017) Performed for Acquired hypothyroidism, IGT (impaired glucose tolerance), Mixed hyperlipidemia, Vitamin D deficiency, Essential hypertension * T3 TOTAL(Performed 12/11/2017) Performed for Acquired hypothyroidism, IGT (impaired glucose tolerance), Mixed hyperlipidemia, Vitamin D deficiency, Essential hypertension * XR KNEE BILAT 3VW(Performed 07/11/2017) Performed for Pain in both knees, unspecified chronicity * LAB RESULTS ORDER(Performed 06/25/2017) * XR KNEE BILAT 3VW(Performed 07/12/2016) Performed for Pain in both knees, unspecified chronicity * CARDIAC RHYTHM STRIP ORDER(Performed 07/09/2014) * IMAGING/RADIOLOGY/XRAY RESULTS ORDER(Performed 07/09/2014) * GLUCOSE - POINT OF CARE(Performed 07/08/2014) * GLUCOSE - POINT OF CARE(Performed 07/07/2014) * GLUCOSE - POINT OF CARE(Performed 07/07/2014) * GLUCOSE - POINT OF CARE(Performed 07/07/2014) * HGB HCT PANEL(Performed 07/07/2014) Performed for Knee joint replacement by other means * BASIC METABOLIC PANEL (CALCIUM TOTAL)(Performed 07/07/2014) Performed for Knee joint replacement by other means * GLUCOSE - POINT OF CARE(Performed 07/06/2014) * GLUCOSE - POINT OF CARE(Performed 07/06/2014) * GLUCOSE - POINT OF CARE(Performed 07/06/2014) * HEMOGLOBIN A1C(Performed 07/06/2014) * HGB HCT PANEL(Performed 07/06/2014) Performed for Knee joint replacement by other means * GLUCOSE - POINT OF CARE(Performed 07/05/2014) * GLUCOSE - POINT OF CARE(Performed 07/05/2014) * XR KNEE LEFT 2VW OR LESS(Performed 07/05/2014) Performed for Knee joint replacement by other means * URINALYSIS REFLEX MICROSCOPIC REFLEX CULTURE(Performed 07/05/2014) * PATHOLOGY TISSUE EXAM (STL)(Performed 07/05/2014) * ARTHROPLASTY TOTAL KNEE(Performed 07/05/2014) Performed for Primary localized osteoarthrosis, lower leg * PERIPHERAL BLOCK(Performed 07/05/2014) * GLUCOSE - POINT OF CARE(Performed 07/05/2014) * CBC W AUTO DIFFERENTIAL(Performed 06/13/2014) Performed for Preoperative examination, unspecified, Primary localized osteoarthrosis, lower leg, left * BASIC METABOLIC PANEL (CALCIUM TOTAL)(Performed 06/13/2014) Performed for Preoperative examination, unspecified, Primary localized osteoarthrosis, lower leg, left * CULTURE MSSA/MRSA(Performed 06/13/2014) Performed for Preoperative examination, unspecified, Primary localized osteoarthrosis, lower leg, left * LAB RESULTS ORDER(Performed 06/30/2012) Results * (ABNORMAL) CBC WITH DIFFERENTIAL (10/29/2024 8:58 AM ACUTE CARE PHYSICIAN) Only the most recent of25 resultswithin the time period is included. White Blood Cell Count 11.1(H) 3.8 - [...] 0.7 % [facility] Comment: Test Performed at: [employer] [facility] [place] [place] [address] JANAK STEPHENS MD Blasts [facility] nRBC [facility] Comments [facility] Comment: Test Performed at: [place] [address] JANAK STEPHENS MD Blood BLOOD SPECIMEN / Unknown 10/29/2024 8:58 AM ACUTE CARE PHYSICIAN 10/29/2024 8:59 AM ACUTE CARE PHYSICIAN Darlyn Perry MD LAB - HEMATOLOGY ORD ERABLES [facility] [address] [place] [address] * HEPATIC FUNCTION PANEL (10/29/2024 8:58 AM ACUTE CARE PHYSICIAN) Only the most recent of12 resultswithin the time period is included. Pathologist [facility] Protein Total 7.1 6.1 - 8.1 g/dL [...] 29 U/L [facility] Comment: Test Performed at: [place] [address] JANAK STEPHENS MD Blood BLOOD SPECIMEN / Unknown 10/29/2024 8:58 AM ACUTE CARE PHYSICIAN 10/29/2024 8:59 AM ACUTE CARE PHYSICIAN Darlyn Perry MD LAB - CHEMISTRY CADY DUNLAP Performing Organization Address [facility] de Phone Number [facility] [address] [place] [address] * CREATININE BLOOD (10/29/2024 8:58 AM ACUTE CARE PHYSICIAN) Only the most recent of12 resultswithin the time period is included. [facility] Creatinine 0.84 0.50 - 1.05 mg/dL [facility] eGFR by Cystatin C 77 > OR = 60 mL/min/1.7 3m2 [facility] Comment: Test Performed at: [place] [address] JANAK STEPHENS MD Blood BLOOD SPECIMEN / Unknown 10/29/2024 8:58 AM ACUTE CARE PHYSICIAN 10/29/2024 8:59 AM ACUTE CARE PHYSICIAN Darlyn Perry MD LAB - CHEMISTRY CADY DUNLAP Performing Organization Address City/[facility] Co de Phone Number [facility] [address] [place] [address] * COMPLETE PFT W/WO BRONCHODILATOR (09/02/2024 1:54 PM ACUTE CARE PHYSICIAN) Impressions Nicolas Bhat MD - 09/02/2024 1:54 PM ACUTE CARE PHYSICIAN [facility] DEPARTMENT OF PULMONARY, CRITICAL CARE, AND SLEEP [...] of Pulmonary, Critical Care, and Sleep Medicine [facility] I have personally reviewed the pulmonary function test data and made adjustment to the interpretation where necessary. Nicolas Bhat MD 09/10/2024 Narrative Nicolas Bhat MD - 09/02/2024 1:54 PM ACUTE CARE PHYSICIAN Luis Sevilla MD 09/03/2024 12:27 PM Jovan Martínez MD RESPIRATORY THERAPY ORDERABLES * (ABNORMAL) GLUCOSE - POINT OF CARE (AMB) STL (07/27/2024) Glucose 137(A) 60 - 100 mg/dL Lot # [id number] Expiration Date 10/22/2025 QC Verified Yes Yes Blood BLOOD SPECIMEN / Unknown 07/27/2024 Jessy Baez MD LAB - POINT OF C ARE ORDERABLES * (ABNORMAL) HEMOGLOBIN A1C (EXTERNAL RESULT ENTRY) (07/13/2024) Hemoglobin A1c (EXTERNAL RESULT) 5.7(H) % OUTSIDE REFERENCE LAB Comment:[facility] (scanned) Blood BLOOD SPECIMEN / Unknown 07/13/2024 Historical Provider MD LAB - CHEMISTRY O RDERABLES OUTSIDE REFERENCE LAB * LAB RESULTS ORDER (07/13/2024) Only the most recent of6 resultswithin the time period is included. 07/13/2024 Narrative 07/13/2024 Ordered by an unspecified provider. Scanned Document LAB - THERAPEUTIC DR JAZMIN MONITORING ORDERABLES * CT Chest Wo Cont And Hires (06/21/2024 9:42 AM CDT) Only the most recent of3 resultswithin the time period is included. 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 2.Mediastinal lymphadenopathy stable from prior. > Dictated by Ariadne Perez MD, MD (radiology practitioner assistant). I, Rony Prabhakar MD have personally reviewed and interpreted this examination/study. > Interpreting Provider: Rony Prabhakar MD on 06/21/2024 7:46 PM Narrative 06/21/2024 7:46 PM CDT PROCEDURE: CT CHEST WO CONT AND HIRES DATE/TIME OF EXAM: 06/21/2024 9:43 AM CLINICAL INFORMATION: None relevant/not provided if blank. Indication: J84.9: Interstitial lung disease (HCC) Additional History: Monitoring for interstitial lung disease Ordering Provider Reason For Exam: For monitoring of ILD COMPARISON: CT chest 08/18/2023 TECHNIQUE: CT of the chest was performed without contrast according to standard protocol. Then, utilizing a high-resolution algorithm, 1 mm noncontiguous axial images of the chest were obtained in inspiration and expiration. Findings: Evaluation of visceral and vascular structures is degraded due to lack of intravenous contrast administration. Lower Neck and Axillae: Normal. Lungs: No bronchial wall thickening or bronchiectasis is seen. Similar appearing bilateral lower lobe predominant groundglass opacities with lower lobe bronchiectasis with juxta diaphragmatic abutment. There is involvement of the lung bases as well as the periphery of the upper lungs. Scattered cysts bilaterally, with the largest in the left upper lobe measuring up to 2 cm similar to prior (series 5 image 45). There are patchy areas of mild air trapping. No pleural fluid or pneumothorax is present. Heart and Pericardium: Cardiomegaly without pericardial fluid or thickening. Mediastinum and Pao: Scattered subcentimeter axillary and mediastinal lymph nodes bilaterally. Enlarged right prevascular lymph node measuring 1.2 cm and aortopulmonary window lymph node measuring 1 cm similar to prior. Thoracic Vasculature: No vascular abnormality is present. Bones and Chest Wall: Bone windows demonstrate no suspicious lytic or blastic lesions. The visible osseous structures are intact. Multilevel degenerative disease. Upper Abdomen: The visible portions of the upper abdominal organs are normal. Procedure Note Rony Prabhakar MD - 06/21/2024 PROCEDURE: CT CHEST JOE JIMÉNEZ DATE/TIME OF EXAM: 06/21/2024 9:43 AM CLINICAL INFORMATION: None relevant/not provided if blank. Indication: J84.9: Interstitial lung disease (HCC) Additional History: Monitoring for interstitial lung disease Ordering Provider Reason For Exam: For monitoring of ILD COMPARISON: CT chest 08/18/2023 TECHNIQUE: CT of the chest was performed without contrast according to standard protocol. Then, utilizing a high-resolution algorithm, 1 mm noncontiguous axial images of the chest were obtained in inspiration and expiration. Findings: Evaluation of visceral and vascular structures is degraded due to lackof intravenous contrast administration. Lower Neck and Axillae: Normal. Lungs: No bronchial wall thickening or bronchiectasis is seen. Similarappearing bilateral lower lobe predominant groundglass opacities with lower lobe bronchiectasis with juxta diaphragmatic abutment. There is involvementof the lung bases as well as the periphery of the upper lungs. Scatteredcysts bilaterally, with the largest in the left upper lobe measuring up to 2cm similar to prior (series 5 image 45). There are patchy areas of mild air trapping. No pleural fluid or pneumothorax is present. Heart and Pericardium: Cardiomegaly without pericardial fluid or thickening. Mediastinum and Pao: Scattered subcentimeter axillary and mediastinal lymph nodesbilaterally. Enlarged right prevascular lymph node measuring 1.2 cm andaortopulmonary window lymph node measuring 1 cm similar to prior. Thoracic Vasculature: No vascular abnormality is present. Bones and Chest Wall: Bone windows demonstrate no suspicious lytic or blastic lesions. The visible osseous structures are intact. Multilevel degenerative disease. Upper Abdomen: The visible portions of the upper abdominal organs are normal. 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 2.Mediastinal lymphadenopathy stable from prior. > Dictated by Ariadne Perez MD, MD (radiology practitioner assistant). I, Rony Prabhakar MD have personally reviewed and interpreted this examination/study. > Interpreting Provider: Rony Prabhakar MD on 06/21/2024 7:46 PM Darlyn Perry MD CT ORDERABLES * COMPLETE PFT W/WO BRONCHODILATOR (06/21/2024 9:31 AM CDT) Impressions Gab Hays MD - 06/21/2024 9:31 AM CDT [facility] DEPARTMENT OF PULMONARY, CRITICAL CARE, AND SLEEP MEDICINE PULMONARY FUNCTION TEST Please see technologist's comments mentioned in the report. INTERPRETATION: SPIROMETRY: FVC: decreased. FEV1: decreased. FEV1/FVC ratio is normal. BRONCHODILATOR RESPONSE: There is no significant response to bronchodilator therapy, however this does not mean the patient would not benefit from bronchodilator therapy. FLOW-VOLUME LOOPS: Inspection of the flow-volume loops shows normal flow-volume loops. LUNG VOLUMES: Lung volumes by body plethysmography show decreased TLC and decreased residual volume. DIFFUSION CAPACITY DLCO: Unadjusted for Hb and COHb is decreased. DLCO: Corrected for Hb and COHb is not done as there is no recent Hgb available for the assessment. AIRWAY RESISTANCE The airway resistance is normal and the specific conductance is normal. ARTERIAL BLOOD GAS ANALYSIS: Not performed. IMPRESSION: 1. PFT shows a restrictive pattern with a decreased gas exchange . 2. No significant bronchodilator response, however this does not preclude the use of bronchodilators. 3. Compared with previous study on 08/18/2023, FVC has worsened from 1.66 to 1.21 FEV1 has worsened from 1.44 to 1.08 Stephanie Acosta MD Pulmonary & Critical Care Fellow Division of Pulmonary, Critical Care, and Sleep Medicine [facility] I have personally reviewed and agree with the fellow's interpretation. Gab Hays MD Narrative Gab Hays MD - 06/21/2024 9:31 AM CDT Stephanie Acosta MD 06/21/2024 10:04 PM Jovan Martínez MD RESPIRATORY THERAPY ORDERABLES * EKG 12-LEAD (06/03/2024 9:13 AM CDT) Only the most recent of6 resultswithin the time period is included. Ventricular Rate 57 BPM [facility] Atrial Rate 57 BPM [facility] P-R Interval 260 ms [facility] QRS Duration ms 138 ms [facility] Q-T Interval ms 466 ms [facility] QTC Calculation (Bezet) 453 ms [facility] Calculated P [place] 49 degrees [facility] Calculated R [place] -30 degrees [facility] Calculated T [place] 72 degrees [facility] Interpretation EKG SINUS BRADYCARDIA WITH SINUS ARRHYTHMIA WITH 1ST DEGREE A-V BLOCK LEFT AXIS DEVIATION NON-SPECIFIC INTRA-VENTRICU LAR CONDUCTION BLOCK MINIMAL VOLTAGE CRITERIA FOR LVH, MAY BE NORMAL VARIANT ( Noel product ) ABNORMAL ECG WHEN COMPARED WITH ECG OF 29-JAN-2024 15:42, QRS DURATION HAS INCREASED Confirmed by DAGO HERNANDEZ MD ([id number]) on 06/05/2024 10:22:58 PM [facility] 06/03/2024 9:13 AM CDT 06/05/2024 10:22 PM CDT Dago Hernandez MD ECG ORDERABLES [facility] * HEMOGLOBIN A1C - POINT OF CARE (HgbA1C) (02/25/2024) Pathologist [facility] Hemoglobin A1c POCT 5.4 % Expiration Date 08/04/2025 Lot # [id number] QC Verified Yes Yes Blood BLOOD SPECIMEN / Unknown 02/25/2024 Jessy Baez MD LAB - POINT OF C ARE ORDERABLES * C-REACTIVE PROTEIN (02/23/2024 7:15 AM CDT) Only the most recent of15 resultswithin the time period is included. [facility] C-Reactive Protein <3.0 <8.0 mg/L [facility] Comment: Test Performed at: [employer] [place] [address] JANAK STEPHENS MD 02/23/2024 7:15 AM CDT 02/23/2024 7:15 AM CDT Darlyn Perry MD LAB - CHEMISTRY ORDE RABLES Performing Organization Address City/[facility]/ZIP Co de Phone Number [facility] [address] [place] [address] * ERYTHROCYTE SEDIMENTATION RATE (02/23/2024 7:15 AM CDT) Only the most recent of11 resultswithin the time period is included. [facility] Erythrocyte Sedimentation Rate Westergren 25 < OR = 30 mm/h [facility] Comment: Test Performed at: [employer] [place] [address] JANAK STEPHENS MD 02/23/2024 7:15 AM CDT 02/23/2024 7:15 AM CDT Darlyn Perry MD LAB - HEMATOLOGY ORD ERABLES Performing Organization Address City/[facility]/ZIP Co de Phone Number [facility] [address] [place] [address] * (ABNORMAL) FRUCTOSAMINE (02/23/2024 7:11 AM CDT) Pathologist [facility] Fructosamine 187(L) 205 - 285 umol/L [facility] Comment: Test Performed at: [employer] [address] [place] [address] GRACIA LENNON MD,PHD,ETHEL 02/23/2024 7:11 AM CDT 02/23/2024 7:13 AM CDT Jessy Baez MD LAB - CHEMISTRY ORDERABLES [facility] [address] [place] [address] * COMPREHENSIVE METABOLIC PANEL (02/23/2024 7:11 AM CDT) Only the most recent of9 resultswithin the time period is included. Glucose 95 65 - 99 mg/dL [facility] Comment: Fasting reference interval BUN 15 7 - 25 mg/dL [facility] Creatinine 0.80 0.50 - 1.05 mg/dL [facility] eGFR by Cystatin C 82 > OR = 60 mL/min/1. 73m2 [facility] BUN/Creatinine Ratio SEE NOTE: (calc) [facility] Comment: Not Reported: BUN and Creatinine are within reference range. Sodium 135 135 - 146 mmol/L [facility] Potassium 4.6 3.5 - 5.3 mmol/L [facility] Chloride 99 98 - 110 mmol/L [facility] CO2 28 20 - 32 mmol/L [facility] Calcium 9.1 8.6 - 10.4 mg/dL [facility] Protein Total 7.0 6.1 - 8.1 g/dL [facility] Albumin 3.8 3.6 - 5.1 g/dL [facility] Globulin Total 3.2 1.9 - 3.7 g/dL (calc) [facility] Albumin/Globulin Ratio 1.2 1.0 - 2.5 (calc) [facility] Bilirubin Total 0.4 0.2 - 1.2 mg/dL [facility] Alkaline Phosphatase 54 37 - 153 U/L [facility] AST 10 10 - 35 U/L [facility] ALT 6 6 - 29 U/L [facility] Comment: Test Performed at: [employer] [facility] [address] [place] [address] JANAK STEPHENS MD 02/23/2024 7:11 AM CDT 02/23/2024 7:13 AM CDT Jessy Baez MD LAB - CHEMISTRY ORDERABLES Performing Organization Address [facility] Co de Phone Number [facility] [phone] [place] [address] * TSH (02/23/2024 7:11 AM CDT) Only the most recent of13 resultswithin the time period is included. TSH 1.52 0.40 - 4.50 mIU/L [facility] Comment: Test Performed at: [place] [address] JANAK STEPHENS MD 02/23/2024 7:11 AM CDT 02/23/2024 7:13 AM CDT Jessy Baez MD LAB - CHEMISTRY ORDERABLES Performing Organization Address [facility] de Phone Number [facility] [address] [place] [address] * T4 FREE (02/23/2024 7:11 AM CDT) Only the most recent of13 resultswithin the time period is included. Pathologist [facility] T4 Free 1.5 0.8 - 1.8 ng/dL [facility] Comment: Test Performed at: [place] [address] JANAK STEPHENS MD 02/23/2024 7:11 AM CDT 02/23/2024 7:13 AM CDT Jessy Baez MD LAB - CHEMISTRY ORDERABLES Performing Organization Address [facility] Co de Phone Number [facility] [phone] [place] [address] * T3 TOTAL (02/23/2024 7:11 AM CDT) Only the most recent of12 resultswithin the time period is included. T3 Total 92 76 - 181 ng/dL [facility] Comment: Test Performed at: [place] [employer] [place] [address] JANAK STEPHENS MD 02/23/2024 7:11 AM CDT 02/23/2024 7:13 AM CDT Jessy Baez MD LAB - CHEMISTRY ORDERABLES [facility] [address] [place] [address] * ECHO STRESS DOBUTAMINE COLOR FLOW AND DOPP W CONT (02/20/2024 11:48 AM CDT) BSA 2.9873034 m2 SSM CV FUJ I PACS Predicted METS 6.4 METS SSM C V FUJI PACS Target HR 133 bpm SSM CV FUJ I PACS Max Age Predicted HR 156 bpm SSM CV FUJI PACS MV E pk nelly 128.463 cm/s SSM CV F UJI PACS MV A pk nelly 74.8 cm/s SSM CV F UJI PACS MV E' lateral nelly 6.823 cm/s SSM CV FUJI PACS MV E' septal nelly 7.305 cm/s SSM CV FUJI PACS MV E A ratio 1.72 SSM CV FUJI PACS MV avg E/e' ratio 18.21 SSM CV FUJI PACS LV A4C EF 62 46 - 78 % SSM CV FUJ I PACS LV stroke vol 2D teich 55.169 ml SSM CV FUJI PACS LV Stroke Index 2D Teich 23.48 mL/m2 SSM CV FUJI PACS LV stroke vol index A4C MOD 65.199 ml/m2 SSM CV FUJI PACS LVIDd 4.87 3.8 - 5.2 cm SSM CV FUJI PACS LVIDs 3.64 2.2 - 3.5 cm SSM CV FUJI PACS IVSd 2D 0.921 0.6 - 0.9 cm SSM CV FUJI PACS LVPWd 1.18 0.6 - 0.9 cm SSM CV FUJI PACS Fractional Shortening 2D 25 28 - 44 % SSM CV FUJI PACS LV ESV A2C 40.022 10 - 54 mL SSM CV F UJI PACS LV ESV index A2C 17.03 6 - 30 mL/m2 SSM CV FUJI PACS LV EDV A4C 105.221 mL SSM CV FU JI PACS LV ESV 2D 55.778 14 - 42 mL SSM CV FU JI PACS LV EDV index A4C 44.78 30 - 82 mL/m2 SSM CV FUJI PACS LV ESV index 2D 23.74 8 - 24 mL/m2 SSM CV FUJI PACS LV EDV 2D 110.947 46 - 106 mL SSM CV FUJI PACS LV EDV index 2D 47.22 29 - 61 mL/m2 SSM CV FUJI PACS LVOT diam 2.1 cm SSM CV FUJ I PACS LVOT area 3.54 cm2 SSM CV FUJ I PACS LV RWT 0.486 SSM CV FUJ I PACS LV Khoury A4C 8.322 cm SSM CV F UJI PACS IVS/LVPW 0.78 SSM CV FUJ I PACS LV mass 2D 161.002076 [id number] 66 - 150 g SSM CV FUJI PACS LV mass index 2D 68.55 44 - 88 g/m2 SSM CV FUJI PACS MV DT 217 ms SSM CV FUJ I PACS MV E/e' septal 17.586 SSM C V FUJI PACS MV E/e' lateral 18.829 SSM CV FUJI PACS LA size 3.739 2.7 - 3.8 cm SSM CV FUJI PACS RVIDd 3.1 cm SSM CV FUJ I PACS MV decel slope 593.292 cm/s2 SSM C V FUJI PACS [id number] 7.317 cm SSM CV FUJ I PACS LVIDs index 1.55 1.3 - 2.1 cm/m2 SSM CV FUJI PACS LV LVIDd index 2.07 2.3 - 3.1 cm/m2 SSM CV FUJI PACS Dobut peak dose 30.0 mcg/kg/min SSM CV FUJI PACS Baseline HR 63 bpm SSM CV F UJI PACS Stress low HR 64 bpm SSM CV FUJI PACS Stress peak HR 134 bpm SSM C V FUJI PACS Recovery HR 84 bpm SSM CV F UJI PACS Baseline BP 168/67 mmHg SSM CV F UJI PACS Low Stress BP 144/64 mmHg SSM CV FUJI PACS Post peak BP 137/98 mmHg SSM CV FUJI PACS Recovery BP 134/76 mmHg SSM CV F UJI PACS Atropine total dose 0.4 mg SSM CV FUJI PACS Max HR Percent 86 % SSM C V FUJI PACS Target HR Percent 101 % SSM CV FUJI PACS Sinus of Valsalva 3.24 cm SSM CV FUJI PACS Sinus of valsalva index 1.38 cm/m2 SSM CV FUJI PACS ST Depression (mm) 0 mm SSM CV FUJI PACS Anatomical Region Laterality Modality Ultrasound Narrative 02/22/2024 4:44 PM CDT Left Ventricle: Left ventricle size is normal. Normal wall thickness. Ventricular mass is normal. Normal systolic function. Normal wall motion. Grade II diastolic dysfunction with elevated left atrial pressure. Right Ventricle: Right ventricle size is normal. Normal systolic function. Stress: The patient achieved the target heart rate. A peak heart rate of 134 bpm (86% of max predicted heart rate) was achieved. Blood pressure demonstrated a normal response and heart rate demonstrated a normal response to stress. The patient's heart rate recovery was normal. The patient's resting blood pressure was 168/67 mmHg. The patient's peak stress blood pressure was 137/98 mmHg. ECG: The ECG was negative for ischemia. Normal dobutamine stress echocardiogram. No echocardiographic evidence of ischemia. Left Ventricle Left ventricle size is normal. Normal wall thickness. Ventricular mass is normal. Normal systolic function. Normal wall motion. Grade II diastolic dysfunction with elevated left atrial pressure. Right Ventricle Right ventricle size is normal. Normal systolic function. Mitral Valve Moderate posterior mitral annular calcification. Tricuspid Valve Not well visualized. Trace regurgitation. No stenosis. Aortic Valve Valve structure is trileaflet. Mild regurgitation. No stenosis. Ascending Aorta Normal sized sinus of Valsalva (aortic root). Sinus of Valsalva is 3.24 cm. Sinus of Valsalva indexed to BSA is 1.38 cm/m2. Pericardium No pericardial effusion. Study Details Study quality was adequate. A limited 2D, color Doppler, spectral Doppler and M- mode stress echocardiogram was performed. The apical and parasternal views were obtained. Definity ultrasound enhancing agent used. Post stress images acquired within 90 seconds. Patient exhibited sinus rhythm. Technical difficulties due to patient's body habitus. Stress Findings A pharmacological stress test was performed using dobutamine and atropine with low-level exercise. The peak dobutamine dose was 30.0 mcg/kg/min.The total atropine dose was 0.4 mg. The patient reported no symptoms during the stress test. The patient reached the end of the protocol. The patient achieved the target heart rate. A peak heart rate of 134 bpm (86% of max predicted heart rate) was achieved. Blood pressure demonstrated a normal response and heart rate demonstrated a normal response to stress. The patient's heart rate recovery was normal. The patient's resting blood pressure was 168/67 mmHg. The patient's peak stress blood pressure was 137/98 mmHg. ECG Resting ECG: Normal. Normal sinus rhythm. Stress ECG: No clinically relevant ST-segment deviation. Exhibits no arrhythmias. The ECG was negative for ischemia. Study Impression Normal dobutamine stress echocardiogram. No echocardiographic evidence of ischemia. Dago Hernandez MD ECHO CUPID * PFT OXYGEN DESATURATION STUDY (08/18/2023 9:49 AM ACUTE CARE PHYSICIAN) Impressions Nicolas Bhat MD - 08/18/2023 9:49 AM ACUTE CARE PHYSICIAN [facility] Department of Pulmonary, Critical Care, and Sleep Medicine EXERCISE OXYGEN PRESCRIPTION Interpretation: The patient had a saturation of 100 % on room air at the beginning of the test. After walking for 4 minutes on the treadmill with a speed of 1 MPH, followed by another 4 minutes with a speed of 2 MPH, saturation was 92% requiring no oxygen support. She stopped due to completion of test. Impression: The patient did not need oxygen support to sustain their oxygen saturation above 88% on exertion. Actual oxygen desaturation beyond this test may vary depending on the amount of exertion exhibited by the patient. No supplemental oxygen was required for the amount of exertion performed during this study. Alannah Conklin DO Pulmonary and Critical Care Fellow Division of Pulmonary, Critical Care, & Sleep Medicine [facility] I have personally reviewed the pulmonary function test data and made adjustment to the interpretation where necessary. Nicolas Bhat MD 08/24/2023 Narrative Nicolas Bhat MD - 08/18/2023 9:49 AM ACUTE CARE PHYSICIAN Alannah Conklin DO 08/19/2023 5:57 PM Jovan Martínez MD PFT ORDERABLES * COMPLETE PFT (08/18/2023 9:49 AM ACUTE CARE PHYSICIAN) Impressions Nicolas Bhat MD - 08/18/2023 9:49 AM ACUTE CARE PHYSICIAN [facility] DEPARTMENT OF PULMONARY, CRITICAL CARE, AND SLEEP MEDICINE PULMONARY FUNCTION TEST Please see technologist's comments mentioned in the report. INTERPRETATION: SPIROMETRY: FVC: decreased FEV1: mildly decreased(z-score -1.65 to -2.5). FEV1/FVC ratio is normal. BRONCHODILATOR RESPONSE: There is no significant response to bronchodilator administration however does not preclude from bronchodilator therapy if clinically indicated otherwise FLOW-VOLUME LOOPS: Normal flow-volume loops LUNG VOLUMES: Lung volumes by body plethysmography show decreased total lung capacity (z-score -2.5 to -4.0) and decreased residual volume DLCO: Unadjusted for Hb and COHb is severely decreased(z-score < -4.0). DLCO: Adjusted for Hb and COHb is: not performed AIRWAY RESISTANCE: The airway resistance is increased and the specific conductance is normal ARTERIAL BLOOD GAS ANALYSIS: not performed IMPRESSION: 1. Mild Restrictive Ventilatory Limitation 2. Severely decreased unadjusted DLCO 3. No significant bronchodilator response, however this does not preclude the use of bronchodilators therapy if clinically indicated 4. When compared to the previous study on 02/14/23, there is no significant change. Alannah Conklin DO Pulmonary & Critical Care Fellow Division of Pulmonary, Critical Care and Sleep Medicine [facility] I have personally reviewed the pulmonary function test data and made adjustment to the interpretation where necessary. Nicolas Bhat MD 08/24/2023 Narrative Nicolas Bhat MD - 08/18/2023 9:49 AM ACUTE CARE PHYSICIAN Alannah Conklin DO 08/19/2023 5:57 PM Jovan Martínez MD RESPIRATORY THERAPY ORDERABLES * ECHO COMPLETE W CONTRAST (02/14/2023 12:02 PM CDT) BSA [id number] [id number] m2 [facility] LV biplane EF 72 54 - 74 % [facility] A2C EF 66 52 - 76 % [facility] LV A4C EF 76 46 - 78 % [facility] LVOT stroke vol 75.11 cm3 [facility] LV stroke vol 2D teich 92.41 ml [facility] LV stroke vol index A4C MOD 85.045 ml [facility] LVIDd 4.94 3.8 - 5.2 cm [facility] LVIDs 2.51 2.2 - 3.5 cm [facility] IVSd 2D 0.859 0.6 - 0.9 cm [facility] IVSs 2.52 cm [facility] LVPWd 1.19 cm [facility] Fractional Shortening 2D 49 28 - 44 % [facility] LV ESV BP 33.548 14 - 42 mL [facility] LV ESV index BP 13.8 8 - 24 mL/m2 [facility] LV ESV A2C 27.091 10 - 54 mL [facility] LV EDV BP 118.413 mL [facility] LV ESV A4C 41.495 12 - 60 mL [facility] LV EDV index BP 48.6 29 - 61 mL/m2 [facility] LV EDV A2C 123.415 41 - 133 mL [facility] LV EDV A4C 112.137 mL [facility] LV ESV 2D 22.449 14 - 42 mL [facility] LV EDV 2D 114.859 46 - 106 mL [facility] LVOT diam 2.0 cm [facility] LVOT area 3.14 cm2 [facility] LV RWT 0.482 [facility] LV Khoury A2C 7.684 cm [facility] LV Khoury A4C 7.562 cm [facility] MV E pk nelly 123.034 cm/s [facility] MV avg E/e' ratio 15.92 [facility] MV A pk nelly 81.974 cm/s [facility] MV E A ratio 1.50 [facility] MV E' lateral nelly 8.834 cm/s [facility] MV DT 184 ms [facility] MV E' septal nelly 6.87 cm/s [facility] MV A duration 154 ms [facility] MV E/e' septal 17.91 [facility] MV E/e' lateral 13.927 [facility] P vein A nelly 31.8 cm/s [facility] P vein A duration 143 ms [facility] LVOT pk nelly 1.10 m/s [facility] LVOT mn nelly 0.69 m/s [facility] LVOT mn grad 2.3 mmHg [facility] LVOT Cardiac Output 4.364 l/min [facility] Qp:Qs 1.37 [facility] LA ESV A2C MOD Index 25 ml/m2 [facility] LA ESV A4C MOD Index 37 ml/m2 [facility] LA size 4.948 2.7 - 3.8 cm [facility] LA vol BP A-L 78.952 mL [facility] RV-khoury longitudinal diam 7.8 5.9 - 8.3 cm [facility] RVIDd 4.0 cm [facility] RVOT diam Doppler 2.952 cm [facility] RVOT area Doppler 6.84 cm2 [facility] RVOT stroke vol 102.69 cm3 [facility] RVOT VTI 15.011 cm [facility] TAPSE 2.604 1.7 cm [facility] RVOT pk nelly 0.73 m/s [facility] RA area 21.678 cm2 [facility] AV mn grad 3 mmHg [facility] AV pk grad 5 mmHg [facility] AV mn nelly 0.75 m/s [facility] AV pk nelly 1.12 m/s [facility] AV VTI 26.786 cm [facility] LVOT pk grad 4.857 mmHg [facility] LVOT VTI 23.919 cm [facility] AV area planimetry 2.80 cm2 [facility] AV area index 1.2 cm2/m2 [facility] AV area cont VTI 2.8 cm2 [facility] AV area pk nelly 3.1 cm2 [facility] AV Doppler nelly index pk nelly 0.98 [facility] AV pk nelly regurg 456.01 cm/s [facility] MV PHT 53 ms [facility] MV area PHT 4.15 cm2 [facility] MV decel slope 667.984 cm/s2 [facility] TV annulus 3.78 cm [facility] RVOT mn grad 1 mmHg [facility] RVOT pk grad 2 mmHg [facility] PV area cont eq 6.0 cm2 [facility] PV mn grad 1 mmHg [facility] PV pk nelly 69.66 cm/s [facility] PV pk grad 2 mmHg [facility] PV VTI 16.995 cm [facility] PV mn nelly 48.405 cm/s [facility] Ascending aorta 2.80 cm [facility] [id number] 6.278 cm [facility] [id number] 6.26 cm [facility] AR VTI 249.848 [facility] Dimensionless Index 0.893 [facility] LV stroke vol BP 84.865 mL [facility] LVIDs index 1.03 1.3 - 2.1 cm/m2 [facility] LV LVIDd index 2.03 2.3 - 3.1 cm/m2 [facility] RAP 3.0 mmHg [facility] Anatomical Region Laterality Modality Ultrasound Narrative 02/14/2023 1:22 PM CDT Left Ventricle: Left ventricle size is normal. Increased wall thickness. Ventricular mass is normal. Findings consistent with concentric remodeling. Normal systolic function. EF by 2D Leyva biplane is 72%. Normal wall motion. Grade II diastolic dysfunction with elevated left atrial pressure. Left Atrium: Left atrium is mildly dilated. Right Atrium: Right atrium is mildly dilated. Left Ventricle Left ventricle size is normal. Increased wall thickness. Ventricular mass is normal. Findings consistent with concentric remodeling. Normal systolic function. EF by 2D Leyva biplane is 72%. Normal wall motion. Grade II diastolic dysfunction with elevated left atrial pressure. Right Ventricle Right ventricle size is normal. Normal systolic function. Left Atrium Left atrium is mildly dilated. Right Atrium Right atrium is mildly dilated. IVC/SVC IVC diameter is less than or equal to 21 mm and decreases greater than 50% during inspiration; therefore the estimated right atrial pressure is normal (~3 mmHg). Mitral Valve Valve structure is normal. Mild regurgitation. No stenosis. Tricuspid Valve Valve structure is normal. Mild regurgitation. The pulmonary artery systolic pressure is normal. No stenosis. Aortic Valve Valve structure is trileaflet. Trace regurgitation. No stenosis. Pulmonic Valve Valve structure is normal. No regurgitation. No stenosis. Ascending Aorta Normal sized sinus of Valsalva (aortic root) and ascending aorta. Pericardium No pericardial effusion. Study Details Study quality was poor. A complete 2D, color Doppler, spectral Doppler and M- mode echocardiogram was performed. The apical, parasternal and subcostal views were obtained. Definity ultrasound enhancing agent used. Patient exhibited sinus rhythm. Technical difficulties due to patient's body habitus. Prior Study Prior TTE study available for comparison. Prior study date: 11/16/2020. Procedure Note Neli Hui MD - 02/14/2023 Left Ventricle: Left ventricle size is normal. Increased wallthickness. Ventricular mass is normal. Findings consistent with concentricremodeling. Normal systolic function. EF by 2D Leyva biplane is 72%.Normal wall motion. Grade II diastolic dysfunction with elevated leftatrial pressure. Left Atrium: Left atrium is mildly dilated. Right Atrium: Right atrium is mildly dilated. Darlyn Perry MD ECHO CUPID * SIX MINUTE WALK (02/14/2023 11:17 AM CDT) Impressions Gab Hays MD - 02/14/2023 11:17 AM CDT [facility] DEPARTMENT OF PULMONARY, CRITICAL CARE, AND SLEEP MEDICINE SIX MINUTE WALK TEST Gerard Prado 02/14/2023 Interpretation: The patient walked for 6 minutes and covered total distance of 190 meters. On the Leann scale at baseline, reported dyspnea was 0 and fatigue was 0. At the end of the study, the Leann reported dyspnea was 3 and fatigue was 3. There were additional symptoms of dyspnea and leg fatigue reported and oxygen saturation dropped to 89% at minute 4, at which point she was placed on her 3 L NC (on 2 L NC at home). IMPRESSION: 1. Total 6 minute walk distance is 210 meters, which is below the lower limit of normal of 219 meters for this patient. 2. Compared to prior study on 04/25/2022, the patients 6 minute walk distance has increased 20 meters. Luis Sevilla MD Pulmonary & Critical Care Fellow Division of Pulmonary, Critical Care, and Sleep Medicine [facility] I have personally reviewed and agree with the fellow's interpretation. Gab Hays MD Narrative Gab Hays MD - 02/14/2023 11:17 AM CDT Luis Sevilla MD 02/14/2023 4:20 PM Jovan Martínez MD RESPIRATORY THERAPY ORDERABLES * COMPLETE PFT (02/14/2023 10:41 AM CDT) Impressions Gab Hays MD - 02/14/2023 10:41 AM CDT [facility] DEPARTMENT OF PULMONARY, CRITICAL CARE, AND SLEEP MEDICINE PULMONARY FUNCTION TEST Please see technologist's comments mentioned in the report. INTERPRETATION: SPIROMETRY: FVC: decreased. FEV1: decreased. FEV1/FVC ratio is normal. BRONCHODILATOR RESPONSE: There is no significant response to bronchodilator therapy, however this does not mean the patient would not benefit from bronchodilator therapy. FLOW-VOLUME LOOPS: Inspection of the flow-volume loops shows small flow-volume loops. LUNG VOLUMES: Lung volumes by body plethysmography show decreased TLC and decreased residual volume. DIFFUSION CAPACITY DLCO: Unadjusted for Hb and COHb is decreased. AIRWAY RESISTANCE The airway resistance is increased and the specific conductance is normal. ARTERIAL BLOOD GAS ANALYSIS: Not performed. IMPRESSION: 1. Moderate restrictive ventilatory limitation by ATS criteria. 2. Mildly decreased residual volume of undetermined clinical significance. 3. Uncorrected DLCO is severely decreased. Recommend correcting for hemoglobin if clinically indicated. 4. No significant bronchodilator response, however this does not preclude the use of bronchodilators. 5. Compared with previous study on 04/25/2022, FEV1, FVC, TLC, and DLCO are not significantly different. Luis Sevilla MD Pulmonary & Critical Care Fellow Division of Pulmonary, Critical Care, and Sleep Medicine [facility] I have personally reviewed and agree with the fellow's interpretation. Gab Hays MD Narrative Gab Hays MD - 02/14/2023 10:41 AM CDT Luis Sevilla MD 02/14/2023 4:20 PM Jovan Martínez MD RESPIRATORY THERAPY ORDERABLES * PROC EKG IN CLINIC (05/31/2022 3:29 PM CDT) Only the most recent of3 resultswithin the time period is included. Narrative Larry Jolie X. - 05/31/2022 3:29 PM CDT Dago Hernandez MD 05/31/2022 3:29 PM ECG personally reviewed: NSR HR 63 bpm Procedure Note Dago Hernandez MD - 05/31/2022 3:29 PM CDT ECG personally reviewed: NSR HR 63 bpm Dago Hernandez MD ECG ORDERABLES * Complete PFT w/wo Bronchodilator [facility] PFT Lab (04/25/2022 1:06 PM CDT) Impressions Chris Hoffmann MD - 04/25/2022 1:06 PM CDT [facility] DEPARTMENT OF PULMONARY, CRITICAL CARE, AND SLEEP [...] VOLUMES: Lung volumes by body plethysmography show severely decreased TLC and normal residual volume DIFFUSION CAPACITY DLCO: Unadjusted for Hb and COHb is decreased AIRWAY RESISTANCE The airway resistance is increased and the specific conductance is normal. IMPRESSION: 1. Moderate restrictive ventilatory limitation. 2. There is decreased uncorrected DLCO. 3. No significant bronchodilator response, however this does not preclude the use of bronchodilators. 4. Compared with previous study on 06/01/2021, FEV1, FVC, TLC, and DLCO have not significantly changed. Fina Spence MD Pulmonary and Critical Care Fellow [facility] Pager Number [phone] I have reviewed the test data and agree with resident; Dr. Spence's findings. Chris Hoffmann MD 05/02/2022 Narrative Chris Hoffmann MD - 04/25/2022 1:06 PM CDT Fina Spence MD 04/25/2022 2:30 PM Jovan Martínez MD RESPIRATORY THERAPY ORDERABLES * SIX MINUTE WALK (04/25/2022 1:05 PM CDT) Impressions Chris Hoffmann MD - 04/25/2022 1:05 PM CDT [facility] DEPARTMENT OF PULMONARY, CRITICAL CARE, AND SLEEP MEDICINE SIX MINUTE WALK TEST Gerardluiza Prado 04/25/2022 Interpretation: The patient walked for 6 minutes on 2L O2 Nasal cannula and covered total distance of 190 meters. On the Leann scale at baseline, reported dyspnea was 0 and fatigue was 0. At the end of the study, the Leann reported dyspnea was 1 and fatigue was 0. There were no additional symptoms reported and oxygen saturation remained above 90% throughout the test. IMPRESSION: 1. Total 6 minute walk distance is 190 meters, which is below the lower limit of normal of 211 meters for this patient. 2. There is no available study for comparison. Fina Spence MD Pulmonary and Critical Care Fellow [facility] Pager Number [phone] I have reviewed the test data and agree with resident; Dr. Spence's findings. Chris Hoffmann MD 05/02/2022 Narrative Chris Hoffmann MD - 04/25/2022 1:05 PM CDT Fina Spence MD 04/25/2022 2:31 PM Jovan Martínez MD RESPIRATORY THERAPY ORDERABLES * BASIC METABOLIC PANEL (CALCIUM TOTAL) (12/20/2021 8:08 AM CDT) Only the most recent of7 resultswithin the time period is included. Glucose 93 65 - 99 mg/dL [facility] Comment: Fasting reference interval BUN 13 7 - 25 mg/dL [facility] Creatinine 0.92 0.50 - 0.99 mg/dL [facility] Comment: For patients >49 years of age, the reference limit for Creatinine is approximately 13% higher for people identified as -[place]. eGFR by MDRD 67 > OR = 60 mL/min/1 .73m2 [facility] eGFR by MDRD 77 > OR = 60 mL/min/1 .73m2 [facility] BUN/Creatinine Ratio NOT APPLICABLE 6 - 22 (calc) [facility] Sodium 135 135 - 146 mmol/L [facility] Potassium 5.3 3.5 - 5.3 mmol/L [facility] Chloride 100 98 - 110 mmol/L [facility] CO2 28 20 - 32 mmol/L [facility] Calcium 9.2 8.6 - 10.4 mg/dL [facility] Comment: Test Performed at: [facility] [id number] [place] [address] JM DURAN DO,MPH Blood BLOOD SPECIMEN / Unknown 12/20/2021 8:08 AM CDT 12/20/2021 8:09 AM CDT Jessy Baez MD LAB - CHEMISTRY ORDERABLES [facility] [address] [place] [address] * (ABNORMAL) IRON + TIBC + FERRITIN (09/14/2021) Iron 32(L) 45 - 160 mcg/dL [facility] TIBC 381 250 - 450 mcg/dL (calc) [facility] % Saturation 8(L) 16 - 45 % (calc) [facility] Ferritin 9(L) 16 - 288 ng/mL [facility] Comment: Test Performed at: [facility] [id number] [place] [address] JM DURAN DO,MPH 09/14/2021 09/14/2021 7:2 5 AM ACUTE CARE PHYSICIAN Tasia Hodgessandor [facility] - [facility] EMISTRY ORDERABLES Performing Organization Address [facility] Co de Phone Number [facility] [address] [place] [address] * VITAMIN B12 FOLATE PANEL (09/14/2021) Only the most recent of4 resultswithin the time period is included. Pathologist [facility] Vitamin B12 357 200 - 1100 pg/mL [facility] Comment: Please Note: Although the reference range for vitamin B12 is 200-1100 pg/mL, it has been reported that between 5 and 10% of patients with values between 200 and 400 pg/mL may experience neuropsychiatric and hematologic abnormalities due to occult B12 deficiency; less than 1% of patients with values above 400 pg/mL will have symptoms. Folate 10.9 ng/mL [facility] Comment: Reference Range Low: <3.4 Borderline: 3.4-5.4 Normal: >5.4 Test Performed at: [place] [address] JM DURAN DO,MPH 09/14/2021 09/14/2021 7:2 5 AM ACUTE CARE PHYSICIAN Tasia Correia Yury [facility] - [facility] EMISTRY ORDERABLES Performing Organization Address [facility] de Phone Number [facility] [address] [place] [address] * CARDIAC EKG ORDER (06/18/2021) Only the most recent of5 resultswithin the time period is included. Narrative 06/18/2021 Ordered by an unspecified provider. Scanned Document CARDIAC SERVICES ORD ERABLES * COMPLETE PFT W/WO BRONCHODILATOR (06/01/2021 9:12 AM CDT) Impressions Milena Whalen MD - 06/01/2021 9:12 AM CDT [facility] DEPARTMENT OF PULMONARY, CRITICAL CARE, AND SLEEP MEDICINE PULMONARY FUNCTION TESTS Gerard Prado 60 year old BMI 52.1 06/01/2021 INTERPRETATION Please see technologist's comments mentioned above. SPIROMETRY: FEV1/FVC ratio is Normal . FEV1 is Decreased. Forced vital capacity is Decreased. There is no significant response to bronchodilator administration. Inspection of the patient's flow-volume loops shows normal configuration of the inspiratory and expiratory limbs. LUNG VOLUMES: Lung volumes by body plethysmography decreased. DLCO: Diffusing capacity unadjusted for Hb and COHb is reduced. AIRWAY RESISTANCE: The airway resistance increased and the specific conductance are normal. ARTERIAL BLOOD GAS ANALYSIS: not done IMPRESSION: 1. Moderate to Severe Restrictive ventilatory limitation. 2. There is no significant response to bronchodilator administration. This does not preclude the use of bronchodilator therapy if clinically indicated. 3. Severe reduction in the unadjusted diffusion capacity. Recommend adjusting for Hgb and COHgb if clinically indicated. 4. Compared with previous PFT on 11/15/2020, there is a significant reduction in DLCO by 2.78 ml/min/mmHg. Dr.Raja Roland PRUITT Pulmonary & Critical Care Fellow Division of Pulmonary, Critical Care and Sleep Medicine [facility] Medicine Pager:[phone] ATTENDING PHYSICIAN ATTESTATION/MILENA WHALEN M.D.: I have personally reviewed and interpreted the above test and I have made the necessary changes if needed to the above interpretation. Narrative Milena Whalen MD - 06/01/2021 9:12 AM CDT Shyla Watkins MD 06/01/2021 3:07 PM Jovan Martínez MD RESPIRATORY THERAPY ORDERABLES * TRANSFERRIN (04/20/2021 7:27 AM CDT) [facility] Signature Transferrin 266 188 - 341 mg/dL [facility] Comment: Test Performed at: [facility] [place] [id number] [place] [address] JM DURAN DO,MPH Blood BLOOD SPECIMEN / Unknown 04/20/2021 7:27 AM CDT 04/20/2021 7:27 AM CDT Darlyn Perry MD LAB - CHEMISTRY CADY DUNLAP Performing Organization Address [facility]/ZIP Co de Phone Number [facility] [phone] [place], [place] [id number] * (ABNORMAL) IRON + TIBC PANEL (04/20/2021 7:27 AM CDT) [facility] Iron 32(L) 45 - 160 mcg/dL [facility] TIBC 351 250 - 450 mcg/dL (calc) [facility] % Saturation 9(L) 16 - 45 % (calc) [facility] Comment: Test Performed at: [facility] [id number] JM DURAN DO,MPH Blood BLOOD SPECIMEN / Unknown 04/20/2021 7:27 AM CDT 04/20/2021 7:27 AM CDT Darlyn Perry MD LAB - CHEMISTRY CADY DUNLAP Performing Organization Address [facility] Co de Phone Number [facility] [phone] [place] [address] * (ABNORMAL) FOLATE (04/20/2021 7:27 AM CDT) [facility] Folate 2.8(L) ng/mL [facility] Comment: Reference Range Low: <3.4 Borderline: 3.4-5.4 Normal: >5.4 Test Performed at: [employer] [id number] JM DURAN DO,MPH Blood BLOOD SPECIMEN / Unknown 04/20/2021 7:27 AM CDT 04/20/2021 7:27 AM CDT Darlyn Perry MD LAB - CHEMISTRY CADY DUNLAP Performing Organization Address [facility] Co de Phone Number [facility] [phone] [place] [address] * VITAMIN B12 (04/20/2021 7:27 AM CDT) [facility] Vitamin B12 333 200 - 1100 pg/mL [employer] Comment: Please Note: Although the reference range for vitamin B12 is 200-1100 pg/mL, it has been reported that between 5 and 10% of patients with values between 200 and 400 pg/mL may experience neuropsychiatric and hematologic abnormalities due to occult B12 deficiency; less than 1% of patients with values above 400 pg/mL will have symptoms. Test Performed at: [facility] [id number] [place] [address] JM DURAN DO,MPH Blood BLOOD SPECIMEN / Unknown 04/20/2021 7:27 AM CDT 04/20/2021 7:27 AM CDT Darlyn Perry MD LAB - CHEMISTRY CADY DUNLAP Performing Organization Address [facility] Co de Phone Number [facility] [address] [place] [address] * (ABNORMAL) FERRITIN (04/20/2021 7:27 AM CDT) [facility] Ferritin 4(L) 16 - 288 ng/mL [facility] Comment: Test Performed at: [facility] [address] [facility] [place] [address] JM DURAN DO,MPH Blood BLOOD SPECIMEN / Unknown 04/20/2021 7:27 AM CDT 04/20/2021 7:27 AM CDT Darlyn Perry MD LAB - CHEMISTRY CADY DUNLAP Performing Organization Address [facility]/ZIP Co de Phone Number [address] [address] * VAS BILATERAL VENOUS DUPLEX LE (01/11/2021 12:42 PM CDT) Anatomical Region Laterality Modality Lower Extremity Ultrasound 01/11/2021 12:0 1 PM CDT Narrative Procedure Note Cornelius Hurley MD - 01/11/2021 [facility] [id number] [place] [address] Lower Extremity Venous Ultrasound Report Pat.Name: GERARD PRADO Pat.ID: [id number] .Date: 01/11/2021 Exam Time: 12:01:00 PM Study Type:LE Venous Height: 65in Weight: 300lb BSA: 2.35 m2 Age: 11 1960,60Y Sex: FEMALE Sonogrphr: Eddie Motta, RVStuart Pat. Stat.:Outpatient Reason for Study: Swelling -Leg, bilateral, Shortness of breath History / Clinical: Hypertension, Hyperlipidemia Procedures: Lower Extremity Venous - Bilateral Race: 2 Visit ID: [id number] ++++++++++++++++++++++++++++++++++++ SUMMARY: ++++++++++++++++++++++++++++++++++++ There is no evidence of an acute deep vein thrombosis in any of the major veins of either lower extremity. ++++++++++++++++++++++++++++++++++++ FINDINGS: ++++++++++++++++++++++++++++++++++++ Procedure: Venous duplex imaging of both lower extremities was performed using color flow and spectral Doppler analysis. Study Quality: Technically difficult exam due to body habitus and edema. Bilateral: All vessels seen appear patent and compressible. There was spontaneous and pulsatile flow seen in all the proximal major veins of both lower extremities. Appropriate augmentation with distal compression. Suboptimal visualization of calf veins due to body habitus and edema. Comments: Right peroneal veins in color only. Image at the end of the study. Technologist findings were called to Dr. Baez at 12:43 pm. Signed 01/11/2021 03:59 PM Cornelius Hurley MD Jessy Baez MD VASCULAR LAB ORD ERABLES * XR CHEST 2VW (01/11/2021 11:26 AM CDT) Anatomical Region Laterality Modality Chest Radiographic Phoebe ging 01/11/2021 11:3 2 AM CDT Impressions 01/11/2021 11:34 AM CDT Groundglass density and interstitial thickening suggesting pulmonary edema and/or infection. Small pleural effusions. *Reading Radiologist: Usman Singh on 01/11/2021 at 11:34 AM Narrative 01/11/2021 11:34 AM CDT Chest Two Views History: Shortness of breath. COMPARISON: None. FINDINGS: Small pleural effusions are present. Cardiomegaly. There is hazy groundglass density and interstitial thickening in both lungs lower lobe predominant. The appearance suggests of pulmonary edema. No pneumothorax seen. Procedure Note Usman Singh MD - 01/11/2021 Chest Two Views History: Shortness of breath. COMPARISON: None. FINDINGS: Small pleural effusions are present. Cardiomegaly. There is hazy groundglass density and interstitial thickening in both lungs lower lobe predominant. The appearance suggests of pulmonary edema. No pneumothorax seen. IMPRESSION Groundglass density and interstitial thickening suggesting pulmonary edema and/or infection. Small pleural effusions. *Reading Radiologist: Usman Singh on 01/11/2021 at 11:34 AM Jessy Baez MD DIAGNOSTIC IMAGI NG ORDERABLES * (ABNORMAL) BNP [B-TYPE NATRIURETIC PEPTIDE] (01/11/2021 11:01 AM CDT) BNP 206.7(H) 0.0 - 100.0 pg/mL [facility] INSURANCE BILL Blood BLOOD SPECIMEN / Unknown 01/11/2021 11:01 AM CDT 01/11/2021 Narrative Resulting Agency Comment Lab Testing performed at: [facility] [address] [facility] [phone] Jessy Baez MD LAB - CHEMISTRY ORDERABLES [facility] INSURANCE BILL [address] [place] [address] * EP ABLATION AFIB (01/08/2021 12:22 PM CDT) Narrative [facility] - 01/08/2021 12:28 PM CDT This procedure was performed by a Cardiac Sheetmetal Patternmaker in the EP lab. Please see the Op Note or Procedures Note placed by Electrophysiology. Dago Hernandez MD ELECTROPHYS RADIANT [facility] * (ABNORMAL) GLUCOSE - POINT OF CARE (01/08/2021 8:19 AM CDT) Only the most recent of12 resultswithin the time period is included. Glucose WB/POC 120(H) 70 - 115 mg/dL 01/08/2021 8:19 AM CDT [facility] Specimen Type Arterial/C apillary 01/08/2021 8:19 AM CDT [facility] Blood BLOOD SPECIMEN / Unknown 01/08/2021 8:19 AM CDT 01/08/2021 8:19 AM CDT Dago Hernandez MD LAB - POINT OF CARE ORDERABLES Performing Organization Address City/[facility]/ZIP Co de Phone Number [facility] [address] [place] [address], [facility] [phone] * PT-INR (01/03/2021 7:33 AM CDT) INR 1.1 [facility] Comment: Reference Range 0.9-1.1 Moderate-intensity Warfarin Therapy 2.0-3.0 Higher-intensity Warfarin Therapy 3.0-4.0 PT 11.4 9.0 - 11.5 sec [facility] Comment: For additional information, please refer to http://education.Vionic/faq/XEG985 (This link is being provided for informational/ educational purposes only.) REPORT COMMENT: FASTING:YES Test Performed at: [facility] [address] JANAK STEPHENS MD Blood BLOOD SPECIMEN / Unknown 01/03/2021 7:33 AM CDT 01/03/2021 7:34 AM CDT Dago Hernandez MD LAB - COAGULATION OR DERABLES Performing Organization Address City/[facility]/ZIP Co de Phone Number [address] [address] * ECHO LIMITED OR FOLLOWUP (11/16/2020 1:56 PM CDT) Anatomical Region Laterality Modality Chest Echo 11/16/2020 1:29 PM CDT Narrative Procedure Note Lorenza Rubio MD - 11/16/2020 Rock Pettit MD ECHOCARDIOGRAPHY RAD IANT * PTT [facility] (11/16/2020 1:54 AM CDT) Pathologist [facility] APTT 24.5 23.0 - 38.4 Seconds 11/16/2020 2:19 AM CDT [facility] Comment:Suggested therapeuti c range for full dose I.V. unfractionated heparin therapy for venous thromboembolism is 71 to 109 seconds. Blood BLOOD SPECIMEN / Unknown Lab Venipuncture / Unknown 11/16/2020 1:54 AM CDT 11/16/2020 2:07 AM CDT Ricky Contreras MD LAB - COAGULATION OR DERABLES Performing Organization Address [facility]/State/ZIP Co de Phone Number [address] [address], [facility] [phone] * (ABNORMAL) CBC W/O DIFFERENTIAL (11/16/2020 1:54 AM CDT) Pathologist [facility] WBC 8.9 3.5 - 10.5 10 3/uL 11/16/2020 2:03 AM CDT [facility] RBC 4.02 3.90 - 5.00 10 6/uL 11/16/2020 2:03 AM T [facility] Hemoglobin 10.4(L) 12.0 - 15.5 g/dL 11/16/2020 2:03 AM [facility] Hematocrit 32.8(L) 35.0 - 45.0 % 11/16/2020 2:03 AM [facility] MCV 81.6 81.0 - 97.0 fL 11/16/2020 2:03 AM T [facility] MCH 25.9(L) 28.0 - 34.0 pg 11/16/2020 2:03 AM CDT [facility] MCHC 31.7(L) 32.0 - 36.0 g/dL 11/16/2020 2:03 AM [facility] Platelet Count 258 150 - 400 10 3/uL 11/16/2020 2:03 AM T [facility] RDW-SD 41.6 36.0 - 50.0 fL 11/16/2020 2:03 AM T [facility] RDW-CV 14.1 11.2 - 14.8 % 11/16/2020 2:03 AM T [facility] MPV 9.4 9.3 - 12.8 fL 11/16/2020 2:03 AM T [facility] nRBC Absolute 0.00 0 10 3/uL 11/16/2020 2:03 AM T [facility] nRBC Auto 0.0 0 /100 WBC 11/16/2020 2:03 AM T [facility] Blood BLOOD SPECIMEN / Unknown Lab Venipuncture / Unknown 11/16/2020 1:54 AM CDT 11/16/2020 1:59 AM CDT Rock Pettit MD LAB - HEMATOLOGY ORD [place] [address] [address], [place] [phone] * MAGNESIUM BLOOD (11/16/2020 1:54 AM CDT) Only the most recent of2 resultswithin the time period is included. Magnesium 1.9 1.6 - 2.6 mg/dL 11/16/2020 2:23 AM CDT [facility] Blood BLOOD SPECIMEN / Unknown Lab Venipuncture / Unknown 11/16/2020 1:54 AM CDT 11/16/2020 1:59 AM CDT Rock Pettit MD LAB - CHEMISTRY ORDElmer DUNLAP [address] [address], [place] [phone] * (ABNORMAL) SARS-COV-2 (COVID-19)+INFLU A+B PCR RAPID (11/15/2020 8:07 PM CDT) COVID-19 PCR Detected(AA) Not detected 11/16/19 8:49 PM CDT [facility] Comment:RESULTS CALLED TO AN D READ BACK BY Alannah Mccann RN AT 8:48 PM, 11/15/2020 Influenza A Rapid JESUSITA Not Detected Not Detected 11/15/2020 8:49 PM CDT [facility] Influenza B JESUSITA Rapid Not Detected Not Detected 11/15/2020 8:49 PM CDT [facility] Microbiology SPECIMEN FROM NASOPHARYNGEAL STRUCTURE / Unknown Collection / Unknown 11/15/2020 8:07 PM CDT 11/15/2020 8:13 PM CDT Narrative [facility] - 11/15/2020 8:49 PM CDT Samples with high concentrations of SARS-CoV-2 RNA may result in false negative influenza testing if a low concentration of influenza virus is present. Influenza A and Influenza B negative results should be considered presumptive negative in samples with a positive SARS-CoV-2 result and influenza testing should be performed by another method if clinically indicated. Influenza assay performed by [employer]. Results do not exclude the possibility of a mixed viral infection. NOTE: Detecting and identifying specific viral nucleic acids from individuals exhibiting signs and symptoms of respiratory infection aids in the diagnosis of respiratory infection, if used in conjunction with other clinical and laboratory findings. The results of this test should not be used as the sole basis for diagnosis, treatment, or patient management decisions. This nucleic acid amplification assay performance was validated by [facility]. This test has been authorized by the Food and Drug administration (FDA)under an Emergency Use Authorization (EUA). This test has been validated in accordance with the FDA's guidance document Policy for Diagnostic Testing in Laboratories Certified to perform High Complexity Testing under CLIA prior to Emergency Use Authorization for Coronavirus Disease-2019 during the Public Health Emergency issued on October 30, 2019. FDA independent review of this validation is pending. This test is only authorized for the duration of time the declaration that circumstances exist justifying the authorization of emergency use of in vitro diagnostic tests for detection of SARS-CoV-2 virus and/or diagnosis of COVID-19 infection under section 564(b)(1) of the Act, 21 U.S.C 360bbb-3 (b)(1), unless the authorization is terminated or revoked sooner. Fact Sheets for this EUA assay are available upon request. Ricky Contreras MD LAB - MICROBIOLOGY O RDERABLES Performing Organization Address City/State/[facility] Co de Phone Number [facility] [address] [place] [address], [facility] [phone] * XR CHEST 1VW PORTABLE (11/15/2020 4:28 PM CDT) Anatomical Region Laterality Modality Chest Radiographic Phoebe ging 11/16/2020 7:02 AM CDT Impressions 11/17/2020 7:38 AM CDT FINDINGS/IMPRESSION: Bilateral lower lung predominant interstitial opacities, likely representing pulmonary edema versus atypical infection. No pleural effusion. No pneumothorax. The cardiac silhouette appears enlarged in this AP view. The mediastinal contours are normal. The visible bony thorax is intact. Dictated by Kimmie Holloway MD (radiology practitioner assistant). Dr. SHAUNNA Mancera have personally reviewed and interpreted this examination/study. This report was electronically signed by SHAUNNA DUNCAN on 11/17/2020 7:38 AM . Narrative 11/17/2020 7:38 AM CDT EXAMINATION: XR CHEST 1VW PORTABLE HISTORY: I48.91: Atrial fibrillation with RVR COMPARISON: No prior study is available for comparison. Procedure Note Shaunna Duncan DO - 11/17/2020 EXAMINATION: XR CHEST 1VW PORTABLE HISTORY: I48.91: Atrial fibrillation with RVR COMPARISON: No prior study is available for comparison. FINDINGS/IMPRESSION: Bilateral lower lung predominant interstitial opacities, likely representing pulmonary edema versus atypical infection. No pleural effusion. No pneumothorax. The cardiac silhouette appears enlarged inthis AP view. The mediastinal contours are normal. The visible bony thorax is intact. Dictated by Kimmie Holloway MD (radiology practitioner assistant). Dr. SHAUNNA Mancera have personally reviewed and interpreted this examination/study. This report was electronically signed by SHAUNNA PERLA on 11/17/2020 7:38 AM . Rock Pettit MD DIAGNOSTIC IMAGING O RDERABLES * TROPONIN I (11/15/2020 4:23 PM CDT) Troponin I <0.010 <0.032 ng/mL 11/15/2020 5:04 PM CDT [facility] Blood BLOOD SPECIMEN / Unknown Venipuncture / Unknown 11/15/2020 4:23 PM CDT 11/15/2020 4:27 PM CDT Rock Pettit MD LAB - CHEMISTRY CADY DUNLAP [facility] [address] [place] [address], [facility] [phone] * PFT OXYGEN DESATURATION STUDY (11/15/2020 3:22 PM CDT) Impressions Chris Hoffmann MD - 11/15/2020 3:22 PM CDT [facility] DEPARTMENT OF PULMONARY, CRITICAL CARE, AND SLEEP MEDICINE OXYGEN TITRATION STUDY Gerard JoshiEve 11/15/2020 INTERPRETATION The test was performed on the treadmill at a speed of 1 mph at room air. The patient was able to complete 1 minutes with lowest SpO2 of 95%. The test was terminated early because of tachycardia. IMPRESSION suboptimal test; available data shows 1. At the above level of activity the patient's oxygen saturation remained 95 % and above on room air. The test was terminated early because of tachycardia. Coral Arceo MD (Fellow) Division of Pulmonary, Critical Care, & Sleep Medicine [facility] I have reviewed the test data and agree with Dr. Arceo's findings. Chris Hoffmann MD 11/21/2020 Narrative Chris Hoffmann MD - 11/15/2020 3:22 PM CDT Lilia Arceo MD 11/15/2020 5:14 PM Procedure Note Lilia Arceo MD - 11/15/2020 3:22 PM CDT Images from the original note were not included. Jovan Martínez MD PFT ORDERABLES * COMPLETE PFT (11/15/2020 2:53 PM CDT) Impressions Chris Hoffmann MD - 11/15/2020 2:53 PM CDT [facility] DEPARTMENT OF PULMONARY, CRITICAL CARE, AND SLEEP MEDICINE PULMONARY FUNCTION TEST Please see technologist's comments mentioned in the report. INTERPRETATION: SPIROMETRY: FVC: decreased FEV1: decreased FEV1/FVC ratio is normal. BRONCHODILATOR RESPONSE: There is no response to bronchodilator therapy FLOW-VOLUME LOOPS: small flow-volume loops LUNG VOLUMES: Total lung volume by body plethysmography are decreased DLCO: Unadjusted for Hb and COHb is decreased DLCO: Corrected for Hb and COHb is: decreased AIRWAY RESISTANCE: The airway resistance is normal and the specific conductance is normal ARTERIAL BLOOD GAS ANALYSIS: not performed IMPRESSION: 1. Moderate-Severe Restrictive Ventilatory Limitation 2. Moderately decreased corrected DLCO 3. No positive bronchodilator response, however this does not preclude the use of bronchodilators 4. There is no previous study available for comparison Coral Arceo MD (Fellow) Division of Pulmonary, Critical Care, & Sleep Medicine [facility] I have reviewed the test data and agree with Dr. Arceo's findings. Chris Hoffmann MD 11/21/2020 Narrative Chris Hoffmann MD - 11/15/2020 2:53 PM CDT Lilia Arceo MD 11/15/2020 4:58 PM Procedure Note Lilia Arceo MD - 11/15/2020 2:53 PM CDT Images from the original note were not included. Jovan Martínez MD RESPIRATORY THERAPY ORDERABLES * THIOPURINE METHYLTRANSFERASE (09/12/2020 7:03 AM ACUTE CARE PHYSICIAN) TPMT Activity 15 nmol/hr/mL RBC [facility] Comment: Reference Range for TPMT Activity: >12 Normal 4-12 Heterozygote or low metabolizer <4 Homozygote Deficient Range This test was developed and its analytical performance characteristics have been determined by [facility]. It has not been cleared or approved by FDA. This assay has been validated pursuant to the CLIA regulations and is used for clinical purposes. Test Performed at: [facility] [address] [place] [address] GRACIA LENNON MD,PHD,ETHEL 09/12/2020 7:03 AM ACUTE CARE PHYSICIAN 09/12/2020 7:05 AM ACUTE CARE PHYSICIAN Darlyn Perry MD LAB - CHEMISTRY CADY DUNLPA [facility] Organization Address City/State/ZIP Co de Phone Number [facility] [address] [place] [address] * QUANTIFERON-TB GOLD PLUS 1-TUBE (07/14/2020 7:49 AM ACUTE CARE PHYSICIAN) [facility] QuantiFERON TB Gold Plus NEGATIVE NEGATIVE [facility] Comment: Negative test result. M. tuberculosis complex infection unlikely. NIL 0.02 IU/mL [facility] MITOGEN MINUS NIL RESULT 5.84 IU/mL [facility] TB1-NIL 0.00 IU/mL [facility] TB2-NIL 0.00 IU/mL [facility] Comment: The Nil tube value reflects the background interferon gamma immune response of the patient's blood sample. This value has been subtracted from the patient's displayed TB and Mitogen results. Lower than expected results with the Mitogen tube prevent false-negative Quantiferon readings by detecting a patient with a potential immune suppressive condition and/or suboptimal pre-analytical specimen handling. The TB1 Antigen tube is coated with the M. tuberculosis-specific antigens designed to elicit responses from TB antigen primed CD4+ helper T-lymphocytes. The TB2 Antigen tube is coated with the M. tuberculosis-specific antigens designed to elicit responses from TB antigen primed CD4+ helper and CD8+ cytotoxic T-lymphocytes. For additional information, please refer to https://education.Blacklane.Enswers/faq/UQL854 (This link is being provided for informational/ educational purposes only.) Test Performed at: [facility] [place] [address], [place] [address] JM DURAN DO,MPH 07/14/2020 7:49 AM ACUTE CARE PHYSICIAN 07/14/2020 8:04 AM ACUTE CARE PHYSICIAN Darlyn Perry MD LAB - CHEMISTRY ORDE RABLES [facility] Organization Address City/State/ZIP Co de Phone Number [facility] [address] [place] [address] * SCLEROSIS 12 ANTIBODY PNL (07/14/2020 7:49 AM ACUTE CARE PHYSICIAN) SCL-70 <11 <11 SI [facility] Centromere protein A Antibody <11 <11 SI [facility] Centromere protein B Antibody <11 <11 SI [facility] RP11 <11 <11 [facility] RP11 <11 <11 SI [facility] U1 small nuclear ribonucleoprotein A Antibody <11 <11 SI [facility] U1 small nuclear ribonucleoprotein C Antibody <11 <11 SI [facility] U1 small nuclear ribonucleoprotein 70kD Antibody <11 <11 SI [facility] Fibrillarin <11 <11 [facility] TH/TO <11 <11 [facility] PM/SCL 100 <11 <11 [facility] PM/SCL 75 <11 <11 SI [facility] Comment: The [place] [employer] (ACR) considers anti-Scl-70 (also known as anti-topoisomerase I), anti-centromere and/or anti-RNA polymerase III antibodies part of the classification criteria for Systemic Sclerosis(SSc) given that the antibodies are present in 30%-60% of patients with SSc. Centromere protein B (CENP B) antibody positivity is found in 64-95% of patients with a limited form of cutaneous systemic sclerosis i.e. CREST syndrome. The addition of centromere protein A (CENP A) antibody to CENP B antibody improves specificity for diagnosis of SSc. Patients presenting with diffuse cutaneous systemic sclerosis (dcSSc) and features of CREST may have both centromere (A & B) antibodies and Scl-70 antibodies. RNA polymerase III antibodies target RNAP III epitopes 11 (RP11) and 155 (RP155). Anti-RP11 antibody occurs in about 10% of scleroderma patients and anti-RP155 antibodies in about 8%. Yqhw-C3-tuEMT antibodies are associated with SSc and inflammatory myopathy overlap syndromes. Three major components of U1-snRNP are tested: U1-snRNP PARTNER MARKETING MANAGER A, U1-snRNP PARTNER MARKETING MANAGER C, U1-snRNP [id number]. The presence of U1-snRNP antibodies occur in 14% and 26% of Caucasians and Americans, respectively, in [place]. Anti-fibrillarin (anti-U3RNP) antibodies are specific for SSc, but are mutually exclusive from Scl-70, CENP, and RNAP III antibodies. Anti-U3RNP antibodies are detected in 4-10% of SSc patients, and when present are associated with dcSSc and frequently visceral renal and cardiac involvement. Fibrillarin antibodies are found more frequently in -[place] patients and when seen in this population, the antibodies are associated with severe pulmonary disease, pulmonary hypertension, severe small bowel involvement, and a poorer prognosis. Anti-Th/To antibodies are present in 1-13% of SSc patients, and are rarely found in other autoimmune diseases. Anti-Th/To antibodies are primarily associated with localized cutaneous systemic sclerosis (lcSSc). Anti-Th/To antibodies are also associated with pericarditis, interstitial lung disease and a high frequency of intrinsic pulmonary hypertension, and hence, a poorer prognosis. Autoantibodies to PM/Scl, the human exosome complex, are found in 4-11% of patients with SSc. PM/Scl antibodies have also been observed in polymyositis/SSc overlap syndromes and other autoimmune diseases. The majority of anti-PM/Scl reactivity is directed to one of two proteins: PM/Ael274 and/or PM/Scl75. More information can be found at https://www.Blacklane.Enswers/testcenter/testguide.action ?dc=CF-SystScler This test was developed and its analytical performance characteristics have been determined by [facility]. It has not been cleared or approved by FDA. This assay has been validated pursuant to the CLIA regulations and is used for clinical purposes. Test Performed at: [facility] [address] [place] [address] GRACIA LENNON MD,PHD,ETHEL 07/14/2020 7:49 AM ACUTE CARE PHYSICIAN 07/14/2020 8:04 AM ACUTE CARE PHYSICIAN Darlyn Perry MD LAB - SEROLOGY ORDER LIA [employer] [address] [place] [address] * MYOSITIS 11 ANTIBODY PNL (07/14/2020 7:49 AM ACUTE CARE PHYSICIAN) Suze-1 Antibody <11 <[address] [address]-7 Antibody <11 <[address] [facility]-12 Antibody <11 <11 [facility] EJ Antibody <11 <11 [facility] OJ Antibody <11 <11 [facility] SRP Antibody <11 <11 SI [facility] TX-2 Alpha Antibody <11 <11 SI [facility] TX-2 Beta Antibody <11 <11 SI [facility] MDA-5 Antibody <11 <11 SI [facility] TIF-1Y Antibody <11 <11 SI [facility] NXP-2 Antibody <11 <11 SI [facility] Comment: Studies have reported that 50-80% of myositis patients have high-titer autoantibodies. Myositis- specific autoantibodies (MSAs) are highly selective, and are associated with particular clinical phenotypes within the myositis spectrum. The classical myositis-specific antibodies, which are often mutually exclusive, include the synthetase (Suze-1, EJ, OJ, PL-7, PL-12) antibodies and Mi-2 and SRP antibodies. Suze-1 antibody is observed in 21% of patients with polymyositis and in 11% of those with dermatomyositis. The signal recognition particle (SRP) antibodies are associated with severe disease onset and a worse prognosis. In addition, SRP antibodies are also highly associated with necrotizing myopathy. Detection of an SRP antibody thus suggests a need for more aggressive treatment. Autoantibodies to Mi-2 are detected in patients with dermatomyositis rash. The mammalian genome encodes two Mi-2 proteins, Mi-2 alpha and Mi-2 beta. They are structurally similar and no functional or cell type specific differentiation between Mi-2 alpha and Mi-2 beta has yet been made. MDA5 antibody, formerly known as SISN303 antibody, has been identified in clinically amyopathic dermatomyositis (CADM) and rapidly progressive lung disease. Transcriptional intermediary factor 1-gamma (TIF-1 y), formerly known as p155/140 autoantibodies, is associated with malignancy in adults and has a sensitivity of 78% and a specificity of 89% for cancer. A separate p140 kDa target has recently been identified as nuclear matrix protein NXP-2. Eighty-three percent of adults with cancer-associated dermatomyositis test positive for either TIF-1 y or NXP-2 antibodies. TIF-1 y can be detected in 35% of children with juvenile dermatomyositis, but unlike in adults, it is not associated with cancer. NXP-2 is detected in 22% of children with juvenile dermatomyositis, and its presence is highly associated with disease severity and calcinosis. Classical myositis-specific antibodies are generally far less prevalent, so including both TIF-1 y and NXP-2 in the panel improves sensitivity for juvenile dermatomyositis over the classical myositis-specific antibodies alone. These tests were developed and their analytical performance characteristics have been determined by [employer]. They have not been cleared or approved by the FDA. These assays have been validated pursuant to the CLIA regulations and are used for clinical purposes. Test Performed at: [facility] [address] [place] [address] CORNELIUS CAO MD 07/14/2020 7:49 AM ACUTE CARE PHYSICIAN 07/14/2020 8:04 AM ACUTE CARE PHYSICIAN Darlyn Perry MD LAB - SEROLOGY ORDER LIA Performing Organization Address City/[facility]/ZIP Co de Phone Number [facility] [address] [place] [address] * TUTTLE/PARTNER MARKETING MANAGER ANTIBODIES RFLXED (07/14/2020 7:49 AM ACUTE CARE PHYSICIAN) SM/PARTNER MARKETING MANAGER Antibody <1.0 NEG <1.0 NEG AI [facility] Comment: Test Performed at: [facility] [address] [place] [address] JM DURAN DO,MPH 07/14/2020 7:49 AM ACUTE CARE PHYSICIAN 07/14/2020 8:04 AM ACUTE CARE PHYSICIAN Darlyn Perry MD LAB - SEROLOGY ORDER LIA Performing Organization Address [facility] Co de Phone Number [facility] [address] [place] [address] * HEPATITIS C AB W/RFLX TO HCV RNA QN PCR (07/14/2020 7:49 AM ACUTE CARE PHYSICIAN) Hepatitis C Antibody NON-REACTI VE NON-REACT SHABBIR [facility] Signal to Cut-Off 0.03 <1.00 [facility] Comment: HCV antibody was non-reactive. There is no laboratory evidence of HCV infection. In most cases, no further action is required. However, if recent HCV exposure is suspected, a test for HCV RNA (test code 88588) is suggested. For additional information please refer to http://education.Blacklane.Enswers/faq/WST55r8 (This link is being provided for informational/ educational purposes only.) Test Performed at: [facility] [place] [address] [place] [address] JM DURAN DO,MPH 07/14/2020 7:49 AM ACUTE CARE PHYSICIAN 07/14/2020 8:04 AM ACUTE CARE PHYSICIAN Darlyn Perry MD LAB - CHEMISTRY CADY DUNLAP Performing Organization Address [facility] Co de Phone Number [facility] [address] [place] [address] * IGG SUBCLASS 4 (07/14/2020 7:49 AM ACUTE CARE PHYSICIAN) IgG Subclass 4 14.5 4.0 - 86.0 mg/dL [facility] Comment: Test Performed at: [employer] [place] [address] [place], [place] JASON TREJO MD,PHD Blood BLOOD SPECIMEN / Unknown 07/14/2020 7:49 AM ACUTE CARE PHYSICIAN 07/14/2020 8:04 AM ACUTE CARE PHYSICIAN Darlyn Perry MD LAB - CHEMISTRY CADY DUNLAP Performing Organization Address [facility] Co de Phone Number [facility] [phone] [place] [address] * DNA ANTIBODY DS CRITHIDIA W/REFLEX TITER (07/14/2020 7:49 AM ACUTE CARE PHYSICIAN) dsDNA Antibody Crithidia IFA NEGATIVE NEGATIVE [facility] Comment: Test Performed at: [employer] [facility] [address] [place] [address] GRACIA LENNON MD,PHD,ETHEL 07/14/2020 7:49 AM ACUTE CARE PHYSICIAN 07/14/2020 8:04 AM ACUTE CARE PHYSICIAN Darlyn Perry MD LAB - HEMATOLOGY ORD LEANDRA Performing Organization Address [facility] Co de Phone Number [facility] [address] [place] [address] * (ABNORMAL) URINALYSIS W/MICROSCOPIC NO CULTURE (07/14/2020 7:49 AM ACUTE CARE PHYSICIAN) Color UA YELLOW YELLOW [facility] Appearance CLEAR CLEAR [facility] Specific [place] UA 1.004 1.001 - 1.035 [facility] pH UA 6.0 5.0 - 8.0 [facility] Glucose UA NEGATIVE NEGATIVE [facility] Bilirubin UA NEGATIVE NEGATIVE [facility] Ketone UA NEGATIVE NEGATIVE [facility] Blood UA NEGATIVE NEGATIVE [facility] Protein UA NEGATIVE NEGATIVE [facility] Nitrite UA NEGATIVE NEGATIVE [facility] Leukocyte UA 1+(A) NEGATIVE [facility] WBC UA 0-5 < OR = 5 /HPF [facility] RBC UA NONE SEEN < OR = 2 /HPF [facility] Epithelial Cell UA 0-5 < OR = 5 /HPF [facility] Transitional Epithelial Cells [facility] Renal Epithelial Cells [facility] Bacteria UA FEW(A) NONE SEEN /HPF [facility] Calcium Oxalate Crystals [facility] Triple Phosphate Crystals [facility] Uric Acid Crystals [facility] Amorphous UA [facility] Crystals UA [facility] Hyaline Casts NONE SEEN NONE SEEN /LPF [facility] Comment: Test Performed at: [place] [facility] [place] [address] JM DURAN DO,MPH Granular Casts [facility] Casts UA [facility] Yeast [facility] Comments [facility] Note [facility] Comment: Test Performed at: [place] [address] JM DURAN DO,MPH 07/14/2020 7:49 AM ACUTE CARE PHYSICIAN 07/14/2020 8:04 AM ACUTE CARE PHYSICIAN Darlyn Perry MD LAB - URINALYSIS ORD ERABLES Performing Organization Address [facility] Phone Number [place] [phone] [place] [address] * INTERPRETATION (9) (07/14/2020 7:49 AM ACUTE CARE PHYSICIAN) Interpretation [facility] Comment: This finding suggests Sjogren's syndrome. These antibodies may occasionally be positive early in other connective tissue diseases. A positive result at this stage of testing stops further testing, and does not preclude additional positive antibodies. Clinical correlation is required to assess the need for testing additional analytes. Test Performed at: [place] [address] JM DURAN DO,MPH 07/14/2020 7:49 AM ACUTE CARE PHYSICIAN 07/14/2020 8:04 AM ACUTE CARE PHYSICIAN Darlyn Perry MD LAB - SEROLOGY ORDER LIA Performing Organization Address City/[facility] Co de Phone Number [facility] [address] [place] [address] * CHROMATIN ANTIBODY (07/14/2020 7:49 AM ACUTE CARE PHYSICIAN) Chromatin Nucleosomal Antibody <1.0 NEG <1.0 NEG AI [facility] Comment: Test Performed at: [employer] [address] [address] [facility] [place] [address] JM DURAN DO,MPH 07/14/2020 7:49 AM ACUTE CARE PHYSICIAN 07/14/2020 8:04 AM ACUTE CARE PHYSICIAN Darlyn Perry MD LAB - SEROLOGY ORDER LIA Performing Organization Address [facility] Co de Phone Number [facility] [address] [place] [address] * (ABNORMAL) STAGE 2 (PO EF LAB) (07/14/2020 7:49 AM ACUTE CARE PHYSICIAN) Sjogren's Antibodies (SSA) >8.0 POS(A) <1.0 NEG AI [facility] Sjogren's Antibodies (SSB) <1.0 NEG <1.0 NEG AI [facility] SCL-70 Antibody <1.0 NEG <1.0 NEG AI [facility] Suze-1 Antibody <1.0 NEG <1.0 NEG AI [facility] Comment: ANTIBODY PREVALENCE IN TIER 2 SS-A and SS-B antibodies are present in >80% Sjogren's syndrome and are considered a diagnostic indicator for this autoimmune disease. However, these antibodies are also present in other autoimmune disorders. SS-A antibodies are seen in 33% to 52% systemic lupus erythematosus (SLE), 42% polymyositis, 23% systemic sclerosis (scleroderma) and 13% mixed connective tissue disease (MCTD). SS-B antibody is also present in 13% to 27% SLE, 5% systemic sclerosis, <2% polymyositis and <2% MCTD. Scl-70 antibody is present in 16% systemic sclerosis, 7% MCTD (especially those with features of systemic sclerosis), 2% to 3% SLE, <2% Sjogren's syndrome and <2% polymyositis. Suze-1 antibody is present in 17% polymyositis, 7% MCTD (especially in those with features of muscle inflammation), and <2% SLE, Sjogren's syndrome and systemic sclerosis. Tier 2 antibodies are present in <2% of normal blood donors. The [place] does not rule out autoimmune disease characterized by other autoantibody specificities such as rheumatoid arthritis, autoimmune hepatitis, primary biliary cirrhosis, autoimmune thyroiditis, Cochise's disease, pernicious anemia, autoimmune neuropathies, vasculitis, celiac disease and bullous disease. Please contact your local [facility] laboratory if you are interested in additional testing. Test Performed at: [place] [address] JM DURAN DO,MPH 07/14/2020 7:49 AM ACUTE CARE PHYSICIAN 07/14/2020 8:04 AM ACUTE CARE PHYSICIAN Darlyn Perry MD LAB - SEROLOGY ORDER LIA Performing Organization Address [facility] de Phone Number [employer] [address] [place] [address] * STAGE 1 (07/14/2020 7:49 AM ACUTE CARE PHYSICIAN) Pathologist [facility] dsDNA Antibody <1 IU/mL [facility] Comment: IU/mL Interpretation < or = 4 Negative 5-9 Indeterminate > or = 10 Positive SM Antibody <1.0 NEG <1.0 NEG AI [facility] SM/PARTNER MARKETING MANAGER Antibody <1.0 NEG <1.0 NEG AI [facility] PARTNER MARKETING MANAGER Antibody <1.0 NEG <1.0 NEG AI [facility] Chromatin Nucleosomal Antibody <1.0 NEG <1.0 NEG AI [facility] Comment: Test Performed at: [place] [address] JM DURAN DO,MPH 07/14/2020 7:49 AM ACUTE CARE PHYSICIAN 07/14/2020 8:04 AM ACUTE CARE PHYSICIAN Darlyn Perry MD LAB - SEROLOGY ORDER LIA Performing Organization Address [facility] Co de Phone Number [employer] [phone] [place] [address] * HIV-1 HIV-2 ANTIBODY + HIV P24 AG PANEL (07/14/2020 7:49 AM ACUTE CARE PHYSICIAN) Pathologist [facility] HIV Screen 4th Generation w Reflex NON-REACT [...] purpose. For additional information please refer to http://OneShift.Vionic/faq/TJF934 (This link is being provided for informational/ educational purposes only.) The performance of this assay has not been clinically validated in patients less than 2 years old. Test Performed at: [place] [facility] [place] [address] JM DURAN DO,MPH 07/14/2020 7:49 AM ACUTE CARE PHYSICIAN 07/14/2020 8:04 AM ACUTE CARE PHYSICIAN Darlyn Perry MD LAB - CHEMISTRY CADY [facility] Organization Address City/State/ZIP Co de Phone Number [facility] [address] [place] [address] * (ABNORMAL) NICOLETTE SCREEN IFA W/REFLX T/P/C (07/14/2020 7:49 AM ACUTE CARE PHYSICIAN) NICOLETTE Screen POSITIVE( A) NEGATIVE [facility] Comment: NICOLETTE IFA is a first line screen for detecting the presence of up to approximately 150 autoantibodies in various autoimmune diseases. A positive NICOLETTE IFA result is suggestive of autoimmune disease and reflexes to titer, pattern and the 3 tiered Multiplex 11 Antibody [place]. Testing in the [place] stops at the first positive result, and does not preclude additional positive results. Further laboratory testing may be considered if clinically indicated. For additional information, please refer to http://OneShift.Dhaani Systems.Enswers/faq/ZCY340 (This link is being provided for informational/ educational purposes only.) Test Performed at: [employer] [address] [employer] [facility] [place] [address] JM DURAN DO,MPH 07/14/2020 7:49 AM ACUTE CARE PHYSICIAN 07/14/2020 8:04 AM ACUTE CARE PHYSICIAN Darlyn Perry MD LAB - SEROLOGY ORDER LIA Performing Organization Address [facility] Co de Phone Number [facility] [address] [place] [address] * RNA POLYMERASE III ANTIBODY IGG (07/14/2020 7:49 AM ACUTE CARE PHYSICIAN) RNA Polymerase 3 Antibody <20 <20 Units [facility] Comment: Test Performed at: [employer] [address] [place] [address] GRACIA LENNON MD,PHD,ETHEL 07/14/2020 7:49 AM ACUTE CARE PHYSICIAN 07/14/2020 8:04 AM ACUTE CARE PHYSICIAN Darlyn Perry MD LAB - SEROLOGY ORDER LIA Performing Organization Address [facility] Co de Phone Number [facility] [address] [place] [address] * RHEUMATOID FACTOR BLOOD QUANTITATIVE (07/14/2020 7:49 AM ACUTE CARE PHYSICIAN) Pathologist [facility] Rheumatoid Factor <14 <14 IU/mL [facility] Comment: Test Performed at: [employer] [place] [address] [place] [address] JM DURAN DO,MPH 07/14/2020 7:49 AM ACUTE CARE PHYSICIAN 07/14/2020 8:04 AM ACUTE CARE PHYSICIAN Darlyn Perry MD LAB - CHEMISTRY CADY DUNLAP Performing Organization Address [facility] Co de Phone Number [facility] [address] [place] [address] * (ABNORMAL) NICOLETTE BLOOD TITER (07/14/2020 7:49 AM ACUTE CARE PHYSICIAN) NICOLETTE 1:1280(H) titer [facility] Comment: Reference Range <1:40 Negative 1:40-1:80 Low Antibody Level >1:80 Elevated Antibody Level NICOLETTE Pattern Cytoplasm ic(A) [facility] Comment: The presence of cytoplasmic fluorescence was noted on the HEp-2 slide. Other reactivities (e.g., anti- mitochondrial antibodies or anti-smooth muscle antibodies) may be responsible for this fluorescence. The clinical significance of this finding is uncertain. Clinical correlation is recommended. AC-15 to AC-23: Cytoplasmic International Consensus on NICOLETTE Patterns (https://doi.org/10.1515/neaz-8028-9314) Test Performed at: [facility] [address] [place] [address] JM DURAN DO,MPH 07/14/2020 7:49 AM ACUTE CARE PHYSICIAN 07/14/2020 8:04 AM ACUTE CARE PHYSICIAN Darlyn Perry MD LAB - CHEMISTRY CADY DUNLAP Performing Organization Address [facility] Co de Phone Number [facility] [address] [place] [address] * (ABNORMAL) SS-A/SS-B (SJOGREN'S) ANTIBODY PANEL (07/14/2020 7:49 AM ACUTE CARE PHYSICIAN) Sjogren's Antibodies (SSA) >8.0 POS(A) <1.0 NEG AI [facility] Sjogren's Antibodies (SSB) <1.0 NEG <1.0 NEG AI [facility] Comment: Test Performed at: [employer] [address] [facility] [place] [address] JM DURAN DO,MPH 07/14/2020 7:49 AM ACUTE CARE PHYSICIAN 07/14/2020 8:04 AM ACUTE CARE PHYSICIAN Darlyn Perry MD LAB - CHEMISTRY CADY DUNLAP Performing Organization Address [facility] Co de Phone Number [facility] [address] [place] [address] * PM/SCL-100 ANTIBODY IGG (07/14/2020 7:49 AM ACUTE CARE PHYSICIAN) PM Scl 100 AB <20 <20 Units [facility] Comment: Negative: <20 Weak Positive: 20 - 39 Moderate Positive: 40 - 80 Strong Positive: >80 Comments: This test was developed and its performance characteristics determined by [facility]. It has not been cleared or approved by the Food and Drug Administration. Test Performed at: [facility] [address] [place] [address] JENNIFER CHAVARRIA MD 07/14/2020 7:49 AM ACUTE CARE PHYSICIAN 07/14/2020 8:04 AM ACUTE CARE PHYSICIAN Darlyn Perry MD LAB - SEROLOGY ORDER LIA Performing Organization Address [facility] de Phone Number [facility] [phone] [place] [address] * RIBOSOMAL P PROTEIN ANTIBODY (07/14/2020 7:49 AM ACUTE CARE PHYSICIAN) Ribosomal P Protein Antibody <1.0 NEG <1.0 NEG AI [facility] Comment: Test Performed at: [employer], [employer] [address] JM DURAN DO,MPH 07/14/2020 7:49 AM ACUTE CARE PHYSICIAN 07/14/2020 8:04 AM ACUTE CARE PHYSICIAN Darlyn Perry MD LAB - CHEMISTRY ORDE GERMÁN Performing Organization Address [facility] de Phone Number [facility] [phone] [place] [address] * ALDOLASE (07/14/2020 7:49 AM ACUTE CARE PHYSICIAN) Aldolase 3.3 < OR = 8.1 U/L [facility] Comment: Test Performed at: [employer], [employer] [address] JM DURAN DO,MPH 07/14/2020 7:49 AM ACUTE CARE PHYSICIAN 07/14/2020 8:04 AM ACUTE CARE PHYSICIAN Darlyn Perry MD LAB - CHEMISTRY ORDElmer DUNLAP Performing Organization Address [facility] de Phone Number [facility] [address] [place] [address] * CYCLIC CITRULLINATED PEPTIDE(CCP) AB IGG (07/14/2020 7:49 AM ACUTE CARE PHYSICIAN) Cyclic Citrullinated Peptide Antibody IgG <16 UNITS [facility] Comment: Reference Range Negative: <20 Weak Positive: 20-39 Moderate Positive: 40-59 Strong Positive: >59 Test Performed at: [employer], [employer] [address] JM DURAN DO,MPH 07/14/2020 7:49 AM ACUTE CARE PHYSICIAN 07/14/2020 8:04 AM ACUTE CARE PHYSICIAN Darlyn Perry MD LAB - CHEMISTRY CADY DUNLAP Performing Organization Address [facility] Co de Phone Number [facility] [phone] [place] [address] * COMPLEMENT C4 (07/14/2020 7:49 AM ACUTE CARE PHYSICIAN) Pathologist [facility] Complement C4 17 15 - 57 mg/dL [facility] Comment: Test Performed at: [facility] [address] [employer] [address] JM DURAN DO,MPH 07/14/2020 7:49 AM ACUTE CARE PHYSICIAN 07/14/2020 8:04 AM ACUTE CARE PHYSICIAN Darlyn Perry MD LAB - SEROLOGY ORDER LIA Performing Organization Address [facility] [place] [address] * LDH BLOOD (07/14/2020 7:49 AM ACUTE CARE PHYSICIAN) Pathologist [facility] LD-Total 175 120 - 250 U/L [facility] Comment: Test Performed at: [facility] [address] [employer] [address] JM DURAN DO,MPH 07/14/2020 7:49 AM ACUTE CARE PHYSICIAN 07/14/2020 8:04 AM ACUTE CARE PHYSICIAN Darlyn Perry MD LAB - CHEMISTRY CADY DUNLAP Performing Organization Address [facility] de Phone Number [facility] [address] [place] [address] * HEPATITIS B CORE ANTIBODY (07/14/2020 7:49 AM ACUTE CARE PHYSICIAN) Pathologist [facility] Hepatitis B Core Virus Antibody Total NON-REACTI VE NON-REACT SHABBIR [facility] Comment: Test Performed at: [employer] [address] [employer], [employer] [address] JM DURAN DO,MPH 07/14/2020 7:49 AM ACUTE CARE PHYSICIAN 07/14/2020 8:04 AM ACUTE CARE PHYSICIAN Darlyn Perry MD LAB - CHEMISTRY CADY DUNLAP Performing Organization Address [facility] de Phone Number [facility] [address] [place] [address] * HEPATITIS B SURFACE ANTIGEN W RFLX CONFIRMATION (07/14/2020 7:49 AM ACUTE CARE PHYSICIAN) [facility] Hepatitis B Virus Surface Antigen NON-REACT SHABBIR NON-REACT SHABBIR [facility] Comment: Test Performed at: [employer] [address] JM DURAN DO,MPH Confirmation [facility] Comment: Test Performed at: [employer], [employer] [address] JM UDRAN DO,MPH 07/14/2020 7:49 AM ACUTE CARE PHYSICIAN 07/14/2020 8:04 AM ACUTE CARE PHYSICIAN Darlyn Perry MD LAB - CHEMISTRY CADY DUNLAP Performing Organization Address [facility] de Phone Number [facility] [address] [place] [address] * CK BLOOD (07/14/2020 7:49 AM ACUTE CARE PHYSICIAN) [facility] CK 33 29 - 143 U/L [facility] Comment: Test Performed at: [employer], [employer] [address] JM DURAN DO,MPH 07/14/2020 7:49 AM ACUTE CARE PHYSICIAN 07/14/2020 8:04 AM ACUTE CARE PHYSICIAN Darlyn Perry MD LAB - CHEMISTRY CADY DUNLAP Performing Organization Address [facility] [place] [address] * (ABNORMAL) PROTEIN ELECTROPHORESIS BLOOD (07/14/2020 7:49 AM ACUTE CARE PHYSICIAN) [facility] Protein Total 7.4 6.1 - 8.1 g/dL [facility] Albumin 3.6(L) 3.8 - 4.8 g/dL [facility] Alpha-1 Globulin 0.3 0.2 - 0.3 g/dL [facility] Ztpvr-4-Zudwvhwj 0.8 0.5 - 0.9 g/dL [facility] Beta-1 Globulin g/dL 0.5 0.4 - 0.6 g/dL [facility] Beta-2 Globulin 0.4 0.2 - 0.5 g/dL [facility] Gamma Globulin 1.7 0.8 - 1.7 g/dL [facility] Abnormal Protein Band [facility] Abnormal Protein Band 2 [facility] Abnormal Protein Band 3 [facility] Interpretation [facility] Comment: Hypoalbuminemia may be seen as a result of decreased protein synthesis or protein loss. No restricted band (M-spike) seen. Test Performed at: [facility] [address] [place] [address] JM DURAN DO,MPH 07/14/2020 7:49 AM ACUTE CARE PHYSICIAN 07/14/2020 8:04 AM ACUTE CARE PHYSICIAN Darlyn Perry MD LAB - CHEMISTRY CADY DUNLAP Performing Organization Address [facility] Co de Phone Number [facility] [address] [place] [address] * COMPLEMENT C3 (07/14/2020 7:49 AM ACUTE CARE PHYSICIAN) Complement C3 166 83 - 193 mg/dL [facility] Comment: Test Performed at: [facility] [address] [place] [address] JM DURAN DO,MPH 07/14/2020 7:49 AM ACUTE CARE PHYSICIAN 07/14/2020 8:04 AM ACUTE CARE PHYSICIAN Darlyn Perry MD LAB - CHEMISTRY CADY DUNLAP Performing Organization Address [facility] [place] [address] * HEMOGLOBIN A1C (12/27/2019 9:58 AM CDT) Only the most recent of2 resultswithin the time period is included. Hemoglobin A1c 5.4 <5.7 % of total Hgb [facility] Comment: For the purpose of screening for the presence of diabetes: <5.7% Consistent with the absence of diabetes 5.7-6.4% Consistent with increased risk for diabetes (prediabetes) > or =6.5% Consistent with diabetes This assay result is consistent with a decreased risk of diabetes. Currently, no consensus exists regarding use of hemoglobin A1c for diagnosis of diabetes in children. According to [place] Diabetes Association (ADA) guidelines, hemoglobin A1c <7.0% represents optimal control in non- diabetic patients. Different metrics may apply to specific patient populations. Standards of Medical Care in Diabetes(ADA). Test Performed at: [facility] [address] [place] [address] JM DURAN DO,MPH Blood BLOOD SPECIMEN / Unknown 12/27/2019 9:58 AM CDT 12/27/2019 9:59 AM CDT Jessy Baez MD LAB - CHEMISTRY ORDERABLES [facility] [address] [place] [address] * (ABNORMAL) LIPID PROFILE (12/27/2019 9:58 AM CDT) Only the most recent of2 resultswithin the time period is included. Cholesterol 161 <200 mg/dL [facility] HDL Cholesterol 48(L) > OR = 50 mg/dL [facility] Triglycerides 134 <150 mg/dL [facility] LDL Calculated 90 mg/dL (calc) [facility] Comment: Reference range: <100 Desirable range <100 mg/dL for primary prevention; <70 mg/dL for patients with CHD or diabetic patients with > or = 2 CHD risk factors. LDL-C is now calculated using the Jose-Shane calculation, which is a validated novel method providing better accuracy than the Friedewald equation in the estimation of LDL-C. Jose MOONEY et al. NUSRAT. 2013;310(19): 6071-6816 (http://education.Dhaani Systems.Enswers/faq/SCK704) CHOL/HDLC RATIO 3.4 <5.0 (calc) [facility] Non HDL Cholesterol 113 <130 mg/dL (calc) [facility] Comment: For patients with diabetes plus 1 major ASCVD risk factor, treating to a non-HDL-C goal of <100 mg/dL (LDL-C of <70 mg/dL) is considered a therapeutic option. Test Performed at: [facility] [address] [place] [address] JM DURAN DO,MPH Blood BLOOD SPECIMEN / Unknown 12/27/2019 9:58 AM CDT 12/27/2019 9:59 AM CDT Jessy Baez MD LAB - CHEMISTRY ORDERABLES Performing Organization Address City/[facility]/ZIP Co de Phone Number [facility] [address] [place] [address] * PULMONARY/RESPIRATORY REPORT ORDER (10/13/2019) Marj Garcia TURF KEEPER-ACTIVITY MANAGER RESPIRATOR Y THERAPY ORDERABLES * PULMONARY/RESPIRATORY REPORT ORDER (10/13/2019) Marj Garcia TURF KEEPER-ACTIVITY MANAGER RESPIRATOR Y THERAPY ORDERABLES * IMAGING RADIOLOGY XRAY RESULTS ORDER (07/12/2019) Only the most recent of2 resultswithin the time period is included. Anatomical Region Laterality Modality Other Tasia Correia Yury Koenig PA IMAGING * VITAMIN D 25-HYDROXY (06/14/2019 9:03 AM CDT) Only the most recent of2 resultswithin the time period is included. Pathologist [facility] Vitamin D, 25 Hydroxy 39.5 30.0 - 100.0 ng/mL [facility] ACCOUNT BILL Comment: Vitamin D deficiency has been defined by the [place] of Medicine and an Endocrine Society practice guideline as a level of serum 25-OH vitamin D less than 20 ng/mL (1,2). The Endocrine Society went on to further define vitamin D insufficiency as a level between 21 and 29 ng/mL (2). 1. IOM ([place] of Medicine). 2010. Dietary reference intakes for calcium and D. [place]: The National Academies Press. 2. Aleyda MF, Coby GONZALEZ, Rochelle JACKSON, et al. Evaluation, treatment, and prevention of vitamin D deficiency: an Endocrine Society clinical practice guideline. JCEM. 2010; 96(7):1911-30. FASTING 06/14/2019 9:03 AM CDT 06/14/2019 Narrative Resulting Agency Comment Lab Testing performed at: [facility] [address] [id number] Jessy Baez MD LAB - CHEMISTRY ORDERABLES [facility] ACCOUNT BILL [address] [place] [address] * C-PEPTIDE (06/11/2018 7:59 AM CDT) C-Peptide 3.6 1.1 - 4.4 ng/mL [facility] INSURANCE BILL Comment: C-Peptide reference interval is for fasting patients. FASTING Blood BLOOD SPECIMEN / Unknown 06/11/2018 7:59 AM CDT 06/11/2018 Narrative Resulting Agency Comment [facility] [address] [facility] [id number] Jessy Baez MD LAB - CHEMISTRY ORDERABLES Performing Organization Address [facility] Co de Phone Number [facility] INSURANCE BILL [address] [place] [address] * MICROALB/CREAT RATIO URINE RANDOM PANEL (12/11/2017 8:07 AM CDT) Creatinine Urine 23.9 Not Estab. mg/dL [facility] INSURANCE BILL Microalbumin Urine <3.0 Not Estab. ug/mL [facility] INSURANCE BILL Microalbumin/Crea tinine Ratio <12.6 0.0 - 30.0 mg/g creat [facility] INSURANCE BILL Comment:FASTING Urine URINE SPECIMEN OBTAINED BY CLEAN CATCH PROCEDURE / Unknown 12/11/2017 8:07 AM CDT 12/11/2017 Narrative Resulting Agency Comment [facility] [address] [facility] [id number] Jessy Baez MD LAB - URINE CHEM ISTRY ORDERABLES Performing Organization Address [facility] de Phone Number [facility] INSURANCE BILL [address] [place] [address] * XR KNEE BILAT 3 VIEWS (07/11/2017 9:34 AM ACUTE CARE PHYSICIAN) Only the most recent of2 resultswithin the time period is included. Anatomical Region Laterality Modality Lower Extremity Radiographic Phoebe ging Narrative 07/11/2017 10:09 AM ACUTE CARE PHYSICIAN Izzy Schmitz 07/11/2017 10:09 AM Please see progress note for results. Uriel Cortez MD DIAGNOSTIC IMAGING O RDERABLES * CARDIAC RHYTHM STRIP ORDER (07/09/2014 8:53 PM ACUTE CARE PHYSICIAN) Narrative 07/09/2014 8:53 PM ACUTE CARE PHYSICIAN Ordered by an unspecified provider. Scanned Document CARDIAC SERVICES ORD ERABLES * (ABNORMAL) HGB HCT PANEL (07/07/2014 4:53 AM ACUTE CARE PHYSICIAN) Only the most recent of2 resultswithin the time period is included. Hemoglobin 10.6(L) 12.0 - 15.6 gm/dL 07/07/2014 5:31 AM ACUTE CARE PHYSICIAN [facility] Hematocrit 32.1(L) 35.9 - 45.5 % 07/07/2014 5:31 AM ACUTE CARE PHYSICIAN [facility] Blood BLOOD SPECIMEN / Unknown Lab Venipuncture / Unknown 07/07/2014 4:53 AM ACUTE CARE PHYSICIAN 07/07/2014 5:22 AM ACUTE CARE PHYSICIAN Uriel Cortez MD LAB - HEMATOLOGY ORD ERABLES [facility] [address] [facility] [place] [address] * TRUE AP/LAT KNEE LEFT IN PACU (07/05/2014 9:44 AM ACUTE CARE PHYSICIAN) Anatomical Region Laterality Modality Lower Extremity Radiographic Phoebe ging 07/05/2014 9:53 AM ACUTE CARE PHYSICIAN Impressions 07/05/2014 10:58 AM ACUTE CARE PHYSICIAN Left knee prosthesis in appropriate alignment. Edited by Evi Jensen on 07/05/2014 10:10 AM Narrative 07/05/2014 10:58 AM ACUTE CARE PHYSICIAN LEFT KNEE 2 VIEWS INDICATION: left knee pain. FINDINGS: Two views of the left knee show a left knee prosthesis in appropriate alignment. Surgical clips are seen anteriorly. Two small caliber infusion catheters or drains are seen in the suprapatellar region. There is no acute fracture or hardware complication. Procedure Note Shaunna Mcdonough MD - 07/05/2014 LEFT KNEE 2 VIEWS INDICATION: left knee pain. FINDINGS: Two views of the left knee show a left knee prosthesis in appropriate alignment. Surgical clips are seen anteriorly. Two small caliber infusion catheters or drains are seen in the suprapatellar region. There is no acute fracture or hardware complication. IMPRESSION Left knee prosthesis in appropriate alignment. Edited by Evi Jensen on 07/05/2014 10:10 AM Uriel Cortez MD DIAGNOSTIC IMAGING O RDERABLES * URINALYSIS ROUTINE W/REFLEX TO CULTURE (07/05/2014 8:09 AM ACUTE CARE PHYSICIAN) Color UA Yellow Straw, Yellow, Dark Yellow 07/05/2014 11:25 AM [facility] Clarity UA Clear 07/05/2014 11:25 AM [facility] Specific [place] UA 1.008 1.005 - 1.030 07/05/2014 11:25 AM [facility] pH UA 7.0 5.0 - 8.0 pH 07/05/2014 11:25 AM [facility] Protein UA Negative Negative 07/05/2014 11:25 AM [facility] Blood UA Negative Negative 07/05/2014 11:25 AM [facility] Leukocyte UA Negative Negative 07/05/2014 11:25 AM [facility] Nitrite UA Negative Negative 07/05/2014 11:25 AM [facility] Glucose UA Negative Negative 07/05/2014 11:25 AM [facility] Ketone UA Negative Negative 07/05/2014 11:25 AM [facility] Bilirubin UA Negative Negative 07/05/2014 11:25 AM [facility] Urobilinogen UA 0.2 0.1 - 1.0 EU/dL 07/05/2014 11:25 AM [facility] Reflex Status Culture not indicated 07/05/2014 11:25 AM [facility] Urine URINE SPECIMEN OBTAINED VIA INDWELLING URINARY CATHETER / Unknown Collection / Unknown 07/05/2014 8:09 AM ACUTE CARE PHYSICIAN 07/05/2014 11:16 AM [facility] Comment:[id number] Uriel Cortez MD LAB - URINALYSIS ORD ERABLES [facility] [address] [address] * GROSS + MICRO EXAM (STL) (07/05/2014 8:09 AM ACUTE CARE PHYSICIAN) Case Report Surgical Pathology Report Case: [id number] Authorizing Provider: Uriel Cortez MD Collected: 07/05/2014 08:09 AM Ordering Location: [facility] Received: 07/05/2014 12:40 PM Pathologist: Martin Chandra MD Specimen: Bone Fragments, bone and tissue left knee 07/08/2014 12:53 PM ACUTE CARE PHYSICIAN [facility] Final Diagnosis A. Knee, left, bone and soft tissue: - Changes consistent with osteoarthritis SONAM/rach 07/08/2014 12:53 PM [facility] Gross Description The specimen is received in formalin labeled knee bone and tissue, left from patient Gerard Prado, consists of a 174 grams of knee joint bone, cartilage, tissues and a loose body, creamy white, ovoid, 2.4 x 1.3 x 0.7 cm. The patella is not complete in one piece and is 4.3 x 2.6 x 0.8 cm. The surface shows granular erosions. The tibial plateau is 8 x 5 x 1.3 cm. The articular surface shows focal areas, 2.5 x 1.2 cm of eburnation which is surrounded by coarsely granular erosions. Sections are submitted in A1 and A2, A2 for decal. BYRON/rach 07/08/2014 12:53 PM ACUTE CARE PHYSICIAN [facility] Microscopic Description Section labeled left knee bone and tissue shows fibrofatty tissue and fragments of bone and cartilaginous tissue. The cartilaginous tissue displays mild degeneration. Mild, focal, chronic inflammation is also noted within the section of the soft tissue. Osteomyelitis is not identified. SONAM/rach 07/08/2014 12:53 PM ACUTE CARE PHYSICIAN [facility] Pathology/Cytolo gy BONE TISSUE SPECIMEN / Unknown 07/05/2014 8:09 AM ACUTE CARE PHYSICIAN 07/05/2014 12:40 PM ACUTE CARE PHYSICIAN Comment:[id number] Uriel Cortez MD LAB - PATHOLOGY/CYTO LOGY ORDERABLES [facility] [address] [address] * PERIPHERAL BLCOK (07/05/2014 6:41 AM ACUTE CARE PHYSICIAN) Narrative Ji Sykes DO - 07/05/2014 6:41 AM ACUTE CARE PHYSICIAN Ji Sykes DO 07/05/2014 6:41 AM Peripheral Block Patient Location: pre-op Pre Procedure Indication: at surgeon's request and post-operative analgesia Preanesthetic Checklist: patient identified, IV checked, site marked, risks and benefits discussed, surgical consent verified, monitors and equipment checked, pre-op evaluation done, timeout performed, informed consent obtained and questions answered / anesthesia plan accepted Monitors: Pulse Ox Patient Condition: sedated, meaningful contact maintained Patient Position: supine Procedure Laterality: left Block Performed: femoral Prep: Chloraprep Sterile Field: sterile field established and sterile gloves Skin Numbed with: lidocaine 1% Needle Type: nerve stimulator Needle Gauge: 21 Needle Length: 100 mm Ultrasound guided Technique: in plane Visualization: target ID'd, good spread of local around target, Ultrasound image in chart and poor visualization Block Agent: ropivacaine 0.2% 40 mL Epinephrine in Block Agent: none Other Additives: clonidine 100 mcg Injection was made incrementally with constant monitoring and aspirations every 5 mL's. Events blood not aspirated injection not painful no injection resistance no paresthesia no other events Block Performed by: dr. sykes This block was performed for post operative analgesia at surgeon's request. Please see intraop navigator for medications administered. Sterile technique followed. Ji Sykes DO GENERAL ANESTHESIA ORDERABLES * CULTURE MSSA/MRSA (06/13/2014 2:09 PM CDT) Culture Negative for MRSA/MSSA CARLOS A 06/14/2014 7:56 PM CDT [facility] Microbiology SPECIMEN FROM NASAL FOSSAE / Unknown Collection / Unknown 06/13/2014 2:09 PM CDT 06/13/2014 2:19 PM CDT Uriel Cortez MD LAB - MICROBIOLOGY O RDERABLES [facility] [address] [place] [address], [facility] Care Teams Sales Representative Malt Liquors Relationship Specialty Start Date End Date Tasia Nash PA [address] [place] [phone] PCP - General Physician Mortgage Lender 05/06/24 [place] [address] [address] Endocrinology 12/01/17 Tasia Nash PA [address] [place] [address] Physician Mortgage Lender 06/02/18 Eulogio Marquez DPM [address] [facility] [place], [place] [address] Podiatry 06/02/18 Eulogio Marquez DPM [address] [facility] [place], [place] [address] 06/17/19 Dago Hernandez MD [address] [facility], [place] [address] [place] [address] Cardiovascular Disease 01/16/21 Darlyn Perry MD [address] [place] [phone] Power Plant Mechanic Rheumatology 04/05/21
--- OUTSIDE RECORDS SUMMARY | 2024-11-12 16:10 | XMS_ITS | Encounter Summary ---
Author Organization [facility] Address [address] [place] [address] Care Team Providers Care Rn Corrections Name Role Phone Jessy Baez MD Unavailable Tasia Nash Unavailable Eulogio Marquez DPM Unavailable [phone] Eulogio Marquez DPM Unavailable [phone] Dago Hernandez MD Unavailable Darlyn Perry MD Unavailable [phone] Tasia Nash Primary Care Pr ovider Reason for Visit * Reason Onset Date Comments IRREGULAR HEART BEAT 11/12/2024 Encounter Details Date Type Department Care Team (Late st Contact Info) Description 11/12/2024 Telephone [facility] - Cardiology [address], [facility] [address] [place] [address] Loren Osorio, RN IRREGULAR HEART BEAT Social History Tobacco Use Types Packs/Day Years Used Date Smoking Tobacco: Never Smokeless Tobacco: Never Alcohol Use Standard Drinks/Week Comments Not Currently 0 (1 standard drink = 0.6 oz pur e alcohol) rarely PHQ-2 Answer Date Recorded Patient Health Questionnaire-2 Score 0 11/03/2024 Sex and Gender Information Value Date Recorded Sex Assigned at Female 07/12/2021 8:47 AM AUTOMOTIVE PARTS SPECIALIST Gender Identity Female 07/12/2021 8:47 AM AUTOMOTIVE PARTS SPECIALIST Sexual Orientation Not on file documented as [...] No 01/08/2021 documented as of this encounter Miscellaneous Notes * Telephone Encounter - Loren Osorio RN - 11/12/2024 4:00 PM CDT Spoke with patient. Discussed atrial fibrillation and variable heart rate. Difficult to get an accurate reading of heart rate on electronic devices. Patient is not feeling pre-syncopal or chest pain,but has been feeling short of breath recently. Patient did speak to her PCP this afternoon and it was recommended to got to [facility] for evaluation. This sign writer hand confirmed that it would be a good idea to go to ER for evaluation if symptoms are continuing to cause distress and especially if any lightheadedness, dizziness, increasing shortness of breath, or worsening of symptoms. Patient verbalizes understanding. documented in this encounter Plan of Treatment Upcoming Encounters Date Type Department Care Team (Late st Contact Info) Description 12/16/2024 8:40 AM CDT Office Visit [facility] - Cardiology [address] [facility], [facility] [address] [place] [address] Dago Hernandez MD [address] [facility], [facility] [address] [place] [address] 03/09/2025 8:20 AM CDT Office Visit [facility] - Rheumatology [address] [place] [address], [place] [phone] Darlyn Perry MD [address] [place] [address] [address] [place] [address] 04/08/2025 9:00 AM CDT Appointment [facility] [address] [place] [phone] Remy Johnson MD [address] [place] [address] [address] DIV OF [place] [address] 04/08/2025 11:00 AM CDT Office Visit [facility] - Pulmonology [address] [place] [phone] Jovan Martínez MD [address] [place] [address] [address] DIV OF PULMONARY/[place] [address] 04/26/2025 8:20 AM CDT Office Visit [facility] - Endocrinology [address] [place] [address], [address] [place] [phone] [place] Bae[place] [address] [place] [address] [place] [address] documented as of this encounter Visit Diagnoses Not on filedocumented in this encounter Care Teams Rn Corrections Relationship Specialty Start Date End Date Tasia Nash PA [address] [place] [phone] PCP - General Physician Piercing Specialist 05/06/24 Jessy Baez MD [address] [place] [address] [address] [place] [address] Endocrinology 12/01/17 Tasia Nash PA [address] [place] [phone] Physician Piercing Specialist 06/02/18 Eulogio Marquez DPM [address] [facility] [address] [place] [address] Podiatry 06/02/18 Eulogio Marquez DPM [address] [facility] [address] [place] [address] 06/17/19 Dago Hernandez MD [address] [facility], [facility] [address] [place] [address] Cardiovascular Disease 01/16/21 Darlyn Perry MD [address] [place] [address] Senior Tech Manufacturing Engineering Rheumatology 04/05/21 documented as of this encounter
--- OUTSIDE RECORDS SUMMARY | 2024-11-12 16:10 | XMS_ITS | Clinical Summary ---
Author Organization [facility] Address [facility] [place] [address] Care Team Providers Care Ccu Nurse Name Role Phone Unavailable Primary Care Provider Unavailabl e Social History Tobacco Use Types Packs/Day Years Used Date Smoking Tobacco: Never Assessed Comments Unknown Sex and Gender Information Value Date Recorded Sex Assigned at Not on file Legal Sex Female 6:35 PM CDT Gender Identity Not on file Sexual Orientation Not on file Plan of Treatment Health Maintenance Due Date Last Done Comments Cervical Cancer Screening Pa p Smear (Age 30 to 64) Every 3 Years 1959 Colorectal Cancer Screening Colonoscopy (10 Years) 1959 Annual Physical 1962 Hepatitis C 1977 DTaP, Tdap and Td Vaccines ( 1 - Tdap) 1978 Cervical Cancer Screening Pa p with HPV Testing (Age 30 to 64) Every 5 Years 1989 Cervical Cancer Screening with HPV 1989 Mammogram Screening 1999 Zoster Vaccines (1 of 2) 2009 COVID-19 Vaccine (2023-2 5 season) 2024 Influenza Adult (#1) 2024 Dexa Scan (General) 2024 Pneumococcal Vaccine: 65+ Ye ars (1 of 1 - PCV) 2024 RSV Immunization or 60+ Years (1 - 1-dose 75+ series) 2034 Meningococcal B Vaccine Aged Out No l onger eligible based on patient's age to complete this topic Meningococcal Vaccine Aged Out No melani guillermo eligible based on patient's age to complete this topic Pneumococcal Vaccine: Pediat rics (0 to 5 Years) and At-Risk Patients (6 to 64 Years) Aged Out No longer eligible b ased on patient's age to complete this topic RSV Immunizations Under 20 Months Aged Out No longer eligible based on patient's age to complete this topic
[2024-11-12 16:55] VITALS: BP 123/62; PULSE 53; RESP 24; TEMP 36.8; O2SAT 99
--- NOTE | 2024-11-12 19:04 | PC.NURSE ---
Pt. alerted this RN that she is leaving the hospital. Her oxygen is at 100% on 2L. She has an appt. with [facility] tomorrow morning at 0800 but will return to ED if she needs to before then.
--- OUTSIDE RECORDS SUMMARY | 2024-11-12 20:04 | XMS_ITS | Continuity of Care Document ---
Author Organization [facility] Address [address] [place] [address] Phone Care Team Providers Care Giver Name Role Phone Unavailable Unavailable Unavailable Advance Directives Directive Yes / No Effective Date File Name No Information Encounters Encounter Description Practice Location Reason(s) For Visit Diagnoses Date Provider Providers Copied on Encounter [facility], [address], [place], [place], [id number], [place] tel:[phone] [facility] [place] (Op) SHOULDER REGION DIS NECJOINT PAIN-SHLDER No Information [facility], [address], [place], [place], [id number], [place] tel:[phone] [facility] [place] (Ip) LOC PRIM OSTEOART-L/ LEGJOINT REPLACED KNEE Conversion Doctor. [address] [place] [address], [address], . Family History Family Member Type Diagnosis Age At Onset No Information Payers Payer name Insurance type Covered democrat ID Authoriza tion(s) No Information Social History [...]
--- OUTSIDE RECORDS SUMMARY | 2024-11-12 20:05 | XMS_ITS | Encounter Summary ---
Author Organization [facility] Address [address] [place] [address] Care Team Providers Care Billposting Supervisor Name Role Phone Unavailable Primary Care Provider [...]
--- OUTSIDE RECORDS SUMMARY | 2024-11-12 20:05 | XMS_ITS | Encounter Summary ---
Author Organization [facility] Address [address] [facility] [place] [address] Care Team Providers Care Tuna Purse Seiner Name Role Phone Jessy Baez MD Unavailable [phone] Tasia Nash Unavailable Eulogio Marquez DPM Unavailable [phone] Eulogio Marquez DPM Unavailable [phone] Dago Hernandez MD Unavailable Darlyn Perry MD Unavailable [phone] Tasia Nash Primary Care Pr ovider Reason for Visit * Reason Onset Date Comments IRREGULAR HEART BEAT 11/12/2024 Encounter Details Date Type Department Care Team (Late st Contact Info) Description 11/12/2024 Telephone [facility] - Cardiology [address], [facility] [[email or web address] [address] [place] [address] Loren Osorio, RN IRREGULAR HEART [...] Sex Assigned at Female 07/12/2021 8:47 AM SPOOL WORKER Gender Identity Female 07/12/2021 8:47 AM SPOOL WORKER Sexual Orientation Not on file documented [...] and it was recommended to got to [facility] for evaluation. This internal communications writer confirmed that it would be a good [...] [facility] - [facility]iology [address] [facility], [facility] [[email or web address]] [address] [place] [address] Dago Hernandez MD [address] [facility], [facility] [[email or web address]] [address] [place] [address] 03/09/2025 8:20 AM CDT Office Visit [facility] - Rheumatology [address] [place] [address], [place] [phone] Darlyn Perry MD [address] [place] [address] [address] [place] [address] 04/08/2025 9:00 AM CDT Appointment [facility] [address] [place] [address] Remy Johnson MD [address] [place] [address] [address] DIV [place] [address] 04/08/2025 11:00 AM CDT Office Visit [facility] - Pulmonology [address] [place] [phone] Jovan Martínez MD [address] [place] [address] [address] DIV OF PULMONARY/[place] [address] 04/26/2025 8:20 AM CDT Office Visit [facility] - Endocrinology [address] [place] [address], [address] [place] [address] Jessy Baez [place] [id number] [place] [address] [place] [address] documented as of this encounter Visit Diagnoses Not on filedocumented in this encounter Care Teams Tuna Purse Seiner Relationship Specialty Start Date End Date Tasia Nash PA [address] [place] [phone] PCP - General Physician Insert Molding Operator 05/06/24 Jessy Baez MD [address] [place] [address] [address] [place] [address] Endocrinology 12/01/17 Tasia Nash PA [address] [place] [phone] Physician Insert Molding Operator 06/02/18 Eulogio Marquez DPM [address] [facility] [address] [place] [address] Podiatry 06/02/18 Eulogio Marquez DPM [address] [facility] [address] [place] [address] 06/17/19 Dago Henrandez MD [address] [facility], [facility] [[email or web address] [address] [place] [address] Cardiovascular Disease 01/16/21 Darlyn Perry MD [address] [address] Fish Header Rheumatology 04/05/21 documented as of this encounter
--- OUTSIDE RECORDS SUMMARY | 2024-11-12 20:05 | XMS_ITS | Referral Summary ---
Author Organization [address] Address [address] [place] [address] Care Team Providers Care Cotton Program Technician Name Role Phone Serafin Aguirre MD Primary Care Provider Encounters Date Type Department Care Team Description 11/12/2024 Telephone [facility] Convenient Care at [address] [address] Pia Anderson NP from Last 3 Months Allergies Active Allergy [...] on file Legal Sex Female 7:16 PM SCRAP WHEELER Gender Identity Not on file Sexual Orientation Not on file Last Filed Vital Signs Vital Sign Reading Time Taken Comments Blood Pressure 130/72 09/29/2023 2:05 PM SCRAP WHEELER Pulse 60 09/29/2023 2:05 PM SCRAP WHEELER Temperature 37 C (98.6 F) 09/29/2023 2:05 PM SCRAP WHEELER Respiratory Rate 16 09/29/2023 2:05 PM SCRAP WHEELER Oxygen Saturation 99% 09/29/2023 2:05 PM SCRAP WHEELER Inhaled Oxygen Concentration - - Weight - - Height - - Body Mass Index - - Plan of Treatment Not on file Insurance [employer] SIG [id number] Care Teams Cotton Program Technician Relationship Specialty Start Date End Date Serafin Aguirre MD PCP - General 07/20/12
--- OUTSIDE RECORDS SUMMARY | 2024-11-12 20:05 | XMS_ITS | Encounter Summary ---
Author Organization [facility] Address [facility] [place] [address] Care Team Providers Care Baseball Club Manager Name Role Phone Serafin Aguirre MD Primary Care Provider Encounter Details Date Type Department Care Team (Late st Contact Info) Description 11/12/2024 Telephone [facility] Convenient Care at [address] [address] Pia Anderson NP [address] [place] [address] [address] [place] [address] Social History Tobacco Use Types Packs/Day Years Used Date Smoking Tobacco: Never Assessed Alcohol Use Standard Drinks/Week Comments Yes 0 (1 standard drink = 0.6 oz pur e alcohol) Comments Unknown Sex and Gender Information Value Date Recorded Sex Assigned at Not on file Legal Sex Female 7:16 PM BOAT WASHER Gender Identity Not on file Sexual Orientation Not on file documented as of this encounter Miscellaneous Notes * Telephone Encounter - Pia Anderson NP - 11/12/2024 7:20 PM CDT Called patient to discuss her scheduled 8:00am appointment for tomorrow. In the notes section it just states EKG . Patient reports that she called her primary care and men's locker room attendant today to report abnormal cardiac symptoms. She reports her men's locker room attendant recommended the ER for further evaluation. She reports that she has been waiting in the ER for almost 4 hours and believes all that she needs is an EKG. Discussed with patient that if she is having cardiac symptoms I would recommend that she stays in the ER for a full cardiac workup. Patient verbalized understanding. Pia Anderson NP documented in this encounter Plan of Treatment Not on file documented as of this encounter Visit Diagnoses Not on filedocumented in this encounter Care Teams Baseball Club Manager Relationship Specialty Start Date End Date Serafin Aguirre MD PCP - General 07/20/12 documented as of this encounter
--- OUTSIDE RECORDS SUMMARY | 2024-11-12 20:05 | XMS_ITS | Clinical Summary ---
Author Organization [address] Address [address] [place] [phone] Care Team Providers Care Membership Sales Manager Name Role Phone Serafin Aguirre MD Primary Care Provider Allergies Active Allergy Reactions Criticality Noted Date [...] GAIN Dysthymia 01/15/2014 Overview (12/06/2016): NEUROTIC DEPRESSION Encounters Date Type Department Care Team Description 11/12/2024 Telephone [facility] Care at [address] [phone] Pia Anderson NP from Last 3 Months Surgical History Surgery Date Site/Laterality Comments KNEE [...] on file Legal Sex Female 7:16 PM DATA PROCESSING MECHANIC Gender Identity Not on file Sexual Orientation Not on file Obstetrics History Last Filed Vital Signs Vital Sign Reading Time Taken Comments Blood Pressure 130/72 09/29/2023 2:05 PM DATA PROCESSING MECHANIC Pulse 60 09/29/2023 2:05 PM DATA PROCESSING MECHANIC Temperature 37 C (98.6 F) 09/29/2023 2:05 PM DATA PROCESSING MECHANIC Respiratory Rate 16 09/29/2023 2:05 PM DATA PROCESSING MECHANIC Oxygen Saturation 99% 09/29/2023 2:05 PM DATA PROCESSING MECHANIC Inhaled Oxygen Concentration - - Weight - [...] 1977 Hemoglobin A1C 06/27/2020 12/27/2019 Covid-19 Vaccine (6 - 2023-2 5 season) 2024 06/20/2023, 06/20/2022, 2021, Additional history exists Influenza Vaccine (#1) 2024 , 06/01/2021, 05/25/2020, Additional history exists Well Visit 65+ 2024 DTaP/Tdap/Td Vaccine (2 - Tdap) 09/01/2024 5 Zoster Vaccine Completed 07/26/2020, 07/03, 05/25/2020 Pneumococcal vaccine 65+ Completed 01/18/2022 Insurance [employer] SIG [id number] Care Teams Membership Sales Manager Relationship Specialty Start Date End Date Serafin Aguirre MD PCP - General 07/20/12
--- OUTSIDE RECORDS SUMMARY | 2024-11-12 20:05 | XMS_ITS | Encounter Summary ---
Author Organization [facility] Address [address] [facility] [place] [address] Care Team Providers Care Dot Net Architect Name Role Phone Jessy Baez MD Unavailable [phone] Tasia Nash Unavailable Eulogio Marquez DPM Unavailable Eulogio Marquez DPM Unavailable [phone] Dago Hernandez MD Unavailable Darlyn Perry MD Unavailable [phone] Tasia Nash Primary Care Pr ovider Reason for Visit * Reason Comments Refill Request Encounter Details Date Type Department Care Team (Late st Contact Info) Description 11/11/2024 Refill [facility] - Rheumatology [address] [place] [address], [place] [address] Darlyn Perry MD [address] [place] [address] [place] [address] Refill Request Social History Tobacco Use Types Packs/Day Years Used Date Smoking Tobacco: Never Smokeless Tobacco: Never Alcohol Use Standard Drinks/Week Comments Not Currently 0 (1 standard drink = 0.6 oz pur e alcohol) rarely PHQ-2 Answer Date Recorded Patient Health Questionnaire-2 Score 0 11/03/2024 Sex and Gender Information Value Date Recorded Sex Assigned at Female 07/12/2021 8:47 AM NUTRITIONAL SERVICES HOST Gender Identity Female 07/12/2021 8:47 AM NUTRITIONAL SERVICES HOST Sexual Orientation Not on file documented as [...] Description 12/16/2024 8:40 AM CDT Office Visit [facility] - Cardiology [address] [phone] Dago Hernandez MD [address] [address] 03/09/2025 8:20 AM CDT Office Visit [facility] - Rheumatology [address] [facility] ([place], [place]), [place] [phone] Darlyn Perry MD [address] [facility] 2L DIV [place] [phone] 04/08/2025 9:00 AM CDT Appointment [facility] [address] [place] [phone] Remy Johnson MD [address] [facility] 2L DIV OF GEN [place] [address] 04/08/2025 11:00 AM CDT Office Visit [facility] - Pulmonology [facility] [facility] ([place], [place] [place] [address] Jovan Martínez MD [address] [place] [address] 2L DIV OF PULMONARY/[place] [address] 04/26/2025 8:20 AM CDT Office Visit [facility] - Endocrinology [address] [place] [address], [address] [place] [phone] Jessy Baez MD [address] [place] [address] [address] [place] [address] documented as of this encounter Visit Diagnoses Diagnosis Interstitial lung disease (HCC) Postinflammatory pulmonary fibrosis documented in this encounter Care Teams Dot Net Architect Relationship Specialty Start Date End Date Tasia Nash PA [address] [place] [address] [place] [phone] PCP - General Physician Personnel Officer 05/06/24 Jessy Baez MD [address] [place] [address] [place] [address] Endocrinology 12/01/17 Tasia Nash PA [address] [place] [address] [place] [phone] Physician Personnel Officer 06/02/18 Eulogio Marquez DPM [address] [facility] [address] [place] [address] Podiatry 06/02/18 Eulogio Marquez DPM [address] [facility] [address] [place] [address] 06/17/19 Dago Hernandez MD [address], [facility] [address] [place] [address] Cardiovascular Disease 01/16/21 Darlyn Perry MD [address] [place] [address] Pump House Engineer Rheumatology 04/05/21 documented as of this encounter
--- OUTSIDE RECORDS SUMMARY | 2024-11-12 20:05 | XMS_ITS | Clinical Summary ---
Author Organization [facility] Address [address] [place] [address] Care Team Providers Care Coordinating Producer Name Role Phone Unavailable Primary Care Provider [...] PNEUMOCOCCAL VACCINE 50+ YEARS Completed 01/18/[address] [facility] [id number]
--- OUTSIDE RECORDS SUMMARY | 2024-11-12 20:05 | XMS_ITS | Patient Health Summary ---
Author Organization [facility] Networks Address [address] [place] [address] Care Team Providers Care Councillor [employer] Name Role Phone Jessy Baez MD Unavailable Tasia Nash Unavailable Eulogio Marquez DPM Unavailable [phone] Eulogio Marquez DPM Unavailable [phone] Dago Hernandez MD Unavailable Darlyn Perry MD Unavailable [phone] Tasia Nash Primary Care Pr ovider Note from [facility],non-owned Affiliates and Associated Physician Practices is amultiple site organization consisting of ambulatory clinics and hospital sitesin [place], [place], [place] and [place]. This disclosure is being madepursuant to the Care Everywhere program and may not contain all information available regarding this patient. Last updated 18.[facility] Allergies * Hydrocodone(Nausea and/or Vomiting) -Medium [...] Sex Assigned at Female 07/12/2021 8:47 AM COMMUNICATION LECTURER Gender Identity Female 07/12/2021 8:47 AM COMMUNICATION LECTURER Sexual Orientation Not on file Last Filed Vital Signs Vital Sign Reading Time Taken Comments Blood Pressure 119/75 11/03/2024 8:55 AM COMMUNICATION LECTURER Pulse 63 11/03/2024 8:55 AM COMMUNICATION LECTURER Temperature 36.6 C (97.8 F) 11/03/2024 8:55 AM COMMUNICATION LECTURER Respiratory Rate 17 10/05/2024 8:27 AM COMMUNICATION LECTURER Oxygen Saturation 94% 11/03/2024 8:55 AM COMMUNICATION LECTURER Inhaled Oxygen Concentration - - Weight 116.1 kg (256 lb) 11/03/2024 8:55 AM COMMUNICATION LECTURER Height 162.6 cm (5' 4 ) 11/03/2024 8:55 AM COMMUNICATION LECTURER Body Mass Index 43.94 11/03/2024 8:55 AM COMMUNICATION LECTURER Medical Devices Implanted Type Area Water/Wastewater Project Manager Device Identifier Shelf Expiration Date Model / Serial / Lot Poly Patella 35 Implanted:Qty: 1 on 07/05/2014 by Uriel Cortez MD at [facility] Left: Knee 03/01/2022 [id number] / / [id number] Bolivar Bone Lowpoint Hv Implanted:Qty: 2 on 07/05/2014 by Uriel Cortez MD at [facility] Left: Knee [employer] 12/31/2015 [id number] / / [id number] Compon Fem Nexgen Lps-Flex Implanted:Qty: 1 on 07/05/2014 by Uriel Cortez MD at [facility] Left: Knee [employer] 06/01/2024 [id number] / / [id number] Plate Tibial Stem Sz 6 50mm X 74mm Implanted:Qty: 1 on 07/05/2014 by Uriel Cortez MD at [facility] Left: Knee [employer] 05/02/2024 [id number] / / [id number] Articular Surface 14 Mm Implanted:Qty: 1 on 07/05/2014 by Uriel Cortez MD at [facility] Left: Knee 03/01/2019 [id number] / / [id number] Procedures * HEPATIC FUNCTION PANEL(Performed 10/29/2024) Performed [...] * MYOSITIS 11 ANTIBODY PNL(Performed 07/14/2020) * TUTTLE/JOINERY MACHINIST ANTIBODIES RFLXED(Performed 07/14/2020) * CHROMATIN ANTIBODY(Performed 07/14/2020) [...] (ABNORMAL) CBC WITH DIFFERENTIAL (10/29/2024 8:58 AM COMMUNICATION LECTURER) Only the most recent of25 resultswithin the [...] 0.7 % [facility] Comment: Test Performed at: [facility] [place] [address] JANAK STEPHENS MD Blasts [facility] nRBC [facility] Comments [facility] Comment: Test Performed at: [place] [address] JANAK STEPHENS MD Blood BLOOD SPECIMEN / Unknown 10/29/2024 8:58 AM COMMUNICATION LECTURER 10/29/2024 8:59 AM COMMUNICATION LECTURER Darlyn Perry MD LAB - HEMATOLOGY ORD ERABLES [facility] [address] [place] [address] * HEPATIC FUNCTION PANEL (10/29/2024 8:58 AM COMMUNICATION LECTURER) Only the most recent of12 resultswithin the time period is included. Pathologist [facility] Protein Total 7.1 6.1 - 8.1 g/dL [...] 29 U/L [facility] Comment: Test Performed at: [place] [address] JANAK STEPHENS MD Blood BLOOD SPECIMEN / Unknown 10/29/2024 8:58 AM COMMUNICATION LECTURER 10/29/2024 8:59 AM COMMUNICATION LECTURER Darlyn Perry MD LAB - CHEMISTRY CADY DUNLAP Performing Organization Address [facility] de Phone Number [facility] [address] [place] [address] * CREATININE BLOOD (10/29/2024 8:58 AM COMMUNICATION LECTURER) Only the most recent of12 resultswithin the time period is included. [facility] Creatinine 0.84 0.50 - 1.05 mg/dL [facility] eGFR by Cystatin C 77 > OR = 60 mL/min/1.7 3m2 [facility] Comment: Test Performed at: [place] [address] JANAK STEPHENS MD Blood BLOOD SPECIMEN / Unknown 10/29/2024 8:58 AM COMMUNICATION LECTURER 10/29/2024 8:59 AM COMMUNICATION LECTURER Darlyn Perry MD LAB - CHEMISTRY CADY DUNLAP Performing Organization Address City/[facility] Co de Phone Number [facility] [address] [place] [address] * COMPLETE PFT W/WO BRONCHODILATOR (09/02/2024 1:54 PM COMMUNICATION LECTURER) Impressions Nicolas Bhat MD - 09/02/2024 1:54 PM COMMUNICATION LECTURER [facility] DEPARTMENT OF PULMONARY, CRITICAL CARE, AND SLEEP [...] of Pulmonary, Critical Care, and Sleep Medicine [facility] I have personally reviewed the pulmonary function test data and made adjustment to the interpretation where necessary. Nicolas Bhat MD 09/10/2024 Narrative Nicolas Bhat MD - 09/02/2024 1:54 PM COMMUNICATION LECTURER Luis Sevilla MD 09/03/2024 12:27 PM Jovan Martínez MD RESPIRATORY THERAPY ORDERABLES * (ABNORMAL) GLUCOSE - POINT OF CARE (AMB) STL (07/27/2024) Glucose 137(A) 60 - 100 mg/dL Lot # [id number] Expiration Date 10/22/2025 QC Verified Yes Yes [...] > Dictated by Ariadne Perez MD, MD (claims vice president). I, Rony Prabhakar MD have personally reviewed [...] stable from prior. > Dictated by Ariadne ePrez MD, MD (claims vice president). I, Rony Prabhakar MD have personally reviewed and interpreted this examination/study. > Interpreting Provider: Rony Prabhakar MD on 06/21/2024 7:46 PM Darlyn Perry MD CT ORDERABLES * COMPLETE PFT W/WO BRONCHODILATOR (06/21/2024 9:31 AM CDT) Impressions Gab Hays MD - 06/21/2024 9:31 AM CDT [facility] DEPARTMENT OF PULMONARY, CRITICAL CARE, AND SLEEP [...] of Pulmonary, Critical Care, and Sleep Medicine [facility] I have personally reviewed and agree with [...] (Bezet) 453 ms [facility] Calculated P [place] 49 degrees SL [facility] Calculated R [place] -30 degrees SL [facility] MUSE Calculated T [place] 72 degrees SL [facility] M[facility] Interpretation EKG SINUS BRADYCARDIA WITH SINUS ARRHYTHMIA WITH 1ST DEGREE A-V BLOCK LEFT AXIS DEVIATION NON-SPECIFIC INTRA-VENTRICU LAR CONDUCTION BLOCK MINIMAL VOLTAGE CRITERIA FOR LVH, MAY BE NORMAL VARIANT ( Noel product ) ABNORMAL ECG WHEN COMPARED WITH ECG OF 29-JAN-2024 15:42, QRS DURATION HAS INCREASED Confirmed by DAGO HERNANDEZ MD ([id number]) on 06/05/2024 10:22:58 PM [facility] 06/03/2024 9:13 AM CDT 06/05/2024 10:22 PM CDT Dago Hernandez MD ECG ORDERABLES [facility] * HEMOGLOBIN A1C - POINT OF CARE (HgbA1C) (02/25/2024) Pathologist [facility] Hemoglobin A1c POCT 5.4 % Expiration Date 08/04/2025 Lot # [id number] QC Verified Yes Yes Blood BLOOD SPECIMEN / Unknown 02/25/2024 Jessy Baez MD LAB - POINT OF C ARE ORDERABLES * C-REACTIVE PROTEIN (02/23/2024 7:15 AM CDT) Only the most recent of15 resultswithin the time period is included. [facility] C-Reactive Protein <3.0 <8.0 mg/L [facility] Comment: Test Performed at: [place] [facility] [place] [address] JANAK STEPHENS MD 02/23/2024 7:15 AM CDT 02/23/2024 7:15 AM CDT Darlyn Perry MD LAB - CHEMISTRY ORDE RABLES Performing Organization Address City/[facility]/ZIP Co de Phone Number [facility] [address] [place] [address] * ERYTHROCYTE SEDIMENTATION RATE (02/23/2024 7:15 AM CDT) Only the most recent of11 resultswithin the time period is included. [facility] Erythrocyte Sedimentation Rate Westergren 25 < OR = 30 mm/h [facility] Comment: Test Performed at: [place] [facility] [address] JANAK STEPHENS MD 02/23/2024 7:15 AM CDT 02/23/2024 7:15 AM CDT Darlyn Perry MD LAB - HEMATOLOGY ORD ERABLES Performing Organization Address City/[facility]/ZIP Co de Phone Number [facility] [address] [place] [address] * (ABNORMAL) FRUCTOSAMINE (02/23/2024 7:11 AM CDT) Pathologist [facility] Fructosamine 187(L) 205 - 285 umol/L [facility] Comment: Test Performed at: [facility] [address] [place] [address] GRACIA LENNON MD,PHD,ETHEL 02/23/2024 7:11 AM CDT 02/23/2024 7:13 AM CDT Jessy Baez MD LAB - CHEMISTRY ORDERABLES [facility] [address] [place] [address] * COMPREHENSIVE METABOLIC PANEL (02/23/2024 7:11 AM [...] 29 U/L [facility] Comment: Test Performed at: [facility] [address] [place] [address] JANAK STEPHENS MD 02/23/2024 7:11 AM CDT 02/23/2024 7:13 AM CDT Jessy Baez MD LAB - CHEMISTRY ORDERABLES Performing Organization Address [facility] Co de Phone Number [facility] [phone] [place] [address] * TSH (02/23/2024 7:11 AM CDT) Only the most recent of13 resultswithin the time period is included. TSH 1.52 0.40 - 4.50 mIU/L [facility] Comment: Test Performed at: [place] [address] JANAK STEPHENS MD 02/23/2024 7:11 AM CDT 02/23/2024 7:13 AM CDT Jessy Baez MD LAB - CHEMISTRY ORDERABLES Performing Organization Address [facility] de Phone Number [facility] [address] [place] [address] * T4 FREE (02/23/2024 7:11 AM CDT) Only the most recent of13 resultswithin the time period is included. Pathologist [facility] T4 Free 1.5 0.8 - 1.8 ng/dL [facility] Comment: Test Performed at: [place] [address] JANAK STEPHENS MD 02/23/2024 7:11 AM CDT 02/23/2024 7:13 AM CDT Jessy Baez MD LAB - CHEMISTRY ORDERABLES Performing Organization Address [facility] Co de Phone Number [facility] [phone] [place] [address] * T3 TOTAL (02/23/2024 7:11 AM CDT) Only the most recent of12 resultswithin the time period is included. T3 Total 92 76 - 181 ng/dL [facility] Comment: Test Performed at: [place] [address] JANAK STEPHENS MD 02/23/2024 7:11 AM CDT 02/23/2024 7:13 AM CDT Jessy Baez MD LAB - CHEMISTRY ORDERABLES [facility] [address] [place] [address] * ECHO STRESS DOBUTAMINE COLOR FLOW AND DOPP W CONT (02/20/2024 11:48 AM CDT) BSA 2.5495603 m2 [facility] CV FUJ I PACS Predicted [...] CV FUJ I PACS LV mass 2D 161.956362 [id number] 66 - 150 g [facility] CV FUJI [...] 593.292 cm/s2 [facility] C V FUJI PACS VHYWE2DV 7.317 cm [facility] CV FUJ I PACS [...] PFT OXYGEN DESATURATION STUDY (08/18/2023 9:49 AM COMMUNICATION LECTURER) Impressions Nicolas Bhat MD - 08/18/2023 9:49 AM COMMUNICATION LECTURER [facility] Department of Pulmonary, Critical Care, and Sleep [...] Pulmonary, Critical Care, & Sleep Medicine [facility] I have personally reviewed the pulmonary function test data and made adjustment to the interpretation where necessary. Nicolas Bhat MD 08/24/2023 Narrative Nicolas Bhat MD - 08/18/2023 9:49 AM COMMUNICATION LECTURER Alannah Conklin DO 08/19/2023 5:57 PM Jovan Martínez MD PFT ORDERABLES * COMPLETE PFT (08/18/2023 9:49 AM COMMUNICATION LECTURER) Impressions Nicolas Bhat MD - 08/18/2023 9:49 AM COMMUNICATION LECTURER [facility] DEPARTMENT OF PULMONARY, CRITICAL CARE, AND SLEEP [...] of Pulmonary, Critical Care and Sleep Medicine [facility] I have personally reviewed the pulmonary function test data and made adjustment to the interpretation where necessary. Nicolas Bhat MD 08/24/2023 Narrative Nicolas Bhat MD - 08/18/2023 9:49 AM COMMUNICATION LECTURER Alannah Conklin DO 08/19/2023 5:57 PM Jovan Martínez MD RESPIRATORY THERAPY ORDERABLES * ECHO COMPLETE W CONTRAST (02/14/2023 12:02 PM CDT) BSA 2.4759957 [id number] m2 [facility] LV biplane EF 72 54 - 74 % [facility] LV A2C EF 66 52 - 76 % [facility] LV A4C EF 76 46 - 78 % [facility] LVOT stroke vol 75.11 cm3 [facility] LV stroke vol 2D teich 92.41 ml [facility] LV stroke vol index A4C MOD 85.045 ml [facility] LVIDd 4.94 3.8 - 5.2 cm [facility] LVIDs 2.51 2.2 - 3.5 cm [facility] IVSd 2D 0.859 0.6 - 0.9 cm [facility] IVSs 2.52 cm [facility] LVPWd 1.19 cm [facility] Fractional Shortening 2D 49 28 - 44 % [facility] LV ESV BP 33.548 14 - 42 mL [facility] LV ESV index BP 13.8 8 - 24 mL/m2 [facility] LV ESV A2C 27.091 10 - 54 mL [facility] LV EDV BP 118.413 mL [facility] LV ESV A4C 41.495 12 - 60 mL [facility] LV EDV index BP 48.6 29 - 61 mL/m2 [facility] LV EDV A2C 123.415 41 - 133 mL [facility] LV EDV A4C 112.137 mL [facility] LV ESV 2D 22.449 14 - 42 mL [facility] LV EDV 2D 114.859 46 - 106 mL [facility] LVOT diam 2.0 cm [facility] LVOT area 3.14 cm2 [facility] LV RWT 0.482 [facility] LV Khoury A2C 7.684 cm [facility] LV Khoury A4C 7.562 cm [facility] MV E pk nelly 123.034 cm/s [facility] MV avg E/e' ratio 15.92 [facility] MV A pk nelly 81.974 cm/s [facility] MV E A ratio 1.50 [facility] MV E' lateral nelly 8.834 cm/s [facility] MV DT 184 ms [facility] MV E' septal nelly 6.87 cm/s [facility] MV A duration 154 ms [facility] MV E/e' septal 17.91 [facility] MV E/e' lateral 13.927 [facility] P vein A nelly 31.8 cm/s [facility] P vein A duration 143 ms [facility] LVOT pk nelly 1.10 m/s [facility] LVOT mn nelly 0.69 m/s [facility] LVOT mn grad 2.3 mmHg [facility] LVOT Cardiac Output 4.364 l/min [facility] Qp:Qs 1.37 [facility] LA ESV A2C MOD Index 25 ml/m2 [facility] LA ESV A4C MOD Index 37 ml/m2 [facility] LA size 4.948 2.7 - 3.8 cm [facility] LA vol BP A-L 78.952 mL [facility] RV-khoury longitudinal diam 7.8 5.9 - 8.3 cm [facility] RVIDd 4.0 cm [facility] RVOT diam Doppler 2.952 cm [facility] RVOT area Doppler 6.84 cm2 [facility] RVOT stroke vol 102.69 cm3 [facility] RVOT VTI 15.011 cm [facility] TAPSE 2.604 1.7 cm [facility] RVOT pk nelly 0.73 m/s [facility] RA area 21.678 cm2 [facility] AV mn grad 3 mmHg [facility] AV pk grad 5 mmHg [facility] AV mn nelly 0.75 m/s [facility] AV pk nelly 1.12 m/s [facility] AV VTI 26.786 cm [facility] LVOT pk grad 4.857 mmHg [facility] LVOT VTI 23.919 cm [facility] AV area planimetry 2.80 cm2 [facility] AV area index 1.2 cm2/m2 [facility] AV area cont VTI 2.8 cm2 [facility] AV area pk nelly 3.1 cm2 [facility] AV Doppler nelly index pk nelly 0.98 [facility] AV pk nelly regurg 456.01 cm/s [facility] MV PHT 53 ms [facility] MV area PHT 4.15 cm2 [facility] MV decel slope 667.984 cm/s2 [facility] TV annulus 3.78 cm [facility] RVOT mn grad 1 mmHg [facility] RVOT pk grad 2 mmHg [facility] PV area cont eq 6.0 cm2 [facility] PV mn grad 1 mmHg [facility] PV pk nelly 69.66 cm/s [facility] PV pk grad 2 mmHg [facility] PV VTI 16.995 cm [facility] PV mn nelly 48.405 cm/s [facility] Ascending aorta 2.80 cm [facility] EXUAO8OW 6.278 cm [facility] [id number] 6.26 cm [facility] AR VTI 249.848 [facility] Dimensionless Index 0.893 [facility] LV stroke vol BP 84.865 mL [facility] LVIDs index 1.03 1.3 - 2.1 cm/m2 [facility] LV LVIDd index 2.03 2.3 - 3.1 cm/m2 [facility] RAP 3.0 mmHg [facility] Anatomical Region Laterality Modality Ultrasound [...] Hays MD - 02/14/2023 11:17 AM CDT [facility] DEPARTMENT OF PULMONARY, CRITICAL CARE, AND SLEEP [...] of Pulmonary, Critical Care, and Sleep Medicine [facility] I have personally reviewed and agree with the fellow's interpretation. Gab Hays MD Narrative Gab Hays MD - 02/14/2023 11:17 AM CDT Luis Sevilla MD 02/14/2023 4:20 PM Jovan Martínez MD RESPIRATORY THERAPY ORDERABLES * COMPLETE PFT (02/14/2023 10:41 AM CDT) Impressions Gab Hays MD - 02/14/2023 10:41 AM CDT [facility] DEPARTMENT OF PULMONARY, CRITICAL CARE, AND SLEEP [...] of Pulmonary, Critical Care, and Sleep Medicine [facility] I have personally reviewed and agree [...] ECG ORDERABLES * Complete PFT w/wo Bronchodilator [facility] PFT Lab (04/25/2022 1:06 PM CDT) Impressions Chris Hoffmann MD - 04/25/2022 1:06 PM CDT [facility] DEPARTMENT OF PULMONARY, CRITICAL CARE, AND SLEEP [...] Spence MD Pulmonary and Critical Care Fellow [facility] Pager Number [phone] I have reviewed the test data and agree with resident; Dr. Spence's findings. Chris Hoffmann MD 05/02/2022 Narrative Chris Hoffmann MD - 04/25/2022 1:06 PM CDT Fina Spence MD 04/25/2022 2:30 PM Jovan Martínez MD RESPIRATORY THERAPY ORDERABLES * SIX MINUTE WALK (04/25/2022 1:05 PM CDT) Impressions Chris Hoffmann MD - 04/25/2022 1:05 PM CDT [facility] DEPARTMENT OF PULMONARY, CRITICAL CARE, AND SLEEP [...] Spence MD Pulmonary and Critical Care Fellow [facility] Pager Number [phone] I have reviewed the test data and [...] approximately 13% higher for people identified as -Eritrean. eGFR by MDRD 67 > OR = [...] 10.4 mg/dL [facility] Comment: Test Performed at: [facility] [address] [place] [address] JM DURAN DO,MPH Blood BLOOD SPECIMEN / Unknown 12/20/2021 8:08 AM CDT 12/20/2021 8:09 AM CDT Jessy Baez MD LAB - CHEMISTRY ORDERABLES [facility] [address] [place] [address] * (ABNORMAL) IRON + TIBC + FERRITIN (09/14/2021) Iron 32(L) 45 - 160 mcg/dL [facility] TIBC 381 250 - 450 mcg/dL (calc) [facility] % Saturation 8(L) 16 - 45 % (calc) [facility] Ferritin 9(L) 16 - 288 ng/mL [facility] Comment: Test Performed at: [facility] [address] [place] [address] JM DURAN DO,MPH 09/14/2021 09/14/2021 7:2 5 AM COMMUNICATION LECTURER Tasia Hodgessandor [facility] LAB - CH EMISTRY ORDERABLES Performing Organization Address [facility] Co de Phone Number [facility] [address] [place] [address] * VITAMIN B12 FOLATE PANEL (09/14/2021) Only the most recent of4 resultswithin the time period is included. Pathologist [facility] Vitamin B12 357 200 - 1100 pg/mL [...] Borderline: 3.4-5.4 Normal: >5.4 Test Performed at: [place] [address] JM DURAN DO,MPH 09/14/2021 09/14/2021 7:2 5 AM COMMUNICATION LECTURER Tasia Correia Yury [facility] - CH EMISTRY ORDERABLES Performing Organization Address [facility] de Phone Number [facility] [address] [place] [address] * CARDIAC EKG ORDER (06/18/2021) Only the most recent of5 resultswithin the time period is included. Narrative 06/18/2021 Ordered by an unspecified provider. Scanned Document CARDIAC SERVICES ORD ERABLES * COMPLETE PFT W/WO BRONCHODILATOR (06/01/2021 9:12 AM CDT) Impressions Milena Whalen MD - 06/01/2021 9:12 AM CDT [facility] DEPARTMENT OF PULMONARY, CRITICAL CARE, AND SLEEP [...] of Pulmonary, Critical Care and Sleep Medicine [facility] Pager:[phone] ATTENDING PHYSICIAN ATTESTATION/MILENA WHALEN M.D.: I have personally reviewed and interpreted the above test and I have made the necessary changes if needed to the above interpretation. Narrative Milena Whalen MD - 06/01/2021 9:12 AM CDT Shyla Watkins MD 06/01/2021 3:07 PM Jovan Martínez MD RESPIRATORY THERAPY ORDERABLES * TRANSFERRIN (04/20/2021 7:27 AM CDT) [facility] Signature Transferrin 266 188 - 341 mg/dL [facility] Comment: Test Performed at: [facility] [place] [address] [place] [address] JM DURAN DO,MPH Blood BLOOD SPECIMEN / Unknown 04/20/2021 7:27 AM CDT 04/20/2021 7:27 AM CDT Darlyn Perry MD LAB - CHEMISTRY CADY DUNLAP Performing Organization Address [facility]/ZIP Co de Phone Number [facility] [phone] [place], [place] [id number] * (ABNORMAL) IRON + TIBC PANEL (04/20/2021 7:27 AM CDT) [facility] Iron 32(L) 45 - 160 mcg/dL [facility] TIBC 351 250 - 450 mcg/dL (calc) [facility] % Saturation 9(L) 16 - 45 % (calc) [facility] Comment: Test Performed at: [facility] [address] JM DURAN DO,MPH Blood BLOOD SPECIMEN / Unknown 04/20/2021 7:27 AM CDT 04/20/2021 7:27 AM CDT Darlyn Perry MD LAB - CHEMISTRY CADY DUNLAP Performing Organization Address [facility] Co de Phone Number [facility] [phone] [place] [address] * (ABNORMAL) FOLATE (04/20/2021 7:27 AM CDT) [facility] Folate 2.8(L) ng/mL [facility] Comment: Reference Range Low: <3.4 Borderline: 3.4-5.4 Normal: >5.4 Test Performed at: [facility] [address] JM DURAN DO,MPH Blood BLOOD SPECIMEN / Unknown 04/20/2021 7:27 AM CDT 04/20/2021 7:27 AM CDT Darlyn Perry MD LAB - CHEMISTRY CADY DUNLAP Performing Organization Address [facility] Co de Phone Number [facility] [phone] [place] [id number] * VITAMIN B12 (04/20/2021 7:27 AM CDT) [facility] Vitamin B12 333 200 - 1100 pg/mL [facility] Comment: Please Note: Although the reference range for vitamin B12 is 200-1100 pg/mL, it has been reported that between 5 and 10% of patients with values between 200 and 400 pg/mL may experience neuropsychiatric and hematologic abnormalities due to occult B12 deficiency; less than 1% of patients with values above 400 pg/mL will have symptoms. Test Performed at: [facility] [address] [place] [address] JM DURAN DO,MPH Blood BLOOD SPECIMEN / Unknown 04/20/2021 7:27 AM CDT 04/20/2021 7:27 AM CDT Darlyn Perry MD LAB - CHEMISTRY CADY DUNLAP Performing Organization Address [facility] Co de Phone Number [facility] [address] [place] [address] * (ABNORMAL) FERRITIN (04/20/2021 7:27 AM CDT) [facility] Ferritin 4(L) 16 - 288 ng/mL [facility] Comment: Test Performed at: [facility] [id number] [facility] [place] [address] JM DURAN DO,MPH Blood BLOOD SPECIMEN / Unknown 04/20/2021 7:27 AM CDT 04/20/2021 7:27 AM CDT Darlyn Perry MD LAB - CHEMISTRY CADY DUNLAP Performing Organization Address [facility]/ZIP Co de Phone Number [address] [address] * VAS BILATERAL VENOUS DUPLEX LE (01/11/2021 12:42 PM CDT) Anatomical Region Laterality Modality Lower Extremity Ultrasound 01/11/2021 12:0 1 PM CDT Narrative Procedure Note Cornelius Hurley MD - 01/11/2021 [facility] [id number] [place] [address] Lower Extremity Venous Ultrasound Report Pat.Name: GERARD PRADO Pat.ID: [id number] .Date: 01/11/2021 Exam Time: 12:01:00 PM Study Type:LE Venous Height: 65in Weight: 300lb BSA: 2.35 m2 Age: 11 1960,60Y Sex: FEMALE Sonogrphr: Eddie Motta, RVStuart Pat. Stat.:Outpatient Reason for Study: Swelling -Leg, bilateral, Shortness of breath History / Clinical: Hypertension, Hyperlipidemia Procedures: Lower Extremity Venous - Bilateral Race: 2 Visit ID: [id number] ++++++++++++++++++++++++++++++++++++ SUMMARY: ++++++++++++++++++++++++++++++++++++ There is no evidence [...] Resulting Agency Comment Lab Testing performed at: [facility] [employer] [facility] [address] [facility] [id number] Jessy Baez MD LAB - CHEMISTRY ORDERABLES LABCO INSURANCE BILL [address] [place] [address] * EP ABLATION AFIB (01/08/2021 12:22 PM CDT) Narrative [facility] RADIOLOGY - 01/08/2021 12:28 PM CDT This procedure was performed by a Cardiac Land Survey Technician in the EP lab. Please see the Op Note or Procedures Note placed by Electrophysiology. Dago Hernandez MD ELECTROPHYS RADIANT [facility] RAD[facility] * (ABNORMAL) GLUCOSE - POINT OF CARE (01/08/2021 8:19 AM CDT) Only the most recent of12 resultswithin the time period is included. Glucose WB/POC 120(H) 70 - 115 mg/dL 01/08/2021 8:19 AM CDT [facility] Specimen Type Arterial/C apillary 01/08/2021 8:19 AM CDT [facility] Blood BLOOD SPECIMEN / Unknown 01/08/2021 8:19 AM CDT 01/08/2021 8:19 AM CDT Dago Hernandez MD LAB - POINT OF CARE ORDERABLES Performing Organization Address City/[facility]/ZIP Co de Phone Number [facility] [address] [place] [address], [facility] [phone] * PT-INR (01/03/2021 7:33 AM CDT) INR 1.1 [facility] Comment: Reference Range 0.9-1.1 Moderate-intensity Warfarin Therapy 2.0-3.0 Higher-intensity Warfarin Therapy 3.0-4.0 PT 11.4 9.0 - 11.5 sec [facility] Comment: For additional information, please refer to http://education.CMOSIS nv/faq/SYO820 (This link is being provided for informational/ educational purposes only.) REPORT COMMENT: FASTING:YES Test Performed at: [facility]iAs[address] [address] JANAK STEPHENS MD Blood BLOOD SPECIMEN / Unknown 01/03/2021 7:33 AM CDT 01/03/2021 7:34 AM CDT Dago Hernandez MD LAB - COAGULATION OR DERABLES Performing Organization Address City/[facility]/ZIP Co de Phone Number [address] [address] * ECHO LIMITED OR FOLLOWUP (11/16/2020 1:56 PM CDT) Anatomical Region Laterality Modality Chest Echo 11/16/2020 1:29 PM CDT Narrative Procedure Note Lorenza Rubio MD - 11/16/2020 Rock Pettit MD ECHOCARDIOGRAPHY RAD IANT * PTT [facility] (11/16/2020 1:54 AM CDT) Pathologist [facility] APTT 24.5 23.0 - 38.4 Seconds 11/16/2020 2:19 AM CDT [facility] Comment:Suggested therapeuti c range for full dose I.V. unfractionated heparin therapy for venous thromboembolism is 71 to 109 seconds. Blood BLOOD SPECIMEN / Unknown Lab Venipuncture / Unknown 11/16/2020 1:54 AM CDT 11/16/2020 2:07 AM CDT Ricky Contreras MD LAB - COAGULATION OR DERABLES Performing Organization Address [facility]/State/ZIP Co de Phone Number [address] [address], [facility] [phone] * (ABNORMAL) CBC W/O DIFFERENTIAL (11/16/2020 1:54 AM CDT) Pathologist [facility] WBC 8.9 3.5 - 10.5 10 3/uL 11/16/2020 2:03 AM CDT [facility] RBC 4.02 3.90 - 5.00 10 6/uL 11/16/2020 2:03 AM T [facility] Hemoglobin 10.4(L) 12.0 - 15.5 g/dL 11/16/2020 2:03 AM [facility] Hematocrit 32.8(L) 35.0 - 45.0 % 11/16/2020 2:03 AM [facility] MCV 81.6 81.0 - 97.0 fL 11/16/2020 2:03 AM T [facility] MCH 25.9(L) 28.0 - 34.0 pg 11/16/2020 2:03 AM CDT [facility] MCHC 31.7(L) 32.0 - 36.0 g/dL 11/16/2020 2:03 AM [facility] Platelet Count 258 150 - 400 10 3/uL 11/16/2020 2:03 AM T [facility] RDW-SD 41.6 36.0 - 50.0 fL 11/16/2020 2:03 AM T [facility] RDW-CV 14.1 11.2 - 14.8 % 11/16/2020 2:03 AM T [facility] MPV 9.4 9.3 - 12.8 fL 11/16/2020 2:03 AM T [facility] nRBC Absolute 0.00 0 10 3/uL 11/16/2020 2:03 AM T [facility] nRBC Auto 0.0 0 /100 WBC 11/16/2020 2:03 AM T [facility] Blood BLOOD SPECIMEN / Unknown Lab Venipuncture / Unknown 11/16/2020 1:54 AM CDT 11/16/2020 1:59 AM CDT Rock Pettit MD LAB - HEMATOLOGY ORD ANNYBLES [address] [address], [place] [phone] * MAGNESIUM BLOOD (11/16/2020 1:54 AM CDT) Only the most recent of2 resultswithin the time period is included. Magnesium 1.9 1.6 - 2.6 mg/dL 11/16/2020 2:23 AM CDT [facility] Blood BLOOD SPECIMEN / Unknown Lab Venipuncture / Unknown 11/16/2020 1:54 AM CDT 11/16/2020 1:59 AM CDT Rock Pettit MD LAB - CHEMISTRY ORDElmer DUNLAP [address] [address], [place] [phone] * (ABNORMAL) SARS-COV-2 (COVID-19)+INFLU A+B PCR RAPID (11/15/2020 8:07 PM CDT) COVID-19 PCR Detected(AA) Not detected 11/16/19 8:49 PM CDT [facility] Comment:RESULTS CALLED TO AN D READ BACK BY Alannah Mccann RN AT 8:48 PM, 11/15/2020 Influenza A Rapid JESUSITA Not Detected Not Detected 11/15/2020 8:49 PM CDT [facility] Influenza B JESUSITA Rapid Not Detected Not Detected 11/15/2020 8:49 PM CDT [facility] Microbiology SPECIMEN FROM NASOPHARYNGEAL STRUCTURE / Unknown Collection / Unknown 11/15/2020 8:07 PM CDT 11/15/2020 8:13 PM CDT Narrative [facility] - 11/15/2020 8:49 PM CDT Samples [...] amplification assay performance was validated by [facility]. This test has been authorized by the [...] - MICROBIOLOGY O RDERABLES Performing Organization Address City/State/[facility] Co de Phone Number [facility] [address] [place] [address], [facility] [phone] * XR CHEST 1VW PORTABLE (11/15/2020 4:28 [...] is intact. Dictated by Kimmie Holloway MD (claims vice president). Dr. SHAUNNA Mancera have personally reviewed and [...] is intact. Dictated by Kimmie Holloway MD (claims vice president). Dr. SHAUNNA Mancera have personally reviewed and interpreted this examination/study. This report was electronically signed by SHAUNNA PERLA on 11/17/2020 7:38 AM . Rock Pettit MD DIAGNOSTIC IMAGING O RDERABLES * TROPONIN I (11/15/2020 4:23 PM CDT) Troponin I <0.010 <0.032 ng/mL 11/15/2020 5:04 PM CDT [facility] Blood BLOOD SPECIMEN / Unknown Venipuncture / Unknown 11/15/2020 4:23 PM CDT 11/15/2020 4:27 PM CDT Rock Pettit MD LAB - CHEMISTRY CADY DUNLAP [facility] [address] [place] [address], [facility] [phone] * PFT OXYGEN DESATURATION STUDY (11/15/2020 3:22 PM CDT) Impressions Chris Hoffmann MD - 11/15/2020 3:22 PM CDT [facility] DEPARTMENT OF PULMONARY, CRITICAL CARE, AND SLEEP [...] Pulmonary, Critical Care, & Sleep Medicine [facility] I have reviewed [...] Hoffmann MD - 11/15/2020 2:53 PM CDT [facility] DEPARTMENT OF PULMONARY, CRITICAL CARE, AND SLEEP [...] Pulmonary, Critical Care, & Sleep Medicine [facility] I have reviewed [...] ORDERABLES * THIOPURINE METHYLTRANSFERASE (09/12/2020 7:03 AM COMMUNICATION LECTURER) TPMT Activity 15 nmol/hr/mL RBC [facility] Comment: Reference Range for TPMT Activity: >12 Normal 4-12 Heterozygote or low metabolizer <4 Homozygote Deficient Range This test was developed and its analytical performance characteristics have been determined by [facility]. It has not been cleared or approved by FDA. This assay has been validated pursuant to the CLIA regulations and is used for clinical purposes. Test Performed at: [facility] [address] [place] [address] GRACIA LENNON MD,PHD,ETHEL 09/12/2020 7:03 AM COMMUNICATION LECTURER 09/12/2020 7:05 AM COMMUNICATION LECTURER Darlyn Perry MD LAB - CHEMISTRY CADY DUNLAP [facility] Organization Address City/State/ZIP Co de Phone Number [facility] [address] [place] [address] * QUANTIFERON-TB GOLD PLUS 1-TUBE (07/14/2020 7:49 AM COMMUNICATION LECTURER) [facility] QuantiFERON TB Gold Plus NEGATIVE NEGATIVE [...] T-lymphocytes. For additional information, please refer to https://education.GOOM.COINTERRA/faq/DWI579 (This link is being provided for informational/ educational purposes only.) Test Performed at: [facility] [place] [address], [place] [address] JM DURAN DO,MPH 07/14/2020 7:49 AM COMMUNICATION LECTURER 07/14/2020 8:04 AM COMMUNICATION LECTURER Darlyn Perry MD LAB - CHEMISTRY ORDE RABLES [facility] Organization Address City/State/ZIP Co de Phone Number [facility] [address] [place] [address] * SCLEROSIS 12 ANTIBODY PNL (07/14/2020 7:49 AM COMMUNICATION LECTURER) SCL-70 <11 <11 SI [facility] Centromere protein [...] 75 <11 <11 SI [facility] Comment: The [place] [employer] (ACR) considers anti-Scl-70 (also [...] patients and anti-RP155 antibodies in about 8%. Wucb-B1-aoEZG antibodies are associated with SSc and inflammatory myopathy overlap syndromes. Three major components of U1-snRNP are tested: U1-snRNP JOINERY MACHINIST A, U1-snRNP JOINERY MACHINIST C, U1-snRNP [id number]. The presence of U1-snRNP antibodies occur in [...] Fibrillarin antibodies are found more frequently in -[place] patients and when seen in this population, [...] is directed to one of two proteins: PM/Tpt188 and/or PM/Scl75. More information can be found at https://www.GOOM.COINTERRA/testcenter/testguide.action ?dc=CF-SystScler This test was developed and its analytical performance characteristics have been determined by [facility]. It has not been cleared or approved by FDA. This assay has been validated pursuant to the CLIA regulations and is used for clinical purposes. Test Performed at: [facility] [address] [place] [address] GRACIA LENNON MD,PHD,ETHEL 07/14/2020 7:49 AM COMMUNICATION LECTURER 07/14/2020 8:04 AM COMMUNICATION LECTURER Darlyn Perry MD LAB - SEROLOGY ORDER LIA [facility] [address] [place] [address] * MYOSITIS 11 ANTIBODY PNL (07/14/2020 7:49 AM COMMUNICATION LECTURER) Suze-1 Antibody <11 <[address]-7 Antibody <11 <[address]-12 Antibody <11 <11 SI [facility] EJ Antibody <11 <11 SI [facility] OJ Antibody <11 <11 SI [facility] SRP Antibody <11 <11 SI [facility] IL-2 Alpha Antibody <11 <11 SI [facility] IL-2 Beta Antibody <11 <11 SI [facility] MDA-5 [...] been made. MDA5 antibody, formerly known as [id number] antibody, has been identified in clinically amyopathic [...] analytical performance characteristics have been determined by [facility]. They have not been cleared or approved by the FDA. These assays have been validated pursuant to the CLIA regulations and are used for clinical purposes. Test Performed at: [facility] [address] [place] [address] CORNELIUS CAO MD 07/14/2020 7:49 AM COMMUNICATION LECTURER 07/14/2020 8:04 AM COMMUNICATION LECTURER Darlyn Perry MD LAB - SEROLOGY ORDER LIA Performing Organization Address City/[facility]/ZIP Co de Phone Number [facility] [address] [place] [address] * TUTTLE/JOINERY MACHINIST ANTIBODIES RFLXED (07/14/2020 7:49 AM COMMUNICATION LECTURER) SM/JOINERY MACHINIST Antibody <1.0 NEG <1.0 NEG AI [facility] Comment: Test Performed at: [facility] [address] [place] [address] JM DURAN DO,MPH 07/14/2020 7:49 AM COMMUNICATION LECTURER 07/14/2020 8:04 AM COMMUNICATION LECTURER Darlyn Perry MD LAB - SEROLOGY ORDER LIA Performing Organization Address [facility] Co de Phone Number [facility] [address] [place] [address] * HEPATITIS C AB W/RFLX TO HCV RNA QN PCR (07/14/2020 7:49 AM COMMUNICATION LECTURER) Hepatitis C Antibody NON-REACTI VE NON-REACT SHABBIR [facility] Signal to Cut-Off 0.03 <1.00 [facility] Comment: HCV antibody was non-reactive. There is no laboratory evidence of HCV infection. In most cases, no further action is required. However, if recent HCV exposure is suspected, a test for HCV RNA (test code 39658) is suggested. For additional information please refer to http://education.GOOM.COINTERRA/faq/SKD75h1 (This link is being provided for informational/ educational purposes only.) Test Performed at: [facility] [place] [address] [place] [address] JM DURAN DO,MPH 07/14/2020 7:49 AM COMMUNICATION LECTURER 07/14/2020 8:04 AM COMMUNICATION LECTURER Darlyn Perry MD LAB - CHEMISTRY CADY DUNLAP Performing Organization Address [facility] Co de Phone Number [facility] [address] [place] [address] * IGG SUBCLASS 4 (07/14/2020 7:49 AM COMMUNICATION LECTURER) IgG Subclass 4 14.5 4.0 - 86.0 mg/dL [facility] Comment: Test Performed at: [facility] [place] [address] [place], [place] JASON TREJO MD,PHD Blood BLOOD SPECIMEN / Unknown 07/14/2020 7:49 AM COMMUNICATION LECTURER 07/14/2020 8:04 AM COMMUNICATION LECTURER Darlyn Perry MD LAB - CHEMISTRY CADY DUNLAP Performing Organization Address [facility] Co de Phone Number [facility] [phone] [place] [address] * DNA ANTIBODY DS CRITHIDIA W/REFLEX TITER (07/14/2020 7:49 AM COMMUNICATION LECTURER) dsDNA Antibody Crithidia IFA NEGATIVE NEGATIVE [facility] Comment: Test Performed at: [facility] [address] [place] [address] GRACIA LENNON MD,PHD,ETHEL 07/14/2020 7:49 AM COMMUNICATION LECTURER 07/14/2020 8:04 AM COMMUNICATION LECTURER Darlyn Perry MD LAB - HEMATOLOGY ORD LEANDRA Performing Organization Address [facility] Co de Phone Number [facility] [address] [place] [address] * (ABNORMAL) URINALYSIS W/MICROSCOPIC NO CULTURE (07/14/2020 7:49 AM COMMUNICATION LECTURER) Color UA YELLOW YELLOW [facility] Appearance CLEAR CLEAR [facility] Specific Greer UA 1.004 1.001 - 1.035 [facility] pH [...] SEEN /LPF [facility] Comment: Test Performed at: [facility] [place] [address] JM DURAN DO,MPH Granular Casts [facility] Casts UA [facility] Yeast [facility] Comments [facility] Note [facility] Comment: Test Performed at: [place] [address] JM DURAN DO,MPH 07/14/2020 7:49 AM COMMUNICATION LECTURER 07/14/2020 8:04 AM COMMUNICATION LECTURER Darlyn Perry MD LAB - URINALYSIS ORD ERABLES Performing Organization Address [facility] Phone Number [place] [phone] [place] [address] * INTERPRETATION (9) (07/14/2020 7:49 AM COMMUNICATION LECTURER) Interpretation [facility] Comment: This finding suggests Sjogren's syndrome. These antibodies may occasionally be positive early in other connective tissue diseases. A positive result at this stage of testing stops further testing, and does not preclude additional positive antibodies. Clinical correlation is required to assess the need for testing additional analytes. Test Performed at: [place] [address] JM DURAN DO,MPH 07/14/2020 7:49 AM COMMUNICATION LECTURER 07/14/2020 8:04 AM COMMUNICATION LECTURER Darlyn Perry MD LAB - SEROLOGY ORDER LIA Performing Organization Address City/[facility] Co de Phone Number [facility] [address] [place] [address] * CHROMATIN ANTIBODY (07/14/2020 7:49 AM COMMUNICATION LECTURER) Chromatin Nucleosomal Antibody <1.0 NEG <1.0 NEG AI [facility] Comment: Test Performed at: d[facility]As LENMy Digital ShieldA [address] [place] [address] JM DURAN DO,MPH 07/14/2020 7:49 AM COMMUNICATION LECTURER 07/14/2020 8:04 AM COMMUNICATION LECTURER Darlyn Perry MD LAB - SEROLOGY ORDER LIA Performing Organization Address [facility] Co de Phone Number [facility] [address] [place] [address] * (ABNORMAL) STAGE 2 (PO EF LAB) (07/14/2020 7:49 AM COMMUNICATION LECTURER) Sjogren's Antibodies (SSA) >8.0 POS(A) <1.0 NEG [...] in <2% of normal blood donors. The Ullin does not rule out autoimmune disease characterized by other autoantibody specificities such as rheumatoid arthritis, autoimmune hepatitis, primary biliary cirrhosis, autoimmune thyroiditis, Pickaway's disease, pernicious anemia, autoimmune neuropathies, vasculitis, celiac disease and bullous disease. Please contact your local [facility] laboratory if you are interested in additional testing. Test Performed at: [place] [address] JM DURAN DO,MPH 07/14/2020 7:49 AM COMMUNICATION LECTURER 07/14/2020 8:04 AM COMMUNICATION LECTURER Darlyn Perry MD LAB - SEROLOGY ORDER LIA Performing Organization Address [facility] de Phone Number [facility] [address] [place] [address] * STAGE 1 (07/14/2020 7:49 AM COMMUNICATION LECTURER) Pathologist [facility] dsDNA Antibody <1 IU/mL [facility] Comment: IU/mL Interpretation < or = 4 Negative 5-9 Indeterminate > or = 10 Positive SM Antibody <1.0 NEG <1.0 NEG AI [facility] SM/JOINERY MACHINIST Antibody <1.0 NEG <1.0 NEG AI [facility] JOINERY MACHINIST Antibody <1.0 NEG <1.0 NEG AI [facility] Chromatin Nucleosomal Antibody <1.0 NEG <1.0 NEG AI [facility] Comment: Test Performed at: [place] [address] JM DURAN DO,MPH 07/14/2020 7:49 AM COMMUNICATION LECTURER 07/14/2020 8:04 AM COMMUNICATION LECTURER Darlyn Perry MD LAB - SEROLOGY ORDER LIA Performing Organization Address [facility] Co de Phone Number [facility] [phone] [place] [address] * HIV-1 HIV-2 ANTIBODY + HIV P24 AG PANEL (07/14/2020 7:49 AM COMMUNICATION LECTURER) Pathologist [facility] HIV Screen 4th Generation w Reflex NON-REACT [...] purpose. For additional information please refer to http://ReflexPhotonics.CMOSIS nv/faq/TOP643 (This link is being provided for informational/ educational purposes only.) The performance of this assay has not been clinically validated in patients less than 2 years old. Test Performed at: [facility] [address] JM DURAN DO,MPH 07/14/2020 7:49 AM COMMUNICATION LECTURER 07/14/2020 8:04 AM COMMUNICATION LECTURER Darlyn Perry MD LAB - CHEMISTRY CADY [facility] Organization Address City/State/ZIP Co de Phone Number [facility] [address] [place] [address] * (ABNORMAL) NICOLETTE SCREEN IFA W/REFLX T/P/C (07/14/2020 7:49 AM COMMUNICATION LECTURER) NICOLETTE Screen POSITIVE( A) NEGATIVE [facility] Comment: NICOLETTE IFA is a first line screen for detecting the presence of up to approximately 150 autoantibodies in various autoimmune diseases. A positive NICOLETTE IFA result is suggestive of autoimmune disease and reflexes to titer, pattern and the 3 tiered Multiplex 11 Antibody Ullin. Testing in the Ullin stops at the first positive result, and does not preclude additional positive results. Further laboratory testing may be considered if clinically indicated. For additional information, please refer to http://ReflexPhotonics.ShieldEffect.COINTERRA/faq/JHP001 (This link is being provided for informational/ educational purposes only.) Test Performed at: [place] [address] [address] [facility] [place] [address] JM DURAN DO,MPH 07/14/2020 7:49 AM COMMUNICATION LECTURER 07/14/2020 8:04 AM COMMUNICATION LECTURER Darlyn Perry MD LAB - SEROLOGY ORDER LIA Performing Organization Address [facility] Co de Phone Number [facility] [address] [place] [address] * RNA POLYMERASE III ANTIBODY IGG (07/14/2020 7:49 AM COMMUNICATION LECTURER) RNA Polymerase 3 Antibody <20 <20 Units [facility] Comment: Test Performed at: [facility] [address] [place] [address] GRACIA LENNON MD,PHD,ETHEL 07/14/2020 7:49 AM COMMUNICATION LECTURER 07/14/2020 8:04 AM COMMUNICATION LECTURER Darlyn Perry MD LAB - SEROLOGY ORDER LIA Performing Organization Address [facility] Co de Phone Number [facility] [address] [place] [address] * RHEUMATOID FACTOR BLOOD QUANTITATIVE (07/14/2020 7:49 AM COMMUNICATION LECTURER) Pathologist [facility] Rheumatoid Factor <14 <14 IU/mL [facility] Comment: Test Performed at: [facility] [place] [address] [place] [address] JM DURAN DO,MPH 07/14/2020 7:49 AM COMMUNICATION LECTURER 07/14/2020 8:04 AM COMMUNICATION LECTURER Darlyn Perry MD LAB - CHEMISTRY CADY DUNLAP Performing Organization Address [facility] Co de Phone Number [facility] [address] [place] [address] * (ABNORMAL) NICOLETTE BLOOD TITER (07/14/2020 7:49 AM COMMUNICATION LECTURER) NICOLETTE 1:1280(H) titer [facility] Comment: Reference Range [...] AC-23: Cytoplasmic International Consensus on NICOLETTE Patterns (https://doi.org/10.1515/ijuq-4049-6484) Test Performed at: [facility] [place] [address] [place] [address] JM DURAN DO,MPH 07/14/2020 7:49 AM COMMUNICATION LECTURER 07/14/2020 8:04 AM COMMUNICATION LECTURER Darlyn Perry MD LAB - CHEMISTRY CADY DUNLAP Performing Organization Address [facility] Co de Phone Number [facility] [address] [place] [address] * (ABNORMAL) SS-A/SS-B (SJOGREN'S) ANTIBODY PANEL (07/14/2020 7:49 AM COMMUNICATION LECTURER) Sjogren's Antibodies (SSA) >8.0 POS(A) <1.0 NEG AI [facility] Sjogren's Antibodies (SSB) <1.0 NEG <1.0 NEG AI [facility] Comment: Test Performed at: [facility] [address] [facility] [place] [address] JM DURAN DO,MPH 07/14/2020 7:49 AM COMMUNICATION LECTURER 07/14/2020 8:04 AM COMMUNICATION LECTURER Darlyn Perry MD LAB - CHEMISTRY CADY DUNLAP Performing Organization Address [facility] Co de Phone Number [facility] [address] [place] [address] * PM/SCL-100 ANTIBODY IGG (07/14/2020 7:49 AM COMMUNICATION LECTURER) PM Scl 100 AB <20 <20 Units [facility] Comment: Negative: <20 Weak Positive: 20 - 39 Moderate Positive: 40 - 80 Strong Positive: >80 Comments: This test was developed and its performance characteristics determined by [facility]. It has not been cleared or approved by the Food and Drug Administration. Test Performed at: [facility] [address] [place] [address] JENNIFER CHAVARRIA MD 07/14/2020 7:49 AM COMMUNICATION LECTURER 07/14/2020 8:04 AM COMMUNICATION LECTURER Darlyn Perry MD LAB - SEROLOGY ORDER LIA Performing Organization Address [facility] de Phone Number [facility] [phone] [place] [address] * RIBOSOMAL P PROTEIN ANTIBODY (07/14/2020 7:49 AM COMMUNICATION LECTURER) Ribosomal P Protein Antibody <1.0 NEG <1.0 NEG AI [facility] Comment: Test Performed at: [employer], [place] [address] JM DURAN DO,MPH 07/14/2020 7:49 AM COMMUNICATION LECTURER 07/14/2020 8:04 AM COMMUNICATION LECTURER Darlyn ePrry MD LAB - CHEMISTRY ORDE GERMÁN Performing Organization Address [facility] de Phone Number [facility] [id number] [place] [address] * ALDOLASE (07/14/2020 7:49 AM COMMUNICATION LECTURER) Aldolase 3.3 < OR = 8.1 U/L [facility] Comment: Test Performed at: [employer], [place] [address] JM DURAN DO,MPH 07/14/2020 7:49 AM COMMUNICATION LECTURER 07/14/2020 8:04 AM COMMUNICATION LECTURER Darlyn Perry MD LAB - CHEMISTRY ORDElmer DUNLAP Performing Organization Address [facility] de Phone Number [facility] [address] [place] [address] * CYCLIC CITRULLINATED PEPTIDE(CCP) AB IGG (07/14/2020 7:49 AM COMMUNICATION LECTURER) Cyclic Citrullinated Peptide Antibody IgG <16 UNITS [facility] Comment: Reference Range Negative: <20 Weak Positive: 20-39 Moderate Positive: 40-59 Strong Positive: >59 Test Performed at: [employer], [place] [address] JM DURAN DO,MPH 07/14/2020 7:49 AM COMMUNICATION LECTURER 07/14/2020 8:04 AM COMMUNICATION LECTURER Darlyn Perry MD LAB - CHEMISTRY CADY DUNLAP Performing Organization Address [facility] Co de Phone Number [facility] [phone] [place] [address] * COMPLEMENT C4 (07/14/2020 7:49 AM COMMUNICATION LECTURER) Pathologist [facility] Complement C4 17 15 - 57 mg/dL [facility] Comment: Test Performed at: [facility] [address] [employer] [address] JM DURAN DO,MPH 07/14/2020 7:49 AM COMMUNICATION LECTURER 07/14/2020 8:04 AM COMMUNICATION LECTURER Darlyn Perry MD LAB - SEROLOGY ORDER LIA Performing Organization Address [facility] [place] [address] * LDH BLOOD (07/14/2020 7:49 AM COMMUNICATION LECTURER) Pathologist [facility] LD-Total 175 120 - 250 U/L [facility] Comment: Test Performed at: [facility] [address] [employer] [id number] JM DRUAN DO,MPH 07/14/2020 7:49 AM COMMUNICATION LECTURER 07/14/2020 8:04 AM COMMUNICATION LECTURER Darlyn Perry MD LAB - CHEMISTRY CADY DUNLAP Performing Organization Address [facility] de Phone Number [facility] [address] [place] [address] * HEPATITIS B CORE ANTIBODY (07/14/2020 7:49 AM COMMUNICATION LECTURER) Pathologist [facility] Hepatitis B Core Virus Antibody Total NON-REACTI VE NON-REACT SHABBIR [facility] Comment: Test Performed at: [employer] [address] [email or web address], [place] [address] JM DURAN DO,MPH 07/14/2020 7:49 AM COMMUNICATION LECTURER 07/14/2020 8:04 AM COMMUNICATION LECTURER Darlyn Perry MD LAB - CHEMISTRY CADY DUNLAP Performing Organization Address [facility] de Phone Number [facility] [address] [place] [address] * HEPATITIS B SURFACE ANTIGEN W RFLX CONFIRMATION (07/14/2020 7:49 AM COMMUNICATION LECTURER) [facility] Hepatitis B Virus Surface Antigen NON-REACT SHABBIR NON-REACT SHABBIR [facility] Comment: Test Performed at: [employer] [address] JM DURAN DO,MPH Confirmation [facility] Comment: Test Performed at: [employer], [place] [address] JM DURAN DO,MPH 07/14/2020 7:49 AM COMMUNICATION LECTURER 07/14/2020 8:04 AM COMMUNICATION LECTURER Darlyn Perry MD LAB - CHEMISTRY CADY DUNLAP Performing Organization Address [facility] de Phone Number [facility] [address] [place] [address] * CK BLOOD (07/14/2020 7:49 AM COMMUNICATION LECTURER) [facility] CK 33 29 - 143 U/L [facility] Comment: Test Performed at: [employer], [place] [address] JM DURAN DO,MPH 07/14/2020 7:49 AM COMMUNICATION LECTURER 07/14/2020 8:04 AM COMMUNICATION LECTURER Darlyn Perry MD LAB - CHEMISTRY CADY DUNLAP Performing Organization Address [facility] [place] [address] * (ABNORMAL) PROTEIN ELECTROPHORESIS BLOOD (07/14/2020 7:49 AM COMMUNICATION LECTURER) [facility] Protein Total 7.4 6.1 - 8.1 g/dL [facility] Albumin 3.6(L) 3.8 - 4.8 g/dL [facility] Alpha-1 Globulin 0.3 0.2 - 0.3 g/dL [facility] Tmuli-2-Yvdejrgv 0.8 0.5 - 0.9 g/dL [facility] Beta-1 [...] restricted band (M-spike) seen. Test Performed at: [facility] [address] [place] [address] JM DURAN DO,MPH 07/14/2020 7:49 AM COMMUNICATION LECTURER 07/14/2020 8:04 AM COMMUNICATION LECTURER Darlyn Perry MD LAB - CHEMISTRY CADY DUNLAP Performing Organization Address [facility] Co de Phone Number [facility] [address] [place] [address] * COMPLEMENT C3 (07/14/2020 7:49 AM COMMUNICATION LECTURER) Complement C3 166 83 - 193 mg/dL [facility] Comment: Test Performed at: [facility] [address] [place] [address] JM DURAN DO,MPH 07/14/2020 7:49 AM COMMUNICATION LECTURER 07/14/2020 8:04 AM COMMUNICATION LECTURER Darlyn Perry MD LAB - CHEMISTRY CADY DUNLAP Performing Organization Address [facility] [place] [address] * HEMOGLOBIN A1C (12/27/2019 9:58 AM CDT) [...] diagnosis of diabetes in children. According to [place] Diabetes Association (ADA) guidelines, hemoglobin A1c <7.0% represents optimal control in non- diabetic patients. Different metrics may apply to specific patient populations. Standards of Medical Care in Diabetes(ADA). Test Performed at: [facility] [address] [place] [address] JM DUARN DO,MPH Blood BLOOD SPECIMEN / Unknown 12/27/2019 9:58 AM CDT 12/27/2019 9:59 AM CDT Jessy Baez MD LAB - CHEMISTRY ORDERABLES [facility] [address] [place] [address] * (ABNORMAL) LIPID PROFILE (12/27/2019 9:58 AM [...] LDL-C. Jose MOONEY et al. NUSRAT. 2013;310(19): 1740-9390 (http://education.ShieldEffect.COINTERRA/faq/GWU667) CHOL/HDLC RATIO 3.4 <5.0 (calc) [facility] Non HDL Cholesterol 113 <130 mg/dL (calc) [facility] Comment: For patients with diabetes plus 1 major ASCVD risk factor, treating to a non-HDL-C goal of <100 mg/dL (LDL-C of <70 mg/dL) is considered a therapeutic option. Test Performed at: [facility] [address] [place] [address] JM DURAN DO,MPH Blood BLOOD SPECIMEN / Unknown 12/27/2019 9:58 AM CDT 12/27/2019 9:59 AM CDT Jessy Baez MD LAB - CHEMISTRY ORDERABLES Performing Organization Address City/[facility]/ZIP Co de Phone Number [facility] [address] [place] [address] * PULMONARY/RESPIRATORY REPORT ORDER (10/13/2019) Marj Garcia MACHINE ROOM OPERATOR-BULK COOLERS INSTALLER RESPIRATOR Y THERAPY ORDERABLES * PULMONARY/RESPIRATORY REPORT ORDER (10/13/2019) Marj Garcia MACHINE ROOM OPERATOR-BULK COOLERS INSTALLER RESPIRATOR Y THERAPY ORDERABLES * IMAGING RADIOLOGY XRAY RESULTS ORDER (07/12/2019) Only the most recent of2 resultswithin the time period is included. Anatomical Region Laterality Modality Other Tasia Correia Yury Keonig PA IMAGING * VITAMIN D 25-HYDROXY (06/14/2019 9:03 AM CDT) Only the most recent of2 resultswithin the time period is included. Pathologist [facility] Vitamin D, 25 Hydroxy 39.5 30.0 - 100.0 ng/mL [facility] ACCOUNT BILL Comment: Vitamin D deficiency has been defined by the [place] of Medicine and an Endocrine Society practice guideline as a level of serum 25-OH vitamin D less than 20 ng/mL (1,2). The Endocrine Society went on to further define vitamin D insufficiency as a level between 21 and 29 ng/mL (2). 1. IOM ([place] of Medicine). 2010. Dietary reference intakes for calcium and D. [place]: The National Academies Press. 2. Aleyda MF, Coby GONZALEZ, Rochelle [place], et al. Evaluation, treatment, and prevention of vitamin D deficiency: an Endocrine Society clinical practice guideline. JCEM. 2010; 96(7):1911-30. FASTING 06/14/2019 9:03 AM CDT 06/14/2019 Narrative Resulting Agency Comment Lab Testing performed at: [facility] [address] [id number] Jessy Baez MD LAB - CHEMISTRY ORDERABLES [facility] ACCOUNT BILL [address] [place] [address] * C-PEPTIDE (06/11/2018 7:59 AM CDT) C-Peptide 3.6 1.1 - 4.4 ng/mL [facility] INSURANCE BILL Comment: C-Peptide reference interval is for fasting patients. FASTING Blood BLOOD SPECIMEN / Unknown 06/11/2018 7:59 AM CDT 06/11/2018 Narrative Resulting Agency Comment [facility] [address] [facility] [id number] Jessy Baez MD LAB - CHEMISTRY ORDERABLES Performing Organization Address [facility] Co de Phone Number [facility] INSURANCE BILL [address] [place] [address] * MICROALB/CREAT RATIO URINE RANDOM PANEL (12/11/2017 8:07 AM CDT) Creatinine Urine 23.9 Not Estab. mg/dL [facility] INSURANCE BILL Microalbumin Urine <3.0 Not Estab. ug/mL [facility] INSURANCE BILL Microalbumin/Crea tinine Ratio <12.6 0.0 - 30.0 mg/g creat [facility] INSURANCE BILL Comment:FASTING Urine URINE SPECIMEN OBTAINED BY CLEAN CATCH PROCEDURE / Unknown 12/11/2017 8:07 AM CDT 12/11/2017 Narrative Resulting Agency Comment [facility] [address] [facility] [id number] Jessy Baez MD LAB - URINE CHEM ISTRY ORDERABLES Performing Organization Address [facility] de Phone Number [facility] INSURANCE BILL [address] [place] [address] * XR KNEE BILAT 3 VIEWS (07/11/2017 9:34 AM COMMUNICATION LECTURER) Only the most recent of2 resultswithin the time period is included. Anatomical Region Laterality Modality Lower Extremity Radiographic Phoebe ging Narrative 07/11/2017 10:09 AM COMMUNICATION LECTURER Izzy Schmitz 07/11/2017 10:09 AM Please see progress note for results. Uriel Cortez MD DIAGNOSTIC IMAGING O RDERABLES * CARDIAC RHYTHM STRIP ORDER (07/09/2014 8:53 PM COMMUNICATION LECTURER) Narrative 07/09/2014 8:53 PM COMMUNICATION LECTURER Ordered by an unspecified provider. Scanned Document CARDIAC SERVICES ORD ERABLES * (ABNORMAL) HGB HCT PANEL (07/07/2014 4:53 AM COMMUNICATION LECTURER) Only the most recent of2 resultswithin the time period is included. Hemoglobin 10.6(L) 12.0 - 15.6 gm/dL 07/07/2014 5:31 AM COMMUNICATION LECTURER [facility] Hematocrit 32.1(L) 35.9 - 45.5 % 07/07/2014 5:31 AM COMMUNICATION LECTURER [facility] Blood BLOOD SPECIMEN / Unknown Lab Venipuncture / Unknown 07/07/2014 4:53 AM COMMUNICATION LECTURER 07/07/2014 5:22 AM COMMUNICATION LECTURER Uriel Cortez MD LAB - HEMATOLOGY ORD ERABLES [facility] [address] [facility] [place] [address] * TRUE AP/LAT KNEE LEFT IN PACU (07/05/2014 9:44 AM COMMUNICATION LECTURER) Anatomical Region Laterality Modality Lower Extremity Radiographic Phoebe ging 07/05/2014 9:53 AM COMMUNICATION LECTURER Impressions 07/05/2014 10:58 AM COMMUNICATION LECTURER Left knee prosthesis in appropriate alignment. Edited by Evi Jensen on 07/05/2014 10:10 AM Narrative 07/05/2014 10:58 AM COMMUNICATION LECTURER LEFT KNEE 2 VIEWS INDICATION: left knee [...] ROUTINE W/REFLEX TO CULTURE (07/05/2014 8:09 AM COMMUNICATION LECTURER) Color UA Yellow Straw, Yellow, Dark Yellow 07/05/2014 11:25 AM [facility] Clarity UA Clear 07/05/2014 11:25 AM [facility] Specific Greer UA 1.008 1.005 - 1.030 07/05/2014 11:25 AM [facility] pH UA 7.0 5.0 - 8.0 pH 07/05/2014 11:25 AM [facility] Protein UA Negative Negative 07/05/2014 11:25 AM [facility] Blood UA Negative Negative 07/05/2014 11:25 AM [facility] Leukocyte UA Negative Negative 07/05/2014 11:25 AM [facility] Nitrite UA Negative Negative 07/05/2014 11:25 AM [facility] Glucose UA Negative Negative 07/05/2014 11:25 AM [facility] Ketone UA Negative Negative 07/05/2014 11:25 AM [facility] Bilirubin UA Negative Negative 07/05/2014 11:25 AM [facility] Urobilinogen UA 0.2 0.1 - 1.0 EU/dL 07/05/2014 11:25 AM [facility] Reflex Status Culture not indicated 07/05/2014 11:25 AM [facility] Urine URINE SPECIMEN OBTAINED VIA INDWELLING URINARY CATHETER / Unknown Collection / Unknown 07/05/2014 8:09 AM COMMUNICATION LECTURER 07/05/2014 11:16 AM [facility] Comment:715.16 Uriel Cortez MD LAB - URINALYSIS ORD ERABLES [facility] [address] [address] * GROSS + MICRO EXAM (STL) (07/05/2014 8:09 AM COMMUNICATION LECTURER) Case Report Surgical Pathology Report Case: [id number] Authorizing Provider: Uriel Cortez MD Collected: 07/05/2014 08:09 AM Ordering Location: [facility] Received: 07/05/2014 12:40 PM Pathologist: Martin Chandra MD Specimen: Bone Fragments, bone and tissue left knee 07/08/2014 12:53 PM COMMUNICATION LECTURER [facility] Final Diagnosis A. Knee, left, bone and soft tissue: - Changes consistent with osteoarthritis SONAM/rach 07/08/2014 12:53 PM [facility] Gross Description The specimen is received [...] in A1 and A2, A2 for decal. BYRON/rcah 07/08/2014 12:53 PM COMMUNICATION LECTURER [facility] Microscopic Description Section labeled left knee bone and tissue shows fibrofatty tissue and fragments of bone and cartilaginous tissue. The cartilaginous tissue displays mild degeneration. Mild, focal, chronic inflammation is also noted within the section of the soft tissue. Osteomyelitis is not identified. SONAM/rach 07/08/2014 12:53 PM COMMUNICATION LECTURER [facility] Pathology/Cytolo gy BONE TISSUE SPECIMEN / Unknown 07/05/2014 8:09 AM COMMUNICATION LECTURER 07/05/2014 12:40 PM COMMUNICATION LECTURER Comment:715.16 Uriel Cortez MD LAB - PATHOLOGY/CYTO LOGY ORDERABLES [facility] [address] [address] * PERIPHERAL BLCOK (07/05/2014 6:41 AM COMMUNICATION LECTURER) Narrative Ji Sykes DO - 07/05/2014 6:41 AM COMMUNICATION LECTURER Ji Sykes DO 07/05/2014 6:41 AM Peripheral [...] MRSA/MSSA CARLOS A 06/14/2014 7:56 PM CDT [facility] MICROBIOLOGY Microbiology SPECIMEN FROM NASAL FOSSAE / Unknown Collection / Unknown 06/13/2014 2:09 PM CDT 06/13/2014 2:19 PM CDT Uriel Cortez MD LAB - MICROBIOLOGY O RDERABLES [facility] MICROBIOLOGY [address] [place] [address], [facility] Care Teams Counc[employer]or [employer] Relationship Specialty Start Date End Date Tasia Nash PA [address] [place] [id number] PCP - General Physician Back Tender [employer] 05/06/24 [place] [address] [address] Endocrinology 12/01/17 Tasia Nash PA [address] [place] [address] Physician Back Tender [employer] 06/02/18 Eulogio Marquez DPM [address] [facility] [address] [address] Podiatry 06/02/18 Eulogio Marquez DPM [address] [facility] [address] [address] 06/17/19 Dago Hernandez MD [address] [facility], [address] [place] [address] Cardiovascular Disease 01/16/21 Darlyn Perry MD [address] [place] [id number] Terminal Clerk Rheumatology 04/05/21
--- OUTSIDE RECORDS SUMMARY | 2024-11-12 20:05 | XMS_ITS | Clinical Summary ---
Author Organization [facility] Address [facility] [place] [address] Care Team Providers Care Life Skills Coordinator Volunteer Name Role Phone Unavailable Primary Care Provider [...]
--- OUTSIDE RECORDS SUMMARY | 2024-11-12 20:05 | XMS_ITS | CONTINUITY OF CARE DOCUMENT ---
Author Name lukasz missyefrain Address Unknown Organization [facility] Address [address] [facility] [address] [place] [address] Phone [phone] Care Team Providers Care Management Professional Name Role Phone Molly PRUITT, Jose C Unavailable KAIN DE LEON Unavailable KAIN DE LEON Unavailable [phone] PROBLEMS Condition Status Date Provider Notes Fatigue, acute active Lidia Johnson Hypertension active Lidia Johnson INSURANCE PROVIDERS Payer name Policy type / Coverage type [place] red green party ID [email or web address] PPO Other [id number] HISTORY OF PROCEDURES Procedure Date Procedure Name Provider Procedure Notes S tatus Stress EKG Jose C aBrnes MD complete d Cardiolite, 2 units Jose C Barnes MD completed SPECT Images Jose C Barnes MD comple samantha Stress EKG Soledad Gresham MD complet ed Cardiolite, 2 units Soledad Gresham MD completed SPECT Images Soledad Gresham MD compl eted
--- OUTSIDE RECORDS SUMMARY | 2024-11-12 20:05 | XMS_ITS | Referral Summary ---
Author Organization [facility] Address [address] [place] [address] Care Team Providers Care Business Liaison Officer Name Role Phone Jessy Baez MD Unavailable Tasia Nash Unavailable Eulogio Marquez DPM Unavailable [phone] Eulogio Marquez DPM Unavailable [phone] Dago Hernandez MD Unavailable Darlyn Perry MD Unavailable [phone] Tasia Nash Primary Care Pr ovider Source Comments [facility],non-owned Affiliates and Associated Physician Practices is amultiple site organization consisting of ambulatory clinics and hospital sitesin [place], [place], [place] and [place]. This disclosure is being madepursuant to the Care Everywhere program and may not contain all information available regarding this patient. Last updated 18.[facility] [employer] Encounters Date Type Department Care Team Description 11/12/2024 Telephone [facility] - Cardiology [address] [facility], [facility] [address] [place] [address] Loren Osorio, [facility]D [facility] 11/11/2024 Refill [facility] - Rheumatology [address] [place] [phone] Darlyn Perry MD Refill Request 11/07/2024 Refill [facility] - Rheumatology [address] [place] [phone] Darlyn Perry MD Refill Request 11/03/2024 Travel 11/03/2024 Refill [facility] - Rheumatology [address] [place] [phone] Darlyn Perry MD Refill Request 11/03/2024 8:40 AM MICROSCOPIST Office Visit [facility] - Rheumatology [address] [place] [phone] Darlyn Perry MD Interstitial lung disease (HCC) (Primary Dx); Therapeutic drug monitoring; Immunosuppression due to drug therapy (HCC); Antinuclear antibody (NICOLETTE) titer greater than 1:80; SS-A antibody positive 10/30/2024 Refill [facility] - Rheumatology [address] [place] [phone] Darlyn Perry MD Refill Request 10/15/2024 Orders Only [facility] - Rheumatology [address] [place] [phone] Darlyn Perry MD Therapeutic drug monitoring 10/05/2024 Travel 10/05/2024 8:30 AM MICROSCOPIST Office Visit [facility] - Pulmonology [address] [place] [phone] Jovan Martínez MD Interstitial lung disease (HCC) (Primary Dx); Obstructive sleep apnea syndrome 09/02/2024 11:00 AM MICROSCOPIST - 09/02/2024 11:59 PM MICROSCOPIST Hospital Encounter [facility] [address] [place] [address] Unknown, Provider Discharge Disposition: Home or Self [...] LURIA, FLUZONE TRIVALENT; 6MO+) (IIV3) 07/08/2014 Covid [employer] primary monoval ent 12+ yr 0.3mL Purple [...] Sex Assigned at Female 07/12/2021 8:47 AM MICROSCOPIST Gender Identity Female 07/12/2021 8:47 AM MICROSCOPIST Sexual Orientation Not on file Last Filed Vital Signs Vital Sign Reading Time Taken Comments Blood Pressure 119/75 11/03/2024 8:55 AM MICROSCOPIST Pulse 63 11/03/2024 8:55 AM MICROSCOPIST Temperature 36.6 C (97.8 F) 11/03/2024 8:55 AM MICROSCOPIST Respiratory Rate 17 10/05/2024 8:27 AM MICROSCOPIST Oxygen Saturation 94% 11/03/2024 8:55 AM MICROSCOPIST Inhaled Oxygen Concentration - - Weight 116.1 kg (256 lb) 11/03/2024 8:55 AM MICROSCOPIST Height 162.6 cm (5' 4 ) 11/03/2024 8:55 AM MICROSCOPIST Body Mass Index 43.94 11/03/2024 8:55 AM MICROSCOPIST Functional Status Functional Status Response Date of [...] [facility] Cardiology [address] [phone] Dago Hernandez MD [address] [address] 03/09/2025 8:20 AM CDT Office Visit [facility] - Rheumatology [facility] [facility], [place] [phone] Darlyn Perry MD [address] [place] [address] [place] [phone] 04/08/2025 9:00 AM CDT Appointment [facility] [address] [place] [phone] Remy Johnson MD [address] [place] [address] [address] DIV OF [place] [address] 04/08/2025 11:00 AM CDT Office Visit [facility] - Pulmonology [address] [place] [address], [place] [phone] Jovan Martínez MD [address] [place] [address] [address] DIV OF PULMONARY/[place] [address] 04/26/2025 8:20 AM CDT Office Visit [facility] Medical [facility] - Endocrinology [id number] [place] [address], [address] [place] [phone] Jessy Baez MD [address] [place] [address] [address] [place] [address] Medical Devices Implanted Type Area Treasury Accountant Device Identifier Shelf Expiration Date Model / Serial / Lot Poly Patella 35 Implanted:Qty: 1 on 07/05/2014 by Uriel Cortez MD at [facility] Left: Knee 03/01/2022 [id number] / / [id number] [place] Hv Implanted:Qty: 2 on 07/05/2014 by Uriel Cortez MD at [facility] Left: Knee [employer] 12/31/2015 [id number] / / [id number] Compon Fem Nexgen Lps-Flex Implanted:Qty: 1 on 07/05/2014 by Uriel Cortez MD at [facility] Left: Knee [employer] 06/01/2024 [id number] / / [id number] Plate Tibial Stem Sz 6 50mm X 74mm Implanted:Qty: 1 on 07/05/2014 by Uriel Cortez MD at [facility] Left: Knee [employer] 05/02/2024 [id number] / / [id number] Articular Surface 14 Mm Implanted:Qty: 1 on 07/05/2014 by Uriel Cortez MD at [facility] Left: Knee 03/01/2019 [id number] / / [id number] Procedures Procedure Name Priority Date/Time Associated Diagnosis Comments HEPATIC FUNCTION PANEL Routine 8:58 AM MICROSCOPIST Therapeutic drug monitoring CREATININE BLOOD Routine 10/29/2024 8:58 AM MICROSCOPIST Therapeutic drug monitoring CBC W AUTO DIFFERENTIAL Routine 10/29/2024 8:58 AM MICROSCOPIST Therapeutic drug monitoring COMPLETE PFT W/WO BRONCHODILATOR Routine 09/02/2024 1:54 PM MICROSCOPIST ILD (interstitial lung disease) (HCC) HEMOGLOBIN A1C (EXTERNAL RESULT ENTRY) Routine 07/13/2024 HEPATITIS C AB W/RFLX TO HCV RNA QN PCR 07/14/2020 7:49 AM MICROSCOPIST HIV-1 HIV-2 ANTIBODY + HIV P24 AG PANEL 07/14/2020 7:49 AM MICROSCOPIST MICROALB/CREAT RATIO URINE RANDOM PANEL Routine 12/11/2017 8:07 AM CDT Acquired hypothyroidism IGT (impaired glucose tolerance) Mixed hyperlipidemia Vitamin D deficiency Essential hypertension from Last 3 Months or Most Recently Relevant to Health Maintenance Results * (ABNORMAL) CBC WITH DIFFERENTIAL (10/29/2024 8:58 AM MICROSCOPIST) White Blood Cell Count 11.1(H) 3.8 - [...] 0.7 % [facility] Comment: Test Performed at: [place] [address] JANAK STEPHENS MD Blasts [facility] nRBC [facility] Comments [facility] Comment: Test Performed at: [facility] [id number] [place] [address] JANAK STEPHENS MD Blood BLOOD SPECIMEN / Unknown 10/29/2024 8:58 AM MICROSCOPIST 10/29/2024 8:59 AM MICROSCOPIST Darlyn Perry MD LAB - HEMATOLOGY ORD ERABLES [facility] [address] [place] [address] * HEPATIC FUNCTION PANEL (10/29/2024 8:58 AM MICROSCOPIST) Protein Total 7.1 6.1 - 8.1 g/dL [...] 29 U/L [facility] Comment: Test Performed at: [facility] [address] [place] [address] JANAK STEPHENS MD Blood BLOOD SPECIMEN / Unknown 10/29/2024 8:58 AM MICROSCOPIST 10/29/2024 8:59 AM MICROSCOPIST Darlyn Perry MD LAB - CHEMISTRY CADY D[facility]LAP Performing Organization Address City/[facility] Co de Phone Number [facility] [address] [place] [address] * CREATININE BLOOD (10/29/2024 8:58 AM MICROSCOPIST) Creatinine 0.84 0.50 - 1.05 mg/dL [facility] eGFR by Cystatin C 77 > OR = 60 mL/min/1.7 3m2 [facility] Comment: Test Performed at: [facility] [id number] [place] [address] JANAK STEPHENS MD Blood BLOOD SPECIMEN / Unknown 10/29/2024 8:58 AM MICROSCOPIST 10/29/2024 8:59 AM MICROSCOPIST Darlyn Perry MD LAB - CHEMISTRY CADY [place]L[facility] Performing Organization Address City/[facility]/ZIP Co de Phone Number [facility] [address] [place] [address] * COMPLETE PFT W/WO BRONCHODILATOR (09/02/2024 1:54 PM MICROSCOPIST) Nicolas Dewey MD - 09/02/2024 1:54 PM MICROSCOPIST [facility] DEPARTMENT OF PULMONARY, CRITICAL CARE, AND [...] of Pulmonary, Critical Care, and Sleep Medicine [facility] I have personally reviewed the pulmonary function test data and made adjustment to the interpretation where necessary. Nicolas Bhat MD 09/10/2024 Narrative Nicolas Bhat MD - 09/02/2024 1:54 PM MICROSCOPIST Luis Sevilla MD 09/03/2024 12:27 PM Jovan Martínez MD RESPIRATORY THERAPY ORDERABLES * (ABNORMAL) HEMOGLOBIN A1C (EXTERNAL RESULT ENTRY) (07/13/2024) Pathologist [facility] Hemoglobin A1c (EXTERNAL RESULT) 5.7(H) % OUTSIDE REFERENCE LAB Comment:[facility] [employer] (scanned) Blood BLOOD SPECIMEN / Unknown 07/13/2024 Historical Provider LAB - CHEMISTRY O RDERABLES OUTSIDE REFERENCE LAB * HEPATITIS C AB W/RFLX TO HCV RNA QN PCR (07/14/2020 7:49 AM MICROSCOPIST) Hepatitis C Antibody NON-REACTI VE NON-REACT SHABBIR [facility] Signal to Cut-Off 0.03 <1.00 [facility] Comment: HCV antibody was non-reactive. There is no laboratory evidence of HCV infection. In most cases, no further action is required. However, if recent HCV exposure is suspected, a test for HCV RNA (test code 22919) is suggested. For additional information please refer to http://Inside.Millican/faq/FUL50v6 (This link is being provided for informational/ educational purposes only.) Test Performed at: [facility] [address] [place] [address] JM DURAN DO,MPH 07/14/2020 7:49 AM MICROSCOPIST 07/14/2020 8:04 AM MICROSCOPIST Darlyn Perry MD LAB - CHEMISTRY CADY DUNLAP Performing Organization Address City/State/[facility] Co vt Phone Number [facility] [address] [place] [address] * HIV-1 HIV-2 ANTIBODY + HIV P24 AG PANEL (07/14/2020 7:49 AM MICROSCOPIST) HIV Screen 4th Generation w Reflex NON-REACT [...] purpose. For additional information please refer to http://education.[employer].Mobilinga/faq/CQX555 (This link is being provided for informational/ educational purposes only.) The performance of this assay has not been clinically validated in patients less than 2 years old. Test Performed at: [facility] [id number] [facility] [place] [address] JM DURAN DO,MPH 07/14/2020 7:49 AM MICROSCOPIST 07/14/2020 8:04 AM MICROSCOPIST Darlyn Perry MD LAB - CHEMISTRY CADY D[place] [facility] [address] [place] [address] * MICROALB/CREAT RATIO URINE RANDOM PANEL (12/11/2017 8:07 AM CDT) Creatinine Urine 23.9 Not Estab. mg/dL [facility] INSURANCE BILL Microalbumin Urine <3.0 Not Estab. ug/mL [facility] INSURANCE BILL Microalbumin/Crea tinine Ratio <12.6 0.0 - 30.0 mg/g creat [facility] INSURANCE BILL Comment:FASTING Urine URINE SPECIMEN OBTAINED BY CLEAN CATCH PROCEDURE / Unknown 12/11/2017 8:07 AM CDT 12/11/2017 Narrative Resulting Agency Comment [facility] [address] [facility] [id number] Jessy Baez MD LAB - URINE CHEM ISTRY ORDERABLES [facility] INSURANCE BILL [address] [place] [address] from Last 3 Months or Most Recently Relevant to Health Maintenance Advance Directives * Full Code (Latest Code Status on File) Date Activated Date Inactivated Comments 11/15/2020 7:44 PM 11/16/2020 4:34 PM * Full Code Date Activated Date Inactivated Comments 07/05/2014 10:44 AM 07/08/2014 1:36 PM Care Teams Business Liaison Officer Relationship Specialty Start Date End Date Tasia Nash PA [address] [place] [address] PCP - General Physician Dry Chain Offbearer 05/06/24 [place] [address] [address] Endocrinology 12/01/17 Tasia Nash PA [address] [place] [address] Physician Dry Chain Offbearer 06/02/18 Eulogio Marquez DPM [address] [facility] [address] [place] [address] Podiatry 06/02/18 Eulogio Marquez DPM [address] [facility] [address] [place] [address] 06/17/19 Dago Hernandez MD [address] [facility] [place] [address] [place] [address] Cardiovascular Disease 01/16/21 Darlyn Perry MD [address] [facility] [address] [place] [address] Field Captain Rheumatology 04/05/21
--- OUTSIDE RECORDS SUMMARY | 2024-11-12 20:05 | XMS_ITS | Clinical Summary ---
Author Organization [facility] Address [address] [place] [address] Care Team Providers Care Microbiology Manager Name Role Phone Jessy Baez MD Unavailable Tasia Nash Unavailable Eulogio Marquez DPM Unavailable [phone] Eulogio Marquez DPM Unavailable [phone] Dago Hernandez MD Unavailable Darlyn Perry MD Unavailable [phone] Tasia Nash Primary Care Pr ovider Source Comments [facility],non-owned Affiliates and Associated Physician Practices is amultiple site organization consisting of ambulatory clinics and hospital sitesin [place], [place], [place] and [place]. This disclosure is being madepursuant to the Care Everywhere program and may not contain all information available regarding this patient. Last updated 18.[facility] Allergies Active Allergy Reactions Criticality Noted Date [...] [facility] - Cardiology [address] [facility], [facility] [[email or web address]] [address] [place] [address] Loren Osorio RN IRREGULAR HEART BEAT 11/11/2024 Refill [facility] - Rheumatology [address] [place] [phone] Darlyn Perry MD Refill Request 11/07/2024 Refill [facility] - Rheumatology [address] [place] [phone] Darlyn Perry MD Refill Request 11/03/2024 8:40 AM RIPRAP PLACER Office Visit [facility] - Rheumatology [address] [place] [phone] Darlyn Perry MD Interstitial lung disease (HCC) (Primary Dx); Therapeutic drug monitoring; Immunosuppression due to drug therapy (HCC); Antinuclear antibody (NICOLETTE) titer greater than 1:80; SS-A antibody positive 11/03/2024 Travel 11/03/2024 Refill [facility] - Rheumatology [address] [place] [phone] Darlyn Perry MD Refill Request 10/30/2024 Refill [facility] - Rheumatology [address] [place] [phone] Darlyn Perry MD Refill Request 10/15/2024 Orders Only [facility] - Rheumatology [address] [place] [address] Darlyn Perry MD Therapeutic drug monitoring 10/05/2024 8:30 AM RIPRAP PLACER Office Visit [facility] - Pulmonology [address] [place] [address] Jovan Martínez MD Interstitial lung disease (HCC) (Primary Dx); Obstructive sleep apnea syndrome 10/05/2024 Travel 09/02/2024 11:00 AM RIPRAP PLACER - 09/02/2024 11:59 PM RIPRAP PLACER Hospital Encounter [facility] [address] [place] [address] Unknown, Provider Discharge Disposition: Home or Self Care from Last 3 Months Immunizations Name Administration Dates Next Due INFLUENZA VACCINE, TRIV. (AF LURIA, FLUZONE TRIVALENT; 6MO+) (IIV3) 07/08/2014 Covid [employer] primary monoval ent 12+ yr 0.3mL Purple [...] Sex Assigned at Female 07/12/2021 8:47 AM RIPRAP PLACER Gender Identity Female 07/12/2021 8:47 AM RIPRAP PLACER Sexual Orientation Not on file Last Filed Vital Signs Vital Sign Reading Time Taken Comments Blood Pressure 119/75 11/03/2024 8:55 AM RIPRAP PLACER Pulse 63 11/03/2024 8:55 AM RIPRAP PLACER Temperature 36.6 C (97.8 F) 11/03/2024 8:55 AM RIPRAP PLACER Respiratory Rate 17 10/05/2024 8:27 AM RIPRAP PLACER Oxygen Saturation 94% 11/03/2024 8:55 AM RIPRAP PLACER Inhaled Oxygen Concentration - - Weight 116.1 kg (256 lb) 11/03/2024 8:55 AM RIPRAP PLACER Height 162.6 cm (5' 4 ) 11/03/2024 8:55 AM RIPRAP PLACER Body Mass Index 43.94 11/03/2024 8:55 AM RIPRAP PLACER Plan of Treatment Upcoming Encounters Date Type Department Care Team (Late st Contact Info) Description 12/16/2024 8:40 AM CDT Office Visit [facility] - Cardiology [address] [phone] Dago Hernandez MD [address] [address] 03/09/2025 8:20 AM CDT Office Visit [facility] - Rheumatology [address] [facility] [place] [phone] Darlyn Perry MD [address] [facility] [address]L [place] [phone] 04/08/2025 9:00 AM CDT Appointment [facility] [address] [place] [phone] Remy Johnson MD [address] [facility] 2L [place] [address] 04/08/2025 11:00 AM CDT Office Visit [facility] - Pulmonology [address] [facility], [place] [address] Jovan Martínez MD [address] [place] [address] 2L DIV OF PULMONARY/[place] [address] 04/26/2025 8:20 AM CDT Office Visit [facility] - Endocrinology [address] [place] [address], [address] [place] [phone] [place] [address] [facility] [place] [address] Health Maintenance Due Date Last Done Comments [...] this topic Medical Devices Implanted Type Area Nursing Care Partner Device Identifier Shelf Expiration Date Model / Serial / Lot Poly Patella 35 Implanted:Qty: 1 on 07/05/2014 by Uriel Cortez MD at [facility] Left: Knee 03/01/2022 [id number] / / [id number] [employer] [place] Hv Implanted:Qty: 2 on 07/05/2014 by Uriel Cortez MD at [facility] Left: Knee [employer] 12/31/2015 [id number] / / [id number] Compon Fem Nexgen Lps-Flex Implanted:Qty: 1 on 07/05/2014 by Uriel Cortez MD at [facility] Left: Knee [employer] 06/01/2024 [id number] / / [id number] Plate Tibial Stem Sz 6 50mm X 74mm Implanted:Qty: 1 on 07/05/2014 by Uriel Cortez MD at [facility] Left: Knee [employer] 05/02/2024 [id number] / / [id number] Articular Surface 14 Mm Implanted:Qty: 1 on 07/05/2014 by Uriel Cortez MD at [facility] Left: Knee 03/01/2019 [id number] / / [id number] Procedures Procedure Name Priority Date/Time Associated Diagnosis Comments HEPATIC FUNCTION PANEL Routine 8:58 AM RIPRAP PLACER Therapeutic drug monitoring CREATININE BLOOD Routine 10/29/2024 8:58 AM RIPRAP PLACER Therapeutic drug monitoring CBC W AUTO DIFFERENTIAL Routine 10/29/2024 8:58 AM RIPRAP PLACER Therapeutic drug monitoring COMPLETE PFT W/WO BRONCHODILATOR Routine 09/02/2024 1:54 PM RIPRAP PLACER ILD (interstitial lung disease) (HCC) HEMOGLOBIN A1C (EXTERNAL RESULT ENTRY) Routine 07/13/2024 HEPATITIS C AB W/RFLX TO HCV RNA QN PCR 07/14/2020 7:49 AM RIPRAP PLACER HIV-1 HIV-2 ANTIBODY + HIV P24 AG PANEL 07/14/2020 7:49 AM RIPRAP PLACER MICROALB/CREAT RATIO URINE RANDOM PANEL Routine 12/11/2017 8:07 AM CDT Acquired hypothyroidism IGT (impaired glucose tolerance) Mixed hyperlipidemia Vitamin D deficiency Essential hypertension from Last 3 Months or Most Recently Relevant to Health Maintenance Results * (ABNORMAL) CBC WITH DIFFERENTIAL (10/29/2024 8:58 AM RIPRAP PLACER) White Blood Cell Count 11.1(H) 3.8 - [...] 0.7 % [facility] Comment: Test Performed at: [place] [address] JANAK STEPHENS MD Blasts [facility] nRBC [facility] Comments [facility] Comment: Test Performed at: [place] [address] JANAK STEPHENS MD Blood BLOOD SPECIMEN / Unknown 10/29/2024 8:58 AM RIPRAP PLACER 10/29/2024 8:59 AM RIPRAP PLACER Darlyn Perry MD LAB - HEMATOLOGY ORD ERABLES [facility] [address] [place] [address] * HEPATIC FUNCTION PANEL (10/29/2024 8:58 AM RIPRAP PLACER) Protein Total 7.1 6.1 - 8.1 g/dL [...] 29 U/L [facility] Comment: Test Performed at: [facility] [address] [facility] [place] [address] JANAK STEPHENS MD Blood BLOOD SPECIMEN / Unknown 10/29/2024 8:58 AM RIPRAP PLACER 10/29/2024 8:59 AM RIPRAP PLACER Darlyn Perry MD LAB - CHEMISTRY CADY DUNLAP Performing Organization Address [facility] Co de Phone Number [facility] [address] [place] [address] * CREATININE BLOOD (10/29/2024 8:58 AM RIPRAP PLACER) Creatinine 0.84 0.50 - 1.05 mg/dL [facility] eGFR by Cystatin C 77 > OR = 60 mL/min/1.7 3m2 [facility] Comment: Test Performed at: [employer] [facility] [place] [address] JANAK STEPHENS MD Blood BLOOD SPECIMEN / Unknown 10/29/2024 8:58 AM RIPRAP PLACER 10/29/2024 8:59 AM RIPRAP PLACER Darlyn Perry MD LAB - CHEMISTRY CADY DUNLAP Performing Organization Address City/[facility] Co de Phone Number [facility] [address] [place] [address] * COMPLETE PFT W/WO BRONCHODILATOR (09/02/2024 1:54 PM RIPRAP PLACER) Impressions Nicolas Bhat MD - 09/02/2024 1:54 PM RIPRAP PLACER [facility] DEPARTMENT OF PULMONARY, CRITICAL CARE, AND SLEEP [...] Pulmonary, Critical Care, and Sleep Medicine [facility] I have personally reviewed the pulmonary function test data and made adjustment to the interpretation where necessary. Nicolas Bhat MD 09/10/2024 Narrative Nicolas Bhat MD - 09/02/2024 1:54 PM RIPRAP PLACER Luis Sevilla MD 09/03/2024 12:27 PM Jovan Martínez MD RESPIRATORY THERAPY ORDERABLES * (ABNORMAL) HEMOGLOBIN A1C (EXTERNAL RESULT ENTRY) (07/13/2024) Pathologist [facility] Hemoglobin A1c (EXTERNAL RESULT) 5.7(H) % OUT[facility]IDE REFERENCE LAB Comment:[employer] - [email or web address] (scanned) Blood BLOOD SPECIMEN / Unknown 07/13/2024 Historical Provider LAB - CHEMISTRY O RDERABLES OUT[facility]IDE REFERENCE LAB * HEPATITIS C AB W/RFLX TO HCV RNA QN PCR (07/14/2020 7:49 AM RIPRAP PLACER) Hepatitis C Antibody NON-REACTI VE NON-REACT SHABBIR [facility] Signal to Cut-Off 0.03 <1.00 [facility] Comment: HCV antibody was non-reactive. There is no laboratory evidence of HCV infection. In most cases, no further action is required. However, if recent HCV exposure is suspected, a test for HCV RNA (test code 43793) is suggested. For additional information please refer to [email or web address] MatchMaker/faq/YLB38f7 (This link is being provided for informational/ educational purposes only.) Test Performed at: [place] [facility] [address] [address], [employer] [address] JM DURAN DO,MPH 07/14/2020 7:49 AM RIPRAP PLACER 07/14/2020 8:04 AM RIPRAP PLACER Darlyn Perry MD LAB - CHEMISTRY CADY DUNLAP Performing Organization Address [facility] Co de Phone Number [employer] [phone] [place] [address] * HIV-1 HIV-2 ANTIBODY + HIV P24 AG PANEL (07/14/2020 7:49 AM RIPRAP PLACER) [facility] HIV Screen 4th Generation w Reflex NON-REACT [...] purpose. For additional information please refer to http://[email or web address] MatchMaker/faq/YQB865 (This link is being provided for informational/ educational purposes only.) The performance of this assay has not been clinically validated in patients less than 2 years old. Test Performed at: [facility] [address] [employer], [employer] [address] JM DURAN DO,MPH 07/14/2020 7:49 AM RIPRAP PLACER 07/14/2020 8:04 AM RIPRAP PLACER Darlyn Perry MD LAB - CHEMISTRY CADY DUNLAP Performing Organization Address [facility]/ZIP Co de Phone Number [employer] [phone] [place] [address] * MICROALB/CREAT RATIO URINE RANDOM PANEL (12/11/2017 8:07 AM CDT) Creatinine Urine 23.9 Not Estab. mg/dL [facility] INSURANCE BILL Microalbumin Urine <3.0 Not Estab. ug/mL [facility] INSURANCE BILL Microalbumin/Crea tinine Ratio <12.6 0.0 - 30.0 mg/g creat [facility] INSURANCE BILL Comment:FASTING Urine URINE SPECIMEN OBTAINED BY CLEAN CATCH PROCEDURE / Unknown 12/11/2017 8:07 AM CDT 12/11/2017 Narrative Resulting Agency Comment [facility] [address] [facility] [phone] Jessy Baez MD LAB - URINE CHEM ISTRY ORDERABLES [facility] INSURANCE BILL [address] [place] [address] from Last 3 Months or Most Recently Relevant to Health Maintenance Advance Directives * Full Code (Latest Code Status on File) Date Activated Date Inactivated Comments 11/15/2020 7:44 PM 11/16/2020 4:34 PM * Full Code Date Activated Date Inactivated Comments 07/05/2014 10:44 AM 07/08/2014 1:36 PM Care Teams Microbiology Manager Relationship Specialty Start Date End Date Tasia Nash PA [address] [place] [address] PCP - General Physician Designer And Patternmaker 05/06/24 [place] [address] [facility] [address] [place] [address] Endocrinology 12/01/17 Tasia Nash PA [address] [place] [phone] Physician Designer And Patternmaker 06/02/18 Eulogio Marquez DPM [address] [facility] [facility] [address] [place] [address] Podiatry 06/02/18 Eulogio Marquez DPM [address] [facility] [facility] [address] [place] [address] 06/17/19 Dago Hernandez MD [address] [facility] [place] [address] Cardiovascular Disease 01/16/21 Darlyn Perry MD [address] [address] Consumer Loan Underwriter Rheumatology 04/05/21
== END 2024-11-12 20:04 | disposition left against medical advice (07) ==
LOC: ANHED 20:03
PROVIDERS: PCP Physician Assistant
DX: R06.02 Shortness of breath (principal)
CPT/HCPCS: 99199

== ENCOUNTER 2024-11-15 10:37 | Outpatient (CLI) | payer MEDICARE, SELFPAY ==
--- NOTE | ~2024-11-15 | XR_ITS ---
XR chest 2V 11/15/2024 11:00 Indication: Dyspnea Procedure: 2 view chest Comparison: 03/11/2024 Findings: Cardiomegaly. Extensive bilateral airspace disease. Small right pleural effusion. No pneumo thorax. Impression: 1: Extensive bilateral airspace disease, most likely edema versus pneumonia. 2: Stable cardiomegaly. 3: Small right pleural effusion. Reviewed, dictated and finalized at location B. Impression: 1: Extensive bilateral airspace disease, most likely edema versus pneumonia. 2: Stable cardiomegaly. 3: Small right pleural effusion.
== END 2024-11-15 10:38 | disposition home or self-care (01) ==
LOC: MICIMG 10:44
PROVIDERS: PCP Physician Assistant; Visit Provider Physician Assistant
DX: J90 Pleural effusion, not elsewhere classified (principal); I51.7 Cardiomegaly; R91.8 Other nonspecific abnormal finding of lung field
CPT/HCPCS: 71046

== ENCOUNTER 2025-08-05 08:55 | Outpatient (CLI) | payer MEDICARE, SELFPAY ==
--- NOTE | ~2025-08-05 | XR_ITS ---
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 Technique: 2 views obtained. Findings: Moderate pulmonary venous congestion. Moderate basilar infiltrates and effusions. No pneumothorax. Moderate cardiomegaly. Mediastinal and hilar contours are within normal limits. Bony thorax no acute abnormality. Impression: CHF. Superimposed probable pneumonia. Reviewed, dictated and finalized at location P. MOVER Impression: CHF. Superimposed probable pneumonia.
== END 2025-08-05 08:56 | disposition home or self-care (01) ==
LOC: MICIMG 08:57
PROVIDERS: PCP Physician Assistant; Visit Provider Physician Assistant
DX: R05.3 Chronic cough (principal); I50.9 Heart failure, unspecified
CPT/HCPCS: 71046

== ENCOUNTER 2025-08-08 08:38 | Outpatient (CLI) | payer MEDICARE, SELFPAY ==
--- NOTE | ~2025-08-08 | XR_ITS ---
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 Technique: 2 views obtained. Findings: Moderate pulmonary venous congestion. Trace basilar effusions. No pneumothorax. Moderate severe cardiomegaly. Mediastinal and hilar contours are within normal limits. Bony thorax no acute abnormality. Impression: CHF. Superimposed probable pneumonia. The findings appear slightly progressed Reviewed, dictated and finalized at location P. ING MACHINE OPERATOR Impression: CHF. Superimposed probable pneumonia. The findings appear slightly progressed
== END 2025-08-08 08:39 | disposition home or self-care (01) ==
LOC: MICIMG 08:39
PROVIDERS: PCP Physician Assistant; Visit Provider Physician Assistant
DX: R05.3 Chronic cough (principal); I50.9 Heart failure, unspecified
CPT/HCPCS: 71046

== ENCOUNTER 2025-08-12 07:19 | Outpatient (CLI) | payer MEDICARE, SELFPAY ==
--- NOTE | ~2025-08-12 | MM_ITS ---
EXAMINATION: MM screening arcenio BI w sandra HISTORY: Screening. TECHNIQUE: Craniocaudal and mediolateral oblique 3-D tomosynthesis images were obtained and synthetic 2-D images were generated. CAD analysis was submitted and interpreted. COMPARISON: 2023, 2022, and 2021. BREAST PARENCHYMAL COMPOSITION: Dense: The breasts are heterogeneously dense FINDINGS: No suspicious masses are seen. There are no suspicious calcifications. No unexplained architectural distortion is seen. There are no skin or nipple abnormalities identified. There is no adenopathy seen on the images submitted. IMPRESSION: No mammographic evidence to suggest malignancy is seen. The patient may return to screening mammography as per ACR guidelines. BI-RADS 1 - Negative. Reviewed, dictated and finalized at location C. SUPERINTENDENT
== END 2025-08-12 07:20 | disposition home or self-care (01) ==
LOC: MICIMG 07:20
PROVIDERS: PCP Physician Assistant; Visit Provider Obstetrics & Gynecology Gynecology
DX: Z12.31 Encounter for screening mammogram for malignant neoplasm of breast (principal)
CPT/HCPCS: 77063; 77067